=== PATIENT | male | born 1945 | race Caucasian/White ===

== ENCOUNTER → 2016-11-30 | Outpatient (CLI) | payer OTHER ==
[~2016-11-30] MED LIST: ASPEC325 PO; LISI5TAB3 PO; METO50TA16 PO
[2016-11-30 17:58] LABS: BLOOD UREA NITROGEN 17 mg/dl (7-18); BUN/CREATININE RATIO 22.3 (10-20); CALCIUM 8.9 mg/dl (8.5-10.1); CARBON DIOXIDE 30 mmol/L (21-32); CHLORIDE 102 mmol/L (98-107); CREATININE 0.78 mg/dl (0.60-1.40); GLUCOSE 82 mg/dl (70-99); POTASSIUM 3.8 mmol/L (3.5-5.1); SODIUM 140 mmol/L (136-145)
== END | disposition home or self-care (01) ==
LOC: C.LABPVFM 13:55
PROVIDERS: ATTEND Nurse Practitioner
DX: I10 Essential (primary) hypertension (principal)

== ENCOUNTER → 2017-06-08 | Outpatient (CLI) | payer OTHER ==
[2017-06-08 13:01] LABS: ESTIMATED AVERAGE GLUCOSE 120 mg/dl; HA1C FLAG Normal (Normal)
[2017-06-08 13:21] LABS: BLOOD UREA NITROGEN 16 mg/dl (7-18); BUN/CREATININE RATIO 18.9 (10-20); CALCIUM 9.2 mg/dl (8.5-10.1); CARBON DIOXIDE 32 mmol/L (21-32); CHLORIDE 104 mmol/L (98-107); CREATININE 0.85 mg/dl (0.60-1.40); GLUCOSE 113 mg/dl (70-99); POTASSIUM 4.2 mmol/L (3.5-5.1); SODIUM 140 mmol/L (136-145)
[2017-06-08 13:24] LABS: CHOLESTEROL 105 mg/dl (0-200); CHOLESTEROL/HDL RATIO 2.2; HDL CHOLESTEROL 48 mg/dl; LDL CHOLESTEROL CALCULATED 42 mg/dl; TRIGLYCERIDES 75 mg/dl (0-150); VERY LOW DENSITY LIPOPROT CALC 15 mg/dl
== END | disposition home or self-care (01) ==
LOC: C.LABPVFM 07:57
PROVIDERS: ATTEND Nurse Practitioner
DX: E78.5 Hyperlipidemia, unspecified (principal); I10 Essential (primary) hypertension; R73.01 Impaired fasting glucose

== ENCOUNTER → 2017-08-20 | Outpatient (CLI) | payer OTHER ==
[2017-08-20 13:11] LABS: BASO % 0.3 %; BASO ABS # 0.02 K/uL (0-0.2); COMPLETE YES; HEMATOCRIT 39.7 % (42-52); IG% 0.3 %; LYMPH ABS # 1.09 K/uL (1.2-3.4); MEAN CORPUSCULAR HEMOGLOBIN 34.9 pg (25-34); MEAN CORPUSCULAR HGB CONC 34.5 g/dl (32-36); MEAN PLATELET VOLUME 11.1 fL (7.4-10.4); MONO % 6.1 %; NEUT % 74.3 %; PLATELET COUNT 184 K/uL (130-400); RED BLOOD COUNT 3.93 M/uL (4.7-6.1); WHITE BLOOD COUNT 6.41 K/uL (4.8-10.8)
[2017-08-20 13:24] LABS: ALB/GLOB RATIO 1.1 (0.9-2); ALKALINE PHOSPHATASE 82 U/L (45-117); ALT/SGPT 31 U/L (12-78); AST/SGOT 13 U/L (15-37); BLOOD UREA NITROGEN 15 mg/dl (7-18); BUN/CREATININE RATIO 20.9 (10-20); CALCIUM 8.9 mg/dl (8.5-10.1); CARBON DIOXIDE 29 mmol/L (21-32); CHLORIDE 105 mmol/L (98-107); CREATININE 0.74 mg/dl (0.60-1.40); GLUCOSE 109 mg/dl (70-99); POTASSIUM 4.1 mmol/L (3.5-5.1); SODIUM 139 mmol/L (136-145)
[2017-08-20 13:34] LABS: ESTIMATED AVERAGE GLUCOSE 117 mg/dl; HA1C FLAG Normal (Normal)
[2017-08-20 13:38] LABS: LYME DISEASE AB IGG NEG (NEG); LYME DISEASE AB IGM NEG (NEG)
[2017-08-20 23:23] LABS: RAPID PLASMA REAGIN NONREACTIVE (NONREACT)
== END | disposition home or self-care (01) ==
LOC: C.LABPVFM 08:58
PROVIDERS: ATTEND Psychiatry & Neurology Neurology
DX: G20 Parkinson's disease (principal); R41.3 Other amnesia; G60.9 Hereditary and idiopathic neuropathy, unspecified

== ENCOUNTER → 2017-09-07 | Outpatient (CLI) | payer OTHER ==
[~2017-09-07] MED LIST changes: +GADAVIST IV PRN
--- NOTE | 2017-09-07 15:05 | DIAGNOSTIC IMAGING REPORT ---
ORBITS FOR MRI HISTORY: 72 years-old Male MRI SCREENING history of metal exposure. COMPARISON: None available TECHNIQUE: 3 radiographs of the orbits. FINDINGS: Ill-defined calcifications project over the mid calvarium which are nonspecific. No metallic foreign bodies. No fracture. IMPRESSION: No metallic foreign body. The above report was generated using voice recognition software. It may contain grammatical, syntax or spelling errors. Electronically signed by: Shaan Simon M.D. 09/07/2017 3:03 PM Dictated Date/Time: 09/07/2017 3:01 PM
--- NOTE | 2017-09-07 15:56 | DIAGNOSTIC IMAGING REPORT ---
Brain MRI WITH AND WITHOUT CONTRAST HISTORY: G20 Parkinson's [id number] Memory loss or impairment TECHNIQUE: Multiplanar multisequence MRI of the brain was performed both before and after the intravenous administration of contrast. COMPARISON STUDY: None. FINDINGS: There is no mass, hematoma, midline shift, or acute infarct. The paranasal sinuses are clear. The mastoid air cells are clear. The ventricles and sulci demonstrate mild age-related involutional changes. The major vascular flow voids at the skull base are well-maintained. No abnormal enhancement. IMPRESSION: Mild atrophy. No acute intracranial abnormality. Electronically signed by: Kleber Zepeda M.D. 09/07/2017 3:55 PM Dictated Date/Time: 09/07/2017 3:50 PM
== END | disposition home or self-care (01) ==
LOC: C.MRI 14:27
PROVIDERS: ATTEND Psychiatry & Neurology Neurology
DX: G20 Parkinson's disease (principal); R41.3 Other amnesia; G31.9 Degenerative disease of nervous system, unspecified

== ENCOUNTER → 2018-05-12 | Outpatient (CLI) | payer OTHER ==
[~2018-05-12] MED LIST changes: -GADAVIST IV PRN
[2018-05-12 12:39] LABS: BASO % 0.4 %; BASO ABS # 0.03 K/uL (0-0.2); EOS % 1.3 %; EOS ABS # 0.09 K/uL (0-0.5); HEMATOCRIT 41.8 % (42-52); HEMOGLOBIN 14.1 g/dL (14.0-18.0); IG# 0.02 K/uL (0.00-0.02); LYMPH % 16.7 %; LYMPH ABS # 1.12 K/uL (1.2-3.4); MEAN CELL VOLUME 99.8 fL (80-100); MEAN CORPUSCULAR HEMOGLOBIN 33.7 pg (25-34); MEAN CORPUSCULAR HGB CONC 33.7 g/dl (32-36); MEAN PLATELET VOLUME 10.8 fL (7.4-10.4); MONO % 8.1 %; MONO ABS # 0.54 K/uL (0.11-0.59); NEUT % 73.2 %; PLATELET COUNT 184 K/uL (130-400); RED CELL DISTRIBUTION WIDTH CV 12.4 % (11.5-14.5); RED CELL DISTRIBUTION WIDTH SD 45.2 fL (36.4-46.3)
[2018-05-12 12:56] LABS: BLOOD UREA NITROGEN 22 mg/dl (7-18); CALCIUM 8.7 mg/dl (8.5-10.1); CARBON DIOXIDE 30 mmol/L (21-32); CHOLESTEROL 106 mg/dl (0-200); CREATININE 0.99 mg/dl (0.60-1.40); GLUCOSE 80 mg/dl (70-99); HEMOGLOBIN A1C 5.7 % (4.5-5.6); LDL CHOLESTEROL CALCULATED 29 mg/dl; POTASSIUM 4.3 mmol/L (3.5-5.1); SODIUM 139 mmol/L (136-145)
== END | disposition home or self-care (01) ==
LOC: C.LABPVFM 11:20
PROVIDERS: ATTEND Nurse Practitioner
DX: E78.5 Hyperlipidemia, unspecified (principal); R73.01 Impaired fasting glucose; I10 Essential (primary) hypertension; R41.3 Other amnesia; G20 Parkinson's disease; H53.2 Diplopia

== ENCOUNTER → 2018-05-30 | Outpatient (CLI) | payer OTHER ==
--- NOTE | 2018-05-30 11:46 | DIAGNOSTIC IMAGING REPORT ---
L-SPINE MIN 4 VIEWS ROUTINE CLINICAL HISTORY: Low back pain COMPARISON STUDY: No previous studies for comparison. FINDINGS: There are multilevel degenerative changes. There is bridging calcification of the anterior longitudinal ligament. There are no acute fractures. There is a grade 1 spondylolisthesis of L4 on L5. There is facet joint arthropathy most pronounced the L4-5 and L5-S1 levels. IMPRESSION: 1. Multilevel degenerative change 2. No acute fractures identified Electronically signed by: Constantin Chambers M.D. 05/30/2018 11:45 AM Dictated Date/Time: 05/30/2018 11:43 AM
== END | disposition home or self-care (01) ==
LOC: C.RADPV 11:02
PROVIDERS: ATTEND Physician Assistant
DX: M54.5 Low back pain (principal)

== ENCOUNTER 2021-03-15 14:43 | Inpatient (IN) ==
[2021-03-15 15:22] LABS: iSTAT Hemoglobin 10.9 g/dl (14.0-18.0); iSTAT Ionized Calcium 1.05 mmol/l (1.12-1.32); iSTAT Potassium 5.2 mmol/L (3.3-5.0)
[2021-03-15 15:35] LABS: Basophils # (auto) 0.02 K/uL (0-0.2); Basophils % (auto) 0.3 %; Eosinophils # (auto) 0.06 K/uL (0-0.5); Hematocrit (blood only) 31.7 % (42-52); Hemoglobin 10.5 g/dL (14.0-18.0); Immature Granulocytes # (auto) 0.02 K/uL (0.00-0.02); Immature Granulocytes % (auto) 0.3 %; Lymphocytes % (auto) 13.2 %; Mean Corpuscular Hemoglobin 34.3 pg (25-34); Mean Corpuscular Hgb Conc 33.1 g/dL (32-36); Mean Corpuscular Volume 103.6 fL (80-100); Mean Platelet Volume 9.9 fL (7.4-10.4); Monocytes # (auto) 0.49 K/uL (0.11-0.59); Monocytes % (auto) 8.1 %; Neutrophils # (auto) 4.69 K/uL (1.4-6.5); Neutrophils % (auto) 77.1 %; Platelet Count 193 K/uL (130-400); RDW Coefficient of Variation 13.2 % (11.5-14.5); RDW Standard Deviation 49.7 fL (36.4-46.3); Red Blood Count 3.06 M/uL (4.7-6.1); White Blood Count 6.08 K/uL (4.8-10.8)
[2021-03-15 15:49] LABS: Appearance Urine Clear (Clear); Bilirubin Urine Negative (Negative); Blood Urine Negative (Negative); Color Urine Dark Yellow; Glucose Urine UA Negative (Negative); Ketones Urine Negative (Negative); Leukocyte Esterase Urine Negative (Negative); Nitrite Urine Negative (Negative); Protein Urine Negative (Negative); Specific Gravity Urine 1.013 (1.000-1.030); Urobilinogen Urine Negative (Negative); pH Urine 7.5 (4.5-7.5)
[2021-03-15 15:54] LABS: Alanine Aminotransferase 14 U/L (12-78); Albumin Level 2.5 gm/dl (3.4-5.0); BUN Creatinine Ratio 19.1 (10-20); Blood Urea Nitrogen 13 mg/dl (7-18); Calcium 6.4 mg/dl (8.5-10.1); Carbon Dioxide 25 mmol/L (21-32); Chloride 119 mmol/L (98-107); Creatinine Clr Calc Pharmacy 112.5 ml/min; Est GFR (African American) 108.2 ml/min; Est GFR (Non-African American) 93.3 ml/min; Glucose 81 mg/dl (70-99); Sodium 147 mmol/L (136-145)
[2021-03-15 16:04] LABS: Alkaline Phosphatase 62 U/L (45-117); Bilirubin,Total 0.4 mg/dl (0.2-1); Globulin 2.6 gm/dl (2.5-4.0); Total Protein 5.1 gm/dl (6.4-8.2); Troponin I < 0.015 ng/ml (0-0.045)
--- NOTE | 2021-03-15 16:04 | XRay Report ---
XR chest 1V portable HISTORY: weakness COMPARISON: Chest 05/15/2008. FINDINGS: No pneumothorax. No pleural effusions. Mild diffuse interstitial thickening which is likely chronic. The heart is normal in size. There is a hazy left basilar density. No evidence for pulmonar y edema. IMPRESSION: Hazy small left basilar density. This may represent a developing viral pneumonia. ACT 112: Negative or not required by law. Electronically signed by: Kleber Zepeda M.D. 03/15/2021 4:03 PM
--- NOTE | 2021-03-15 16:30 | Emergency Department Note ---
History of Present Illness General Chief complaint: Lethargic Stated complaint: hypotension Time Seen by Provider: 03/15/21 14:49 Source: patient and family History of Present Illness Provider complaint: Lightheadedness Onset (ago): week(s) Location: head Pain Consistency: + intermittent Maximum Pain Intensity: 4 Quality: + other (Dizzy and lightheaded) Exacerbated By: + other (Standing up) Associated symptoms: + weakness; no chest pain, no cough, no fever/chills, no headaches, no nausea/vomiting and no shortness of breath This is a 75-year-old male who presents with dizziness. He states he has been dizzy for a long time. He describes his dizziness as a lightheadedness. He states that it is worse when he stands up. His states that he is on a medication for his blood pressure but today his blood pressure was in the 60s systolic. His states that he took his medication for his blood pressure. His med list states that he is on Florinef for orthostatic hypotension. His blood pressure did improve spontaneously and he was given about 1/2 L of normal saline by the ambulance and is now currently normal. He has no other complaints today. His states that he has been somewhat lethargic. He denies any headache, fever, cough or cold symptoms, chest discomfort or pain, shortness of breath, abdominal pain, vomiting, diarrhea, urinary symptoms or black or bloody stools. He does state that his stools have been dark but mostly brown. He denies using any blood thinners. Home Medications Medication Instructions Recorded Confirmed Type docusate sodium 100 mg capsule 200 mg PO HS cap 03/13/19 03/15/21 History ibuprofen 200 mg-diphenhydramine 1 cap PO HS cap 06/28/19 03/15/21 History HCl 25 mg capsule famotidine 20 mg tablet 20 mg PO DAILY 06/11/20 03/15/21 History aspirin 81 mg tablet,delayed 81 mg PO DAILY tab 02/17/21 02/17/21 History release carbidopa 37.5 mg-levodopa 150 1 tab PO QID #120 tab 02/17/21 03/15/21 Rx mg-entacapone 200 mg tablet citalopram 20 mg tablet 20 mg PO DAILY #60 tab 02/17/21 03/15/21 History fludrocortisone 0.1 mg tablet 0.1 mg PO DAILY tab 02/17/21 03/15/21 History melatonin 3 mg tablet 9 mg PO Q2D tab 02/17/21 03/15/21 History memantine 10 mg tablet 10 mg PO BID tab 02/17/21 03/15/21 History dutasteride 0.5 mg PO QDL 03/15/21 03/15/21 History Allergies Allergy/AdvReac Type Severity Reaction Status Date / Time oxycodone [From OxyContin] AdvReac Unknown Verified 03/15/21 16:35 Past Med/Surg History Medical History Aphonia Auditory hallucination Central retinal vein occlusion Cervical spondylosis Common iliac aneurysm Confusion Constipation Depression with anxiety Diverticulosis of colon Double vision with both eyes open Esophageal reflux Fatigue Gastrointestinal dysmotility Hoarseness Hyperlipidemia Impaired fasting glucose Low back pain Low systolic blood pressure Need for pneumococcal vaccination Osteoarthrosis of knee Parkinsons disease Screening for AAA (abdominal aortic aneurysm) Sleep apnea Surgical History History of hernia repair History of knee replacement Family History Other Family history unremarkable Denies family history of Ovarian cancer Prostate cancer Myocardial infarction Breast cancer Colorectal cancer Social History Smoking Status: Never smoker Hx Alcohol Use: No Hx Substance Use: No marital status: Current Living Situation: Spouse current occupational status: retired Feels Safe at Home: Yes caffeine: No Dental Care, Regularly: Yes Physical Activity Frequency: 5-6 Times per Week Seatbelt Use: always Sunscreen Use: No Review of Systems See HPI for pertinent positives & negatives. and A total of 10 systems reviewed and were otherwise negative Physical Exam Vital Signs Vital Signs - 24 hr 03/15/21 14:48 03/15/21 15:37 03/15/21 15:41 Temperature 36.7 C Temperature Source Oral Pulse Rate 77 76 Pulse Rate from SpO2 Sensor 76 Pulse Rhythm Regular Pulse Strength Normal Respiratory Rate 20 22 Respiratory Effort / Characteristics Non-Labored Spontaneous Respiratory Depth Normal Respiratory Pattern Regular Blood Pressure 141/83 H 178/99 H Blood Pressure Mean 102 125 Blood Pressure Position Lying Pulse Oximetry 98 97 Oxygen Delivery Method Room Air Room Air Sepsis Recent Fever Within 48 Hours No Sepsis New/Unexplained Change in Mental Status No Sepsis Action Taken by Nursing No Action Required 03/15/21 15:43 03/15/21 16:00 03/15/21 16:30 Temperature Temperature Source Pulse Rate 80 79 Pulse Rate from SpO2 Sensor 80 80 Pulse Rhythm Pulse Strength Respiratory Rate 18 20 Respiratory Effort / Characteristics Respiratory Depth Respiratory Pattern Blood Pressure 186/105 H 186/105 H Blood Pressure Mean 132 132 Blood Pressure Position Pulse Oximetry 97 98 Oxygen Delivery Method Room Air Sepsis Recent Fever Within 48 Hours Sepsis New/Unexplained Change in Mental Status Sepsis Action Taken by Nursing 03/15/21 17:04 03/15/21 17:31 03/15/21 18:00 Temperature Temperature Source Pulse Rate 85 86 85 Pulse Rate from SpO2 Sensor 87 85 Pulse Rhythm Pulse Strength Respiratory Rate 13 18 18 Respiratory Effort / Characteristics Respiratory Depth Respiratory Pattern Blood Pressure 172/107 H 159/87 H 174/101 H Blood Pressure Mean 128 111 125 Blood Pressure Position Pulse Oximetry 90 96 98 Oxygen Delivery Method Sepsis Recent Fever Within 48 Hours Sepsis New/Unexplained Change in Mental Status Sepsis Action Taken by Nursing 03/15/21 18:30 Temperature Temperature Source Pulse Rate 84 Pulse Rate from SpO2 Sensor 84 Pulse Rhythm Pulse Strength Respiratory Rate 21 Respiratory Effort / Characteristics Respiratory Depth Respiratory Pattern Blood Pressure 168/91 H Blood Pressure Mean 116 Blood Pressure Position Pulse Oximetry 97 Oxygen Delivery Method Sepsis Recent Fever Within 48 Hours Sepsis New/Unexplained Change in Mental Status Sepsis Action Taken by Nursing Constitutional: Vital signs reviewed. Eyes: Pupils are equal round reactive to light. Conjunctiva are noninjected. ENT: Pharynx is clear without erythema or exudate. Mucous membranes are moist. Neck supple without meningeal signs. Respiratory: Clear to auscultation bilaterally. Breath sounds are equal bilaterally. Cardiovascular: Regular rate and rhythm. No rubs or gallops. GI: Soft, nondistended and nontender. Bowel sounds are present. Rectal: Guaiac negative brown stool. Musculoskeletal: No peripheral edema. No lower extremity tenderness. Integumentary: No cyanosis. or jaundice. Neurological: The patient is awake and alert. No focal deficits. Psychiatric: Normal affect. Not anxious appearing. Course Administered Medications Discontinued Medications Calcium Gluconate () 1,000 mg in 60 mls @ 240 mls/hr IV NOW STA Stop: 03/15/21 16:53 Last Admin: 03/15/21 17:39 Dose: 240 mls/hr Documented by: [id number] Piperacillin Sod/Tazobactam Sod (Zosyn) 4.5 gm in 120 mls @ 240 mls/hr IV NOW ONE Stop: 03/15/21 17:10 Last Infusion: 03/15/21 17:39 Dose: 0 mls/hr Documented by: [id number] Admin: 03/15/21 17:00 Dose: 240 mls/hr Documented by: [id number] Medical Decision Making Differential Diagnosis Orthostatic hypotension, dehydration, cardiac, UTI, pneumonia, anemia, GI bleed Medical Records Attestation: I reviewed the patient's medical records. I did perform a limited focused review of portions of the patient's old chart on the electronic medical record. The patient was seen January 20 by his primary care physician and noted to have a history of hypertension. He had been seen previously by neurology and placed on Florinef for his hypotension. Home Medications Current Medication List: was personally reviewed by me Laboratory Data Attestation: I reviewed the patient's lab results. Result diagrams: 03/15/21 15:00 03/15/21 17:03 Lab Results 03/15/21 03/15/21 03/15/21 Range/Units 15:00 15:00 15:10 WBC 6.08 (4.8-10.8) K/uL RBC 3.06 L (4.7-6.1) M/uL Hgb 10.5 L (14.0-18.0) g/dL POC Hgb 10.9 L (14.0-18.0) g/dl Hct 31.7 L (42-52) % POC Hct 32 L (42-52) % MCV 103.6 H (80-100) fL MCH 34.3 H (25-34) pg MCHC 33.1 (32-36) g/dL RDW Std Deviation 49.7 H (36.4-46.3) fL RDW Coeff of Abi 13.2 (11.5-14.5) % Plt Count 193 (130-400) K/uL MPV 9.9 (7.4-10.4) fL Immature Gran % (Auto) 0.3 % Neut % (Auto) 77.1 % Lymph % (Auto) 13.2 % [place] % (Auto) 8.1 % Eos % (Auto) 1.0 % Baso % (Auto) 0.3 % Neut # (Auto) 4.69 (1.4-6.5) K/uL Lymph # (Auto) 0.80 L (1.2-3.4) K/uL [place] # (Auto) 0.49 (0.11-0.59) K/uL Eos # (Auto) 0.06 (0-0.5) K/uL Baso # (Auto) 0.02 (0-0.2) K/uL Immature Gran # (Auto) 0.02 (0.00-0.02) K/uL POC Sodium 142 (135-144) mmol/L Sodium 147 H (136-145) mmol/L POC Potassium 5.2 H (3.3-5.0) mmol/L Potassium (3.5-5.1) mmol/L POC Chloride 104 (101-112) mmol/L Chloride 119 H (98-107) mmol/L Carbon Dioxide 25 (21-32) mmol/L POC Total CO2 27 (24-31) mmol/L Anion Gap 3.0 (3-11) POC Anion Gap 18.0 (16-25) mmol/L POC BUN 20 H (7-18) mg/dl BUN 13 (7-18) mg/dl Creatinine 0.67 (0.6-1.4) mg/dl POC Creatinine 1.0 (0.6-1.3) mg/dl Est Cr Clr Drug Dosing 112.5 ml/min Est GFR ( Amer) 108.2 ml/min Est GFR (Non-Af Amer) 93.3 ml/min BUN/Creatinine Ratio 19.1 (10-20) Glucose 81 (70-99) mg/dl POC Glucose (other) 97 (70-99) mg/dl Lactate (0.4-2.0) mmol/L Calcium 6.4 L (8.5-10.1) mg/dl POC Ioniz Calcium Brendon 1.05 L (1.12-1.32) mmol/l Magnesium (1.8-2.4) mg/dl Total Bilirubin 0.4 (0.2-1) mg/dl AST (15-37) U/L ALT 14 (12-78) U/L Alkaline Phosphatase 62 (45-117) U/L Troponin I < 0.015 (0-0.045) ng/ml Total Protein 5.1 L (6.4-8.2) gm/dl Albumin 2.5 L (3.4-5.0) gm/dl Globulin 2.6 (2.5-4.0) gm/dl Albumin/Globulin Ratio 1.0 (0.9-2) TSH 1.130 (0.300-4.500) uIu/ml Urine Color Urine Appearance (Clear) Urine pH (4.5-7.5) Ur Specific [place] (1.000-1.030) Urine Protein (Negative) Urine Glucose (UA) (Negative) Urine Ketones (Negative) Urine Blood (Negative) Urine Nitrite (Negative) Urine Bilirubin (Negative) Urine Urobilinogen (Negative) Ur Leukocyte Esterase (Negative) COVID-19 Eval Order SARS-CoV-2 (PCR) (Negative) 03/15/21 03/15/21 03/15/21 Range/Units 15:40 15:41 15:41 WBC (4.8-10.8) K/uL RBC (4.7-6.1) M/uL Hgb (14.0-18.0) g/dL POC Hgb (14.0-18.0) g/dl Hct (42-52) % POC Hct (42-52) % MCV (80-100) fL MCH (25-34) pg MCHC (32-36) g/dL RDW Std Deviation (36.4-46.3) fL RDW Coeff of Abi (11.5-14.5) % Plt Count (130-400) K/uL MPV (7.4-10.4) fL Immature Gran % (Auto) % Neut % (Auto) % Lymph % (Auto) % [place] % (Auto) % Eos % (Auto) % Baso % (Auto) % Neut # (Auto) (1.4-6.5) K/uL Lymph # (Auto) (1.2-3.4) K/uL [place] # (Auto) (0.11-0.59) K/uL Eos # (Auto) (0-0.5) K/uL Baso # (Auto) (0-0.2) K/uL Immature Gran # (Auto) (0.00-0.02) K/uL POC Sodium (135-144) mmol/L Sodium (136-145) mmol/L POC Potassium (3.3-5.0) mmol/L Potassium (3.5-5.1) mmol/L POC Chloride (101-112) mmol/L Chloride (98-107) mmol/L Carbon Dioxide (21-32) mmol/L POC Total CO2 (24-31) mmol/L Anion Gap (3-11) POC Anion Gap (16-25) mmol/L POC BUN (7-18) mg/dl BUN (7-18) mg/dl Creatinine (0.6-1.4) mg/dl POC Creatinine (0.6-1.3) mg/dl Est Cr Clr Drug Dosing ml/min Est GFR ( Amer) ml/min Est GFR (Non-Af Amer) ml/min BUN/Creatinine Ratio (10-20) Glucose (70-99) mg/dl POC Glucose (other) (70-99) mg/dl Lactate (0.4-2.0) mmol/L Calcium (8.5-10.1) mg/dl POC Ioniz Calcium Brendon (1.12-1.32) mmol/l Magnesium (1.8-2.4) mg/dl Total Bilirubin (0.2-1) mg/dl AST (15-37) U/L ALT (12-78) U/L Alkaline Phosphatase (45-117) U/L Troponin I (0-0.045) ng/ml Total Protein (6.4-8.2) gm/dl Albumin (3.4-5.0) gm/dl Globulin (2.5-4.0) gm/dl Albumin/Globulin Ratio (0.9-2) TSH (0.300-4.500) uIu/ml Urine Color Dark Yellow Urine Appearance Clear (Clear) Urine pH 7.5 (4.5-7.5) Ur Specific [place] 1.013 (1.000-1.030) Urine Protein Negative (Negative) Urine Glucose (UA) Negative (Negative) Urine Ketones Negative (Negative) Urine Blood Negative (Negative) Urine Nitrite Negative (Negative) Urine Bilirubin Negative (Negative) Urine Urobilinogen Negative (Negative) Ur Leukocyte Esterase Negative (Negative) COVID-19 Eval Order Covid19 at [facility] SARS-CoV-2 (PCR) NEGATIVE (Negative) 03/15/21 03/15/21 03/15/21 Range/Units 16:31 17:03 17:03 WBC (4.8-10.8) K/uL RBC (4.7-6.1) M/uL Hgb (14.0-18.0) g/dL POC Hgb (14.0-18.0) g/dl Hct (42-52) % POC Hct (42-52) % MCV (80-100) fL MCH (25-34) pg MCHC (32-36) g/dL RDW Std Deviation (36.4-46.3) fL RDW Coeff of Abi (11.5-14.5) % Plt Count (130-400) K/uL MPV (7.4-10.4) fL Immature Gran % (Auto) % Neut % (Auto) % Lymph % (Auto) % [place] % (Auto) % Eos % (Auto) % Baso % (Auto) % Neut # (Auto) (1.4-6.5) K/uL Lymph # (Auto) (1.2-3.4) K/uL [place] # (Auto) (0.11-0.59) K/uL Eos # (Auto) (0-0.5) K/uL Baso # (Auto) (0-0.2) K/uL Immature Gran # (Auto) (0.00-0.02) K/uL POC Sodium (135-144) mmol/L Sodium (136-145) mmol/L POC Potassium (3.3-5.0) mmol/L Potassium 4.0 4.1 (3.5-5.1) mmol/L POC Chloride (101-112) mmol/L Chloride (98-107) mmol/L Carbon Dioxide (21-32) mmol/L POC Total CO2 (24-31) mmol/L Anion Gap (3-11) POC Anion Gap (16-25) mmol/L POC BUN (7-18) mg/dl BUN (7-18) mg/dl Creatinine (0.6-1.4) mg/dl POC Creatinine (0.6-1.3) mg/dl Est Cr Clr Drug Dosing ml/min Est GFR ( Amer) ml/min Est GFR (Non-Af Amer) ml/min BUN/Creatinine Ratio (10-20) Glucose (70-99) mg/dl POC Glucose (other) (70-99) mg/dl Lactate 1.3 (0.4-2.0) mmol/L Calcium (8.5-10.1) mg/dl POC Ioniz Calcium Brendon (1.12-1.32) mmol/l Magnesium 2.3 2.5 H (1.8-2.4) mg/dl Total Bilirubin (0.2-1) mg/dl AST 10 L (15-37) U/L ALT (12-78) U/L Alkaline Phosphatase (45-117) U/L Troponin I (0-0.045) ng/ml Total Protein (6.4-8.2) gm/dl Albumin (3.4-5.0) gm/dl Globulin (2.5-4.0) gm/dl Albumin/Globulin Ratio (0.9-2) TSH (0.300-4.500) uIu/ml Urine Color Urine Appearance (Clear) Urine pH (4.5-7.5) Ur Specific [place] (1.000-1.030) Urine Protein (Negative) Urine Glucose (UA) (Negative) Urine Ketones (Negative) Urine Blood (Negative) Urine Nitrite (Negative) Urine Bilirubin (Negative) Urine Urobilinogen (Negative) Ur Leukocyte Esterase (Negative) COVID-19 Eval Order SARS-CoV-2 (PCR) (Negative) Imaging Data Radiologist's Impression: Chest X-Ray 03/15/21 15:04 XR chest 1V portable HISTORY: weakness COMPARISON: Chest 05/15/2008. FINDINGS: No pneumothorax. No pleural effusions. Mild diffuse interstitial thickening which is likely chronic. The heart is normal in size. There is a hazy left basilar density. No evidence for pulmonary edema. IMPRESSION: Hazy small left basilar density. This may represent a developing viral pneumonia. ACT 112: Negative or not required by law. Electronically signed by: Kleber Zepeda M.D. 03/15/2021 4:03 PM ECG Data Attestation: I personally reviewed and interpreted this ECG as follows: Indication: + weakness Rate (beats per minute): 77 Rhythm: + normal sinus ECG ST segments: no ST elevation ECG Findings: no Q waves and no PVCs MDM Narrative I did evaluate the patient as noted above. The patient is presenting with hypotension and lightheadedness. His states that his pressure was in the 60s systolic today which is abnormal for him. He normally has issues with hypotension and takes Florinef for this but it has never been this low. He did not pass out. He states that his only symptoms are feeling a bit lightheaded. He states this is not new for him and he often feels lightheaded. He did state that he noticed his stool was dark and so I did perform a rectal examination which was guaiac negative. There was no melena noted. Patient received about 400 cc of normal saline prior to arrival. He is hypertensive on arrival. I did place an order for continuous cardiac monitoring. The monitor showed normal sinus rhythm at a rate of 77 bpm. I did order and personally review the patient's 12-lead EKG as described above. He has no evidence of acute ischemia. I did order and personally reviewed the images of the patient's chest x-ray as described above. There appears to be a left lower lobe infiltrate. He denies having any sort of cough or shortness of breath. He did receive his 2 Covid vaccinations. I did order blood cultures. I did treat him with Zosyn IV. I d id order a urine analysis. There is no evidence of UTI. I did order and review the patient's blood work as noted in the electronic medical record. His white count is not elevated. Hemoglobin is 10.5 which is down from 13.1 in September of last year. I did do a rectal examination which showed guaiac negative brown stool. Platelet count is within normal limits. Electrolytes demonstrate a sodium of 147. Potassium is 5.2. Creatinine is 0.67. Calcium is 6.4 with an albumin of 2.5. I did treat the patient with IV calcium. Magnesium was hemolyzed and so was repeated. This was 2.3. Potassium was repeated and was 4.0. Lactate was not elevated. I did reassess the patient. He is now hyper tensive. I did discuss the test results with him and his . I did recommend hospitalization for further care and evaluation. His Covid test came back negative. I did discuss the case with the outsole caser and hospitalist service. Impression & Plan Acute hypotension, Left lower lobe pneumonia, Hypocalcemia, Anemia Discharge Plan Visit Data Chief Complaint: Lethargic Stated Complaint: hypotension ED Provider: Martin Jin Discharge Problem: Acute hypotension, Left lower lobe pneumonia, Hypocalcemia, Anemia Forms Stand Alone Forms: [facility] Prescriptions Prescriptions: No Action famotidine 20 mg tablet 20 mg PO DAILY RF: 0 [id number] [Stalevo 150] 37.5-150-200 mg tablet 1 tab PO QID Qty: 120 RF: 5 memantine 10 mg tablet 10 mg PO BID RF: 0 fludrocortisone 0.1 mg tablet 0.1 mg PO DAILY RF: 0 citalopram 20 mg tablet 20 mg PO DAILY Qty: 60 RF: 0 aspirin 81 mg tablet,delayed release (DR/EC) 81 mg PO DAILY RF: 0 melatonin 3 mg tablet 9 mg PO Q2D RF: 0 docusate sodium 100 mg capsule 200 mg PO HS RF: 0 Ibuprofen PM 200-25 mg capsule 1 cap PO HS RF: 0 dutasteride 0.5 mg capsule 0.5 mg PO QDL RF: 0 Referrals Referrals: Sue Hopkins CRNP [Primary Care Provider] - Discharge Problem: Left lower lobe pneumonia Qualifiers: Pneumonia type: due to unspecified organism Qualified Code(s): J18.9 - Pneumonia, unspecified organism Anemia Qualifiers: Anemia type: unspecified type Qualified Code(s): D64.9 - Anemia, unspecified
[2021-03-15] MEDS ORDERED: CALCIUM GLUCONATE 1,000 MG/60 ML BAG IV STA (16:39)
[2021-03-15] MEDS ORDERED: PIPERACILL/TAZOBAC CONSULT ACTIVE PRN ×2 (16:41→19:12)
[2021-03-15] MEDS ORDERED: PIPERACILLIN/TAZOBACTAM 4.5 GM/120 ML BAG IV ONE (16:41)
[2021-03-15 16:59] LABS: Magnesium 2.3 mg/dl (1.8-2.4)
[2021-03-15 17:27] LABS: Potassium 4.1 mmol/L (3.5-5.1)
[2021-03-15 17:29] LABS: Magnesium 2.5 mg/dl (1.8-2.4)
--- NOTE | 2021-03-15 17:57 | History & Physical Report ---
Date of Service March 15, 2021 Assessment & Plan (1) Left lower lobe pneumonia: 75yo C male with history of PD presenting from home with episode of hypotension, illness. Found to have possible left basilar density on CXR. Patient is afebrile, HD stable, no respiratory distress. No leukocytosis. Pulmonary exam is unremarkable. Patient does have aspiration risk and follows with Speech/Swallow - ?aspiration pneumonitis. -Admit to medical with telemetry -Aspiration precautions -Will initiate Zosyn for now -Tylenol PRN pain or fever Present on Admission?: Yes (2) Acute hypotension: Patient with episode of hypotension prior to arrival. BP of 88 initially in ER, has been hypertensive since. ?autonomic instability secondary to PD. Patient appears euvolemic, does not appear septic. He has been taking his Florinef as prescribed and has not missed any doses. -Continue Florinef -Continue to monitor BP Present on Admission?: Yes (3) Parkinsons disease: Patient with PD, has had some functional decline lately. He lives with his who is able to assist him with ADLs - however, has difficulty with lifting and assisting with ambulation. -Continue Carbidopa/Levodopa at home dosage -Continue Memantine for dementia -PT/OT evaluation - ?need for home services -Fall precautions -Aspiration precautions -Orientation/delirium prevention strategies Present on Admission?: Yes (4) Hypocalcemia: Hypocalcemic - ICal=1.05 in ER. He was administered 1gm of Calcium gluconate. states that they do not eat much dairy at home due to GI side effects. -Repeat ICal in AM Present on Admission?: Yes (5) Anemia: H/H = 10.5/31.7, decreased from prior. Patient guaic negative per ER exam. Macrocytic with OAJ=537.6 -Check B12 and Folate with AM labs -Repeat CBC in AM Present on Admission?: Yes (6) Anxiety and depression: Chronic -Continue Citalopram 20mg daily F/E/N - Heplock. Monitor Ca, electrolytes otherwise WNL, Heart healthy diet as tolerated - easy to chew with aspiration precautions. Medications in applesauce, Colace qHS Ppx - Lovenox for DVT ppx Code - Full per discussion with patient and at bedside Dispo - Admit to medical with telemetry History of Present Illness Chief Complaint: hypotension Primary Care Provider: RIAZ Mayorga Jose Manuel Jackson is a 75yo male with history of Parkinsons disease presenting from home with hypotension. Patient was in his wheelchair this afternoon around 14:00 and was unable to get up. His called a friend who sometimes assists them and he was unable to get the patient up either. His blood pressure was checked and found to be extremely low at 60. states that he was incoherent and confused for a brief time this AM. EMS was called - patient administered IVF en route. BP improved with minimal fluids - presently hypertensive. states that patient has had poor appetite and decreased oral intake as well as constipation. No additional complaints - specifically no fever, chills, sweats, nausea, vomiting, diarrhea. Patient lives with his . He uses a walker at baseline and they just obtained a wheelchair for additional ambulatory assistance. Patient requires some assistance with dressing on occasion. He follows with Speech Therapy for aspiration concerns. He takes his medications typically in applesauce and eats a soft diet. states that she typically does not like to leave him alone for more than 30 minutes. He fell 3 weeks ago. They currently have no health aides or home nursing but is interested in obtaining some in-home assistance. ER Course: Calcium gluconate, Zosyn Allergies Allergy/AdvReac Type Severity Reaction Status Date / Time oxycodone [From OxyContin] AdvReac Unknown Verified 03/15/21 16:35 Home Medications Medication Instructions Recorded Confirmed Type docusate sodium 100 mg capsule 200 mg PO HS cap 03/13/19 03/15/21 History ibuprofen 200 mg-diphenhydramine 1 cap PO HS cap 06/28/19 03/15/21 History HCl 25 mg capsule famotidine 20 mg tablet 20 mg PO DAILY 06/11/20 03/15/21 History aspirin 81 mg tablet,delayed 81 mg PO DAILY tab 02/17/21 02/17/21 History release carbidopa 37.5 mg-levodopa 150 1 tab PO QID #120 tab 02/17/21 03/15/21 Rx mg-entacapone 200 mg tablet citalopram 20 mg tablet 20 mg PO DAILY #60 tab 02/17/21 03/15/21 History fludrocortisone 0.1 mg tablet 0.1 mg PO DAILY tab 02/17/21 03/15/21 History melatonin 3 mg tablet 9 mg PO Q2D tab 02/17/21 03/15/21 History memantine 10 mg tablet 10 mg PO BID tab 02/17/21 03/15/21 History dutasteride 0.5 mg PO QDL 03/15/21 03/15/21 History Past Med/Surg History Medical History Aphonia Auditory hallucination Central retinal vein occlusion Cervical spondylosis Common iliac aneurysm Confusion Constipation Depression with anxiety Diverticulosis of colon Double vision with both eyes open Esophageal reflux Fatigue Gastrointestinal dysmotility Hoarseness Hyperlipidemia Impaired fasting glucose Low back pain Low systolic blood pressure Need for pneumococcal vaccination Osteoarthrosis of knee Parkinsons disease Screening for AAA (abdominal aortic aneurysm) Sleep apnea Surgical History History of hernia repair History of knee replacement Family History Other Family history unremarkable Denies family history of Ovarian cancer Prostate cancer Myocardial infarction Breast cancer Colorectal cancer Social History Smoking Status: Never smoker Hx Alcohol Use: No Hx Substance Use: No Preferred Language: German Communication Ability: Effective Sole Buffer Required: No Beliefs That Will Affect Care: None marital status: Current Living Situation: Spouse current occupational status: retired Other Information That Helps Us Care for You: No Feels Safe at Home: Yes Safety Concerns: Feels Safe At This Time caffeine: No Dental Care, Regularly: Yes Physical Activity Frequency: 5-6 Times per Week Seatbelt Use: always Sunscreen Use: No Assistive Devices: Cane and Walker Review of Systems Review of Systems: All systems reviewed & are unremarkable except as noted in HPI & below Physical Exam Physical Exam: General: patient resting comfortably, NAD, non-toxic in appearance, AA&O x 4, hard of hearing Skin: warm, dry, intact, no rashes or lesions HEENT: NC/AT, PERRL, EOMI, anicteric sclera, conjunctiva without injection, external ear normal to inspection and nontender, nares patent, moist mucus membranes, dentition intact, no oropharyngeal lesions, neck supple, trachea midline, no LAD, no thyromegaly, no JVD Heart: +S1/S2, regular, no m/r/g Lungs: equal air entry bilaterally, no rales/rhonchi/wheezes Abd: +BS, soft, NT/ND, no masses/organomegaly/ascites Ext: warm, 2+ pulses in UE/LE bilaterally, no clubbing/cyanosis or edema Neuro: nonfocal, patient AA&O x 4, speech intact, no facial droop, moving all extremities on command with equal strength 5/5, +resting tremor, some cogwheel rigidity noted in wrists Results & Data Results & Data ([facility]) Vital Signs (Past 12 Hours) Vital Signs Temp Pulse Resp BP Pulse Ox 03/15/21 16:30 79 20 186/105 H 98 03/15/21 16:00 80 18 186/105 H 97 03/15/21 15:37 76 22 178/99 H 97 03/15/21 14:48 36.7 C 77 20 141/83 H 98 Laboratory Results Laboratory Results WBC 6.08 K/uL (4.8-10.8) 03/15/21 15:00 RBC 3.06 M/uL (4.7-6.1) L 03/15/21 15:00 Hgb 10.5 g/dL (14.0-18.0) L 03/15/21 15:00 POC Hgb 10.9 g/dl (14.0-18.0) L 03/15/21 15:10 Hct 31.7 % (42-52) L 03/15/21 15:00 POC Hct 32 % (42-52) L 03/15/21 15:10 MCV 103.6 fL (80-100) H 03/15/21 15:00 MCH 34.3 pg (25-34) H 03/15/21 15:00 MCHC 33.1 g/dL (32-36) 03/15/21 15:00 RDW Std Deviation 49.7 fL (36.4-46.3) H 03/15/21 15:00 RDW Coeff of Abi 13.2 % (11.5-14.5) 03/15/21 15:00 Plt Count 193 K/uL (130-400) 03/15/21 15:00 MPV 9.9 fL (7.4-10.4) 03/15/21 15:00 Immature Gran % (Auto) 0.3 % 03/15/21 15:00 Neut % (Auto) 77.1 % 03/15/21 15:00 Lymph % (Auto) 13.2 % 03/15/21 15:00 [place] % (Auto) 8.1 % 03/15/21 15:00 Eos % (Auto) 1.0 % 03/15/21 15:00 Baso % (Auto) 0.3 % 03/15/21 15:00 Neut # (Auto) 4.69 K/uL (1.4-6.5) 03/15/21 15:00 Lymph # (Auto) 0.80 K/uL (1.2-3.4) L 03/15/21 15:00 [place] # (Auto) 0.49 K/uL (0.11-0.59) 03/15/21 15:00 Eos # (Auto) 0.06 K/uL (0-0.5) 03/15/21 15:00 Baso # (Auto) 0.02 K/uL (0-0.2) 03/15/21 15:00 Immature Gran # (Auto) 0.02 K/uL (0.00-0.02) 03/15/21 15:00 POC Sodium 142 mmol/L (135-144) 03/15/21 15:10 Sodium 147 mmol/L (136-145) H 03/15/21 15:00 POC Potassium 5.2 mmol/L (3.3-5.0) H 03/15/21 15:10 Potassium 4.1 mmol/L (3.5-5.1) 03/15/21 17:03 POC Chloride 104 mmol/L (101-112) 03/15/21 15:10 Chloride 119 mmol/L (98-107) H 03/15/21 15:00 Carbon Dioxide 25 mmol/L (21-32) 03/15/21 15:00 POC Total CO2 27 mmol/L (24-31) 03/15/21 15:10 Anion Gap 3.0 (3-11) 03/15/21 15:00 POC Anion Gap 18.0 mmol/L (16-25) 03/15/21 15:10 POC BUN 20 mg/dl (7-18) H 03/15/21 15:10 BUN 13 mg/dl (7-18) 03/15/21 15:00 Creatinine 0.67 mg/dl (0.6-1.4) 03/15/21 15:00 POC Creatinine 1.0 mg/dl (0.6-1.3) 03/15/21 15:10 Est Cr Clr Drug Dosing 112.5 ml/min 03/15/21 15:00 Est GFR ( Amer) 108.2 ml/min 03/15/21 15:00 Est GFR (Non-Af Amer) 93.3 ml/min 03/15/21 15:00 BUN/Creatinine Ratio 19.1 (10-20) 03/15/21 15:00 Glucose 81 mg/dl (70-99) 03/15/21 15:00 POC Glucose (other) 97 mg/dl (70-99) 03/15/21 15:10 Lactate 1.3 mmol/L (0.4-2.0) 03/15/21 17:03 Calcium 6.4 mg/dl (8.5-10.1) L 03/15/21 15:00 POC Ioniz Calcium Brendon 1.05 mmol/l (1.12-1.32) L 03/15/21 15:10 Magnesium 2.5 mg/dl (1.8-2.4) H 03/15/21 17:03 Total Bilirubin 0.4 mg/dl (0.2-1) 03/15/21 15:00 AST 10 U/L (15-37) L 03/15/21 16:31 ALT 14 U/L (12-78) 03/15/21 15:00 Alkaline Phosphatase 62 U/L (45-117) 03/15/21 15:00 Troponin I < 0.015 ng/ml (0-0.045) 03/15/21 15:00 Total Protein 5.1 gm/dl (6.4-8.2) L 03/15/21 15:00 Albumin 2.5 gm/dl (3.4-5.0) L 03/15/21 15:00 Globulin 2.6 gm/dl (2.5-4.0) 03/15/21 15:00 Albumin/Globulin Ratio 1.0 (0.9-2) 03/15/21 15:00 TSH 1.130 uIu/ml (0.300-4.500) 03/15/21 15:00 Urine Color Dark Yellow 03/15/21 15:40 Urine Appearance Clear (Clear) 03/15/21 15:40 Urine pH 7.5 (4.5-7.5) 03/15/21 15:40 Ur Specific [place] 1.013 (1.000-1.030) 03/15/21 15:40 Urine Protein Negative (Negative) 03/15/21 15:40 Urine Glucose (UA) Negative (Negative) 03/15/21 15:40 Urine Ketones Negative (Negative) 03/15/21 15:40 Urine Blood Negative (Negative) 03/15/21 15:40 Urine Nitrite Negative (Negative) 03/15/21 15:40 Urine Bilirubin Negative (Negative) 03/15/21 15:40 Urine Urobilinogen Negative (Negative) 03/15/21 15:40 Ur Leukocyte Esterase Negative (Negative) 03/15/21 15:40 COVID-19 Eval Order Covid19 at [facility] 03/15/21 15:41 SARS-CoV-2 (PCR) NEGATIVE (Negative) 03/15/21 15:41 Impressions Chest X-Ray 03/15/21 15:04 XR chest 1V portable HISTORY: weakness COMPARISON: Chest 05/15/2008. FINDINGS: No pneumothorax. No pleural effusions. Mild diffuse interstitial thickening which is likely chronic. The heart is normal in size. There is a hazy left basilar density. No evidence for pulmonary edema. IMPRESSION: Hazy small left basilar density. This may represent a developing viral pneumonia. ACT 112: Negative or not required by law. Electronically signed by: Kleber Zepeda M.D. 03/15/2021 4:03 PM ECG Additional Comments: NSR at 77, no acute ischemic changes Code Status & VTE Plan VTE Prophylaxis Plan VTE Prophylaxis will be ordered: Yes PG Care Time/CCT Total # of Minutes Spent Total Time Spent with Patient: Total time spent is greater than 50% in coordination of care (as documented) at patient's floor/unit and/or counseling patient: Coding Level of Care Code 39607 Initial Inpt Care Lvl 3 Diagnoses Left lower lobe pneumonia J18.9 Pneumonia type: due to unspecified organism Acute hypotension I95.9 Parkinsons disease G20 Hypocalcemia E83.51 Anemia D64.9 Anemia type: unspecified type Anxiety and depression F41.9; F32.9 (1) Left lower lobe pneumonia Pneumonia type: due to unspecified organism Qualified Code(s): J18.9 - Pneumonia, unspecified organism (2) Anemia Anemia type: unspecified type Qualified Code(s): D64.9 - Anemia, unspecified
[2021-03-15] MEDS ORDERED: ONDANSETRON INJ 2 MG/ML 2 ML VIAL IV PRN (19:12)
[2021-03-15] MEDS ORDERED: ACETAMINOPHEN 325 MG TAB PO PRN (19:12)
[2021-03-15] MEDS ORDERED: [UNRECOGNIZED DRUG - OTHER] PO SCH (21:00)
[2021-03-15] MEDS ORDERED: NON-FORMULARY MEDICATION (Carbidopa-Levodopa-Entacapone [Stalevo 150] 37.5-150-200 mg tabl PO SCH (21:00)
[2021-03-15] MEDS: ENOXAPARIN INJ 40 MG/0.4 ML SYR SQ SCH (21:04)
[2021-03-15] MEDS: CARBIDOPA/LEVODOPA 25/100MG TAB PO SCH (21:04)
[2021-03-15] MEDS: ENTACAPONE 200 MG TAB PO SCH (21:04)
[2021-03-15] MEDS: DOCUSATE SODIUM 100 MG CAP PO SCH (21:04)
[2021-03-15] MEDS: MEMANTINE HCL 10 MG TAB PO SCH (21:04)
[2021-03-15] MEDS: DUTASTERIDE: ORDER AWAITING ACTION SCH (23:50)
[2021-03-15] MEDS: PIPERACILLIN/TAZOBACTAM 3.375 GM in DEXTROSE 5% 100 ML IV SCH (23:50)
[2021-03-16 06:06] LABS: Basophils # (auto) 0.02 K/uL (0-0.2); Basophils % (auto) 0.2 %; Eosinophils # (auto) 0.12 K/uL (0-0.5); Eosinophils % (auto) 1.2 %; Hematocrit (blood only) 34.6 % (42-52); Hemoglobin 11.7 g/dL (14.0-18.0); Immature Granulocytes # (auto) 0.03 K/uL (0.00-0.02); Immature Granulocytes % (auto) 0.3 %; Lymphocytes # (auto) 1.05 K/uL (1.2-3.4); Lymphocytes % (auto) 10.4 %; Mean Corpuscular Hgb Conc 33.8 g/dL (32-36); Mean Corpuscular Volume 100.6 fL (80-100); Mean Platelet Volume 9.4 fL (7.4-10.4); Monocytes # (auto) 0.69 K/uL (0.11-0.59); Monocytes % (auto) 6.8 %; Neutrophils # (auto) 8.23 K/uL (1.4-6.5); Neutrophils % (auto) 81.1 %; Platelet Count 176 K/uL (130-400); RDW Standard Deviation 47.7 fL (36.4-46.3); Red Blood Count 3.44 M/uL (4.7-6.1); White Blood Count 10.14 K/uL (4.8-10.8)
[2021-03-16 06:45] LABS: Calcium 8.5 mg/dl (8.5-10.1); Creatinine Clr Calc Pharmacy 92.7 ml/min; Est GFR (African American) 106.2 ml/min; Est GFR (Non-African American) 91.7 ml/min; Potassium 3.8 mmol/L (3.5-5.1)
[2021-03-16 06:49] LABS: Folate (Folic Acid) 7.8 ng/ml (>5.38)
--- NOTE | 2021-03-16 08:36 | Electrocardiogram Report ---
Test Reason : Blood Pressure : / mmHG Vent. Rate : 077 BPM Atrial Rate : 077 BPM P-R Int : 144 ms QRS Dur : 092 ms QT Int : 418 ms P-R-T Axes : 031 -16 024 degrees QTc Int : 473 ms Poor data quality, interpretation may be adversely affected Normal sinus rhythm Normal ECG When compared with ECG of 29-NOV-2019 08:57, No significant change was found Confirmed by Armen Daily ([id number]) on 03/16/2021 8:36:35 AM Referred By: REFERRED SELF Confirmed By:Armen Daily
[2021-03-16] MEDS: PIPERACILLIN/TAZOBACTAM 3.375 GM in DEXTROSE 5% 100 ML IV SCH (08:53)
[2021-03-16] MEDS: CARBIDOPA/LEVODOPA 25/100MG TAB PO SCH ×4 (08:54→20:50)
[2021-03-16] MEDS: CITALOPRAM 20 MG TAB PO SCH (08:55)
[2021-03-16] MEDS: FLUDROCORTISONE ACETATE 0.1 MG TAB PO SCH (08:56)
[2021-03-16] MEDS: MEMANTINE HCL 10 MG TAB PO SCH ×2 (08:56→20:51)
[2021-03-16] MEDS: ENTACAPONE 200 MG TAB PO SCH ×4 (08:56→20:50)
[2021-03-16] MEDS: FAMOTIDINE 20 MG TAB PO SCH (08:56)
[2021-03-16] MEDS: DUTASTERIDE: ORDER AWAITING ACTION SCH ×3 (11:40→23:13)
[2021-03-16] MEDS: AMPICILLIN/SULBACTAM SOD 3,000 MG in 0.9 % SODIUM CHLORIDE 100 ML IV SCH ×2 (16:30→23:12)
[2021-03-16] MEDS ORDERED: MELATONIN 3 MG TAB PO ONE (19:47)
[2021-03-16] MEDS: DOCUSATE SODIUM 100 MG CAP PO SCH (20:50)
[2021-03-16] MEDS: ENOXAPARIN INJ 40 MG/0.4 ML SYR SQ SCH (20:51)
[2021-03-16] MEDS ORDERED: MELATONIN 3 MG TAB PO SCH (21:00)
--- NOTE | 2021-03-16 21:56 | Hospitalist Progress Note ---
Date of Service March 16, 2021 Assessment & Plan (1) Left lower lobe pneumonia: 75yo C male with history of PD presenting from home with episode of hypotension, illness. Found to have possible left basilar density on CXR. Patient is afebrile, HD stable, no respiratory distress. No leukocytosis. Pulmonary exam is unremarkable. Patient does have aspiration risk and follows with Speech/Swallow - ?aspiration pneumonitis. -Admit to medical with telemetry -Aspiration precautions -Will continue Zosyn -will obtain a speech eval -Tylenol PRN pain or fever (2) Acute hypotension: Patient with episode of hypotension prior to arrival. BP of 88 initially in ER, has been hypertensive since. ?autonomic instability secondary to PD. Patient appears euvolemic, does not appear septic. He has been taking his Florinef as prescribed and has not missed any doses. -Continue Florinef -Continue to monitor BP -Blood pressure is higher today. (3) Parkinsons disease: Patient with PD, has had some functional decline lately. He lives with his who is able to assist him with ADLs - however, has difficulty with lifting and assisting with ambulation. -Continue Carbidopa/Levodopa at home dosage -Continue Memantine for dementia -PT/OT evaluation - ?need for home services -Fall precautions -Aspiration precautions -Orientation/delirium prevention strategies (4) Hypocalcemia: Hypocalcemic - ICal=1.05 in ER. He was administered 1gm of Calcium gluconate. states that they do not eat much dairy at home due to GI side effects. -calcium is at goal. (5) Anemia: H/H = 10.5/31.7, decreased from prior. Patient guaic negative per ER exam. Macrocytic with KXW=999.6 -Check B12 and Folate with AM labs (6) Anxiety and depression: Chronic -Continue Citalopram 20mg daily F/E/N - Heplock. Monitor Ca, electrolytes otherwise WNL, Heart healthy diet as tolerated - easy to chew with aspiration precautions. Medications in applesauce, Colace qHS Ppx - Lovenox for DVT ppx Code - Full per discussion with patient and at bedside Dispo - Admit to medical with telemetry Admission and Anticipated Discharge Date Admission Date: March 15, 2021 Subjective Patient reports feeling better. Family is at bedside and is concerned about his elevated blood pressure. Review of Systems Review of Systems: All systems reviewed & are unremarkable except as noted in HPI & below Physical Exam Physical Exam: General: patient resting comfortably, NAD, non-toxic in appearance, AA&O x 4, hard of hearing Skin: warm, dry, intact, no rashes or lesions HEENT: NC/AT, PERRL, EOMI, anicteric sclera, conjunctiva without injection, external ear normal to inspection and nontender, nares patent, moist mucus membranes, dentition intact, no oropharyngeal lesions, neck supple, trachea midline, no LAD, no thyromegaly, no JVD Heart: +S1/S2, regular, no m/r/g Lungs: equal air entry bilaterally, no rales/rhonchi/wheezes Abd: +BS, soft, NT/ND, no masses/organomegaly/ascites Ext: warm, 2+ pulses in UE/LE bilaterally, no clubbing/cyanosis or edema Neuro: nonfocal, patient AA&O x 4, speech intact, no facial droop, moving all extremities on command with equal strength 5/5, +resting tremor, some cogwheel rigidity noted in wrists Results & Data Results & Data ([facility]) Vital Signs (Past 12 Hours) Vital Signs Temp Pulse Resp BP BP Pulse Ox 03/16/21 20:00 36.9 C 70 20 155/85 H 96 03/16/21 15:37 36.8 C 75 18 173/90 H 95 03/16/21 11:13 36.7 C 77 18 157/66 H 96 PG Care Time/CCT Total # of Minutes Spent Total Time Spent with Patient: Total time spent is greater than 50% in coordination of care (as documented) at patient's floor/unit and/or counseling patient: Coding Level of Care Code 02723 Subseq Hosp Care Lvl 3 Diagnoses Left lower lobe pneumonia J18.9 Pneumonia type: due to unspecified organism Acute hypotension I95.9 Parkinsons disease G20 Hypocalcemia E83.51 Anemia D64.9 Anemia type: unspecified type Anxiety and depression F41.9; F32.9 Time Spent (min) 35 (1) Anemia Anemia type: unspecified type Qualified Code(s): D64.9 - Anemia, unspecified (2) Left lower lobe pneumonia Pneumonia type: due to unspecified organism Qualified Code(s): J18.9 - Pneumonia, unspecified organism
[2021-03-17] MEDS: DUTASTERIDE: ORDER AWAITING ACTION SCH ×3 (00:10→15:42)
[2021-03-17] MEDS: AMPICILLIN/SULBACTAM SOD 3,000 MG in 0.9 % SODIUM CHLORIDE 100 ML IV SCH ×3 (05:46→16:58)
[2021-03-17 07:28] LABS: Basophils # (auto) 0.03 K/uL (0-0.2); Basophils % (auto) 0.5 %; Eosinophils # (auto) 0.24 K/uL (0-0.5); Eosinophils % (auto) 4.3 %; Hematocrit (blood only) 36.6 % (42-52); Hemoglobin 12.7 g/dL (14.0-18.0); Immature Granulocytes # (auto) 0.01 K/uL (0.00-0.02); Immature Granulocytes % (auto) 0.2 %; Lymphocytes # (auto) 0.84 K/uL (1.2-3.4); Lymphocytes % (auto) 15.1 %; Mean Corpuscular Hemoglobin 34.5 pg (25-34); Mean Corpuscular Hgb Conc 34.7 g/dL (32-36); Mean Corpuscular Volume 99.5 fL (80-100); Mean Platelet Volume 9.8 fL (7.4-10.4); Monocytes # (auto) 0.47 K/uL (0.11-0.59); Monocytes % (auto) 8.4 %; Neutrophils # (auto) 3.99 K/uL (1.4-6.5); Neutrophils % (auto) 71.5 %; Platelet Count 184 K/uL (130-400); RDW Coefficient of Variation 12.6 % (11.5-14.5); RDW Standard Deviation 45.9 fL (36.4-46.3); Red Blood Count 3.68 M/uL (4.7-6.1); White Blood Count 5.58 K/uL (4.8-10.8)
[2021-03-17 08:21] LABS: BUN Creatinine Ratio 17.7 (10-20); Calcium 8.6 mg/dl (8.5-10.1); Creatinine Clr Calc Pharmacy 119.9 ml/min; Est GFR (African American) 114.8 ml/min; Potassium 3.7 mmol/L (3.5-5.1)
[2021-03-17] MEDS: FLUDROCORTISONE ACETATE 0.1 MG TAB PO SCH (08:27)
[2021-03-17] MEDS: MEMANTINE HCL 10 MG TAB PO SCH (08:28)
[2021-03-17] MEDS: FAMOTIDINE 20 MG TAB PO SCH (08:28)
[2021-03-17] MEDS: CITALOPRAM 20 MG TAB PO SCH (08:28)
[2021-03-17] MEDS: ENTACAPONE 200 MG TAB PO SCH ×3 (08:29→16:48)
[2021-03-17] MEDS: CARBIDOPA/LEVODOPA 25/100MG TAB PO SCH ×3 (08:29→16:48)
--- NOTE | 2021-03-17 09:07 | XRay Report ---
XR chest 1V portable CLINICAL HISTORY: pneumonia COMPARISON STUDY: 03/15/2021 FINDINGS: The cardiac and mediastinal contours remain stable. There are persistent subtle left basila r airspace opacities, perhaps minimally improved. There are no pleural effusions. There is no failure .[ IMPRESSION: Persistent subtle left basilar airspace opacities perhaps minimally improved. ACT 112: Negative or not required by law. Electronically signed by: Constantin Chambers M.D. 03/17/2021 9:06 AM
--- NOTE | 2021-03-17 14:34 | Fluoroscopy Report ---
MODIFIED BARIUM SWALLOW CLINICAL HISTORY: assess for aspiration COMPARISON STUDY: Modified barium swallow August 23, 2019. FLUOROSCOPY TIME: 4.5 minutes. TECHNIQUE: A modified barium swallow was performed in conjunction with Speech Pathology. The patient ingested varying consistencies of barium containing material. Video fluoroscopy was performed. FINDINGS: Silent tracheal aspiration was noted with thin liquids by spoon. There was no aspiration wi th nectar thick liquids, pudding or crackers with paste. A small amount of aspiration was noted with thin liquid wash. Residuals were noted within the vallecula and piriform sinuses with multiple consis tencies. Laryngeal elevation was mildly diminished. Epiglottic inversion was mildly diminished. IMPRESSION: 1. Silent tracheal aspiration with thin liquids. No aspiration with remainder of the consistencies. 2. Residuals within the vallecula and piriform sinuses with multiple consistencies. 3. Full recommendations by speech pathology to follow. ACT 112: Negative or not required by law. Electronically signed by: Nas Gill M.D. 03/17/2021 2:33 PM
--- NOTE | 2021-03-23 23:51 | Discharge Summary ---
Date of Service March 17, 2021 Admission HPI Per Admitting Provider Jose Manuel Jackson is a 75yo male with history of Parkinsons disease presenting from home with hypotension. Patient was in his wheelchair this afternoon around 14:00 and was unable to get up. His called a friend who sometimes assists them and he was unable to get the patient up either. His blood pressure was checked and found to be extremely low at 60. states that he was incoherent and confused for a brief time this AM. EMS was called - patient administered IVF en route. BP improved with minimal fluids - presently hypertensive. states that patient has had poor appetite and decreased oral intake as well as constipation. No additional complaints - specifically no fever, chills, sweats, nausea, vomiting, diarrhea. Patient lives with his . He uses a walker at baseline and they just obtain ed a wheelchair for additional ambulatory assistance. Patient requires some assistance with dressing on occasion. He follows with Speech Therapy for aspiration concerns. He takes his medications typically in applesauce and eats a soft diet. states that she typically does not like to leave him alone for more than 30 minutes. He fell 3 weeks ago. They currently have no health aides or home nursing but is interested in obtaining some in-home assistance. ER Course: Calcium gluconate, Zosyn Principal Diagnosis left lower lobe pneumonia Discharge Exam General: patient resting comfortably, NAD, non-toxic in appearance, AA&O x 4, hard of hearing Skin: warm, dry, intact, no rashes or lesions HEENT: NC/AT, PERRL, EOMI, anicteric sclera, conjunctiva without injection, external ear normal to inspection and nontender, nares patent, moist mucus membranes, dentition intact, no oropharyngeal lesions, neck supple, trachea midline, no LAD, no thyromegaly, no JVD Heart: +S1/S2, regular, no m/r/g Lungs: equal air entry bilaterally, no rales/rhonchi/wheezes Abd: +BS, soft, NT/ND, no masses/organomegaly/ascites Ext: warm, 2+ pulses in UE/LE bilaterally, no clubbing/cyanosis or edema Neuro: nonfocal, patient AA&O x 4, speech intact, no facial droop, moving all extremities on command with equal strength 5/5, +resting tremor, some cogwheel rigidity noted in wrists Discharge Data Allergies Allergy/AdvReac Type Severity Reaction Status Date / Time oxycodone [From OxyContin] AdvReac Unknown Verified 03/19/21 10:39 Consultations 03/15/21 16:46 ED Decision to Admit Stat Ordered Studies 03/17/21 12:30 FL video swallow Routine Hospital Course (1) Left lower lobe pneumonia: 75yo C male with history of PD presenting from home with episode of hypotension, illness. Found to have possible left basilar density on CXR. Patient is afebrile, HD stable, no respiratory distress. No leukocytosis. Pulmonary exam is unremarkable. Patient does have aspiration risk and follows with Speech/Swallow - ?aspiration pneumonitis. -Admit to medical with telemetry -Aspiration precautions -treated with Zosyn: switch to augmentin at discharge - speech eval recommendations at discharge. -Tylenol PRN pain or fever (2) Acute hypotension: Patient with episode of hypotension prior to arrival. BP of 88 initially in ER, has been hypertensive since. ?autonomic instability secondary to PD. Patient appears euvolemic, does not appear septic. He has been taking his Florinef as prescribed and has not missed any doses. -Continue Florinef -Continue to monitor BP -Blood pressure is higher today: no change for now. (3) Parkinsons disease: Patient with PD, has had some functional decline lately. He lives with his who is able to assist him with ADLs - however, has difficulty with lifting and assisting with ambulation. -Continue Carbidopa/Levodopa at home dosage -Continue Memantine for dementia -PT/OT evaluation - ?need for home services -Fall precautions -Aspiration precautions -Orientation/delirium prevention strategies (4) Hypocalcemia: Hypocalcemic - ICal=1.05 in ER. He was administered 1gm of Calcium gluconate. states that they do not eat much dairy at home due to GI side effects. -calcium is at goal. (5) Anemia: H/H = 10.5/31.7, decreased from prior. Patient guaic negative per ER exam. Macrocytic with GUL=023.6 (6) Anxiety and depression: Chronic -Continue Citalopram 20mg daily F/E/N - [place]ock. Monitor Ca, electrolytes otherwise WNL, Heart healthy diet as tolerated - easy to chew with aspiration precautions. Medications in applesauce, Colace qHS Ppx - Lovenox for DVT ppx Code - Full per discussion with patient and at bedside Total Time Total Time Spent Total Time Spent (In Minutes): 32 Total Time Includes: Examination of the Patient, Discharge Planning and Medication Reconciliation Discharge Plan Discharge Items Patient Disposition: Home - Home Health Services Reason For Visit: PNEUMONIA,PARKINSONS DISEASE Discharge Diagnosis: Possible aspiration pneumonia Activity: Resume your previous activity Non-emergency contact: Primary Care Provider Call non-emergency contact if: you have any medication questions Follow-up/Referrals: Sue Hopkins CRNP [Primary Care Provider] - 03/19/21 2:00 pm Diet: Heart Healthy and Other - See Diet Comment Diet Texture: Easy to Chew Addtl Attending Provider Instructions: You were found to have low blood pressure and you had a possible pneumonia. The low blood pressure is likely a product of your Parkinson Disease as well as your medications. We could decrease your Parkinson medications but this will make you more stiffer. As mentioned earlier in your hospital stay, I will prefer to keep your BP normal or slightly elevated. Please continue on your fludrocortisone. Followup with your PCP in 1 week and your Neuro within 1 month. Speech therapy will be seeing you at home. Speech Therapy Discharge instructions: 1. EASY TO CHEW DIET. May require further modification to minced and moist. 2. No straws! 3. Avoid mixed consistencies( cold cereal in milk, soup with thin broth and meat/vegies) 4. Strict mouth care: brush all surfaces of the mouth and tongue prior to and after meals and before bed. This will help limit bacteria in saliva that may be aspirated. Pending Studies at Discharge: No Stand-Alone Forms: [facility] Cess[facility] Medications and DC Order Prescriptions: New amoxicillin-pot clavulanate [Augmentin] 875-125 mg tablet 1 tab PO BID Qty: 10 RF: 0 Continued famotidine 20 mg tablet 20 mg PO DAILY RF: 0 [id number] [Stalevo 150] 37.5-150-200 mg tablet 1 tab PO QID Qty: 120 RF: 5 memantine 10 mg tablet 10 mg PO BID RF: 0 fludrocortisone 0.1 mg tablet 0.1 mg PO DAILY RF: 0 citalopram 20 mg tablet 20 mg PO DAILY Qty: 60 RF: 0 aspirin 81 mg tablet,delayed release (DR/EC) 81 mg PO DAILY RF: 0 docusate sodium 100 mg capsule 200 mg PO HS RF: 0 dutasteride 0.5 mg capsule 0.5 mg PO QDL RF: 0 No Action melatonin 3 mg tablet 9 mg PO HS RF: 0 Discharge Orders: Discharge Order (Routine); Ordered 03/17/21 Ordered By: Sascha Diop Admission Data Admit Date/Time: 03/15/21 17:56 Attending Provider: Sascha Diop Admit Provider: Mary Jo Simeon Primary Care Provider: Sue Hopkins. Other Providers: Mary Jo Simeon ; [facility],Home Care Other Interventions: Discharge Summary Assessment (RN) Last Done: 03/17/21 17:51 Coding Level of Care Code D/C Day Management >30 mins Diagnoses Left lower lobe pneumonia J18.9 Pneumonia type: due to unspecified organism Acute hypotension I95.9 Parkinsons disease G20 Hypocalcemia E83.51 Anemia D64.9 Anemia type: unspecified type Anxiety and depression F41.9; F32.9
== END 2021-03-17 18:20 | disposition home health service (06) | DRG 179 ==
LOC: ED 14:43 → SUATTDRO 17:56 → 2N 17:56

== ENCOUNTER 2021-05-18 21:38 | Inpatient (IN) ==
[2021-05-18 23:28] LABS: Basophils # (auto) 0.02 K/uL (0-0.2); Basophils % (auto) 0.1 %; Eosinophils # (auto) 0.02 K/uL (0-0.5); Eosinophils % (auto) 0.1 %; Hemoglobin 12.4 g/dL (14.0-18.0); Immature Granulocytes # (auto) 0.03 K/uL (0.00-0.02); Immature Granulocytes % (auto) 0.2 %; Lymphocytes # (auto) 0.44 K/uL (1.2-3.4); Lymphocytes % (auto) 2.5 %; Mean Corpuscular Hemoglobin 33.9 pg (25-34); Mean Corpuscular Hgb Conc 33.5 g/dL (32-36); Mean Corpuscular Volume 101.1 fL (80-100); Mean Platelet Volume 10.7 fL (7.4-10.4); Monocytes # (auto) 0.68 K/uL (0.11-0.59); Monocytes % (auto) 3.9 %; Neutrophils # (auto) 16.43 K/uL (1.4-6.5); Neutrophils % (auto) 93.2 %; Platelet Count 168 K/uL (130-400); RDW Coefficient of Variation 12.5 % (11.5-14.5); RDW Standard Deviation 46.3 fL (36.4-46.3); Red Blood Count 3.66 M/uL (4.7-6.1); White Blood Count 17.62 K/uL (4.8-10.8)
[2021-05-18 23:36] LABS: Alanine Aminotransferase 12 U/L (12-78); Albumin Level 3.4 gm/dl (3.4-5.0); Aspartate Aminotransferase 19 U/L (15-37); BUN Creatinine Ratio 28.2 (10-20); Blood Urea Nitrogen 25 mg/dl (7-18); Calcium 8.5 mg/dl (8.5-10.1); Carbon Dioxide 29 mmol/L (21-32); Chloride 102 mmol/L (98-107); Creatinine Clr Calc Pharmacy 80.5 ml/min; Est GFR (African American) 96.3 ml/min; Est GFR (Non-African American) 83.1 ml/min; Glucose 120 mg/dl (70-99); Magnesium 2.7 mg/dl (1.8-2.4); Potassium 3.6 mmol/L (3.5-5.1); Sodium 137 mmol/L (136-145)
[2021-05-18 23:40] LABS: Albumin Globulin Ratio 1.1 (0.9-2); Alkaline Phosphatase 71 U/L (45-117); Bilirubin,Total 1.1 mg/dl (0.2-1); Globulin 3.2 gm/dl (2.5-4.0); Total Protein 6.6 gm/dl (6.4-8.2); Troponin I < 0.015 ng/ml (0-0.045)
[2021-05-18 23:43] LABS: INR 1.1 (0.9-1.1); Partial Thromboplastin Time 25.1 Seconds (21.0-31.0); Prothrombin Time 10.9 Seconds (9.0-12.0)
[2021-05-18 23:46] LABS: Color Urine Orange; Specific Gravity Urine 1.022 (1.000-1.030)
[2021-05-18 23:47] LABS: Appearance Urine Clear (Clear)
[2021-05-18 23:50] LABS: Bacteria Urine 1+ (Negative); WBC Urine >30 /hpf (0-5)
[2021-05-18] MEDS ORDERED: SODIUM CHLORIDE 0.9% 500 ML IV ONE (23:55)
[2021-05-19] MEDS ORDERED: PIPERACILLIN/TAZOBACTAM 4.5 GM/120 ML BAG IV ONE (01:29)
[2021-05-19] MEDS ORDERED: PIPERACILL/TAZOBAC CONSULT ACTIVE PRN (01:29)
--- NOTE | 2021-05-19 01:37 | Emergency Department Note ---
Impression & Plan Sepsis, Acute UTI, Acute alteration in mental status Admit to the [facility] service ED Provider Note NAME: STEVEN BAXTER AGE: 75 SEX: M ARRIVES VIA: Ambulance INFORMANT: Patient, ED PROVIDER(S): Samara Freedman DO CHIEF COMPLAINT: Altered mental status PLAN: Disposition: Admitted to the [facility] Condition: Stable MEDICAL DECISION MAKING: This is a 75-year-old male patient who presents to the emergency department complaining of altered mental status. The patient has a history of Parkinson's disease but became confused on Wednesday and had urinary frequency and urgency. His family started him on Macrobid earlier today but his weakness increased throughout the day. The family noted a low blood pressure tonight and became concerned and called EMS. Upon arrival here in the emergency department, the patient's blood pressure was stable but he was still slightly confused. Laboratory studies revealed elevated BUN, white blood cell count, and procalcitonin. Patient was started on IV normal saline solution and IV Zosyn. Because of the patient's episode of hypotension at home and the presumed urinary tract infection, I was concerned for sepsis. [facility] will [facility] for further management of sepsis. Triage Nursing notes reviewed and agree with them. Additional history obtained from his and daughter Prior medical records reviewed Vital Signs: reviewed and unremarkable Differential diagnosis: Sepsis, UTI, dehydration, pneumonia, COVID-19 ER treatment provided: IV normal saline IV Zosyn Diagnostics interpreted by me: ECG: Normal sinus rhythm at a rate of 78 with a right bundle branch block. There is no ST segment elevation or signs of ischemia. There is no ectopy. The right bundle branch block appears to be new since March of this year. Cardiac Monitoring: Normal sinus rhythm at a rate of 88 Laboratory studies: See below Imaging studies: As per my interpretation Portable chest x-ray: No acute pulmonary infiltrates or consolidation HPI: 75/M arrives for evaluation of hypotension and altered mental status. This is a 75-year-old male patient who presents to the emergency department complaining of altered mental status. The patient has a history of Parkinson's disease but became confused on Wednesday and had urinary frequency and urgency. His family started him on Macrobid earlier today but his weakness increased throughout the day. The family noted a low blood pressure tonight and became concerned and called EMS. ROS: See above HPI for pertinent positives & negatives. A total of 10 systems reviewed and were otherwise negative. PAST MEDICAL HISTORY:See Below PAST SURGICAL HISTORY:See Below FAMILY HISTORY:See Below SOCIAL HISTORY:See Below HOME MEDICATIONS:See list ALLERGIES:See list VITALS:See Below PHYSICAL EXAMINATION: HEENT: Head - normocephalic and atraumatic. Pupils are equal, round, and reactive to light. Extraocular eye muscles are intact, and sclera are anicteric. Nose - moist nasal mucosa without discharge. Mouth -dry buccal mucosa. Oropharynx is nonerythematous and there is no tonsillar exudate or edema noted. Neck: Supple; no cervical lymphadenopathy Heart: Regular rate and rhythm. There is a normal S1 and S2 with no murmurs, clicks, or gallops appreciated. Lungs: Clear to auscultation bilaterally with no wheezes, rales, or rhonchi. Abdomen: Soft, completely nontender, nondistended, with good bowel sounds. There are no palpable pulsatile masses or hepatosplenomegaly. There is no guarding, rigidity, or rebound noted. Extremities: No evidence of cyanosis, clubbing, or edema. There are easily palpable peripheral pulses. Skin: warm and dry with good turgor and no rashes. ED COURSE: Times/Reassessments: 2305: The patient was evaluated in room C5. A complete history and physical was performed. A septic protocol was performed. An order was placed for continuous cardiac monitoring. The patient was in a normal sinus rhythm at a rate of 88 A twelve-lead EKG was obtained. The patient was started on a normal saline drip. He was catheterized for urine specimen. I kept the patient's family abreast of the situation. He was started on IV Zosyn drip. Samara Freedman DO Past Med/Surg History Medical History Aphonia Auditory hallucination Central retinal vein occlusion Cervical spondylosis Common iliac aneurysm Confusion Constipation Depression with anxiety Diverticulosis of colon Double vision with both eyes open Esophageal reflux Fatigue Gastrointestinal dysmotility Hoarseness Hyperlipidemia Impaired fasting glucose Low back pain Low systolic blood pressure Need for pneumococcal vaccination Osteoarthrosis of knee Parkinsons disease Screening for AAA (abdominal aortic aneurysm) Sleep apnea Surgical History History of hernia repair History of knee replacement Family History Family history unremarkable Denies family history of Ovarian cancer Prostate cancer Myocardial infarction Breast cancer Colorectal cancer Social History Smoking Status: Never smoker Hx Alcohol Use: No Hx Substance Use: No Preferred Language: Amharic Communication Ability: Effective Strip Picker Required: No Beliefs That Will Affect Care: None marital status: Current Living Situation: Spouse current occupational status: retired Feels Safe at Home: Yes caffeine: No Dental Care, Regularly: Yes Physical Activity Frequency: 5-6 Times per Week Seatbelt Use: always Sunscreen Use: No Assistive Devices: None Allergies Allergies Allergy/AdvReac Type Severity Reaction Status Date / Time oxycodone [From OxyContin] AdvReac Unknown Unknown Verified 05/19/21 02:39 Home Meds Home Medications Medication Instructions Recorded Confirmed docusate sodium 100 mg capsule 200 mg PO HS cap 03/13/19 05/19/21 aspirin 81 mg tablet,delayed 81 mg PO DAILY tab 02/17/21 05/19/21 release dutasteride 0.5 mg capsule 0.5 mg PO QDL 03/15/21 05/19/21 melatonin 3 mg tablet 9 mg PO HS tab 03/19/21 05/19/21 phenazopyridine 95 mg tablet 95 mg PO TID PRN 05/19/21 05/19/21 Previous Rx's Medication Instructions Recorded carbidopa 37.5 mg-levodopa 150 1 tab PO QID #120 tab 02/17/21 mg-entacapone 200 mg tablet (Stalevo 150) fludrocortisone 0.1 mg tablet 0.1 mg PO BID 30 Days #60 tab 04/17/21 memantine 10 mg tablet 10 mg PO BID 30 Days #60 tab 04/17/21 citalopram 20 mg tablet 20 mg PO DAILY #30 tab 05/08/21 nitrofurantoin 100 mg PO BID #14 cap 05/16/21 monohydrate/macrocrystals 100 mg capsule (Macrobid) Results & Data (ED) Vital Signs Vital Signs - 24 hr 05/18/21 21:43 05/18/21 21:50 05/18/21 22:26 Temperature 37.1 C Temperature Source Oral Pulse Rate 81 80 Pulse Rate [Apical] 76 Pulse Rate from SpO2 Sensor Pulse Rhythm [Apical] Regular Pulse Strength [Apical] Normal Respiratory Rate 21 20 14 Respiratory Effort / Characteristics Respiratory Depth Normal Normal Blood Pressure 110/69 Blood Pressure [Left Arm] 110/69 Blood Pressure Mean 82 Blood Pressure Mean [Left Arm] 82 Pulse Oximetry 96 96 96 Oxygen Delivery Method Room Air Room Air Room Air Oxygen Flow Rate Sepsis Recent Fever Within 48 Hours No Sepsis New/Unexplained Change in Mental Status N/A Sepsis Action Taken by Nursing No Action Required 05/18/21 23:16 05/18/21 23:25 05/18/21 23:26 Temperature Temperature Source Pulse Rate 76 76 Pulse Rate [Apical] Pulse Rate from SpO2 Sensor 77 Pulse Rhythm [Apical] Pulse Strength [Apical] Respiratory Rate 19 19 19 Respiratory Effort / Characteristics Non-Labored Respiratory Depth Blood Pressure 118/69 Blood Pressure [Left Arm] Blood Pressure Mean 85 Blood Pressure Mean [Left Arm] Pulse Oximetry 97 98 97 Oxygen Delivery Method Room Air Room Air Room Air Oxygen Flow Rate Sepsis Recent Fever Within 48 Hours Sepsis New/Unexplained Change in Mental Status Sepsis Action Taken by Nursing 05/18/21 23:28 05/18/21 23:30 05/18/21 23:45 Temperature Temperature Source Pulse Rate 75 76 74 Pulse Rate [Apical] Pulse Rate from SpO2 Sensor 75 76 76 Pulse Rhythm [Apical] Pulse Strength [Apical] Respiratory Rate 20 20 21 Respiratory Effort / Characteristics Respiratory Depth Blood Pressure 114/69 117/74 127/71 Blood Pressure [Left Arm] Blood Pressure Mean 84 88 89 Blood Pressure Mean [Left Arm] Pulse Oximetry 96 97 98 Oxygen Delivery Method Room Air Room Air Room Air Oxygen Flow Rate Sepsis Recent Fever Within 48 Hours Sepsis New/Unexplained Change in Mental Status Sepsis Action Taken by Nursing 05/19/21 00:00 05/19/21 00:15 05/19/21 00:20 Temperature Temperature Source Pulse Rate 75 76 Pulse Rate [Apical] Pulse Rate from SpO2 Sensor 75 78 Pulse Rhythm [Apical] Pulse Strength [Apical] Respiratory Rate 17 21 19 Respiratory Effort / Characteristics Non-Labored Respiratory Depth Blood Pressure 113/63 114/65 Blood Pressure [Left Arm] Blood Pressure Mean 79 81 Blood Pressure Mean [Left Arm] Pulse Oximetry 96 97 97 Oxygen Delivery Method Room Air Room Air Room Air Oxygen Flow Rate Sepsis Recent Fever Within 48 Hours Sepsis New/Unexplained Change in Mental Status Sepsis Action Taken by Nursing 05/19/21 00:30 05/19/21 00:45 05/19/21 00:50 Temperature Temperature Source Pulse Rate 75 77 Pulse Rate [Apical] Pulse Rate from SpO2 Sensor 75 Pulse Rhythm [Apical] Pulse Strength [Apical] Respiratory Rate 21 20 18 Respiratory Effort / Characteristics Non-Labored Respiratory Depth Blood Pressure 119/65 132/69 Blood Pressure [Left Arm] Blood Pressure Mean 83 90 Blood Pressure Mean [Left Arm] Pulse Oximetry 97 97 97 Oxygen Delivery Method Room Air Room Air Room Air Oxygen Flow Rate Sepsis Recent Fever Within 48 Hours Sepsis New/Unexplained Change in Mental Status Sepsis Action Taken by Nursing 05/19/21 01:00 05/19/21 01:15 05/19/21 01:30 Temperature Temperature Source Pulse Rate 73 74 77 Pulse Rate [Apical] Pulse Rate from SpO2 Sensor 74 74 78 Pulse Rhythm [Apical] Pulse Strength [Apical] Respiratory Rate 19 21 19 Respiratory Effort / Characteristics Non-Labored Non-Labored Respiratory Depth Blood Pressure 121/77 129/73 131/82 Blood Pressure [Left Arm] Blood Pressure Mean 91 91 98 Blood Pressure Mean [Left Arm] Pulse Oximetry 96 96 95 Oxygen Delivery Method Room Air Room Air Room Air Oxygen Flow Rate Sepsis Recent Fever Within 48 Hours Sepsis New/Unexplained Change in Mental Status Sepsis Action Taken by Nursing 05/19/21 01:47 05/19/21 02:00 05/19/21 02:01 Temperature Temperature Source Pulse Rate 81 109 H Pulse Rate [Apical] Pulse Rate from SpO2 Sensor 80 106 H Pulse Rhythm [Apical] Pulse Strength [Apical] Respiratory Rate 25 H 18 28 H Respiratory Effort / Characteristics Non-Labored Respiratory Depth Blood Pressure 143/73 H 144/84 H Blood Pressure [Left Arm] Blood Pressure Mean 96 104 Blood Pressure Mean [Left Arm] Pulse Oximetry 97 114 H 99 Oxygen Delivery Method Room Air Room Air Room Air Oxygen Flow Rate 92 Sepsis Recent Fever Within 48 Hours Sepsis New/Unexplained Change in Mental Status Sepsis Action Taken by Nursing 05/19/21 02:15 Temperature Temperature Source Pulse Rate 113 H Pulse Rate [Apical] Pulse Rate from SpO2 Sensor 110 H Pulse Rhythm [Apical] Pulse Strength [Apical] Respiratory Rate Respiratory Effort / Characteristics Respiratory Depth Blood Pressure 163/127 H Blood Pressure [Left Arm] Blood Pressure Mean 139 Blood Pressure Mean [Left Arm] Pulse Oximetry 94 Oxygen Delivery Method Room Air Oxygen Flow Rate Sepsis Recent Fever Within 48 Hours Sepsis New/Unexplained Change in Mental Status Sepsis Action Taken by Nursing Laboratory Data Result diagrams: 05/19/21 13:06 05/19/21 13:06 Lab Results 05/18/21 05/18/21 05/18/21 Range/Units 21:50 21:50 21:50 WBC 17.62 H (4.8-10.8) K/uL RBC 3.66 L (4.7-6.1) M/uL Hgb 12.4 L (14.0-18.0) g/dL Hct 37.0 L (42-52) % MCV 101.1 H (80-100) fL MCH 33.9 (25-34) pg MCHC 33.5 (32-36) g/dL RDW Std Deviation 46.3 (36.4-46.3) fL RDW Coeff of Abi 12.5 (11.5-14.5) % Plt Count 168 (130-400) K/uL MPV 10.7 H (7.4-10.4) fL Immature Gran % (Auto) 0.2 % Neut % (Auto) 93.2 % Lymph % (Auto) 2.5 % [place] % (Auto) 3.9 % Eos % (Auto) 0.1 % Baso % (Auto) 0.1 % Neut # (Auto) 16.43 H (1.4-6.5) K/uL Lymph # (Auto) 0.44 L (1.2-3.4) K/uL [place] # (Auto) 0.68 H (0.11-0.59) K/uL Eos # (Auto) 0.02 (0-0.5) K/uL Baso # (Auto) 0.02 (0-0.2) K/uL Immature Gran # (Auto) 0.03 H (0.00-0.02) K/uL PT 10.9 (9.0-12.0) Seconds INR 1.1 (0.9-1.1) APTT 25.1 (21.0-31.0) Seconds PTT Ratio 1.0 Sodium 137 (136-145) mmol/L Potassium 3.6 (3.5-5.1) mmol/L Chloride 102 (98-107) mmol/L Carbon Dioxide 29 (21-32) mmol/L Anion Gap 7.0 (3-11) BUN 25 H (7-18) mg/dl Creatinine 0.89 (0.6-1.4) mg/dl Est Cr Clr Drug Dosing 80.5 ml/min Est GFR ( Amer) 96.3 ml/min Est GFR (Non-Af Amer) 83.1 ml/min BUN/Creatinine Ratio 28.2 H (10-20) Glucose 120 H (70-99) mg/dl Lactate (0.4-2.0) mmol/L Calcium 8.5 (8.5-10.1) mg/dl Magnesium 2.7 H (1.8-2.4) mg/dl Total Bilirubin 1.1 H (0.2-1) mg/dl AST 19 (15-37) U/L ALT 12 (12-78) U/L Alkaline Phosphatase 71 (45-117) U/L Troponin I < 0.015 (0-0.045) ng/ml Total Protein 6.6 (6.4-8.2) gm/dl Albumin 3.4 (3.4-5.0) gm/dl Globulin 3.2 (2.5-4.0) gm/dl Albumin/Globulin Ratio 1.1 (0.9-2) Procalcitonin (0-0.5) ng/ml Urine Color Urine Appearance (Clear) Urine pH (4.5-7.5) Ur Specific [place] (1.000-1.030) Urine Protein (Negative) Urine Glucose (UA) (Negative) Urine Ketones (Negative) Urine Blood (Negative) Urine Nitrite (Negative) Urine Bilirubin (Negative) Urine Urobilinogen (Negative) Ur Leukocyte Esterase (Negative) Urine RBC (0-4) /hpf Urine WBC (0-5) /hpf Ur Epithelial Cells (0-5) /lpf Urine Bacteria (Negative) COVID-19 Eval Order SARS-CoV-2 (PCR) (Negative) 05/18/21 05/18/21 05/18/21 Range/Units 21:50 23:30 23:30 WBC (4.8-10.8) K/uL RBC (4.7-6.1) M/uL Hgb (14.0-18.0) g/dL Hct (42-52) % MCV (80-100) fL MCH (25-34) pg MCHC (32-36) g/dL RDW Std Deviation (36.4-46.3) fL RDW Coeff of Abi (11.5-14.5) % Plt Count (130-400) K/uL MPV (7.4-10.4) fL Immature Gran % (Auto) % Neut % (Auto) % Lymph % (Auto) % [place] % (Auto) % Eos % (Auto) % Baso % (Auto) % Neut # (Auto) (1.4-6.5) K/uL Lymph # (Auto) (1.2-3.4) K/uL [place] # (Auto) (0.11-0.59) K/uL Eos # (Auto) (0-0.5) K/uL Baso # (Auto) (0-0.2) K/uL Immature Gran # (Auto) (0.00-0.02) K/uL PT (9.0-12.0) Seconds INR (0.9-1.1) APTT (21.0-31.0) Seconds PTT Ratio Sodium (136-145) mmol/L Potassium (3.5-5.1) mmol/L Chloride (98-107) mmol/L Carbon Dioxide (21-32) mmol/L Anion Gap (3-11) BUN (7-18) mg/dl Creatinine (0.6-1.4) mg/dl Est Cr Clr Drug Dosing ml/min Est GFR ( Amer) ml/min Est GFR (Non-Af Amer) ml/min BUN/Creatinine Ratio (10-20) Glucose (70-99) mg/dl Lactate (0.4-2.0) mmol/L Calcium (8.5-10.1) mg/dl Magnesium (1.8-2.4) mg/dl Total Bilirubin (0.2-1) mg/dl AST (15-37) U/L ALT (12-78) U/L Alkaline Phosphatase (45-117) U/L Troponin I (0-0.045) ng/ml Total Protein (6.4-8.2) gm/dl Albumin (3.4-5.0) gm/dl Globulin (2.5-4.0) gm/dl Albumin/Globulin Ratio (0.9-2) Procalcitonin (0-0.5) ng/ml Urine Color [place] Urine Appearance Clear (Clear) Urine pH (4.5-7.5) Ur Specific [place] 1.022 (1.000-1.030) Urine Protein (Negative) Urine Glucose (UA) (Negative) Urine Ketones (Negative) Urine Blood (Negative) Urine Nitrite (Negative) Urine Bilirubin (Negative) Urine Urobilinogen (Negative) Ur Leukocyte Esterase (Negative) Urine RBC 10-30 H (0-4) /hpf Urine WBC >30 H (0-5) /hpf Ur Epithelial Cells 5-10 H (0-5) /lpf Urine Bacteria 1+ H (Negative) COVID-19 Eval Order Covid19 at [facility] SARS-CoV-2 (PCR) NEGATIVE (Negative) 05/18/21 05/18/21 Range/Units 23:52 23:52 WBC (4.8-10.8) K/uL RBC (4.7-6.1) M/uL Hgb (14.0-18.0) g/dL Hct (42-52) % MCV (80-100) fL MCH (25-34) pg MCHC (32-36) g/dL RDW Std Deviation (36.4-46.3) fL RDW Coeff of Abi (11.5-14.5) % Plt Count (130-400) K/uL MPV (7.4-10.4) fL Immature Gran % (Auto) % Neut % (Auto) % Lymph % (Auto) % [place] % (Auto) % Eos % (Auto) % Baso % (Auto) % Neut # (Auto) (1.4-6.5) K/uL Lymph # (Auto) (1.2-3.4) K/uL [place] # (Auto) (0.11-0.59) K/uL Eos # (Auto) (0-0.5) K/uL Baso # (Auto) (0-0.2) K/uL Immature Gran # (Auto) (0.00-0.02) K/uL PT (9.0-12.0) Seconds INR (0.9-1.1) APTT (21.0-31.0) Seconds PTT Ratio Sodium (136-145) mmol/L Potassium (3.5-5.1) mmol/L Chloride (98-107) mmol/L Carbon Dioxide (21-32) mmol/L Anion Gap (3-11) BUN (7-18) mg/dl Creatinine (0.6-1.4) mg/dl Est Cr Clr Drug Dosing ml/min Est GFR ( Amer) ml/min Est GFR (Non-Af Amer) ml/min BUN/Creatinine Ratio (10-20) Glucose (70-99) mg/dl Lactate 1.9 (0.4-2.0) mmol/L Calcium (8.5-10.1) mg/dl Magnesium (1.8-2.4) mg/dl Total Bilirubin (0.2-1) mg/dl AST (15-37) U/L ALT (12-78) U/L Alkaline Phosphatase (45-117) U/L Troponin I (0-0.045) ng/ml Total Protein (6.4-8.2) gm/dl Albumin (3.4-5.0) gm/dl Globulin (2.5-4.0) gm/dl Albumin/Globulin Ratio (0.9-2) Procalcitonin 2.46 H (0-0.5) ng/ml Urine Color Urine Appearance (Clear) Urine pH (4.5-7.5) Ur Specific [place] (1.000-1.030) Urine Protein (Negative) Urine Glucose (UA) (Negative) Urine Ketones (Negative) Urine Blood (Negative) Urine Nitrite (Negative) Urine Bilirubin (Negative) Urine Urobilinogen (Negative) Ur Leukocyte Esterase (Negative) Urine RBC (0-4) /hpf Urine WBC (0-5) /hpf Ur Epithelial Cells (0-5) /lpf Urine Bacteria (Negative) COVID-19 Eval Order SARS-CoV-2 (PCR) (Negative) Administered Medications Carbidopa/Levodopa (Carbidopa/Levodopa 25/100mg Tab) 1.5 tab PO QID MARLYS Stop: 06/18/21 08:59 Last Admin: 05/19/21 14:10 Dose: 1.5 tab Documented by: [id number] Admin: 05/19/21 09:56 Dose: 1.5 tab Documented by: [id number] Enoxaparin Sodium (Enoxaparin Inj 30 Mg/0.3 Ml Syr) 30 mg SQ DAILY [facility] Stop: 06/18/21 05:14 Last Admin: 05/19/21 05:57 Dose: 30 mg Documented by: [id number] Entacapone (Entacapone 200 Mg Tab) 200 mg PO QID MARLYS Stop: 06/18/21 08:59 Last Admin: 05/19/21 14:11 Dose: 200 mg Documented by: [id number] Admin: 05/19/21 09:59 Dose: 200 mg Documented by: [id number] Fludrocortisone Acetate (Fludrocortisone Acetate 0.1 Mg Tab) 0.1 mg PO BID MARLYS Stop: 06/18/21 08:59 Last Admin: 05/19/21 09:58 Dose: 0.1 mg Documented by: [id number] Ceftriaxone Sodium 2,000 mg/ (Dextrose) 70 mls @ 100 mls/hr IV Q24H [facility]; Protocol Stop: 05/29/21 05:59 Last Infusion: 05/19/21 06:11 Dose: 0 mls/hr Documented by: [id number] Admin: 05/19/21 05:27 Dose: 100 mls/hr Documented by: [id number] Potassium Chloride/Dextrose/Sod Cl (D5nss + 20meq Kcl) 20 meq in 1,000 mls @ 80 mls/hr IV .[id number] [facility] Stop: 06/18/21 04:59 Last Admin: 05/19/21 05:24 Dose: 80 mls/hr Documented by: [id number] Miscellaneous (Stalevo: Order Awaiting Action) 1 ea N/A QS [facility] Stop: 06/18/21 07:59 Last Admin: 05/19/21 09:59 Dose: Not Given Documented by: [id number] Discontinued Medications Sodium Chloride (Nss) 500 mls @ 999 mls/hr IV .Q31M ONE Stop: 05/19/21 00:25 Last Infusion: 05/19/21 00:50 Dose: 0 mls/hr Documented by: [id number] Admin: 05/19/21 00:19 Dose: 999 mls/hr Documented by: [id number] Piperacillin Sod/Tazobactam Sod (Zosyn) 4.5 gm in 120 mls @ 240 mls/hr IV NOW ONE Stop: 05/19/21 01:58 Last Infusion: 05/19/21 02:24 Dose: 0 mls/hr Documented by: [id number] Admin: 05/19/21 01:54 Dose: 240 mls/hr Documented by: [id number] Acetaminophen (Ofirmev) 1,000 mg in 100 mls @ 400 mls/hr IV NOW STA Stop: 05/19/21 02:37 Last Infusion: 05/19/21 02:41 Dose: 0 mls/hr Documented by: [id number] Admin: 05/19/21 02:41 Dose: 400 mls/hr Documented by: [id number] Imaging Data Radiologist's Impression: Chest X-Ray 05/18/21 23:20 XR chest 1V portable CLINICAL HISTORY: SEPSIS COMPARISON STUDY: March 17, 2021 FINDINGS: No pneumothorax. No pleural effusion. No large infiltrates or consolidative lesions are seen. Lung volumes are decreased with crowded lung markings. Cardiomediastinal silhouette is within normal limits in size. No significant pulmonary vascular congestion.. Aorta is calcified. Osseous structures: Degenerative changes of the spine. IMPRESSION: 1. No acute pulmonary process. ACT 112: Negative or not required by law. The above report was generated using voice recognition software. It may contain grammatical, syntax or spelling errors. Electronically signed by: Aleah Pham DO 05/19/2021 9:08 AM Discharge Plan Visit Data Chief Complaint: Urinary Symptoms Stated Complaint: ILL/URINARY SYMPTOMS ED Provider: Samara Freedman Discharge Problem: Sepsis, Acute UTI, Acute alteration in mental status Patient Disposition: Admitted As Inpatient Discharge Instructions Interventions: ED Discharge Assessment Last Done: 05/19/21 04:30 Discharge Problem: Sepsis Qualifiers: Sepsis type: sepsis due to unspecified organism Sepsis acute organ dysfunction status: without acute organ dysfunction Qualified Code(s): A41.9 - Sepsis, u nspecified organism
--- NOTE | 2021-05-19 02:19 | History & Physical Report ---
Date of Service May 19, 2021 Assessment & Plan (1) Acute UTI: Plan: Acute urinary tract infection/acute alteration in mental status/confusion- Follow urine culture and sensitivity Most recent UTI on 04/01/2021 was positive for Klebsiella pansensitive. Received Zosyn 4.5 g IV x1 from the ED. Placed on ceftriaxone 1 g IV daily D5 normal saline plus KCl 20 mEq at 80 mils per hour Stop nitrofurantoin, may be the cause of some of his confusion (2) Acute alteration in mental status: Plan: Mental status change/confusion/underlying Parkinson's dementia- Likely aggravated by urinary tract infection and dehydration (3) Aphonia: Plan: Aphonia/dysphagia- secondary to Parkinson's Has been undergoing speech therapy. May need a repeat assessment this admission (4) Fatigue: Plan: Multifactorial: UTI, progressive Parkinson's, dehydration Patient will need PT/OT reassessment, and family feels that he may need to go to [facility] for rehab prior to coming home, as we discussed in the ED this evening (5) Anxiety and depression: Plan: Resume citalopram when able to swallow okay (6) Esophageal dysmotility: Plan: Secondary to Parkinson's (7) Paroxysmal atrial fibrillation: Plan: No issues this admission (8) Parkinson's disease dementia: Plan: Continue carbidopa/ levodopa Continue memantine if able to swallow (9) Confusion: Plan: See above (10) Dysphagia: Plan: See above, secondary to Parkinson's History of Present Illness Chief Complaint: The patient was brought to the emergency department for assessment of confusion, fatigue and shakes at home noted by family Primary Care Provider: RIAZ Mayorga The patient is a 75-year-old male with a past medical history including aphonia, central retinal vein occlusion, cervical spondylosis, common iliac aneurysm, GI dysmotility, anxiety depression, idiopathic polyneuropathy, Parkinson's dementia, paroxysmal atrial fibrillation, urge and stress incontinence, hyperlipidemia, auditory hallucination, unsteady gait, dysphagia, REM sleep disorder, anemia and orthostatic hypotension. The patient was noted by family to be becoming more confused, having worsening shakes than usual, fatigued, and with decreased appetite. Allergies Allergy/AdvReac Type Severity Reaction Status Date / Time oxycodone [From OxyContin] AdvReac Unknown Unknown Verified 05/19/21 02:39 Home Medications Medication Instructions Recorded Confirmed Type docusate sodium 100 mg capsule 200 mg PO HS cap 03/13/19 05/13/21 History aspirin 81 mg tablet,delayed 81 mg PO DAILY tab 02/17/21 05/13/21 History release carbidopa 37.5 mg-levodopa 150 1 tab PO QID #120 tab 02/17/21 05/13/21 Rx mg-entacapone 200 mg tablet (Stalevo 150) dutasteride 0.5 mg capsule 0.5 mg PO QDL 03/15/21 05/13/21 History melatonin 3 mg tablet 9 mg PO HS tab 03/19/21 05/13/21 History fludrocortisone 0.1 mg tablet 0.1 mg PO BID 30 Days #60 tab 04/17/21 05/13/21 Rx memantine 10 mg tablet 10 mg PO BID 30 Days #60 tab 04/17/21 05/13/21 Rx citalopram 20 mg tablet 20 mg PO DAILY #30 tab 05/08/21 05/13/21 Rx nitrofurantoin 100 mg PO BID #14 cap 05/16/21 Rx monohydrate/macrocrystals 100 mg capsule (Macrobid) phenazopyridine 95 mg tablet 95 mg PO TID PRN 05/19/21 05/19/21 History Past Med/Surg History Medical History Aphonia Auditory hallucination Central retinal vein occlusion Cervical spondylosis Common iliac aneurysm Confusion Constipation Depression with anxiety Diverticulosis of colon Double vision with both eyes open Esophageal reflux Fatigue Gastrointestinal dysmotility Hoarseness Hyperlipidemia Impaired fasting glucose Low back pain Low systolic blood pressure Need for pneumococcal vaccination Osteoarthrosis of knee Parkinsons disease Screening for AAA (abdominal aortic aneurysm) Sleep apnea Surgical History History of hernia repair History of knee replacement Family History Family history unremarkable Denies family history of Ovarian cancer Prostate cancer Myocardial infarction Breast cancer Colorectal cancer Social History Smoking Status: Never smoker Hx Alcohol Use: No Hx Substance Use: No Preferred Language: Lebanese Communication Ability: Effective Slip Bridge Operator Required: No Beliefs That Will Affect Care: None marital status: Current Living Situation: Spouse current occupational status: retired Feels Safe at Home: Yes caffeine: No Dental Care, Regularly: Yes Physical Activity Frequency: 5-6 Times per Week Seatbelt Use: always Sunscreen Use: No Assistive Devices: None Review of Systems Review of Systems: The patient denies chest pain, palpitations, shortness of breath, dyspnea on exertion, cough, lower extremity swelling, sore throat, chills, sweats, nausea, vomiting, diarrhea , constipation, abdominal pain, pelvic pain, blood in urine or stool, dysuria, urinary frequency or urgency, lightheadedness, dizziness, headache, loss of consciousness, rash, abnormal bruising or bleeding, focal weakness, numbness or tingling in arms or legs, back or neck pain, or night sweats. The review of systems is otherwise negative other than for that already noted above, and at least 10 systems have been reviewed. Physical Exam Physical Exam: The patient is awake, lethargic but able to slowly to respond, normocephalic and atraumatic, lying in bed and in no acute distress. HEENT--PERRL, EOMI, mucous membranes and oropharynx dry. Neck--supple. No JVD. No bruits. Thyroid normal, trachea midline, no adenopathy. Heart--normal S1 and S2. No murmurs, rubs or gallops. Lungs--clear bilaterally, no respiratory distress, no accessory muscle use. Abdomen--normal bowel sounds and soft. Nontender. Nondistended. Extremities--no cyanosis or clubbing. No edema. Dermatologic--normal skin turgor, normal color, no abnormal lymph nodes, no rash. Neurologic--limited exam Rheumatologic--limited exam Psychiatric--normal affect. Results & Data Results & Data ([facility]) Vital Signs (Past 12 Hours) Vital Signs Temp Pulse Pulse Resp BP BP Pulse Ox 05/19/21 01:30 77 19 131/82 95 05/19/21 01:15 74 21 129/73 96 05/19/21 01:00 73 19 121/77 96 05/19/21 00:50 18 97 05/19/21 00:45 77 20 132/69 97 05/19/21 00:30 75 21 119/65 97 05/19/21 00:20 19 97 05/19/21 00:15 76 21 114/65 97 05/19/21 00:00 75 17 113/63 96 05/18/21 23:45 74 21 127/71 98 05/18/21 23:30 76 20 117/74 97 05/18/21 23:28 75 20 114/69 96 05/18/21 23:26 76 19 97 05/18/21 23:25 19 98 05/18/21 23:16 76 19 118/69 97 05/18/21 22:26 76 14 110/69 96 05/18/21 21:50 98.8 F 80 20 96 05/18/21 21:43 81 21 110/69 96 Laboratory Results Laboratory Results WBC 17.62 K/uL (4.8-10.8) H 05/18/21 21:50 RBC 3.66 M/uL (4.7-6.1) L 05/18/21 21:50 Hgb 12.4 g/dL (14.0-18.0) L 05/18/21 21:50 Hct 37.0 % (42-52) L 05/18/21 21:50 MCV 101.1 fL (80-100) H 05/18/21 21:50 MCH 33.9 pg (25-34) 05/18/21 21:50 MCHC 33.5 g/dL (32-36) 05/18/21 21:50 RDW Std Deviation 46.3 fL (36.4-46.3) 05/18/21 21:50 RDW Coeff of Abi 12.5 % (11.5-14.5) 05/18/21 21:50 Plt Count 168 K/uL (130-400) 05/18/21 21:50 MPV 10.7 fL (7.4-10.4) H 05/18/21 21:50 Immature Gran % (Auto) 0.2 % 05/18/21 21:50 Neut % (Auto) 93.2 % 05/18/21 21:50 Lymph % (Auto) 2.5 % 05/18/21 21:50 [place] % (Auto) 3.9 % 05/18/21 21:50 Eos % (Auto) 0.1 % 05/18/21 21:50 Baso % (Auto) 0.1 % 05/18/21 21:50 Neut # (Auto) 16.43 K/uL (1.4-6.5) H 05/18/21 21:50 Lymph # (Auto) 0.44 K/uL (1.2-3.4) L 05/18/21 21:50 [place] # (Auto) 0.68 K/uL (0.11-0.59) H 05/18/21 21:50 Eos # (Auto) 0.02 K/uL (0-0.5) 05/18/21 21:50 Baso # (Auto) 0.02 K/uL (0-0.2) 05/18/21 21:50 Immature Gran # (Auto) 0.03 K/uL (0.00-0.02) H 05/18/21 21:50 PT 10.9 Seconds (9.0-12.0) 05/18/21 21:50 INR 1.1 (0.9-1.1) 05/18/21 21:50 APTT 25.1 Seconds (21.0-31.0) 05/18/21 21:50 PTT Ratio 1.0 05/18/21 21:50 Sodium 137 mmol/L (136-145) 05/18/21 21:50 Potassium 3.6 mmol/L (3.5-5.1) 05/18/21 21:50 Chloride 102 mmol/L (98-107) 05/18/21 21:50 Carbon Dioxide 29 mmol/L (21-32) 05/18/21 21:50 Anion Gap 7.0 (3-11) 05/18/21 21:50 BUN 25 mg/dl (7-18) H 05/18/21 21:50 Creatinine 0.89 mg/dl (0.6-1.4) 05/18/21 21:50 Est Cr Clr Drug Dosing 80.5 ml/min 05/18/21 21:50 Est GFR ( Amer) 96.3 ml/min 05/18/21 21:50 Est GFR (Non-Af Amer) 83.1 ml/min 05/18/21 21:50 BUN/Creatinine Ratio 28.2 (10-20) H 05/18/21 21:50 Glucose 120 mg/dl (70-99) H 05/18/21 21:50 Lactate 1.9 mmol/L (0.4-2.0) 05/18/21 23:52 Calcium 8.5 mg/dl (8.5-10.1) 05/18/21 21:50 Magnesium 2.7 mg/dl (1.8-2.4) H 05/18/21 21:50 Total Bilirubin 1.1 mg/dl (0.2-1) H 05/18/21 21:50 AST 19 U/L (15-37) 05/18/21 21:50 ALT 12 U/L (12-78) 05/18/21 21:50 Alkaline Phosphatase 71 U/L (45-117) 05/18/21 21:50 Troponin I < 0.015 ng/ml (0-0.045) 05/18/21 21:50 Total Protein 6.6 gm/dl (6.4-8.2) 05/18/21 21:50 Albumin 3.4 gm/dl (3.4-5.0) 05/18/21 21:50 Globulin 3.2 gm/dl (2.5-4.0) 05/18/21 21:50 Albumin/Globulin Ratio 1.1 (0.9-2) 05/18/21 21:50 Procalcitonin 2.46 ng/ml (0-0.5) H 05/18/21 23:52 Urine Color [place] 05/18/21 21:50 Urine Appearance Clear (Clear) 05/18/21 21:50 Urine pH (4.5-7.5) 05/18/21 21:50 Ur Specific [place] 1.022 (1.000-1.030) 05/18/21 21:50 Urine Protein (Negative) 05/18/21 21:50 Urine Glucose (UA) (Negative) 05/18/21 21:50 Urine Ketones (Negative) 05/18/21 21:50 Urine Blood (Negative) 05/18/21 21:50 Urine Nitrite (Negative) 05/18/21 21:50 Urine Bilirubin (Negative) 05/18/21 21:50 Urine Urobilinogen (Negative) 05/18/21 21:50 Ur Leukocyte Esterase (Negative) 05/18/21 21:50 Urine RBC 10-30 /hpf (0-4) H 05/18/21 21:50 Urine WBC >30 /hpf (0-5) H 05/18/21 21:50 Ur Epithelial Cells 5-10 /lpf (0-5) H 05/18/21 21:50 Urine Bacteria 1+ (Negative) H 05/18/21 21:50 COVID-19 Eval Order Covid19 at [facility] 05/18/21 23:30 SARS-CoV-2 (PCR) NEGATIVE (Negative) 05/18/21 23:30 Code Status & VTE Plan Code Status Conditional code. Patient does have a living will at home, but does not seem to recall exactly what is on. He definitely does not want mechanical ventilation. She will let us know in the a.m. whether he would want chest compressions or shocking VTE Prophylaxis Plan VTE Prophylaxis will be ordered: Yes PG Care Time/CCT Total # of Minutes Spent Total Time Spent with Patient: Total time spent is greater than 50% in coordination of care (as documented) at patient's floor/unit and/or counseling patient: Coding Level of Care Code 77773 Initial Inpt Care Lvl 3 Diagnoses Acute UTI N39.0 Acute alteration in mental status R41.82 Aphonia R49.1 Fatigue R53.83 Anxiety and depression F41.9; F32.9 Esophageal dysmotility K22.4 Paroxysmal atrial fibrillation I48.0 Parkinson's disease dementia G20; F02.80 Confusion R41.0 Dysphagia R13.10
[2021-05-19] MEDS ORDERED: ACETAMINOPHEN 1,000 MG/100 ML VIAL IV STA (02:23)
[2021-05-19] MEDS: D5NSS + 20MEQ KCL 20 MEQ/1,000 ML BAG IV SCH ×2 (05:24→17:51)
[2021-05-19] MEDS: cefTRIAXone SODIUM 2,000 MG in DEXTROSE 5% 50 ML IV SCH (05:27)
[2021-05-19] MEDS: ENOXAPARIN INJ 30 MG/0.3 ML SYR SQ SCH (05:57)
--- NOTE | 2021-05-19 09:09 | XRay Report ---
XR chest 1V portable CLINICAL HISTORY: SEPSIS COMPARISON STUDY: March 17, 2021 FINDINGS: No pneumothorax. No pleural effusion. No large infiltrates or consolidative lesions are seen. Lung volumes are decreased with crowded lung markings. Cardiomediastinal silhouette is within normal limits in size. No significant pulmonary vascular congestion.. Aorta is calcified. Osseous structures: Degenerative changes of the spine. IMPRESSION: 1. No acute pulmonary process. ACT 112: Negative or not required by law. The above report was generated using voice recognition software. It may contain grammatical, syntax o r spelling errors. Electronically signed by: Aleah Pham DO 05/19/2021 9:08 AM
[2021-05-19] MEDS: CARBIDOPA/LEVODOPA 25/100MG TAB PO SCH ×4 (09:56→20:38)
[2021-05-19] MEDS: FLUDROCORTISONE ACETATE 0.1 MG TAB PO SCH ×2 (09:58→20:38)
[2021-05-19] MEDS: ENTACAPONE 200 MG TAB PO SCH ×4 (09:59→20:38)
[2021-05-19 13:27] LABS: Basophils # (auto) 0.01 K/uL (0-0.2); Basophils % (auto) 0.1 %; Hemoglobin 12.5 g/dL (14.0-18.0); Immature Granulocytes % (auto) 0.6 %; Lymphocytes # (auto) 0.18 K/uL (1.2-3.4); Mean Corpuscular Hemoglobin 34.2 pg (25-34); Mean Corpuscular Hgb Conc 33.8 g/dL (32-36); Mean Corpuscular Volume 101.1 fL (80-100); Mean Platelet Volume 10.2 fL (7.4-10.4); Monocytes # (auto) 0.34 K/uL (0.11-0.59); Monocytes % (auto) 1.9 %; Neutrophils # (auto) 17.52 K/uL (1.4-6.5); Neutrophils % (auto) 96.4 %; Platelet Count 136 K/uL (130-400); RDW Coefficient of Variation 12.5 % (11.5-14.5); RDW Standard Deviation 46.3 fL (36.4-46.3); Red Blood Count 3.66 M/uL (4.7-6.1); White Blood Count 18.15 K/uL (4.8-10.8)
--- NOTE | 2021-05-19 13:32 | History & Physical Bridge Note ---
Date of Service May 19, 2021 History & Physical Bridge Note I have examined the patient, reviewed the History & Physical and in the interval since the performance of the History & Physical I have noted the following changes of clinical significance: Patient seen and examined. He does answer some questions mostly yes/no. When asked about if he had pain, he stated "not so much." Patient's daughter spoke to the nurse and said that this seems like his mental status baseline. No acute distress RRR, no MGR CTA B, no W CR Abdomen positive bowel sounds soft nontender nondistended Extremities no edema, 2+ dorsalis pedis pulses Skin no rashes Continue current care with IV ceftriaxone, follow cultures Discussed care with speech therapy-plan to do further assessment to see if further decline since previous video swallow 2 months ago. Continue IV fluids Restart other home p.o. meds when more consistently taking p.o. meds
[2021-05-19 13:54] LABS: BUN Creatinine Ratio 27.1 (10-20); Calcium 8.4 mg/dl (8.5-10.1); Creatinine Clr Calc Pharmacy 98.9 ml/min; Est GFR (Non-African American) 90.6 ml/min; Potassium 3.7 mmol/L (3.5-5.1)
--- NOTE | 2021-05-19 18:02 | Electrocardiogram Report ---
Test Reason : Blood Pressure : / mmHG Vent. Rate : 078 BPM Atrial Rate : 078 BPM P-R Int : 150 ms QRS Dur : 136 ms QT Int : 440 ms P-R-T Axes : 028 -24 001 degrees QTc Int : 501 ms Normal sinus rhythm Right bundle branch block Abnormal ECG When compared with ECG of 15-MAR-2021 15:27, Right bundle branch block is now Present Confirmed by Avery Boateng ([id number]) on 05/19/2021 6:01:56 PM Referred By: REFERRED SELF Confirmed By:Gautam Boateng
[2021-05-20] MEDS: D5NSS + 20MEQ KCL 20 MEQ/1,000 ML BAG IV SCH ×2 (05:21→17:51)
[2021-05-20] MEDS: cefTRIAXone SODIUM 2,000 MG in DEXTROSE 5% 50 ML IV SCH (05:21)
[2021-05-20 08:35] LABS: Basophils # (auto) 0.01 K/uL (0-0.2); Basophils % (auto) 0.1 %; Eosinophils # (auto) 0.39 K/uL (0-0.5); Eosinophils % (auto) 3.6 %; Hemoglobin 11.6 g/dL (14.0-18.0); Immature Granulocytes # (auto) 0.04 K/uL (0.00-0.02); Immature Granulocytes % (auto) 0.4 %; Lymphocytes # (auto) 0.33 K/uL (1.2-3.4); Mean Corpuscular Hgb Conc 33.1 g/dL (32-36); Mean Corpuscular Volume 102.6 fL (80-100); Mean Platelet Volume 10.6 fL (7.4-10.4); Monocytes # (auto) 0.38 K/uL (0.11-0.59); Monocytes % (auto) 3.5 %; Neutrophils # (auto) 9.82 K/uL (1.4-6.5); Neutrophils % (auto) 89.4 %; Platelet Count 125 K/uL (130-400); RDW Coefficient of Variation 12.8 % (11.5-14.5); RDW Standard Deviation 48.3 fL (36.4-46.3); Red Blood Count 3.41 M/uL (4.7-6.1); White Blood Count 10.97 K/uL (4.8-10.8)
[2021-05-20 09:02] LABS: Albumin Level 2.6 gm/dl (3.4-5.0); BUN Creatinine Ratio 29.7 (10-20); Creatinine Clr Calc Pharmacy 116.8 ml/min; Est GFR (African American) 112.4 ml/min; Potassium 3.8 mmol/L (3.5-5.1)
[2021-05-20] MEDS: CARBIDOPA/LEVODOPA 25/100MG TAB PO SCH ×4 (09:17→20:09)
[2021-05-20] MEDS: ENTACAPONE 200 MG TAB PO SCH ×4 (09:17→20:10)
[2021-05-20] MEDS: ENOXAPARIN INJ 30 MG/0.3 ML SYR SQ SCH (09:18)
[2021-05-20] MEDS: FLUDROCORTISONE ACETATE 0.1 MG TAB PO SCH ×2 (09:18→20:10)
[2021-05-20 09:22] LABS: Albumin Globulin Ratio 0.8 (0.9-2); Bilirubin,Total 0.4 mg/dl (0.2-1); Globulin 3.3 gm/dl (2.5-4.0); Total Protein 5.9 gm/dl (6.4-8.2)
[2021-05-20] MEDS ORDERED: ACETAMINOPHEN 325 MG TAB PO PRN (10:23)
[2021-05-20] MEDS: MEMANTINE HCL 10 MG TAB PO SCH ×2 (11:20→17:50)
[2021-05-20] MEDS: CITALOPRAM 20 MG TAB PO SCH (11:20)
[2021-05-20] MEDS: ASPIRIN 81 MG ECTAB PO SCH (11:20)
--- NOTE | 2021-05-20 17:29 | Hospitalist Progress Note ---
Date of Service May 20, 2021 Assessment & Plan (1) Acute UTI: Plan: Presented with metabolic encehaloptahy, fever here and abnormal UA. With sepsis, POA, fever, leukocytosis now improving Had previous UTI with Klebsiella treated with one week of Bactrim about 6-7 weeks ago Ur cx here with GNR, await ID and sensitivity -continue ceftriaxone 1 g IV daily continue D5 normal saline plus KCl 20 mEq but reduce to 50mL/hr as drinking and eating on own tylenol prn fever or pain -plan to treat with po abx x 4 weeks for acute prostatitis given recurrent infection in short span of time (2) Metabolic encephalopathy: Plan: much improved, secondary to UTI as above (3) Aphonia: Plan: Aphonia/dysphagia- secondary to Parkinson's Has been undergoing speech therapy. appreciate Speech consult here-plan for FEES (4) Anxiety and depression: Plan: Resume citalopram (5) Esophageal dysmotility: Plan: Secondary to Parkinson's (6) Paroxysmal atrial fibrillation: Plan: No issues this admission not on AC, just ASA (7) Parkinson's disease dementia: Plan: Continue carbidopa/ levodopa Continue memantine -restart today (8) Dysphagia: Plan: See above, secondary to Parkinson's (9) Orthostatic hypotension: Plan: not having this here continue fludrocortisone (10) Aspiration into airway: Plan: on video swallow in March continue Speech therapy (11) DVT prophylaxis: Plan: Lovenox SQ PT/OT recommending SNF Family wants ref to rehab may be able to discharge tomorrow if Ur cx result back Admission and Anticipated Discharge Date Admission Date: May 19, 2021 Subjective Pt alert and awake, interactive, doing 100% better today, is back to baseline as per daughters at bedside. He denies abd pain, did eat some for breakfast and lunch today. Review of Systems Review of Systems: All systems reviewed & are unremarkable except as noted in HPI & below Physical Exam Constitutional: WD/WN, vitals as above Eyes: + anicteric sclerae ENMT: external ear and nose normal, oropharynx normal Neck: trachea midline, no thyromegaly Respiratory: normal respiratory effort, lungs clear to auscultation Cardiovascular: RRR, no murmur, no edema Chest (Breasts): Chest: normal inspection of chest Gastrointestinal (Abdomen): normal bowel sounds, soft, nontender, no hepatosplenomegaly Musculoskeletal: Extremities: extremities normal to inspection; no cyanosis and no clubbing Skin: no rashes, warm and dry Neurologic: moves all extremities and awake; no focal motor deficits masked facies, slow response to questions Lymphatic: no lymphedema Results & Data Results & Data ([facility]) Vital Signs (Past 12 Hours) Vital Signs Temp Pulse Pulse Resp BP Pulse Ox 05/20/21 15:18 36.5 C 77 16 127/77 95 05/20/21 07:56 36.4 C L 74 16 140/70 97 Laboratory Results 05/20/21 05/20/21 Range/Units 07:31 07:31 WBC 10.97 H (4.8-10.8) K/uL RBC 3.41 L (4.7-6.1) M/uL Hgb 11.6 L (14.0-18.0) g/dL Hct 35.0 L (42-52) % MCV 102.6 H (80-100) fL MCH 34.0 (25-34) pg MCHC 33.1 (32-36) g/dL RDW Std Deviation 48.3 H (36.4-46.3) fL RDW Coeff of Abi 12.8 (11.5-14.5) % Plt Count 125 L (130-400) K/uL MPV 10.6 H (7.4-10.4) fL Immature Gran % (Auto) 0.4 % Neut % (Auto) 89.4 % Lymph % (Auto) 3.0 % [place] % (Auto) 3.5 % Eos % (Auto) 3.6 % Baso % (Auto) 0.1 % Neut # (Auto) 9.82 H (1.4-6.5) K/uL Lymph # (Auto) 0.33 L (1.2-3.4) K/uL [place] # (Auto) 0.38 (0.11-0.59) K/uL Eos # (Auto) 0.39 (0-0.5) K/uL Baso # (Auto) 0.01 (0-0.2) K/uL Immature Gran # (Auto) 0.04 H (0.00-0.02) K/uL Sodium 142 (136-145) mmol/L Potassium 3.8 (3.5-5.1) mmol/L Chloride 110 H (98-107) mmol/L Carbon Dioxide 28 (21-32) mmol/L Anion Gap 4.0 (3-11) BUN 18 (7-18) mg/dl Creatinine 0.61 (0.6-1.4) mg/dl Est Cr Clr Drug Dosing 116.8 ml/min Est GFR ( Amer) 112.4 ml/min Est GFR (Non-Af Amer) 97.0 ml/min BUN/Creatinine Ratio 29.7 H (10-20) Glucose 114 H (70-99) mg/dl Calcium 8.0 L (8.5-10.1) mg/dl Total Bilirubin 0.4 D (0.2-1) mg/dl AST 21 (15-37) U/L ALT 18 (12-78) U/L Alkaline Phosphatase 52 (45-117) U/L Total Protein 5.9 L (6.4-8.2) gm/dl Albumin 2.6 L (3.4-5.0) gm/dl Globulin 3.3 (2.5-4.0) gm/dl Albumin/Globulin Ratio 0.8 L (0.9-2) Urine cx with GNR PG Care Time/CCT Total # of Minutes Spent Total Time Spent with Patient: Total time spent is greater than 50% in coordination of care (as documented) at patient's floor/unit and/or counseling patient: Coding Level of Care Code 25675 Subseq Hosp Care Lvl 3 Diagnoses Acute UTI N39.0 Aphonia R49.1 Anxiety and depression F41.9; F32.9 Esophageal dysmotility K22.4 Paroxysmal atrial fibrillation I48.0 Parkinson's disease dementia G20; F02.80 Dysphagia R13.10 Metabolic encephalopathy G93.41 Orthostatic hypotension I95.1 DVT prophylaxis Z29.9 Aspiration into airway T17.908A
[2021-05-20] MEDS: DOCUSATE SODIUM 100 MG CAP PO SCH (20:09)
[2021-05-20] MEDS: MELATONIN 3 MG TAB PO SCH (20:10)
[2021-05-21] MEDS: cefTRIAXone SODIUM 2,000 MG in DEXTROSE 5% 50 ML IV SCH (05:04)
[2021-05-21 07:59] LABS: Basophils # (auto) 0.01 K/uL (0-0.2); Basophils % (auto) 0.2 %; Eosinophils # (auto) 0.85 K/uL (0-0.5); Eosinophils % (auto) 15.2 %; Hematocrit (blood only) 33.3 % (42-52); Hemoglobin 11.3 g/dL (14.0-18.0); Immature Granulocytes # (auto) 0.02 K/uL (0.00-0.02); Immature Granulocytes % (auto) 0.4 %; Lymphocytes # (auto) 0.49 K/uL (1.2-3.4); Lymphocytes % (auto) 8.8 %; Mean Corpuscular Hemoglobin 33.9 pg (25-34); Mean Corpuscular Hgb Conc 33.9 g/dL (32-36); Mean Platelet Volume 10.4 fL (7.4-10.4); Monocytes # (auto) 0.46 K/uL (0.11-0.59); Monocytes % (auto) 8.2 %; Neutrophils # (auto) 3.76 K/uL (1.4-6.5); Neutrophils % (auto) 67.2 %; Platelet Count 116 K/uL (130-400); RDW Coefficient of Variation 12.5 % (11.5-14.5); RDW Standard Deviation 45.6 fL (36.4-46.3); Red Blood Count 3.33 M/uL (4.7-6.1); White Blood Count 5.59 K/uL (4.8-10.8)
[2021-05-21 08:31] LABS: Albumin Level 2.5 gm/dl (3.4-5.0); BUN Creatinine Ratio 26.7 (10-20); Calcium 8.1 mg/dl (8.5-10.1); Creatinine Clr Calc Pharmacy 134.4 ml/min; Est GFR (African American) 119.1 ml/min; Est GFR (Non-African American) 102.8 ml/min; Potassium 3.6 mmol/L (3.5-5.1)
[2021-05-21 08:34] LABS: Albumin Globulin Ratio 0.8 (0.9-2); Bilirubin,Total 0.3 mg/dl (0.2-1); Globulin 3.3 gm/dl (2.5-4.0); Total Protein 5.8 gm/dl (6.4-8.2)
[2021-05-21] MEDS: ENTACAPONE 200 MG TAB PO SCH ×4 (08:53→21:51)
[2021-05-21] MEDS: CARBIDOPA/LEVODOPA 25/100MG TAB PO SCH ×4 (08:53→21:49)
[2021-05-21] MEDS: FLUDROCORTISONE ACETATE 0.1 MG TAB PO SCH ×2 (08:53→21:51)
[2021-05-21] MEDS: CITALOPRAM 20 MG TAB PO SCH (08:54)
[2021-05-21] MEDS: ASPIRIN 81 MG ECTAB PO SCH (08:54)
[2021-05-21] MEDS: MEMANTINE HCL 10 MG TAB PO SCH ×2 (08:54→18:09)
[2021-05-21] MEDS: ENOXAPARIN INJ 30 MG/0.3 ML SYR SQ SCH (08:54)
[2021-05-21] MEDS: D5NSS + 20MEQ KCL 20 MEQ/1,000 ML BAG IV SCH (14:12)
--- NOTE | 2021-05-21 21:28 | Hospitalist Progress Note ---
Date of Service May 21, 2021 Assessment & Plan (1) Acute UTI: Plan: Presented with metabolic encehaloptahy, fever here and abnormal UA. With sepsis, POA, fever, leukocytosis now improving Had previous UTI with Klebsiella treated with one week of Bactrim about 6-7 weeks ago Ur cx here with Klebsiella pneumonia that is intermediate sensitivity to nitrofurantoin but otherwise pansensitive -Has received 3 days of ceftriaxone 1 g IV daily-convert to Bactrim DS 1 tab p.o. twice daily x25 more days DC IV fluids tylenol prn fever or pain -plan to treat with po abx x 4 weeks for acute prostatitis given recurrent infection in short span of time (2) Metabolic encephalopathy: Plan: much improved, secondary to UTI as above (3) Aphonia: Plan: Aphonia/dysphagia- secondary to Parkinson's Has been undergoing speech therapy. appreciate Speech consult here-plan for FEES-completed, has silent aspiration that is not rosalie and this cannot be prevented. Will likely worsen as his Parkinson's progresses (4) Anxiety and depression: Plan: Continue citalopram (5) Esophageal dysmotility: Plan: Secondary to Parkinson's (6) Paroxysmal atrial fibrillation: Plan: No issues this admission not on AC, just ASA (7) Parkinson's disease dementia: Plan: Continue carbidopa/ levodopa Continue memantine (8) Dysphagia: Plan: See above, secondary to Parkinson's (9) Orthostatic hypotension: Plan: not having this here continue fludrocortisone (10) Aspiration into airway: Plan: on video swallow in March and here on FEES study by speech language pathologist- he has silent aspiration of thin liquids that cannot be prevented Continue minced and moist diet and nectar thickened liquids continue Speech therapy (11) Thrombocytopenia: Plan: Mild, platelets in the 1 teens Likely secondary to sepsis Follow CBC (12) DVT prophylaxis: Plan: Lovenox SQ PT/OT recommending SNF Family wants ref to rehab-this has been made The patient is medically stable for discharge, awaiting placement Admission and Anticipated Discharge Date Admission Date: May 19, 2021 Subjective Patient doing well this morning. He denies any pain or complaints. He is eating and drinking. He is making urine and reports he moved his bowels a little bit yesterday. Review of Systems Review of Systems: All systems reviewed & are unremarkable except as noted in HPI & below Physical Exam Constitutional: WD/WN, vitals as above Eyes: + anicteric sclerae Neck: trachea midline, no thyromegaly Respiratory: normal respiratory effort, lungs clear to auscultation Cardiovascular: RRR, no murmur, no edema Chest (Breasts): Chest: normal inspection of chest Gastrointestinal (Abdomen): normal bowel sounds, soft, nontender, no hepatosplenomegaly Musculoskeletal: Extremities: extremities normal to inspection; no cyanosis and no clubbing Skin: no rashes, warm and dry Neurologic: moves all extremities and awake; no focal motor deficits Lymphatic: no lymphedema Results & Data Results & Data ([facility]) Vital Signs (Past 12 Hours) Vital Signs Temp Pulse Pulse Resp BP Pulse Ox 05/21/21 16:00 36.8 C 71 20 157/87 H 97 05/21/21 12:58 36.4 C L 66 70 16 158/94 H Laboratory Results 05/21/21 05/21/21 Range/Units 07:42 07:42 WBC 5.59 (4.8-10.8) K/uL RBC 3.33 L (4.7-6.1) M/uL Hgb 11.3 L (14.0-18.0) g/dL Hct 33.3 L (42-52) % MCV 100.0 (80-100) fL MCH 33.9 (25-34) pg MCHC 33.9 (32-36) g/dL RDW Std Deviation 45.6 (36.4-46.3) fL RDW Coeff of Abi 12.5 (11.5-14.5) % Plt Count 116 L (130-400) K/uL MPV 10.4 (7.4-10.4) fL Immature Gran % (Auto) 0.4 % Neut % (Auto) 67.2 % Lymph % (Auto) 8.8 % [place] % (Auto) 8.2 % Eos % (Auto) 15.2 % Baso % (Auto) 0.2 % Neut # (Auto) 3.76 (1.4-6.5) K/uL Lymph # (Auto) 0.49 L (1.2-3.4) K/uL [place] # (Auto) 0.46 (0.11-0.59) K/uL Eos # (Auto) 0.85 H (0-0.5) K/uL Baso # (Auto) 0.01 (0-0.2) K/uL Immature Gran # (Auto) 0.02 (0.00-0.02) K/uL Sodium 143 (136-145) mmol/L Potassium 3.6 (3.5-5.1) mmol/L Chloride 110 H (98-107) mmol/L Carbon Dioxide 28 (21-32) mmol/L Anion Gap 5.0 (3-11) BUN 14 (7-18) mg/dl Creatinine 0.53 L (0.6-1.4) mg/dl Est Cr Clr Drug Dosing 134.4 ml/min Est GFR ( Amer) 119.1 ml/min Est GFR (Non-Af Amer) 102.8 ml/min BUN/Creatinine Ratio 26.7 H (10-20) Glucose 98 (70-99) mg/dl Calcium 8.1 L (8.5-10.1) mg/dl Total Bilirubin 0.3 (0.2-1) mg/dl AST 19 (15-37) U/L ALT 19 (12-78) U/L Alkaline Phosphatase 48 (45-117) U/L Total Protein 5.8 L (6.4-8.2) gm/dl Albumin 2.5 L (3.4-5.0) gm/dl Globulin 3.3 (2.5-4.0) gm/dl Albumin/Globulin Ratio 0.8 L (0.9-2) PG Care Time/CCT Total # of Minutes Spent Total Time Spent with Patient: Total time spent is greater than 50% in coordination of care (as documented) at patient's floor/unit and/or counseling patient: Coding Level of Care Code 30427 Subseq Hosp Care Lvl 2 Diagnoses Acute UTI N39.0 Metabolic encephalopathy G93.41 Aphonia R49.1 Anxiety and depression F41.9; F32.9 Esophageal dysmotility K22.4 Paroxysmal atrial fibrillation I48.0 Parkinson's disease dementia G20; F02.80 Dysphagia R13.10 Orthostatic hypotension I95.1 Aspiration into airway T17.908A DVT prophylaxis Z29.9 Thrombocytopenia D69.6
[2021-05-21] MEDS: DOCUSATE SODIUM 100 MG CAP PO SCH (21:50)
[2021-05-21] MEDS: MELATONIN 3 MG TAB PO SCH (21:52)
--- NOTE | 2021-05-22 08:11 | XRay Report ---
XR chest 1V portable HISTORY: possible aspiration COMPARISON: Chest 05/18/2021. FINDINGS: There are low lung volumes. No pneumothorax. No pleural effusions. Rotated study. The heart is normal in size. Questionable right upper lobe density is likely due to the overlapping scapula. T here is a hazy left basilar density which is new from the prior study. IMPRESSION: 1. Hazy left basilar density. This may represent atelectasis or pneumonia. 2. Rotated study. This may account for the questionable right upper lobe density. ACT 112: Negative or not required by law. Electronically signed by: Kleber Zepeda M.D. 05/22/2021 8:10 AM
[2021-05-22] MEDS: ENOXAPARIN INJ 30 MG/0.3 ML SYR SQ SCH (08:15)
[2021-05-22] MEDS: CARBIDOPA/LEVODOPA 25/100MG TAB PO SCH ×4 (08:16→21:29)
[2021-05-22] MEDS: FLUDROCORTISONE ACETATE 0.1 MG TAB PO SCH ×2 (08:16→21:29)
[2021-05-22] MEDS: ENTACAPONE 200 MG TAB PO SCH ×4 (08:17→21:29)
[2021-05-22] MEDS: ASPIRIN 81 MG ECTAB PO SCH (08:17)
[2021-05-22] MEDS: MEMANTINE HCL 10 MG TAB PO SCH (08:17)
[2021-05-22] MEDS: CITALOPRAM 20 MG TAB PO SCH (08:18)
[2021-05-22] MEDS ORDERED: SULFAMETHOXAZOLE/TRIMETHOPRIM DS 800/160MG TAB PO SCH (09:00)
[2021-05-22 09:13] LABS: Basophils # (auto) 0.01 K/uL (0-0.2); Basophils % (auto) 0.1 %; Eosinophils # (auto) 0.13 K/uL (0-0.5); Eosinophils % (auto) 1.2 %; Hematocrit (blood only) 34.3 % (42-52); Immature Granulocytes # (auto) 0.03 K/uL (0.00-0.02); Immature Granulocytes % (auto) 0.3 %; Lymphocytes # (auto) 0.41 K/uL (1.2-3.4); Lymphocytes % (auto) 3.9 %; Mean Corpuscular Hemoglobin 34.4 pg (25-34); Mean Corpuscular Volume 98.3 fL (80-100); Mean Platelet Volume 10.1 fL (7.4-10.4); Monocytes # (auto) 0.47 K/uL (0.11-0.59); Monocytes % (auto) 4.4 %; Neutrophils # (auto) 9.58 K/uL (1.4-6.5); Neutrophils % (auto) 90.1 %; Platelet Count 139 K/uL (130-400); RDW Coefficient of Variation 12.5 % (11.5-14.5); RDW Standard Deviation 44.5 fL (36.4-46.3); Red Blood Count 3.49 M/uL (4.7-6.1); White Blood Count 10.63 K/uL (4.8-10.8)
[2021-05-22 09:52] LABS: BUN Creatinine Ratio 27.4 (10-20); Calcium 8.2 mg/dl (8.5-10.1); Creatinine Clr Calc Pharmacy 145.3 ml/min; Est GFR (Non-African American) 106.1 ml/min; Potassium 3.2 mmol/L (3.5-5.1)
[2021-05-22] MEDS: POTASSIUM CHLORIDE / WTR 10 MEQ/100 ML PLCT IV SCH ×2 (11:43→13:21)
--- NOTE | 2021-05-22 16:38 | Hospitalist Progress Note ---
Date of Service May 22, 2021 Assessment & Plan (1) Acute UTI: Plan: Presented with metabolic encephalopathy, fever, and abnormal UA. With sepsis, POA, fever, leukocytosis now improving. Did have low grade temp this AM after aspiration event Had previous UTI with Klebsiella treated with one week of Bactrim about 6-7 weeks ago Ur cx here with Klebsiella pneumonia that is intermediate sensitivity to nitrofurantoin but otherwise pansensitive -revert back to IV ceftriaxone rather than Bactrim today given lethargy and aspiration, but eventually convert to Bactrim DS 1 tab p.o. twice daily total 4 week course tylenol prn fever or pain -plan to treat with po abx x 4 weeks for acute prostatitis given recurrent infection in short span of time (2) Metabolic encephalopathy: Plan: was significantly improved, now worse today from lack of sleep, aspiration event, low grade fever initially encephalopathy secondary to UTI as above supportive care trial of holding Namenda again as daughter reports on hospital day #3 he was the best she has seen him in years. Only difference was his Namenda and Celexa were on hold for 2 days (3) Aphonia: Plan: Aphonia/dysphagia- secondary to Parkinson's Has been undergoing speech therapy. appreciate Speech consult here-plan for FEES-completed, has silent aspiration that is not rosalie and this cannot be prevented. Will likely worsen as his Parkinson's progresses (4) Anxiety and depression: Plan: Continue citalopram (5) Esophageal dysmotility: Plan: Secondary to Parkinson's (6) Paroxysmal atrial fibrillation: Plan: No issues this admission not on AC, just ASA (7) Parkinson's disease dementia: Plan: Continue carbidopa/ levodopa trial of holding memantine to see if improves somnolence (8) Dysphagia: Plan: See above, secondary to Parkinson's (9) Orthostatic hypotension: Plan: not having this here continue fludrocortisone (10) Aspiration into airway: Plan: on video swallow in March and here on FEES study by speech language pathologist- he has silent aspiration of thin liquids that cannot be prevented Continue minced and moist diet and nectar thickened liquids continue Speech therapy aspirated night of 05/21, low grade fever, some crackles no abx needed (11) Thrombocytopenia: Plan: Mild, platelets in the 1 teens and now improved to normal Likely secondary to sepsis Follow CBC (12) DVT prophylaxis: Plan: Lovenox SQ PT/OT recommending SNF Family initially wanted rehab placement but now want to bring him home with 24/7 care. Not medically stable today due to worsening mentation again as above, hopeful for dc tomorrow if improved Admission and Anticipated Discharge Date Admission Date: May 19, 2021 Subjective Pt had an aspiration event overnight where he was found to have sputum coming out of his mouth and required suction. He had a difficult time getting his secretions cleared. POx remained normal throughout and CXR obtained showed possible developing infiltrate on right vs atelectasis. He had a low grade fever this AM but none since then. He was definitely more lethargic today and fell asleep while talking to me. He did say he felt he was tired because of not getting a lot of sleep last evening. I discussed his care with and daughter at bedside. Review of Systems Review of Systems: All systems reviewed & are unremarkable except as noted in HPI & below Physical Exam Constitutional: WD/WN, vitals as above Eyes: + anicteric sclerae ENMT: Mouth: + oral mucosal abnormality (mild erythema post OP) Neck: trachea midline, no thyromegaly Respiratory: normal respiratory effort Auscultation: + crackles (at bases); no rhonchi and no wheezes Cardiovascular: RRR, no murmur, no edema Chest (Breasts): Chest: normal inspection of chest Gastrointestinal (Abdomen): normal bowel sounds, soft, nontender, no hepatosplenomegaly Musculoskeletal: Extremities: extremities normal to inspection; no cyanosis and no clubbing Skin: no rashes, warm and dry Neurologic: moves all extremities and awake; no focal motor deficits Psychiatric: Orientation: + not alert (drowsy) Lymphatic: no lymphedema Results & Data Results & Data ([facility]) Vital Signs (Past 12 Hours) Vital Signs Temp Pulse Resp BP Pulse Ox 05/22/21 16:00 36.8 C 76 20 137/85 97 05/22/21 08:36 37.6 C H 84 20 183/92 H 96 Laboratory Results 05/22/21 05/22/21 Range/Units 08:56 08:56 WBC 10.63 (4.8-10.8) K/uL RBC 3.49 L (4.7-6.1) M/uL Hgb 12.0 L (14.0-18.0) g/dL Hct 34.3 L (42-52) % MCV 98.3 (80-100) fL MCH 34.4 H (25-34) pg MCHC 35.0 (32-36) g/dL RDW Std Deviation 44.5 (36.4-46.3) fL RDW Coeff of Abi 12.5 (11.5-14.5) % Plt Count 139 (130-400) K/uL MPV 10.1 (7.4-10.4) fL Immature Gran % (Auto) 0.3 % Neut % (Auto) 90.1 % Lymph % (Auto) 3.9 % [place] % (Auto) 4.4 % Eos % (Auto) 1.2 % Baso % (Auto) 0.1 % Neut # (Auto) 9.58 H (1.4-6.5) K/uL Lymph # (Auto) 0.41 L (1.2-3.4) K/uL [place] # (Auto) 0.47 (0.11-0.59) K/uL Eos # (Auto) 0.13 (0-0.5) K/uL Baso # (Auto) 0.01 (0-0.2) K/uL Immature Gran # (Auto) 0.03 H (0.00-0.02) K/uL Sodium 139 (136-145) mmol/L Potassium 3.2 L (3.5-5.1) mmol/L Chloride 106 (98-107) mmol/L Carbon Dioxide 28 (21-32) mmol/L Anion Gap 5.0 (3-11) BUN 13 (7-18) mg/dl Creatinine 0.49 L (0.6-1.4) mg/dl Est Cr Clr Drug Dosing 145.3 ml/min Est GFR ( Amer) 123.0 ml/min Est GFR (Non-Af Amer) 106.1 ml/min BUN/Creatinine Ratio 27.4 H (10-20) Glucose 128 H (70-99) mg/dl Calcium 8.2 L (8.5-10.1) mg/dl Diagnostic Findings Chest X-Ray 05/22/21 02:26 XR chest 1V portable HISTORY: possible aspiration COMPARISON: Chest 05/18/2021. FINDINGS: There are low lung volumes. No pneumothorax. No pleural effusions. Rotated study. The heart is normal in size. Questionable right upper lobe density is likely due to the overlapping scapula. There is a hazy left basilar density which is new from the prior study. IMPRESSION: 1. Hazy left basilar density. This may represent atelectasis or pneumonia. 2. Rotated study. This may account for the questionable right upper lobe density. ACT 112: Negative or not required by law. Electronically signed by: Kleber Zepeda M.D. 05/22/2021 8:10 AM PG Care Time/CCT Total # of Minutes Spent Total Time Spent with Patient: Total time spent is greater than 50% in coordination of care (as documented) at patient's floor/unit and/or counseling patient: Coding Level of Care Code 12423 Subseq Hosp Care Lvl 2 Diagnoses Acute UTI N39.0 Metabolic encephalopathy G93.41 Aphonia R49.1 Anxiety and depression F41.9; F32.9 Esophageal dysmotility K22.4 Paroxysmal atrial fibrillation I48.0 Parkinson's disease dementia G20; F02.80 Dysphagia R13.10 Orthostatic hypotension I95.1 Aspiration into airway T17.908A Thrombocytopenia D69.6 DVT prophylaxis Z29.9
[2021-05-22] MEDS ORDERED: cefTRIAXone SODIUM 2,000 MG in DEXTROSE 5% 50 ML IV SCH (17:00)
[2021-05-22] MEDS: DOCUSATE SODIUM 100 MG CAP PO SCH (21:28)
[2021-05-23 09:13] LABS: Basophils # (auto) 0.01 K/uL (0-0.2); Basophils % (auto) 0.1 %; Eosinophils # (auto) 0.07 K/uL (0-0.5); Eosinophils % (auto) 0.5 %; Hematocrit (blood only) 32.9 % (42-52); Hemoglobin 11.5 g/dL (14.0-18.0); Immature Granulocytes # (auto) 0.05 K/uL (0.00-0.02); Immature Granulocytes % (auto) 0.4 %; Lymphocytes # (auto) 0.61 K/uL (1.2-3.4); Lymphocytes % (auto) 4.7 %; Mean Corpuscular Volume 97.3 fL (80-100); Mean Platelet Volume 10.1 fL (7.4-10.4); Monocytes # (auto) 0.46 K/uL (0.11-0.59); Monocytes % (auto) 3.5 %; Neutrophils # (auto) 11.76 K/uL (1.4-6.5); Neutrophils % (auto) 90.8 %; Platelet Count 146 K/uL (130-400); RDW Coefficient of Variation 12.3 % (11.5-14.5); RDW Standard Deviation 43.7 fL (36.4-46.3); Red Blood Count 3.38 M/uL (4.7-6.1); White Blood Count 12.96 K/uL (4.8-10.8)
[2021-05-23] MEDS: ASPIRIN 81 MG ECTAB PO SCH (09:18)
[2021-05-23] MEDS: CITALOPRAM 20 MG TAB PO SCH (09:18)
[2021-05-23] MEDS: CARBIDOPA/LEVODOPA 25/100MG TAB PO SCH ×2 (09:18→13:21)
[2021-05-23] MEDS: FLUDROCORTISONE ACETATE 0.1 MG TAB PO SCH (09:19)
[2021-05-23] MEDS: ENOXAPARIN INJ 30 MG/0.3 ML SYR SQ SCH (09:19)
[2021-05-23] MEDS: ENTACAPONE 200 MG TAB PO SCH ×2 (09:19→13:31)
[2021-05-23 09:34] LABS: BUN Creatinine Ratio 23.4 (10-20); Calcium 8.1 mg/dl (8.5-10.1); Creatinine Clr Calc Pharmacy 154.8 ml/min; Est GFR (African American) 126.3 ml/min; Est GFR (Non-African American) 108.9 ml/min; Magnesium 1.7 mg/dl (1.8-2.4); Potassium 3.3 mmol/L (3.5-5.1)
[2021-05-23] MEDS: MAGNESIUM SULFATE / D5W 1 GM/100 ML BAG IV SCH ×2 (10:58→14:01)
[2021-05-23] MEDS: POTASSIUM CHLORIDE / WTR 10 MEQ/100 ML PLCT IV SCH ×4 (10:58→16:26)
[2021-05-23] MEDS ORDERED: AMPICILLIN/SULBACTAM SOD 3,000 MG in 0.9 % SODIUM CHLORIDE 100 ML IV SCH (11:30)
--- NOTE | 2021-05-23 15:15 | Discharge Summary ---
Date of Service May 23, 2021 Admission HPI Per Admitting Provider The patient is a 75-year-old male with a past medical history including aphonia, central retinal vein occlusion, cervical spondylosis, common iliac aneurysm, GI dysmotility, anxiety depression, idiopathic polyneuropathy, Parkinson's dementia, paroxysmal atrial fibrillation, urge and stress incontinence, hyperlipidemia, auditory hallucination, unsteady gait, dysphagia, REM sleep disorder, anemia and orthostatic hypotension. The patient was noted by family to be becoming more confused, having worsening shakes than usual, fatigued, and with decreased appetite. Principal Diagnosis Acute metabolic encephalopathy, sepsis, UTI Discharge Exam Constitutional WD/WN, vitals as above Eyes + anicteric sclerae Neck trachea midline, no thyromegaly Respiratory normal respiratory effort, lungs clear to auscultation Cardiovascular RRR, no murmur, no edema Chest (Breasts) Chest: normal inspection of chest Gastrointestinal (Abdomen) normal bowel sounds, soft, nontender, no hepatosplenomegaly Musculoskeletal Extremities: extremities normal to inspection; no cyanosis and no clubbing Skin no rashes, warm and dry Neurologic moves all extremities and awake; no focal motor deficits Psychiatric Orientation: alert, oriented to person, oriented to place and cooperative Lymphatic no lymphedema Discharge Data Allergies Allergy/AdvReac Type Severity Reaction Status Date / Time oxycodone [From OxyContin] AdvReac Unknown Unknown Verified 05/19/21 02:39 Consultations 05/19/21 01:30 ED Decision to Admit Stat Ordered Studies Chest X-Ray 05/18/21 23:20 XR chest 1V portable CLINICAL HISTORY: SEPSIS COMPARISON STUDY: March 17, 2021 FINDINGS: No pneumothorax. No pleural effusion. No large infiltrates or consolidative lesions are seen. Lung volumes are decreased with crowded lung markings. Cardiomediastinal silhouette is within normal limits in size. No significant pulmonary vascular congestion.. Aorta is calcified. Osseous structures: Degenerative changes of the spine. IMPRESSION: 1. No acute pulmonary process. ACT 112: Negative or not required by law. The above report was generated using voice recognition software. It may contain grammatical, syntax or spelling errors. Electronically signed by: Aleah Pham DO 05/19/2021 9:08 AM Chest X-Ray 05/22/21 02:26 XR chest 1V portable HISTORY: possible aspiration COMPARISON: Chest 05/18/2021. FINDINGS: There are low lung volumes. No pneumothorax. No pleural effusions. Rotated study. The heart is normal in size. Questionable right upper lobe density is likely due to the overlapping scapula. There is a hazy left basilar density which is new from the prior study. IMPRESSION: 1. Hazy left basilar density. This may represent atelectasis or pneumonia. 2. Rotated study. This may account for the questionable right upper lobe density. ACT 112: Negative or not required by law. Electronically signed by: Kleber Zepeda M.D. 05/22/2021 8:10 AM Hospital Course (1) Acute UTI: Presented with metabolic encephalopathy, fever, and abnormal UA. With sepsis, POA, fever, leukocytosis now improving. Did have low grade temp on the morning of 05/22 after aspiration event the night prior but this has since resolved Had previous UTI with Klebsiella treated with one week of Bactrim about 6-7 weeks ago Ur cx here with Klebsiella pneumonia that is intermediate sensitivity to nitrofurantoin but otherwise pansensitive -Treated with IV ceftriaxone x4 days and will convert to Bactrim DS 1 tab p.o. twice daily total 4 week course upon discharge -plan to treat with po abx x 4 weeks for acute prostatitis given recurrent infection in short span of time (2) Metabolic encephalopathy: was significantly improved, then was worse on 05/22 from lack of sleep, aspiration event, low grade fever initially encephalopathy secondary to UTI as above Now much improved on 05/23/day of discharge supportive care trial of holding Namenda again as daughter reports on hospital day #3 he was the best she has seen him in years. Only difference was his Namenda and Celexa were on hold for 2 days prior to that. (3) Aphonia: Aphonia/dysphagia- secondary to Parkinson's Has been undergoing speech therapy. appreciate Speech consult here-plan for FEES-completed, has silent aspiration that is not rosalie and this cannot be prevented. Will likely worsen as his Parkinson's progresses Continue home speech therapy (4) Anxiety and depression: Continue citalopram (5) Esophageal dysmotility: Secondary to Parkinson's (6) Paroxysmal atrial fibrillation: No issues this admission not on AC, just ASA (7) Parkinson's disease dementia: Continue carbidopa/ levodopa trial of holding memantine to see if improves somnolence Continue routine follow-up with Dr. Espinal as scheduled in August (8) Dysphagia: See above, secondary to Parkinson's (9) Orthostatic hypotension: not having this here and in fact had high blood pressures at times continue fludrocortisone (10) Aspiration into airway: on video swallow in March and here on FEES study by speech language pathologist-he has silent aspiration of thin liquids that cannot be prevented Continue minced and moist diet and nectar thickened liquids continue Speech therapy aspirated night of 05/21, low grade fever, some crackles no abx needed although did receive 1 dose of Unasyn (11) Thrombocytopenia: Mild, now resolved Likely secondary to sepsis (12) DVT prophylaxis: Lovenox SQ PT/OT recommending SNF but doing better and will go home with / care Family initially wanted rehab placement but now want to bring him home with / care. Stable for discharge home today Plan of care discussed with case management specialist, patient, his at the bedside, and his daughter on the phone Total Time Total Time Spent Total Time Spent (In Minutes): 40 minutes Discharge Plan Discharge Items Patient Disposition: Home - Home Health Services Reason For Visit: UTI, CONFUSION Discharge Diagnosis: UTI, acute metabolic encephalopathy, aspiration Activity: Resume your previous activity Non-emergency contact: Primary Care Provider Call non-emergency contact if: you have any medication questions, your symptoms worsen, you have a fever and your temperature is above 101 Follow-up/Referrals: Sue Hopkins CRNP [Primary Care Provider] - (Please follow-up within 1 to 2 weeks.) Diet: Regular Diet Texture: Easy to Chew Liquid Consistency: [place] thick Addtl Attending Provider Instructions: You were admitted with confusion and lethargy secondary to a urinary tract infection. Please finish out the course of Bactrim 1 tablet twice a day for 3- 1/2 more weeks. He also continues have issues with aspiration. Please continue good oral care and the nectar thickened liquids and easy to chew diet. Continue your follow-up with speech therapy at home. You can continue the incentive spirometry 10 times each hour while you are awake. Your Namenda (memantine) was discontinued to see if this will help improve any lethargy that you have. Continue routine follow-up with neurology. Follow-up with your primary care physician within 1 to 2 weeks after discharge. Pending Studies at Discharge: Yes Stand-Alone Forms: My [facility] Medications and DC Order Prescriptions: New sulfamethoxazole-trimethoprim [Bactrim DS] 800-160 mg tablet 1 tab PO BID Qty: 48 RF: 0 Continued fludrocortisone 0.1 mg tablet 0.1 mg PO BID 30 Days Qty: 60 RF: 5 citalopram 20 mg tablet 20 mg PO DAILY Qty: 30 RF: 5 ualqujpqs-mxyfalif-wrtvqutwum [Stalevo 150] 37.5-150-200 mg tablet 1 tab PO QID Qty: 120 RF: 5 aspirin 81 mg tablet,delayed release (DR/EC) 81 mg PO DAILY RF: 0 docusate sodium 100 mg capsule 200 mg PO HS RF: 0 dutasteride 0.5 mg capsule 0.5 mg PO QDL RF: 0 melatonin 3 mg tablet 9 mg PO HS Qty: 0 RF: 0 Discontinued memantine 10 mg tablet 10 mg PO BID 30 Days Qty: 60 RF: 5 nitrofurantoin monohyd/m-cryst [Macrobid] 100 mg capsule 100 mg PO BID Qty: 14 RF: 0 phenazopyridine [Azo] 95 mg Tablet 95 mg PO TID PRN (Reason: urinary symptoms) RF: 0 Discharge Orders: Discharge Order (Routine); Ordered 05/23/21 Ordered By: Deyanira Monet Admission Data Admit Date/Time: 05/19/21 02:19 Attending Provider: Deyanira Monet Admit Provider: Jonathan Orozco Primary Care Provider: Sue Hopkins Other Providers: Jonathan Orozco ; [facility] ; [place] Coding Level of Care Code D/C DAY MANAGEMENT >30 MINS Diagnoses Acute UTI N39.0 Metabolic encephalopathy G93.41 Aphonia R49.1 Anxiety and depression F41.9; F32.9 Esophageal dysmotility K22.4 Paroxysmal atrial fibrillation I48.0 Parkinson's disease dementia G20; F02.80 Dysphagia R13.10 Orthostatic hypotension I95.1 Aspiration into airway T17.908A Thrombocytopenia D69.6 DVT prophylaxis Z29.9
== END 2021-05-23 17:21 | disposition home health service (06) | DRG 871 ==
LOC: ED 21:38 → 3N 05-19 02:19 → SUATTDRO 05-19 02:19 → 3N 05-19 04:30
DX: D69.6 Thrombocytopenia, unspecified; R13.10 Dysphagia, unspecified; R49.1 Aphonia; F02.80 Dementia in other diseases classified elsewhere, unspecified severity, without behavioral disturbance, psychotic disturbance, mood disturbance, and anxiety; T17.808A Unspecified foreign body in other parts of respiratory tract causing other injury, initial encounter; G93.41 Metabolic encephalopathy; Z96.659 Presence of unspecified artificial knee joint; N39.0 Urinary tract infection, site not specified; Y92.009 Unspecified place in unspecified non-institutional (private) residence as the place of occurrence of the external cause; I48.0 Paroxysmal atrial fibrillation; Z88.5 Allergy status to narcotic agent; G20 Parkinson's disease; A41.59 Other Gram-negative sepsis; K22.4 Dyskinesia of esophagus; F41.8 Other specified anxiety disorders; E78.5 Hyperlipidemia, unspecified

== ENCOUNTER 2021-07-10 03:57 | Inpatient (IN) ==
[2021-07-10] MEDS ORDERED: SODIUM CHLORIDE 0.9% 1000ML 1,000 ML IV STA (04:15)
[2021-07-10] MEDS ORDERED: ACETAMINOPHEN 1,000 MG/100 ML VIAL IV STA (04:15)
[2021-07-10] MEDS ORDERED: CEFEPIME 2,000 MG/20 ML VIAL IV STA (04:15)
[2021-07-10 04:23] LABS: Hematocrit (blood only) 37.7 % (42-52); Hemoglobin 12.7 g/dL (14.0-18.0); Mean Corpuscular Hemoglobin 33.5 pg (25-34); Mean Corpuscular Hgb Conc 33.7 g/dL (32-36); Mean Corpuscular Volume 99.5 fL (80-100); Mean Platelet Volume 9.9 fL (7.4-10.4); Platelet Count 176 K/uL (130-400); RDW Coefficient of Variation 13.2 % (11.5-14.5); RDW Standard Deviation 47.9 fL (36.4-46.3); Red Blood Count 3.79 M/uL (4.7-6.1); White Blood Count 24.35 K/uL (4.8-10.8)
[2021-07-10 04:40] LABS: Alanine Aminotransferase 14 U/L (12-78); Albumin Level 3.2 gm/dl (3.4-5.0); Aspartate Aminotransferase 13 U/L (15-37); BUN Creatinine Ratio 25.5 (10-20); Blood Urea Nitrogen 22 mg/dl (7-18); Calcium 8.6 mg/dl (8.5-10.1); Carbon Dioxide 28 mmol/L (21-32); Chloride 106 mmol/L (98-107); Creatinine Clr Calc Pharmacy 83.3 ml/min; Est GFR (African American) 97.2 ml/min; Est GFR (Non-African American) 83.8 ml/min; Glucose 160 mg/dl (70-99); Potassium 3.3 mmol/L (3.5-5.1); Sodium 142 mmol/L (136-145)
[2021-07-10 04:45] LABS: Albumin Globulin Ratio 0.8 (0.9-2); Alkaline Phosphatase 82 U/L (45-117); Bilirubin,Total 0.9 mg/dl (0.2-1); Globulin 3.8 gm/dl (2.5-4.0); Troponin I < 0.015 ng/ml (0-0.045)
[2021-07-10 04:48] LABS: Basophils # (auto) 0.01 K/uL (0-0.2); Eosinophils # (auto) 0.01 K/uL (0-0.5); Immature Granulocytes # (auto) 0.07 K/uL (0.00-0.02); Immature Granulocytes % (auto) 0.3 %; Lymphocytes # (auto) 0.29 K/uL (1.2-3.4); Lymphocytes % (auto) 1.2 %; Monocytes # (auto) 0.39 K/uL (0.11-0.59); Monocytes % (auto) 1.6 %; Neutrophils # (auto) 23.58 K/uL (1.4-6.5); Neutrophils % (auto) 96.9 %; RBC Morphology Unremarkable
[2021-07-10] MEDS ORDERED: SODIUM CHLORIDE 0.9% 1000ML 500 ML IV ONE ×2 (04:58→16:06)
[2021-07-10] MEDS ORDERED: cefTRIAXone SODIUM 2,000 MG in DEXTROSE 5% 50 ML IV SCH (06:00)
[2021-07-10] MEDS ORDERED: cefTRIAXone SODIUM 2000MG/70ML D5W IV ONE (06:02)
--- NOTE | 2021-07-10 06:05 | History & Physical Report ---
Date of Service July 10, 2021 Assessment & Plan (1) Altered mental status: Plan: Jose Manuel Jackson is a 75-year-old male with past medical history significant for numerous UTIs, Parkinson's dementia, paroxysmal atrial fibrillation; who presents for altered mental status and fever overnight. Altered mental status: -Acute metabolic encephalopathy likely secondary to infection with concern for sepsis vs less likely polypharmacy contributions, or exacerbation of parkinsonian symptoms Sepsis: -Elevated WBC, febrile, elevated lactate on admission -Blood cultures and urine cultures drawn -In ED received cefepime -Repeat lactate pending -Questionably source from urinary tract infection versus prostatitis -Recent urine culture (May 2021) demonstrated Klebsiella that was pansensitive -Transitioned to ceftriaxone 2 g daily -Admit to med/telemetry Parkinson's: -Hold Parkinson's medications at this time until potential improvement in mental status given questionable contributions to polypharmacy/altered mental status Diet n.p.o. until improvement CODE STATUS: Conditional code (DNI) (2) Parkinsons disease: (3) Dysphagia: History of Present Illness Primary Care Provider: RIAZ Mayorga Jose Manuel Jackson is a 75-year-old male with past medical history significant for numerous UTIs, Parkinson's dementia, paroxysmal atrial fibrillation; who presents for altered mental status and fever overnight. Approximately 1 month ago was admitted for similar concerns and complaints with at that time urinary tract infection subsequently treated with antibiotics and discharged. Last week was seen by PCP and had perfunctory urinalysis which was negative at that point time despite that was given short course of Bactrim until urine culture resulted as negative. Last night family noticed that he was having chills and sweats and was not acting like his normal self with more increased confusion ultimately took a temperature which resulted in a fever of 101. Family brought him to the hospital for concerns of urinary tract infection given his history. Following administration of fluids as well as Tylenol and cefepime he had improvement in his mentation. Allergies Allergy/AdvReac Type Severity Reaction Status Date / Time oxycodone [From OxyContin] AdvReac Unknown Unknown Verified 06/04/21 11:08 Home Medications Medication Instructions Recorded Confirmed Type docusate sodium 100 mg capsule 200 mg PO HS cap 03/13/19 07/10/21 History aspirin 81 mg tablet,delayed 81 mg PO DAILY tab 02/17/21 07/10/21 History release dutasteride 0.5 mg capsule 0.5 mg PO QDL 03/15/21 07/10/21 History fludrocortisone 0.1 mg tablet 0.1 mg PO BID 30 Days #60 tab 04/17/21 07/10/21 Rx citalopram 20 mg tablet 20 mg PO DAILY #30 tab 05/08/21 07/10/21 Rx melatonin 3 mg tablet 9 mg PO HS #0 tab 05/23/21 07/10/21 Rx carbidopa 50 mg-levodopa 200 1 tab PO QID #120 tab 06/04/21 07/10/21 Rx mg-entacapone 200 mg tablet (Stalevo 200) famotidine 20 mg tablet 20 mg PO DAILY 07/10/21 07/10/21 History Past Med/Surg History Medical History Aphonia Aspiration into airway Auditory hallucination Central retinal vein occlusion Cervical spondylosis Common iliac aneurysm Constipation Depression with anxiety Diverticulosis of colon Double vision with both eyes open Esophageal reflux Fatigue Gastrointestinal dysmotility Hoarseness Hyperlipidemia Impaired fasting glucose Low back pain Low systolic blood pressure Need for pneumococcal vaccination Osteoarthrosis of knee Parkinsons disease Screening for AAA (abdominal aortic aneurysm) Sleep apnea Surgical History History of hernia repair History of knee replacement Family History Other Family history unremarkable Denies family history of Ovarian cancer Prostate cancer Myocardial infarction Breast cancer Colorectal cancer Social History Smoking Status: Never smoker Hx Alcohol Use: No Hx Substance Use: No Preferred Language: Pakistani Communication Ability: Effective Fund Controller Required: No Beliefs That Will Affect Care: None marital status: Current Living Situation: Spouse current occupational status: retired Feels Safe at Home: Yes caffeine: No Dental Care, Regularly: Yes Physical Activity Frequency: 5-6 Times per Week Seatbelt Use: always Sunscreen Use: No Assistive Devices: Glasses and Walker Review of Systems Review of Systems: Unobtainable due to cognitive status Physical Exam Constitutional: cooperative and + lethargic; + not well nourished and no acute distress Eyes: PERRL, conjunctivae normal, anicteric sclerae Respiratory: normal respiratory effort, lungs clear to auscultation Auscultation: no crackles, no rales, no rhonchi and no wheezes Cardiovascular: Rate/Rhythm: regular rate and regular rhythm Heart Sounds: no gallop, no murmur and no cardiac rub Vessels: normal peripheral pulses; no JVD Extremities: no edema Gastrointestinal (Abdomen): Inspection/Auscultation: normal bowel sounds; abdomen not distended Percussion/Palpation: abdomen soft; abdomen nontender and no guarding Skin: no rashes, warm and dry Neurologic: PERRL, EOMI, accommodation nl, no face palsy, no dysarthria moves all extremities; no focal motor deficits Psychiatric: Orientation: alert and oriented x 3 Results & Data Results & Data ([facility]) Vital Signs (Past 12 Hours) Vital Signs Temp Pulse Pulse Resp BP BP Pulse Ox 07/10/21 05:08 37.3 C 87 18 105/62 96 07/10/21 03:59 37.9 C H 95 H 22 140/82 94 Laboratory Results 07/10/21 07/10/21 07/10/21 Range/Units 06:20 06:02 04:10 WBC (4.8-10.8) K/uL RBC (4.7-6.1) M/uL Hgb (14.0-18.0) g/dL Hct (42-52) % MCV (80-100) fL MCH (25-34) pg MCHC (32-36) g/dL RDW Std Deviation (36.4-46.3) fL RDW Coeff of Abi (11.5-14.5) % Plt Count (130-400) K/uL MPV (7.4-10.4) fL Immature Gran % (Auto) % Neut % (Auto) % Lymph % (Auto) % [place] % (Auto) % Eos % (Auto) % Baso % (Auto) % Neut # (Auto) (1.4-6.5) K/uL Lymph # (Auto) (1.2-3.4) K/uL [place] # (Auto) (0.11-0.59) K/uL Eos # (Auto) (0-0.5) K/uL Baso # (Auto) (0-0.2) K/uL Immature Gran # (Auto) (0.00-0.02) K/uL RBC Morphology Sodium (136-145) mmol/L Potassium (3.5-5.1) mmol/L Chloride (98-107) mmol/L Carbon Dioxide (21-32) mmol/L Anion Gap (3-11) BUN (7-18) mg/dl Creatinine (0.6-1.4) mg/dl Est Cr Clr Drug Dosing ml/min Est GFR ( Amer) ml/min Est GFR (Non-Af Amer) ml/min BUN/Creatinine Ratio (10-20) Glucose (70-99) mg/dl Lactate 2.4 H* 3.6 H* (0.4-2.0) mmol/L Calcium (8.5-10.1) mg/dl Total Bilirubin (0.2-1) mg/dl AST (15-37) U/L ALT (12-78) U/L Alkaline Phosphatase (45-117) U/L Troponin I (0-0.045) ng/ml Total Protein (6.4-8.2) gm/dl Albumin (3.4-5.0) gm/dl Globulin (2.5-4.0) gm/dl Albumin/Globulin Ratio (0.9-2) Urine Color Red Urine Appearance Turbid A (Clear) Urine pH 5.5 (4.5-7.5) Ur Specific [place] 1.025 (1.000-1.030) Urine Protein 2+ H (Negative) Urine Glucose (UA) Negative (Negative) Urine Ketones 1+ H (Negative) Urine Blood 2+ H (Negative) Urine Nitrite Negative (Negative) Urine Bilirubin Negative (Negative) Urine Urobilinogen Negative (Negative) Ur Leukocyte Esterase Negative (Negative) Urine RBC >30 H (0-4) /hpf Urine WBC >30 H (0-5) /hpf Ur Epithelial Cells 0-5 (0-5) /lpf Urine Bacteria Negative (Negative) COVID-19 Eval Order SARS-CoV-2 (PCR) (Negative) 07/10/21 07/10/21 07/10/21 Range/Units 04:10 04:10 04:05 WBC 24.35 H (4.8-10.8) K/uL RBC 3.79 L (4.7-6.1) M/uL Hgb 12.7 L (14.0-18.0) g/dL Hct 37.7 L (42-52) % MCV 99.5 (80-100) fL MCH 33.5 (25-34) pg MCHC 33.7 (32-36) g/dL RDW Std Deviation 47.9 H (36.4-46.3) fL RDW Coeff of Abi 13.2 (11.5-14.5) % Plt Count 176 (130-400) K/uL MPV 9.9 (7.4-10.4) fL Immature Gran % (Auto) 0.3 % Neut % (Auto) 96.9 % Lymph % (Auto) 1.2 % [place] % (Auto) 1.6 % Eos % (Auto) 0.0 % Baso % (Auto) 0.0 % Neut # (Auto) 23.58 H (1.4-6.5) K/uL Lymph # (Auto) 0.29 L (1.2-3.4) K/uL [place] # (Auto) 0.39 (0.11-0.59) K/uL Eos # (Auto) 0.01 (0-0.5) K/uL Baso # (Auto) 0.01 (0-0.2) K/uL Immature Gran # (Auto) 0.07 H (0.00-0.02) K/uL RBC Morphology Unremarkable Sodium 142 (136-145) mmol/L Potassium 3.3 L (3.5-5.1) mmol/L Chloride 106 (98-107) mmol/L Carbon Dioxide 28 (21-32) mmol/L Anion Gap 8.0 (3-11) BUN 22 H (7-18) mg/dl Creatinine 0.87 (0.6-1.4) mg/dl Est Cr Clr Drug Dosing 83.3 ml/min Est GFR ( Amer) 97.2 ml/min Est GFR (Non-Af Amer) 83.8 ml/min BUN/Creatinine Ratio 25.5 H (10-20) Glucose 160 H (70-99) mg/dl Lactate (0.4-2.0) mmol/L Calcium 8.6 (8.5-10.1) mg/dl Total Bilirubin 0.9 (0.2-1) mg/dl AST 13 L (15-37) U/L ALT 14 (12-78) U/L Alkaline Phosphatase 82 (45-117) U/L Troponin I < 0.015 (0-0.045) ng/ml Total Protein 7.0 (6.4-8.2) gm/dl Albumin 3.2 L (3.4-5.0) gm/dl Globulin 3.8 (2.5-4.0) gm/dl Albumin/Globulin Ratio 0.8 L (0.9-2) Urine Color Urine Appearance (Clear) Urine pH (4.5-7.5) Ur Specific [place] (1.000-1.030) Urine Protein (Negative) Urine Glucose (UA) (Negative) Urine Ketones (Negative) Urine Blood (Negative) Urine Nitrite (Negative) Urine Bilirubin (Negative) Urine Urobilinogen (Negative) Ur Leukocyte Esterase (Negative) Urine RBC (0-4) /hpf Urine WBC (0-5) /hpf Ur Epithelial Cells (0-5) /lpf Urine Bacteria (Negative) COVID-19 Eval Order SARS-CoV-2 (PCR) NEGATIVE (Negative) 07/10/21 Range/Units 04:05 WBC (4.8-10.8) K/uL RBC (4.7-6.1) M/uL Hgb (14.0-18.0) g/dL Hct (42-52) % MCV (80-100) fL MCH (25-34) pg MCHC (32-36) g/dL RDW Std Deviation (36.4-46.3) fL RDW Coeff of Abi (11.5-14.5) % Plt Count (130-400) K/uL MPV (7.4-10.4) fL Immature Gran % (Auto) % Neut % (Auto) % Lymph % (Auto) % [place] % (Auto) % Eos % (Auto) % Baso % (Auto) % Neut # (Auto) (1.4-6.5) K/uL Lymph # (Auto) (1.2-3.4) K/uL [place] # (Auto) (0.11-0.59) K/uL Eos # (Auto) (0-0.5) K/uL Baso # (Auto) (0-0.2) K/uL Immature Gran # (Auto) (0.00-0.02) K/uL RBC Morphology Sodium (136-145) mmol/L Potassium (3.5-5.1) mmol/L Chloride (98-107) mmol/L Carbon Dioxide (21-32) mmol/L Anion Gap (3-11) BUN (7-18) mg/dl Creatinine (0.6-1.4) mg/dl Est Cr Clr Drug Dosing ml/min Est GFR ( Amer) ml/min Est GFR (Non-Af Amer) ml/min BUN/Creatinine Ratio (10-20) Glucose (70-99) mg/dl Lactate (0.4-2.0) mmol/L Calcium (8.5-10.1) mg/dl Total Bilirubin (0.2-1) mg/dl AST (15-37) U/L ALT (12-78) U/L Alkaline Phosphatase (45-117) U/L Troponin I (0-0.045) ng/ml Total Protein (6.4-8.2) gm/dl Albumin (3.4-5.0) gm/dl Globulin (2.5-4.0) gm/dl Albumin/Globulin Ratio (0.9-2) Urine Color Urine Appearance (Clear) Urine pH (4.5-7.5) Ur Specific [place] (1.000-1.030) Urine Protein (Negative) Urine Glucose (UA) (Negative) Urine Ketones (Negative) Urine Blood (Negative) Urine Nitrite (Negative) Urine Bilirubin (Negative) Urine Urobilinogen (Negative) Ur Leukocyte Esterase (Negative) Urine RBC (0-4) /hpf Urine WBC (0-5) /hpf Ur Epithelial Cells (0-5) /lpf Urine Bacteria (Negative) COVID-19 Eval Order Covid19 at [facility] SARS-CoV-2 (PCR) (Negative) Medications Administered Home Medication List Medication Instructions Recorded docusate sodium 100 mg capsule 200 mg PO HS cap 03/13/19 aspirin 81 mg tablet,delayed 81 mg PO DAILY tab 02/17/21 release dutasteride 0.5 mg capsule 0.5 mg PO QDL 03/15/21 fludrocortisone 0.1 mg tablet 0.1 mg PO BID 30 Days #60 tab 04/17/21 citalopram 20 mg tablet 20 mg PO DAILY #30 tab 05/08/21 melatonin 3 mg tablet 9 mg PO HS #0 tab 05/23/21 carbidopa 50 mg-levodopa 200 1 tab PO QID #120 tab 06/04/21 mg-entacapone 200 mg tablet (Stalevo 200) famotidine 20 mg tablet 20 mg PO DAILY 07/10/21 Supervising Physician Co-Signing Physician Notes Attending addendum: I have physically seen this patient, have supervised the medical residents activities, and agree with the H&P unless as otherwise noted. Assessment and Plan: Sepsis due to prostatitis/complicated UTI/acute metabolic encephalopathy causing altered mental status- Follow urine cultures and blood cultures with sensitivity Received cefepime in the ED Admit on ceftriaxone 2 g IV daily, most recent UTI on 05/31 showed pansensitive Klebsiella Admit to medical telemetry for close BP monitoring Altered mental status- combination of underlying Parkinson's and acute metabolic encephalopathy due to urinary infection Remaining orders and notations as noted Resident Activity Tracking Resident Involvement: Resident Care Provided Care Provided: Adult Hospital Medicine
--- NOTE | 2021-07-10 06:46 | Emergency Department Note ---
Impression & Plan Acute UTI, Fever, Elevated lactic acid level, Leukocytosis ED Provider Note CHIEF COMPLAINT: Altered mental status, fever, ?UTI HISTORY OF PRESENT ILLNESS: This 75-year-old male patient presents to the emergency department with complaints of decreased responsiveness, fever to 101 degrees and the likelihood of a UTI per daughter at the bedside. Patient has had UTIs in the past and has presented very similarly. Patient suffers from Parkinson's disease. Daughter states he was on Augmentin for aspiration but has since completed this prescription. He has not had any vomiting, headache, chest pain or significant shortness of breath lately. REVIEW OF SYSTEMS: A review of systems was performed with positives and pertinent negatives listed in the history of present illness. 10 systems were reviewed and are otherwise negative. ALLERGIES: Oxycodone MEDICATIONS: Aspirin, carbidopa/levodopa, citalopram, Colace, dutasteride, fludrocortisone, melatonin PMH: Parkinson's disease, aspiration, UTI, central retinal vein occlusion, common iliac aneurysm, cervical spondylosis, fatigue, GI dysmotility, impaired fasting glucose, anxiety and depression, paroxysmal atrial fibrillation, tubular adenoma of the colon, urge and stress incontinence, hyperlipidemia, auditory hallucinations, dysphagia, pneumonia, hypocalcemia, anemia SOCIAL HISTORY: , retired, never smoker PHYSICAL EXAM: Vital signs reviewed. General: Chronically ill-appearing 75-year-old male, in no significant distress. HEENT: No scleral icterus, PERRLA, neck supple. Atraumatic. Cardiovascular: Regular rate and rhythm, no extra sounds. Pulmonary: Clear to auscultation bilaterally, normal work of breathing. Abdomen: Soft, nontender, nondistended, positive bowel sounds. Musculoskeletal: Atraumatic, no peripheral edema. Neurologic: Patient awake somnolent with flat affect, minimally verbal but does respond with grimaces and simple yes no responses to questioning notable peripheral tremor of the upper extremities at rest. Skin: Warm, dry, no rash EMERGENCY DEPARTMENT COURSE: This patient was evaluated and appeared to be in no significant distress. IV access was obtained and laboratory work was drawn. Patient was placed on cardiac cath lab manager and noted to be in normal sinus rhythm at 87 bpm. There is no ectopy. EKG reveals no evidence of acute ischemic change. Patient was hydrated with normal saline solution and given IV cefepime after blood cultures were drawn. Lactic acid is noted to be elevated at 3.6. UA was obtained and is positive for infection. Covid swab was obtained and is ne gative. Chest x-ray appears to be significant for mild congestion centrally but no focal lung consolidation or evidence of failure. Patient is resting comfortably and seems to be improving. MONITORING: An order for cardiac monitoring was placed and the patient is noted to be in a normal sinus rhythm at 87 beats per minute. RADIOLOGY: Chest x-ray appears to be significant for mild congestion centrally but no focal lung consolidation or evidence of failure to my interpretation. EKG: To my interpretation reveals normal sinus rhythm at 95 bpm. There is no evidence of acute ischemic change or dysrhythmia. There is evidence of a right bundle branch block and nonspecific ST change. No change from 05/18/2021 DIAGNOSIS: Fever, leukocytosis, sepsis, UTI Disposition: Hospitalist/admission Past Med/Surg History Medical History Aphonia Aspiration into airway Auditory hallucination Central retinal vein occlusion Cervical spondylosis Common iliac aneurysm Constipation Depression with anxiety Diverticulosis of colon Double vision with both eyes open Esophageal reflux Fatigue Gastrointestinal dysmotility Hoarseness Hyperlipidemia Impaired fasting glucose Low back pain Low systolic blood pressure Need for pneumococcal vaccination Osteoarthrosis of knee Parkinsons disease Screening for AAA (abdominal aortic aneurysm) Sleep apnea Surgical History History of hernia repair History of knee replacement Family History Other Family history unremarkable Denies family history of Ovarian cancer Prostate cancer Myocardial infarction Breast cancer Colorectal cancer Social History Smoking Status: Never smoker Hx Alcohol Use: No Hx Substance Use: No Preferred Language: Grenadian Communication Ability: Effective Environmental Protection Officer Required: No Beliefs That Will Affect Care: None marital status: Current Living Situation: Spouse current occupational status: retired Feels Safe at Home: Yes caffeine: No Dental Care, Regularly: Yes Physical Activity Frequency: 5-6 Times per Week Seatbelt Use: always Sunscreen Use: No Assistive Devices: Walker Allergies Allergies Allergy/AdvReac Type Severity Reaction Status Date / Time oxycodone [From OxyContin] AdvReac Unknown Unknown Verified 06/04/21 11:08 Home Meds Home Medications Medication Instructions Recorded Confirmed docusate sodium 100 mg capsule 200 mg PO HS cap 03/13/19 07/10/21 aspirin 81 mg tablet,delayed 81 mg PO DAILY tab 02/17/21 07/10/21 release dutasteride 0.5 mg capsule 0.5 mg PO QDL 03/15/21 07/10/21 famotidine 20 mg tablet 20 mg PO DAILY 07/10/21 07/10/21 Previous Rx's Medication Instructions Recorded fludrocortisone 0.1 mg tablet 0.1 mg PO BID 30 Days #60 tab 04/17/21 citalopram 20 mg tablet 20 mg PO DAILY #30 tab 05/08/21 melatonin 3 mg tablet 9 mg PO HS #0 tab 05/23/21 carbidopa 50 mg-levodopa 200 1 tab PO QID #120 tab 06/04/21 mg-entacapone 200 mg tablet (Stalevo 200) Results & Data (ED) Vital Signs Vital Signs - 24 hr 07/10/21 03:59 07/10/21 05:08 Temperature 37.9 C H 37.3 C Temperature Source Oral Oral Pulse Rate 95 H Pulse Rate [Right Finger] 87 Respiratory Rate 22 18 Blood Pressure 140/82 Blood Pressure [Right Arm] 105/62 Blood Pressure Mean 101 Blood Pressure Mean [Right Arm] 76 Blood Pressure Position Lying Blood Pressure Position [Right Arm] Sitting Pulse Oximetry 94 96 Oxygen Delivery Method Room Air Room Air Sepsis Recent Fever Within 48 Hours Yes Sepsis New/Unexplained Change in Mental Status Yes Sepsis Action Taken by Nursing Physician Notified Home Medications Current Medication List: was personally reviewed by me Laboratory Data Attestation: I reviewed the patient's lab results. Result diagrams: 07/10/21 04:10 07/10/21 04:10 Lab Results 07/10/21 07/10/21 07/10/21 Range/Units 04:05 04:05 04:10 WBC 24.35 H (4.8-10.8) K/uL RBC 3.79 L (4.7-6.1) M/uL Hgb 12.7 L (14.0-18.0) g/dL Hct 37.7 L (42-52) % MCV 99.5 (80-100) fL MCH 33.5 (25-34) pg MCHC 33.7 (32-36) g/dL RDW Std Deviation 47.9 H (36.4-46.3) fL RDW Coeff of Abi 13.2 (11.5-14.5) % Plt Count 176 (130-400) K/uL MPV 9.9 (7.4-10.4) fL Immature Gran % (Auto) 0.3 % Neut % (Auto) 96.9 % Lymph % (Auto) 1.2 % Warren % (Auto) 1.6 % Eos % (Auto) 0.0 % Baso % (Auto) 0.0 % Neut # (Auto) 23.58 H (1.4-6.5) K/uL Lymph # (Auto) 0.29 L (1.2-3.4) K/uL Warren # (Auto) 0.39 (0.11-0.59) K/uL Eos # (Auto) 0.01 (0-0.5) K/uL Baso # (Auto) 0.01 (0-0.2) K/uL Immature Gran # (Auto) 0.07 H (0.00-0.02) K/uL RBC Morphology Unremarkable Sodium (136-145) mmol/L Potassium (3.5-5.1) mmol/L Chloride (98-107) mmol/L Carbon Dioxide (21-32) mmol/L Anion Gap (3-11) BUN (7-18) mg/dl Creatinine (0.6-1.4) mg/dl Est Cr Clr Drug Dosing ml/min Est GFR ( Amer) ml/min Est GFR (Non-Af Amer) ml/min BUN/Creatinine Ratio (10-20) Glucose (70-99) mg/dl Lactate (0.4-2.0) mmol/L Calcium (8.5-10.1) mg/dl Total Bilirubin (0.2-1) mg/dl AST (15-37) U/L ALT (12-78) U/L Alkaline Phosphatase (45-117) U/L Troponin I (0-0.045) ng/ml Total Protein (6.4-8.2) gm/dl Albumin (3.4-5.0) gm/dl Globulin (2.5-4.0) gm/dl Albumin/Globulin Ratio (0.9-2) COVID-19 Eval Order Covid19 at [facility] SARS-CoV-2 (PCR) NEGATIVE (Negative) 07/10/21 07/10/21 Range/Units 04:10 04:10 WBC (4.8-10.8) K/uL RBC (4.7-6.1) M/uL Hgb (14.0-18.0) g/dL Hct (42-52) % MCV (80-100) fL MCH (25-34) pg MCHC (32-36) g/dL RDW Std Deviation (36.4-46.3) fL RDW Coeff of Abi (11.5-14.5) % Plt Count (130-400) K/uL MPV (7.4-10.4) fL Immature Gran % (Auto) % Neut % (Auto) % Lymph % (Auto) % Warren % (Auto) % Eos % (Auto) % Baso % (Auto) % Neut # (Auto) (1.4-6.5) K/uL Lymph # (Auto) (1.2-3.4) K/uL Warren # (Auto) (0.11-0.59) K/uL Eos # (Auto) (0-0.5) K/uL Baso # (Auto) (0-0.2) K/uL Immature Gran # (Auto) (0.00-0.02) K/uL RBC Morphology Sodium 142 (136-145) mmol/L Potassium 3.3 L (3.5-5.1) mmol/L Chloride 106 (98-107) mmol/L Carbon Dioxide 28 (21-32) mmol/L Anion Gap 8.0 (3-11) BUN 22 H (7-18) mg/dl Creatinine 0.87 (0.6-1.4) mg/dl Est Cr Clr Drug Dosing 83.3 ml/min Est GFR ( Amer) 97.2 ml/min Est GFR (Non-Af Amer) 83.8 ml/min BUN/Creatinine Ratio 25.5 H (10-20) Glucose 160 H (70-99) mg/dl Lactate 3.6 H* (0.4-2.0) mmol/L Calcium 8.6 (8.5-10.1) mg/dl Total Bilirubin 0.9 (0.2-1) mg/dl AST 13 L (15-37) U/L ALT 14 (12-78) U/L Alkaline Phosphatase 82 (45-117) U/L Troponin I < 0.015 (0-0.045) ng/ml Total Protein 7.0 (6.4-8.2) gm/dl Albumin 3.2 L (3.4-5.0) gm/dl Globulin 3.8 (2.5-4.0) gm/dl Albumin/Globulin Ratio 0.8 L (0.9-2) COVID-19 Eval Order SARS-CoV-2 (PCR) (Negative) Administered Medications Discontinued Medications Ceftriaxone Sodium (Ceftriaxone Sodium 2000mg/70ml D5w) Confirm Administered Dose 2,000 mg IV .STK-MED ONE Stop: 07/10/21 06:03 Last Admin: 07/10/21 06:10 Dose: Not Given Documented by: [id number] Sodium Chloride (Nss 1000ml) 1,000 mls @ 125 mls/hr IV .Q8H STA Stop: 07/10/21 12:14 Last Admin: 07/10/21 04:27 Dose: 125 mls/hr Documented by: [id number] Acetaminophen (Ofirmev) 1,000 mg in 100 mls @ 400 mls/hr IV NOW STA Stop: 07/10/21 04:29 Last Infusion: 07/10/21 04:45 Dose: 0 mls/hr Documented by: [id number] Admin: 07/10/21 04:27 Dose: 400 mls/hr Documented by: [id number] Cefepime HCl (Maxipime) 2,000 mg in 20 mls @ 5 mls/min IV NOW STA; Protocol Stop: 07/10/21 04:18 Last Admin: 07/10/21 04:27 Dose: 5 mls/min Documented by: [id number] Sodium Chloride (Nss 1000ml) 500 mls @ 999 mls/hr IV .Q31M ONE Stop: 07/10/21 05:28 Last Infusion: 07/10/21 05:40 Dose: 0 mls/hr Documented by: [id number] Admin: 07/10/21 05:13 Dose: 999 mls/hr Documented by: [id number] Ceftriaxone Sodium 2,000 mg/ (Dextrose) 50 mls @ 100 mls/hr IV Q24H [facility]; Protocol Stop: 10/02/21 05:59 Last Infusion: 07/10/21 06:38 Dose: 0 mls/hr Documented by: [id number] Admin: 07/10/21 06:09 Dose: 100 mls/hr Documented by: [id number] Imaging Data Radiologist's Impression: Chest X-Ray 07/10/21 04:15 XR chest 1V portable CLINICAL HISTORY: Fever COMPARISON STUDY: May 22, 2021 FINDINGS: No pneumothorax. No pleural effusion. Mild interval improvement of previously seen reticular and nodular opacities in the left base and hazy opacity in the right upper lung. Previously seen opacitie s at the right lower lung is not significantly changed. There are multiple questionable nodules with lucent center which is seen in bilateral lower lungs which is unchanged since prior however was not seen during remote chest radiograph from December 26, 2007. Above-mentioned findings might represent b ronchiectasis versus other etiology. Overall lung volumes are decreased with crowded lung markings. Cardiomediastinal silhouette is within normal limits in size. No significant pulmonary vascular congestion.. Aorta is tortuous and calcified. Osseous structures: Degenerative changes of the spine. IMPRESSION: 1. Decreased lung volumes with crowded lung markings. Mild interval improvement of opacities since recent prior study as detailed above. 2. Questionable nodular densities with lucent center within bilateral lower lungs, might represent bronchiectasis versus other etiology. Further evaluation with CT of the chest on nonemergency basis might be considered for further berenice acterization. 3. The rest of findings as above. ACT 112: Negative or not required by law. The above report was generated using voice recognition software. It may contain grammatical, syntax or spelling errors. Electronically signed by: Aleah Pham DO 07/10/2021 8:49 AM Blood Pressure Blood Pressure Findings: Normal blood pressure Blood Pressure Disposition: did not require urgent referral Discharge Plan Visit Data Chief Complaint: Fever Stated Complaint: FEVER Discharge Problem: Acute UTI, Fever, Elevated lactic acid level, Leukocytosis Patient Disposition: Being Evaluated by Hospitalist Discharge Instructions Interventions: ED Discharge Assessment Last Done: 07/10/21 06:44
[2021-07-10 06:49] LABS: Appearance Urine Turbid (Clear); Bilirubin Urine Negative (Negative); Blood Urine 2+ (Negative); Color Urine Red; Glucose Urine UA Negative (Negative); Ketones Urine 1+ (Negative); Leukocyte Esterase Urine Negative (Negative); Nitrite Urine Negative (Negative); Protein Urine 2+ (Negative); Specific Gravity Urine 1.025 (1.000-1.030); Urobilinogen Urine Negative (Negative); pH Urine 5.5 (4.5-7.5)
[2021-07-10 06:52] LABS: Bacteria Urine Negative (Negative); Epithelial Cell Urine 0-5 /lpf (0-5); RBC Urine >30 /hpf (0-4); WBC Urine >30 /hpf (0-5)
[2021-07-10] MEDS ORDERED: POLYETHYLENE (MIRALAX) 17 GM PACK PO PRN (07:00)
[2021-07-10] MEDS ORDERED: ALUMINUM/MAGNESIUM SUSP 30 ML UDC PO PRN (07:00)
[2021-07-10] MEDS ORDERED: NITROGLYCERIN SL 0.4 MG/TAB TAB SL PRN (07:00)
[2021-07-10] MEDS ORDERED: ACETAMINOPHEN 325 MG TAB PO PRN (07:00)
[2021-07-10] MEDS ORDERED: MoRPHine SULFATE 2 MG/ML CARP IV PRN (07:00)
[2021-07-10] MEDS ORDERED: ONDANSETRON INJ 2 MG/ML 2 ML VIAL IV PRN (07:00)
[2021-07-10] MEDS ORDERED: MAGNESIUM HYDROXIDE SUSP 30 ML UDC PO PRN (07:00)
[2021-07-10] MEDS: FLUDROCORTISONE ACETATE 0.1 MG TAB PO SCH ×2 (08:41→21:52)
[2021-07-10] MEDS: ASPIRIN 81 MG ECTAB PO SCH (08:41)
--- NOTE | 2021-07-10 08:50 | XRay Report ---
XR chest 1V portable CLINICAL HISTORY: Fever COMPARISON STUDY: May 22, 2021 FINDINGS: No pneumothorax. No pleural effusion. Mild interval improvement of previously seen reticular and nodular opacities in the left base and haz y opacity in the right upper lung. Previously seen opacities at the right lower lung is not significa ntly changed. There are multiple questionable nodules with lucent center which is seen in bilateral l ower lungs which is unchanged since prior however was not seen during remote chest radiograph from [facility] 2007. Above-mentioned findings might represent bronchiectasis versus other etiology. Overall lung volumes are decreased with crowded lung markings. Cardiomediastinal silhouette is within normal limits in size. No significant pulmonary vascular congestion.. Aorta is tortuous and calcified. Osseous structures: Degenerative changes of the spine. IMPRESSION: 1. Decreased lung volumes with crowded lung markings. Mild interval improvement of opacities since r ecent prior study as detailed above. 2. Questionable nodular densities with lucent center within bilateral lower lungs, might represent b ronchiectasis versus other etiology. Further evaluation with CT of the chest on nonemergency basis mi ght be considered for further characterization. 3. The rest of findings as above. ACT 112: Negative or not required by law. The above report was generated using voice recognition software. It may contain grammatical, syntax o r spelling errors. Electronically signed by: Aleah Pham DO 07/10/2021 8:49 AM
[2021-07-10] MEDS: AMPICILLIN/SULBACTAM SOD 3,000 MG in 0.9 % SODIUM CHLORIDE 100 ML IV SCH ×2 (11:32→18:15)
--- NOTE | 2021-07-10 13:37 | CT Scan Report ---
CT chest diagnostic wo con INDICATION: MN ^sepsis. TECHNIQUE: Multidetector row helical CT of the chest was performed. Coronal and sagittal reformations were obtained. Automated dose lowering techniques and/or adjustment according to patient size were u tilized for this exam. Comparison: Comparison is made to CT chest 12/26/2019 FINDINGS: Exam is limited by patient motion. Lungs and pleura: Atelectasis versus scarring is seen in the dependent portions of the lungs. Scatter ed calcified granulomata are noted. Heart and pericardium: Cardiomegaly is seen with biatrial enlargement. Vessels: Severe atherosclerotic changes in the aorta and coronary arteries. Mediastinum and kenny: Subcentimeter lymph nodes are seen. Chest wall and lower neck: Unremarkable. Abdomen: Unremarkable. Bones: Degenerative changes in the thoracic spine. IMPRESSION: 1. Atelectasis in the bilateral lower lobes without other acute abnormality. 2. Cardiomegaly with severe atherosclerotic changes. ACT 112: Negative or not required by law. Electronically signed by: Eliseo Bennett M.D. 07/10/2021 1:36 PM
--- NOTE | 2021-07-10 16:06 | Hospitalist Progress Note ---
Date of Service July 10, 2021 Assessment & Plan (1) Sepsis: Plan: Jose Manuel Jackson is a 75-year-old male with past medical history significant for numerous UTIs, Parkinson's dementia, paroxysmal atrial fibrillation; who presents for altered mental status and fever overnight. Sepsis Leukocytosis to 24.35 on admit, febrile, elevated lactate on admission Blood cultures and urine cultures pending Ct-C: Atelectasis in the bilateral lower lobes without other acute abnormality. Cardiomegaly with severe atherosclerotic changes. - CXR: Decreased lung volumes with crowded lung markings. Mild interval improvement of opacities since recent prior study as detailed above. Questionable nodular densities with lucent center within bilateral lower lungs, might represent bronchiectasis versus other etiology. Further evaluation with CT of the chest on nonemergency basis might be considered for further characterization. Lactate downtrending, 2.2 UA 2+ blood, no bacteria. UC straight cath pending. History of Klebsiella UTI with similar presentation in 05/18/2021 Per daughter patient has a history of aspiration events. Convert Rocephin to Unasyn for empiric coverage of aspiration pneumonia Continue home fludrocortisone 0.1 twice daily NSS bolus as needed, NSS 125 cc/h return lactate (2) Altered mental status: Plan: Altered mental status: -Acute metabolic encephalopathy likely secondary to infection with concern for sepsis vs less likely polypharmacy contributions, or exacerbation of parkinsonian symptoms Unclear etiology at this time (3) Parkinsons disease: Plan: Parkinson's: -Hold Parkinson's Sinemet at this time until potential improvement in mental status given questionable contributions to polypharmacy/altered mental status Citalopram 20 mg held on admission, if no improvement within 24-48 hours continue restarting to prevent SSRI withdrawal Continue fludrocortisone (4) Dysphagia: Plan: Chronic, patient reports history of aspiration events See speech therapist at home who cleared him last week N.p.o. pending mental status improvement, consider speech eval if not doing well at bedside swallow once more awake Plan: Diet n.p.o. until improvement CODE STATUS: Conditional code (DNI) Admission and Anticipated Discharge Date Admission Date: July 10, 2021 Subjective Bridge note/progress note Patient seen at bedside with daughter. Mental status limited by dementia, patient's daughter reports this is chronic but acutely worsened. At baseline patient follows commands, and engage with physical therapy at home and can ride an exercise bike. Acutely worsened Review of Systems Review of Systems: Unavailable due to cognitive status Physical Exam Physical Exam: General: Appears fatigued, chronically ill, no acute distress. Cooperative, follows some one-step commands. HEENT: Atraumatic, normocephalic. Dukas membranes dry. Pulm: Moderate to poor air movement. CTAB A&P. -wheezes, -rales, -rhonchi. Symmetrical chest rise. No increase work of breathing. No respiratory distress. Cardiac: RRR, -mrg. Radial pulses intact and symmetrical. Abdominal: Nontender, nondistended, soft. BS present. Extremities: Warm, dry. Results & Data Results & Data ([facility]) Vital Signs (Past 12 Hours) Vital Signs Temp Pulse Pulse Resp BP BP Pulse Ox 07/10/21 13:36 78 16 144/75 H 93 07/10/21 10:31 82 20 130/67 95 07/10/21 09:16 85 20 95 07/10/21 07:45 84 20 116/72 95 07/10/21 06:30 84 18 112/68 95 07/10/21 05:08 37.3 C 87 18 105/62 96 07/10/21 03:59 37.9 C H 95 H 22 140/82 94 PG Care Time/CCT Total # of Minutes Spent Total Time Spent with Patient: Total time spent is greater than 50% in coordination of care (as documented) at patient's floor/unit and/or counseling patient: Coding Level of Care Code None Diagnoses Altered mental status R41.82 Parkinsons disease G20 Dysphagia R13.10 Sepsis A41.9
[2021-07-10] MEDS: MELATONIN 3 MG TAB PO SCH (21:51)
[2021-07-10] MEDS: LACTATED RINGER'S 1,000 ML IV SCH (21:51)
--- NOTE | 2021-07-10 22:07 | Billing Data ---
Date of Service July 10, 2021 Coding Level of Care Code 03210 Initial Inpt Care Lvl 3
[2021-07-11] MEDS: AMPICILLIN/SULBACTAM SOD 3,000 MG in 0.9 % SODIUM CHLORIDE 100 ML IV SCH ×5 (00:02→23:47)
[2021-07-11] MEDS ORDERED: cefTRIAXone SODIUM 2,000 MG in DEXTROSE 5% 50 ML IV SCH (06:00)
--- NOTE | 2021-07-11 06:10 | Electrocardiogram Report ---
Test Reason : Blood Pressure : / mmHG Vent. Rate : 095 BPM Atrial Rate : 095 BPM P-R Int : 160 ms QRS Dur : 134 ms QT Int : 406 ms P-R-T Axes : 053 -25 011 degrees QTc Int : 510 ms Poor data quality, interpretation may be adversely affected Normal sinus rhythm Right bundle branch block Abnormal ECG When compared with ECG of 18-MAY-2021 21:57, No significant change was found Confirmed by Jairo Bowers ([id number]) on 07/11/2021 6:10:04 AM Referred By: REFERRED SELF Confirmed By:Jairo Bowers
[2021-07-11] MEDS: FLUDROCORTISONE ACETATE 0.1 MG TAB PO SCH ×2 (08:20→20:18)
[2021-07-11] MEDS: ASPIRIN 81 MG ECTAB PO SCH (08:20)
[2021-07-11] MEDS: LACTATED RINGER'S 1,000 ML IV SCH ×3 (08:21→18:08)
[2021-07-11 08:39] LABS: Basophils # (auto) 0.02 K/uL (0-0.2); Basophils % (auto) 0.2 %; Eosinophils # (auto) 0.48 K/uL (0-0.5); Hematocrit (blood only) 33.2 % (42-52); Hemoglobin 11.3 g/dL (14.0-18.0); Immature Granulocytes # (auto) 0.02 K/uL (0.00-0.02); Immature Granulocytes % (auto) 0.2 %; Lymphocytes # (auto) 0.36 K/uL (1.2-3.4); Lymphocytes % (auto) 3.7 %; Mean Corpuscular Hemoglobin 33.7 pg (25-34); Mean Corpuscular Volume 99.1 fL (80-100); Mean Platelet Volume 10.5 fL (7.4-10.4); Monocytes % (auto) 4.1 %; Neutrophils # (auto) 8.41 K/uL (1.4-6.5); Neutrophils % (auto) 86.8 %; Platelet Count 134 K/uL (130-400); RDW Coefficient of Variation 13.7 % (11.5-14.5); RDW Standard Deviation 49.1 fL (36.4-46.3); Red Blood Count 3.35 M/uL (4.7-6.1); White Blood Count 9.69 K/uL (4.8-10.8)
[2021-07-11 09:08] LABS: BUN Creatinine Ratio 28.4 (10-20); Calcium 8.3 mg/dl (8.5-10.1); Creatinine Clr Calc Pharmacy 120.4 ml/min; Est GFR (African American) 114.8 ml/min; Magnesium 2.3 mg/dl (1.8-2.4)
[2021-07-11 09:09] LABS: Phosphorus 2.4 mg/dl (2.5-4.9)
[2021-07-11 09:20] LABS: Lyme Ab IgG w/WB Rflx Negative (Negative); Lyme Ab IgM w/WB Rflx Negative (Negative)
[2021-07-11] MEDS: DUTASTERIDE PO SCH ×2 (11:55→18:54)
[2021-07-11] MEDS: POT PHOSPHATE MONOBASIC W/ SOD TAB PO SCH ×2 (13:33→16:06)
[2021-07-11] MEDS: POTASSIUM CHLORIDE CRTAB 20 MEQ TABCR PO SCH ×2 (13:33→20:18)
--- NOTE | 2021-07-11 16:28 | Hospitalist Progress Note ---
Date of Service July 11, 2021 Assessment & Plan (1) Sepsis: Plan: Jose Manuel Jackson is a 75-year-old male with past medical history significant for numerous UTIs, Parkinson's dementia, paroxysmal atrial fibrillation; who presents for altered mental status and fever overnight. Sepsis - Improved, unclear source Leukocytosis to 24.35 on admit, febrile, elevated lactate on admission Blood cultures and urine cultures pending Ct-C: Atelectasis in the bilateral lower lobes without other acute abnormality. Cardiomegaly with severe atherosclerotic changes. - CT-H pending - CXR: Decreased lung volumes with crowded lung markings. Mild interval improvement of opacities since recent prior study as detailed above. Questionable nodular densities with lucent center within bilateral lower lungs, might represent bronchiectasis versus other etiology. Further evaluation with CT of the chest on nonemergency basis might be considered for further characterization. Lactate downtrending, 2.2 UA 2+ blood, no bacteria. UC straight cath pending. History of Klebsiella UTI with similar presentation in 05/18/2021 Per daughter patient has a history of aspiration events. Convert Rocephin to Unasyn for empiric coverage of aspiration pneumonia Continue home fludrocortisone 0.1 twice daily NSS bolus as needed, NSS 125 cc/h Leukocytosis normalized 07/11 Lactate normalized 07/10 Random cortisol does not suggest adrenal insufficiency Lyme panel negative (2) Altered mental status: Plan: Altered mental status: -Acute metabolic encephalopathy likely secondary to infection with concern for sepsis vs less likely polypharmacy contributions, or exacerbation of parkinsonian symptoms Leukocytosis normalized, no clear source of infection - CT-H pending (3) Parkinsons disease: Plan: Parkinson's: -Hold Parkinson's Sinemet at this time until potential improvement in mental status given questionable contributions to polypharmacy/altered mental status Citalopram 20 mg held on admission. Resumed at half dose with intent to taper to prevent SSRI withdrawal Continue fludrocortisone (4) Dysphagia: Plan: Chronic, patient reports history of aspiration events Seen by speech therapist at home who cleared him last week Patient tolerating minced/moist well without bedside signs of aspiration Plan: Soft bite-size diet CODE STATUS: Conditional code (DNI) PT/OT pending Admission and Anticipated Discharge Date Admission Date: July 10, 2021 Subjective Patient is seen at bedside this morning. He has somewhat increased speech latency, but arouses easily and answers questions appropriately. Denies pain, reports he feels "okay ". Denies fever, chills, sweats, stomach pain, nausea, vomiting, diarrhea, pain with urination. Reports he still feels weaker and more fatigued than normal, but would like to get out of bed and "doing stuff again " Review of Systems Review of Systems: 10 point review systems negative except as noted in HPI Physical Exam Physical Exam: General: Appears fatigued, chronically ill but nontoxic, no acute distress. Cooperative, one-step commands and two-step commands. HEENT: Atraumatic, normocephalic. Mucous membranes tacky, visual acuity intact hearing intact Pulm: Moderatemovement. CTAB A&P. -wheezes, -rales, -rhonchi. Symmetrical chest rise. No increase work of breathing. No respiratory distress. Cardiac: RRR, -mrg. Radial pulses intact and symmetrical. Abdominal: Nontender, nondistended, soft. BS present. Extremities: Warm, dry. Results & Data Results & Data ([facility]) Vital Signs (Past 12 Hours) Vital Signs Temp Pulse Pulse Resp BP Pulse Ox 07/11/21 15:31 36.5 C 62 16 165/85 H 97 07/11/21 11:14 37.0 C 58 L 18 157/80 H 97 07/11/21 08:07 55 L 07/11/21 06:46 36.8 C 54 L 18 156/78 H 93 PG Care Time/CCT Total # of Minutes Spent Total Time Spent with Patient: Total time spent is greater than 50% in coordination of care (as documented) at patient's floor/unit and/or counseling patient: Coding Level of Care Code 28883 Subseq Hosp Care Lvl 2 Diagnoses Sepsis A41.9 Altered mental status R41.82 Parkinsons disease G20 Dysphagia R13.10
--- NOTE | 2021-07-11 18:34 | CT Scan Report ---
CT head/brain wo con CLINICAL HISTORY: 75 years-old Male with AMS. Acutely altered mental status TECHNIQUE: Multiple axial CT images of the head were obtained without contrast. A dose lowering tech nique was utilized adhering to the principles of ALARA. CT DOSE: 709.48 mGy.cm COMPARISON: Head CT 11/29/2019. FINDINGS: No acute intracranial hemorrhage, midline shift, intracranial mass, hydrocephalus, territorial ischem ia or abnormal extra-axial collection. Age-related involutional changes. White matter hypodensities s uggestive of chronic microvascular ischemic disease. The calvarium is intact. The paranasal sinuses, mastoid air cells, and middle ear cavities are clear . IMPRESSION: No acute intracranial abnormality. ACT 112: Negative or not required by law. The above report was generated using voice recognition software. It may contain grammatical, syntax o r spelling errors. Electronically signed by: Amrik Simon M.D. 07/11/2021 6:33 PM
[2021-07-11] MEDS: MELATONIN 3 MG TAB PO SCH (20:19)
[2021-07-12] MEDS ORDERED: Nursing to Pharmacy Communication SCH (04:00)
[2021-07-12] MEDS ORDERED: METOPROLOL TARTRATE 1 MG/ML VIAL IV STA ×2 (05:03→05:34)
[2021-07-12] MEDS ORDERED: LACTATED RINGER'S 500 ML IV ONE (05:03)
--- NOTE | 2021-07-12 05:04 | Communication Note ---
Date of Service: July 12, 2021 Notified around 04:50AM in regards to patient flipping into atrial fibrillation/flutter in the 120-140's. Patient asymptomatic. EKG ordered. Patient evaluated at bedside who noted that he felt well and did not feel as though his heart was beating erratically. He notes history of atrial fibrillation, but that it has been "at least a year" since he last had symptoms. 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
[2021-07-12] MEDS ORDERED: METOPROLOL TARTRATE 1 MG/ML VIAL IV ONE (05:07)
[2021-07-12] MEDS: LACTATED RINGER'S 1,000 ML IV SCH ×2 (05:45→11:28)
[2021-07-12] MEDS: AMPICILLIN/SULBACTAM SOD 3,000 MG in 0.9 % SODIUM CHLORIDE 100 ML IV SCH ×4 (05:50→23:23)
[2021-07-12] MEDS ORDERED: POTASSIUM CHLORIDE / WTR 10 MEQ/100 ML PLCT IV ONE (06:00)
[2021-07-12] MEDS ORDERED: dilTIAZem HCl 5 MG/ML 5 ML VIAL IV STA (06:08)
[2021-07-12] MEDS ORDERED: dilTIAZem HCl 5 MG/ML 5 ML VIAL IV ONE (06:15)
[2021-07-12 06:38] LABS: Basophils # (auto) 0.01 K/uL (0-0.2); Basophils % (auto) 0.1 %; Eosinophils # (auto) 0.43 K/uL (0-0.5); Eosinophils % (auto) 5.9 %; Hematocrit (blood only) 32.5 % (42-52); Immature Granulocytes # (auto) 0.02 K/uL (0.00-0.02); Immature Granulocytes % (auto) 0.3 %; Lymphocytes # (auto) 0.57 K/uL (1.2-3.4); Lymphocytes % (auto) 7.8 %; Mean Corpuscular Hgb Conc 33.8 g/dL (32-36); Mean Corpuscular Volume 97.6 fL (80-100); Mean Platelet Volume 10.1 fL (7.4-10.4); Monocytes % (auto) 6.8 %; Neutrophils # (auto) 5.79 K/uL (1.4-6.5); Neutrophils % (auto) 79.1 %; Platelet Count 134 K/uL (130-400); RDW Coefficient of Variation 13.2 % (11.5-14.5); Red Blood Count 3.33 M/uL (4.7-6.1); White Blood Count 7.32 K/uL (4.8-10.8)
[2021-07-12 07:16] LABS: Calcium 7.7 mg/dl (8.5-10.1); Creatinine Clr Calc Pharmacy 141.9 ml/min; Est GFR (African American) 124.1 ml/min; Potassium 2.8 mmol/L (3.5-5.1)
--- NOTE | 2021-07-12 08:26 | Hospitalist Progress Note ---
Date of Service July 12, 2021 Assessment & Plan (1) Sepsis: Plan: Jose Manuel Jackson is a 75-year-old male with past medical history significant for numerous UTIs, Parkinson's dementia, paroxysmal atrial fibrillation; who presents for altered mental status and fever overnight. Sepsis - Improved, unclear source Leukocytosis to 24.35 on admit, febrile, elevated lactate on admission Blood cultures and urine cultures pending Ct-C: Atelectasis in the bilateral lower lobes without other acute abnormality. Cardiomegaly with severe atherosclerotic changes. - CT-H: No acute findings - CXR: Decreased lung volumes with crowded lung markings. Mild interval improvement of opacities since recent prior study as detailed above. Questionable nodular densities with [facility] within bilateral lower lungs, might represent bronchiectasis versus other etiology. Further evaluation with CT of the chest on nonemergency basis might be considered for further characterization. Lactate downtrending, 2.2 UA 2+ blood, no bacteria. UC straight cath pending. History of Klebsiella UTI with similar presentation in 05/18/2021 Per daughter patient has a history of aspiration events. Convert Rocephin to Unasyn for empiric coverage of aspiration pneumonia Continue home fludrocortisone 0.1 twice daily NSS bolus as needed, NSS 125 cc/h Leukocytosis normalized 07/11 Lactate normalized 07/10 Random cortisol does not suggest adrenal insufficiency Lyme panel negative (2) Altered mental status: Plan: Altered mental status: Improved -Acute metabolic encephalopathy likely secondary to infection with concern for sepsis vs less likely polypharmacy contributions, or exacerbation of parkinsonian symptoms Leukocytosis normalized, no clear source of infection - CT-H with no acute findings as above (3) Parkinsons disease: Plan: Parkinson's: -Hold Parkinson's Sinemet at this time until potential improvement in mental status given questionable contributions to polypharmacy/altered mental status Citalopram 20 mg held on admission. Resumed at half dose with intent to taper to prevent SSRI withdrawal. 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 Discussed risk benefits at bedside with patient, and with patient's . Would prefer to follow-up with [facility] cardiology and defer initiation at this time understanding that A. fib raises risk of stroke although day-to-day risk is relatively low, [id number] at least 2 due to age. Patient's will also discuss with the family member who is an ER physician, and may call if they change their mind. -improved with lopressor 2.5mg IV + 5mg IV + cardizem 22mgIV Metoprolol 12.5 mg p.o. twice daily - BP stable - KCl repleted Plan: Soft bite-size diet CODE STATUS: Conditional code (DNI) PT/OT pending Admission and Anticipated Discharge Date Admission Date: July 10, 2021 Subjective Seen at bedside this morning. Reports he feels well, is not aware that his heart rate was fast last night. Denies palpitations, chest pain, lightheadedness, dizziness. Reports he would like to get back to his prior walking regimen, otherwise no questions or concerns. No fever/chills. Review of Systems Review of Systems: 10 point review systems negative except as noted in HPI Physical Exam Physical Exam: General: Alert to name and place. Nontoxic, no acute distress. Cooperative, one-step commands and two-step commands. HEENT: Atraumatic, normocephalic. Mucous membranes tacky, visual acuity intact hearing intact Pulm: Moderate air movement. CTAB A&P. -wheezes, -rales, -rhonchi. Symmetrical chest rise. No increase work of breathing. No respiratory distress. Cardiac: RRR, -mrg. Radial pulses intact and symmetrical. Abdominal: Nontender, nondistended, soft. BS present. Extremities: Warm, dry. Resting tremor present in right and left hands that quiet with extension. Sensation intact in hands and feet. Results & Data Results & Data ([facility]) Vital Signs (Past 12 Hours) Vital Signs Temp Pulse Pulse Resp BP BP Pulse Ox 07/12/21 08:01 37.1 C 61 18 128/71 95 07/12/21 07:31 113 H 07/12/21 06:18 124 H 118/83 07/12/21 05:42 125 H 07/12/21 05:10 126 H 146/89 H 07/12/21 04:55 37.2 C 129 H 16 146/89 H 94 07/12/21 03:00 37.1 C 66 16 166/85 H 96 07/12/21 00:45 68 07/11/21 23:00 36.9 C 66 14 180/88 H 95 PG Care Time/CCT Total # of Minutes Spent Total Time Spent with Patient: Total time spent is greater than 50% in coordination of care (as documented) at patient's floor/unit and/or counseling patient: Coding Level of Care Code 65556 Subseq Hosp Care Lvl 3 Diagnoses Sepsis A41.9 Altered mental status R41.82 Parkinsons disease G20 Dysphagia R13.10 Atrial fibrillation and flutter I48.91; I48.92
[2021-07-12] MEDS: ASPIRIN 81 MG ECTAB PO SCH (09:22)
[2021-07-12] MEDS: FLUDROCORTISONE ACETATE 0.1 MG TAB PO SCH ×2 (09:22→20:29)
[2021-07-12] MEDS: POTASSIUM CHLORIDE CRTAB 20 MEQ TABCR PO SCH ×3 (09:23→20:28)
[2021-07-12] MEDS: CITALOPRAM 20 MG TAB PO SCH (09:24)
[2021-07-12] MEDS ORDERED: SODIUM CHLORIDE 0.9% 1000ML 250 ML IV ONE (10:18)
[2021-07-12] MEDS: METOPROLOL TARTRATE 25 MG TAB PO SCH ×3 (10:53→20:28)
[2021-07-12] MEDS: DUTASTERIDE PO SCH (10:56)
[2021-07-12] MEDS: POTASSIUM CHLORIDE / WTR 10 MEQ/100 ML PLCT IV SCH ×4 (11:29→15:26)
[2021-07-12] MEDS ORDERED: MAGNESIUM HYDROXIDE SUSP 30 ML UDC PO PRN (11:41)
[2021-07-12] MEDS: MELATONIN 3 MG TAB PO SCH (20:30)
[2021-07-13] MEDS: LACTATED RINGER'S 1,000 ML IV SCH (01:00)
[2021-07-13] MEDS: AMPICILLIN/SULBACTAM SOD 3,000 MG in 0.9 % SODIUM CHLORIDE 100 ML IV SCH ×3 (04:56→15:21)
[2021-07-13] MEDS: FLUDROCORTISONE ACETATE 0.1 MG TAB PO SCH ×2 (08:28→20:25)
[2021-07-13] MEDS: ASPIRIN 81 MG ECTAB PO SCH (08:28)
[2021-07-13] MEDS: CITALOPRAM 20 MG TAB PO SCH (08:29)
[2021-07-13] MEDS: POTASSIUM CHLORIDE CRTAB 20 MEQ TABCR PO SCH ×3 (08:30→20:24)
[2021-07-13 09:10] LABS: Basophils # (auto) 0.01 K/uL (0-0.2); Basophils % (auto) 0.2 %; Eosinophils # (auto) 0.25 K/uL (0-0.5); Eosinophils % (auto) 4.4 %; Hematocrit (blood only) 32.7 % (42-52); Hemoglobin 11.2 g/dL (14.0-18.0); Immature Granulocytes # (auto) 0.02 K/uL (0.00-0.02); Immature Granulocytes % (auto) 0.4 %; Lymphocytes # (auto) 0.51 K/uL (1.2-3.4); Lymphocytes % (auto) 9.1 %; Mean Corpuscular Hemoglobin 33.4 pg (25-34); Mean Corpuscular Hgb Conc 34.3 g/dL (32-36); Mean Corpuscular Volume 97.6 fL (80-100); Mean Platelet Volume 10.6 fL (7.4-10.4); Monocytes # (auto) 0.36 K/uL (0.11-0.59); Monocytes % (auto) 6.4 %; Neutrophils # (auto) 4.48 K/uL (1.4-6.5); Neutrophils % (auto) 79.5 %; Platelet Count 167 K/uL (130-400); RDW Coefficient of Variation 13.3 % (11.5-14.5); RDW Standard Deviation 47.6 fL (36.4-46.3); Red Blood Count 3.35 M/uL (4.7-6.1); White Blood Count 5.63 K/uL (4.8-10.8)
[2021-07-13 10:00] LABS: Calcium 8.3 mg/dl (8.5-10.1); Creatinine Clr Calc Pharmacy 134.7 ml/min; Est GFR (Non-African American) 104.4 ml/min; Potassium 3.3 mmol/L (3.5-5.1)
--- NOTE | 2021-07-13 10:29 | Hospitalist Progress Note ---
Date of Service July 13, 2021 Assessment & Plan (1) Sepsis: Plan: Jose Manuel Jackson is a 75-year-old male with past medical history significant for numerous UTIs, Parkinson's dementia, paroxysmal atrial fibrillation; who presents for altered mental status and fever overnight. Sepsis - Improved, unclear source Leukocytosis to 24.35 on admit, febrile, elevated lactate on admission Blood cultures and urine cultures pending Ct-C: Atelectasis in the bilateral lower lobes without other acute abnormality. Cardiomegaly with severe atherosclerotic changes. - CT-H: No acute findings - CXR: Decreased lung volumes with crowded lung markings. Mild interval improvement of opacities since recent prior study as detailed above. Questionable nodular densities with [facility] within bilateral lower lungs, might represent bronchiectasis versus other etiology. Further evaluation with CT of the chest on nonemergency basis might be considered for further characterization. Lactate downtrended UA 2+ blood, no bacteria. UC straight cath pending. History of Klebsiella UTI with similar presentation in 05/18/2021 Per daughter patient has a history of aspiration events. Convert Rocephin to Unasyn for empiric coverage of aspiration pneumonia. 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 Discussed risk benefits at bedside with patient, and with patient's . Would prefer to follow-up with [facility] cardiology and defer initiation at this time understanding that A. fib raises risk of stroke although day-to-day risk is relatively low, [id number] 2 (borderline A1C of 5.7%). Also discussed with patient's other family members 1 of which was in ER physician expressed understanding of plan. Agreed with digoxin if rapid rate returns and preferring to follow-up with outpatient for anticoagulation. -Responded overnight 07/12 to lopressor 2.5mg IV + 5mg IV + cardizem 22mgIV Clinically with orthostasis, did not tolerate oral low-dose beta-gissel during mission. Hx of orthostasis, defer additional CCB/BB. Currently in normal sinus rhythm at time of assessment -If rate control required for recurrent rapid A. fib/flutter, recommend dig load - BP stable -Goal potassium 4, magnesium 2 (3) Altered mental status: Plan: Altered mental status: Improved -Acute metabolic encephalopathy likely secondary to infection with concern for sepsis vs less likely polypharmacy contributions, or exacerbation of parkinsonian symptoms Leukocytosis normalized, no clear source of infection - CT-H with no acute findings as above (4) Parkinsons disease: Plan: Parkinson's: -Hold Parkinson's Sinemet at this time until potential improvement in mental status given questionable contributions to polypharmacy/altered mental status Citalopram 20 mg held on admission. Resumed at half dose with intent to taper to prevent SSRI withdrawal. Continue fludrocortisone (5) Dysphagia: Plan: Chronic, patient reports history of aspiration events Seen by speech therapist at home who cleared him last week Patient tolerating minced/moist well without bedside signs of aspiration Plan: Soft bite-size diet CODE STATUS: Conditional code (DNI) PT/OT recommend acute rehab, dispo pending Admission and Anticipated Discharge Date Admission Date: July 10, 2021 Subjective Seen at bedside this morning. Feels well, but overall weak. Denies headache, pain, focal weakness, shortness of breath, difficulty breathing. Working with PT this morning, discussed with nursing, recommend acute rehab. Discussed anticoagulation with pt and family by phone. Family with strong concerns over risk/benefits of anticoagulation and had revisited afib risk with [facility] as outpt, had deferred due to high risk of falls and persistent orthostasis. For anticoagulation for now, but will continue to revisit and would like outpt cardiology consult. Discussed pt remains in afib, if needing rate control will proceed with Dig. No additional questions or concerns at time of visit. Review of Systems Review of Systems: 10 point review of systems negative except as noted in HPI Physical Exam Physical Exam: General: Alert to name and place. Nontoxic, no acute distress. Sitting up in chair following working with PT/OT. Cooperative, answers questiosn appropriately, follows one-step commands and two-step commands. HEENT: Atraumatic, normocephalic. Mucous membranes tacky, visual acuity intact hearing intact Pulm: Moderate air movement. CTAB A&P. -wheezes, -rales, -rhonchi. Symmetrical chest rise. No increase work of breathing. No respiratory distress. Cardiac: RRR, -mrg. Radial pulses intact and symmetrical. Abdominal: Nontender, nondistended, soft. BS present. Extremities: Warm, dry. Resting tremor present in right and left hands that quiet with extension. Sensation intact in hands and feet. Results & Data Results & Data ([facility]) Vital Signs (Past 12 Hours) Vital Signs Temp Pulse Pulse Resp BP BP Pulse Ox 07/13/21 08:36 36.7 C 61 20 196/109 H 185/102 H 97 07/13/21 07:25 56 L 07/13/21 03:00 35.6 C L 54 L 14 147/89 H 96 07/13/21 00:43 56 L 07/12/21 23:46 36.4 C L 59 L 14 150/83 H 94 PG Care Time/CCT Total # of Minutes Spent Total Time Spent with Patient: Total time spent is greater than 50% in coord ination of care (as documented) at patient's floor/unit and/or counseling patient: Coding Level of Care Code 49584 Subseq Hosp Care Lvl 3 Diagnoses Sepsis A41.9 Altered mental status R41.82 Parkinsons disease G20 Dysphagia R13.10 Atrial fibrillation and flutter I48.91; I48.92
[2021-07-13] MEDS: POTASSIUM CHLORIDE / WTR 10 MEQ/100 ML PLCT IV SCH ×6 (11:19→22:18)
[2021-07-13] MEDS: DUTASTERIDE PO SCH (12:26)
[2021-07-13 18:19] LABS: BUN Creatinine Ratio 14.8 (10-20); Calcium 8.3 mg/dl (8.5-10.1); Creatinine Clr Calc Pharmacy 122.7 ml/min; Est GFR (African American) 116.4 ml/min; Est GFR (Non-African American) 100.5 ml/min; Potassium 3.4 mmol/L (3.5-5.1)
--- NOTE | 2021-07-13 19:32 | Electrocardiogram Report ---
Test Reason : Blood Pressure : / mmHG Vent. Rate : 139 BPM Atrial Rate : 061 BPM P-R Int : 000 ms QRS Dur : 088 ms QT Int : 272 ms P-R-T Axes : 000 -15 219 degrees QTc Int : 413 ms Atrial fibrillation with rapid ventricular response with premature ventricular or aberrantly conducte d complexes Posterior ischemia Abnormal ECG When compared with ECG of 10-JUL-2021 04:02, Atrial fibrillation has replaced Sinus rhythm HR has increased Confirmed by Tom Martinez ([id number]) on 07/13/2021 7:31:42 PM Referred By: REFERRED SELF Confirmed By:Tom Martinez
[2021-07-13] MEDS: MELATONIN 3 MG TAB PO SCH (20:25)
[2021-07-13] MEDS ORDERED: METOPROLOL TARTRATE 25 MG TAB PO SCH (21:00)
[2021-07-14] MEDS: AMPICILLIN/SULBACTAM SOD 3,000 MG in 0.9 % SODIUM CHLORIDE 100 ML IV SCH ×3 (00:31→11:25)
[2021-07-14 07:16] LABS: Basophils # (auto) 0.02 K/uL (0-0.2); Basophils % (auto) 0.4 %; Eosinophils # (auto) 0.37 K/uL (0-0.5); Eosinophils % (auto) 6.8 %; Hemoglobin 11.4 g/dL (14.0-18.0); Immature Granulocytes # (auto) 0.03 K/uL (0.00-0.02); Immature Granulocytes % (auto) 0.6 %; Lymphocytes % (auto) 14.7 %; Mean Corpuscular Hemoglobin 33.5 pg (25-34); Mean Corpuscular Hgb Conc 34.5 g/dL (32-36); Mean Corpuscular Volume 97.1 fL (80-100); Mean Platelet Volume 9.9 fL (7.4-10.4); Monocytes % (auto) 9.2 %; Neutrophils # (auto) 3.73 K/uL (1.4-6.5); Neutrophils % (auto) 68.3 %; Platelet Count 169 K/uL (130-400); White Blood Count 5.45 K/uL (4.8-10.8)
[2021-07-14 07:47] LABS: BUN Creatinine Ratio 12.1 (10-20); Calcium 8.6 mg/dl (8.5-10.1); Creatinine Clr Calc Pharmacy 153.1 ml/min; Est GFR (African American) 127.4 ml/min; Est GFR (Non-African American) 109.9 ml/min; Potassium 3.6 mmol/L (3.5-5.1)
[2021-07-14] MEDS: ASPIRIN 81 MG ECTAB PO SCH (07:52)
[2021-07-14] MEDS: FLUDROCORTISONE ACETATE 0.1 MG TAB PO SCH ×2 (07:53→21:51)
[2021-07-14] MEDS: CITALOPRAM 20 MG TAB PO SCH (07:55)
[2021-07-14] MEDS: POTASSIUM CHLORIDE CRTAB 20 MEQ TABCR PO SCH ×2 (07:56→12:02)
[2021-07-14] MEDS ORDERED: hydrALAZINE 10 MG TAB PO ONE (09:09)
[2021-07-14] MEDS: DUTASTERIDE PO SCH (12:02)
--- NOTE | 2021-07-14 15:11 | Hospitalist Progress Note ---
Date of Service July 14, 2021 Assessment & Plan (1) Sepsis: Plan: Jose Manuel Jackson is a 75-year-old male with past medical history significant for numerous UTIs, Parkinson's dementia, paroxysmal atrial fibrillation; who presents for altered mental status and fever overnight. Sepsis - Improved, unclear source Leukocytosis to 24.35 on admit, febrile, elevated lactate on admission Blood cultures and urine cultures pending Ct-C: Atelectasis in the bilateral lower lobes without other acute abnormality. Cardiomegaly with severe atherosclerotic changes. - CT-H: No acute findings - CXR: Decreased lung volumes with crowded lung markings. Mild interval improvement of opacities since recent prior study as detailed above. Questionable nodular densities with [facility] within bilateral lower lungs, might represent bronchiectasis versus other etiology. Further evaluation with CT of the chest on nonemergency basis might be considered for further characterization. Lactate downtrended UA 2+ blood, no bacteria. UC straight cath pending. History of Klebsiella UTI with similar presentation in 05/18/2021 Per daughter patient has a history of aspiration events. Converted Rocephin to Unasyn for empiric coverage of aspiration pneumonia. d/c 07/14 (5x days tx complete) Continue home fludrocortisone 0.1 twice daily. 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 Discussed risk benefits at bedside with patient, and with patient's . Would prefer to follow-up with [facility] cardiology and defer initiation at this time understanding that A. fib raises risk of stroke although day-to-day risk is relatively low, [id number] 2 (borderline A1C of 5.7%). Also discussed with patient's other family members 1 of which was in ER physician expressed understanding of plan. Agreed with digoxin if rapid rate returns and preferring to follow-up with outpatient for anticoagulation. -Responded overnight 07/12 to lopressor 2.5mg IV + 5mg IV + cardizem 22mgIV Clinically with orthostasis, did not tolerate oral low-dose beta-gissel during mission. Hx of orthostasis, defer additional CCB/BB. Currently in normal sinus rhythm at time of assessment -If rate control required for recurrent rapid A. fib/flutter, recommend dig load - BP stable -Goal potassium 4, magnesium 2 (3) Altered mental status: Plan: Altered mental status: Improved -Acute metabolic encephalopathy likely secondary to infection with concern for sepsis vs less likely polypharmacy contributions, or exacerbation of parkinsonian symptoms Leukocytosis normalized, no clear source of infection - CT-H with no acute findings as above (4) Parkinsons disease: Plan: Parkinson's: -Hold Parkinson's Sinemet at this time until potential improvement in mental status given questionable contributions to polypharmacy/altered mental status Citalopram 20 mg held on admission. Resumed at half dose with intent to taper to prevent SSRI withdrawal. Continue fludrocortisone (5) Dysphagia: Plan: Chronic, patient reports history of aspiration events Seen by speech therapist at home who cleared him last week Patient tolerating minced/moist well without bedside signs of aspiration Plan: Soft bite-size diet CODE STATUS: Conditional code (DNI) PT/OT recommend acute rehab, dispo pending Admission and Anticipated Discharge Date Admission Date: July 10, 2021 Subjective Seen at the bedside this morning. He is sitting up in chair, feels weak but well. No shortness of breath, difficulty breathing. No fever/chills/sweats. No chest pain. Resting tremor continues in his hands, at baseline. No questions or concerns. Reviewed plan with case management, pending dispo, aware that physical therapy recommended rehab. Review of Systems Review of Systems: 10 point review of systems negative except as noted in HPI Physical Exam Physical Exam: General: Alert to name and place. Nontoxic, no acute distress. . Cooperative, answers questions appropriately, follows one-step commands and two-step commands. HEENT: Atraumatic, normocephalic. Mucous membranes tacky, visual acuity intact hearing intact Pulm: Moderate air movement. CTAB A&P. -wheezes, -rales, -rhonchi. Symmetrical chest rise. No increase work of breathing. No respiratory distress. Cardiac: RRR, -mrg. Radial pulses intact and symmetrical. Abdominal: Nontender, nondistended, soft. BS present. Extremities: Warm, dry. Resting tremor present in right and left hands that quiet with extension. Sensation intact in hands and feet. Results & Data Results & Data ([facility]) Vital Signs (Past 12 Hours) Vital Signs Temp Pulse Pulse Resp BP BP Pulse Ox 07/14/21 12:21 36.8 C 69 16 161/81 H 97 07/14/21 08:01 36.4 C L 70 16 186/96 H 97 07/14/21 07:24 53 L 07/14/21 03:15 36.6 C 68 16 181/90 H 96 PG Care Time/CCT Total # of Minutes Spent Total Time Spent with Patient: Total time spent is greater than 50% in coordination of care (as documented) at patient's floor/unit and/or counseling patient: Coding Level of Care Code 34705 Subseq Hosp Care Lvl 2 Diagnoses Sepsis A41.9 Atrial fibrillation and flutter I48.91; I48.92 Altered mental status R41.82 Parkinsons disease G20 Dysphagia R13.10
[2021-07-14] MEDS: MELATONIN 3 MG TAB PO SCH (22:04)
[2021-07-14] MEDS: POTASSIUM CHLORIDE PWD 20 MEQ PACK PO SCH (23:14)
[2021-07-15 08:12] LABS: Basophils # (auto) 0.01 K/uL (0-0.2); Basophils % (auto) 0.1 %; Eosinophils % (auto) 2.3 %; Hematocrit (blood only) 33.3 % (42-52); Hemoglobin 11.8 g/dL (14.0-18.0); Immature Granulocytes # (auto) 0.05 K/uL (0.00-0.02); Immature Granulocytes % (auto) 0.6 %; Lymphocytes # (auto) 0.81 K/uL (1.2-3.4); Lymphocytes % (auto) 9.1 %; Mean Corpuscular Hemoglobin 33.7 pg (25-34); Mean Corpuscular Hgb Conc 35.4 g/dL (32-36); Mean Corpuscular Volume 95.1 fL (80-100); Mean Platelet Volume 9.6 fL (7.4-10.4); Monocytes # (auto) 0.54 K/uL (0.11-0.59); Monocytes % (auto) 6.1 %; Neutrophils # (auto) 7.25 K/uL (1.4-6.5); Neutrophils % (auto) 81.8 %; Platelet Count 189 K/uL (130-400); RDW Coefficient of Variation 12.9 % (11.5-14.5); RDW Standard Deviation 44.5 fL (36.4-46.3); White Blood Count 8.86 K/uL (4.8-10.8)
[2021-07-15 08:39] LABS: BUN Creatinine Ratio 12.8 (10-20); Calcium 8.3 mg/dl (8.5-10.1); Creatinine Clr Calc Pharmacy 132.6 ml/min; Est GFR (African American) 120.1 ml/min; Est GFR (Non-African American) 103.6 ml/min; Potassium 3.4 mmol/L (3.5-5.1)
[2021-07-15] MEDS: POTASSIUM CHLORIDE PWD 20 MEQ PACK PO SCH ×3 (08:47→21:59)
[2021-07-15] MEDS: ASPIRIN 81 MG ECTAB PO SCH (08:47)
[2021-07-15] MEDS: FLUDROCORTISONE ACETATE 0.1 MG TAB PO SCH ×2 (08:48→21:58)
[2021-07-15] MEDS: CITALOPRAM 20 MG TAB PO SCH (08:48)
[2021-07-15] MEDS ORDERED: INFLUENZA VACCINE HIGH DOSE PF 65+ 0.7 ML SYR IM ONE (09:45)
[2021-07-15] MEDS: DUTASTERIDE PO SCH (12:23)
--- NOTE | 2021-07-15 14:24 | Hospitalist Progress Note ---
Date of Service July 15, 2021 Assessment & Plan (1) Sepsis: Plan: Jose Manuel Jackson is a 75-year-old male with past medical history significant for numerous UTIs, Parkinson's dementia, paroxysmal atrial fibrillation; who presents for altered mental status and fever overnight. Sepsis - Improved, unclear source Leukocytosis to 24.35 on admit, febrile, elevated lactate on admission Blood cultures and urine cultures pending Ct-C: Atelectasis in the bilateral lower lobes without other acute abnormality. Cardiomegaly with severe atherosclerotic changes. - CT-H: No acute findings - CXR: Decreased lung volumes with crowded lung markings. Mild interval improvement of opacities since recent prior study as detailed above. Questionable nodular densities with [facility] within bilateral lower lungs, might represent bronchiectasis versus other etiology. Further evaluation with CT of the chest on nonemergency basis might be considered for further characterization. Lactate downtrended UA 2+ blood, no bacteria. UC straight cath pending. History of Klebsiella UTI with similar presentation in 05/18/2021 Per daughter patient has a history of aspiration events. Converted Rocephin to Unasyn for empiric coverage of aspiration pneumonia. d/c 07/14 (5x days tx complete) Continue home fludrocortisone 0.1 twice daily. Patient slightly hypertensive past few days, review of history is often slightly high during admission but then goes low at home Leukocytosis normalized 07/11 Lactate normalized 07/10 Random cortisol does not suggest adrenal insufficiency Lyme panel negative - Still resolved. 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 Discussed risk benefits at bedside with patient, and with patient's . Would prefer to follow-up with [facility] cardiology and defer initiation at this time understanding that A. fib raises risk of stroke although day-to-day risk is relatively low, [id number] 2 (borderline A1C of 5.7%). Also discussed with patient's other family members 1 of which was in ER physician expressed understanding of plan. Agreed with digoxin if rapid rate returns and preferring to follow-up with outpatient for anticoagulation. -Responded overnight 07/12 to lopressor 2.5mg IV + 5mg IV + cardizem 22mgIV Clinically with orthostasis, did not tolerate oral low-dose beta-gissel during admission. Hx of orthostasis, defer additional CCB/BB. Currently in normal sinus rhythm at time of assessment -If rate control required for recurrent rapid A. fib/flutter, recommend dig load - BP stable -Goal potassium 4, magnesium 2. (3) Altered mental status: Plan: Altered mental status: Improved -Acute metabolic encephalopathy likely secondary to infection with concern for sepsis vs less likely polypharmacy contributions, or exacerbation of parkinsonian symptoms Leukocytosis normalized, no clear source of infection - CT-H with no acute findings as above -> Today, he is alert and pleasant. Knows name. Denies any focal symptoms. Does not know the place or date. Cannot give any insight into medical issues. Not sure what baseline is for him. Call to corroborate baseline, but had to leave a HIPAA-compliant message as no answer. (4) Parkinsons disease: Plan: Parkinson's: - Continue Sinemet Citalopram 20 mg held on admission. Resumed at half dose with intent to taper to prevent SSRI withdrawal. Continue fludrocortisone (5) Dysphagia: Plan: Chronic, patient reports history of aspiration events Seen by speech therapist at home who cleared him last week Patient tolerating minced/moist well without bedside signs of aspiration Plan: Soft bite-size diet CODE STATUS: Conditional code (DNI) PT/OT recommend acute rehab, dispo pending Admission and Anticipated Discharge Date Admission Date: July 10, 2021 Subjective No complaints today. Knows self, but unsure of date or place. Does not have insight into his medical issues. Reports no fevers/chills, chest pain, shortness of breath, abdominal pain, nausea, or vomiting. Physical Exam Constitutional: WD/WN, vitals as above Eyes: EOM intact bilaterally; no conjunctival abnormality ENMT: external ear and nose normal, oropharynx normal Neck: trachea midline, no thyromegaly normal visual inspection Respiratory: normal respiratory effort, lungs clear to auscultation no respiratory distress Cardiovascular: RRR, no murmur, no edema Gastrointestinal (Abdomen): Inspection/Auscultation: abdomen normal to inspection; abdomen not distended Musculoskeletal: no cyanosis or clubbing, extremities motor strength 5/5 Skin: no rashes, warm and dry Neurologic: moves all extremities and awake Psychiatric: Orientation: alert, oriented to person and cooperative; + not oriented to place and + not oriented to time Results & Data Results & Data ([facility]) Vital Signs (Past 12 Hours) Vital Signs Temp Pulse Pulse Resp BP BP Pulse Ox 07/15/21 11:13 36.5 C 75 18 143/87 H 96 07/15/21 07:31 36.8 C 76 18 165/84 H 90 07/15/21 07:22 73 07/15/21 05:22 68 07/15/21 03:30 37.0 C 88 20 157/93 H 94 PG Care Time/CCT Total # of Minutes Spent Total Time Spent with Patient: Total time spent is greater than 50% in coordination of care (as documented) at patient's floor/unit and/or counseling patient: Coding Level of Care Code 75303 Subseq Hosp Care Lvl 2 Diagnoses Sepsis A41.9 Atrial fibrillation and flutter I48.91; I48.92 Altered mental status R41.82 Parkinsons disease G20 Dysphagia R13.10
[2021-07-15] MEDS: CARBIDOPA/LEVODOPA 25/100MG TAB PO SCH ×2 (16:34→21:58)
[2021-07-15] MEDS: ENTACAPONE 200 MG TAB PO SCH ×2 (16:34→21:58)
[2021-07-15] MEDS: MELATONIN 3 MG TAB PO SCH (21:58)
[2021-07-16] MEDS: POTASSIUM CHLORIDE / WTR 10 MEQ/100 ML PLCT IV SCH ×4 (04:44→10:14)
[2021-07-16 07:52] LABS: Hematocrit (blood only) 34.1 % (42-52); Hemoglobin 11.9 g/dL (14.0-18.0); Mean Corpuscular Hemoglobin 33.1 pg (25-34); Mean Corpuscular Hgb Conc 34.9 g/dL (32-36); Mean Platelet Volume 9.6 fL (7.4-10.4); Platelet Count 220 K/uL (130-400); RDW Coefficient of Variation 12.9 % (11.5-14.5); RDW Standard Deviation 44.7 fL (36.4-46.3); Red Blood Count 3.59 M/uL (4.7-6.1); White Blood Count 6.57 K/uL (4.8-10.8)
[2021-07-16] MEDS: CITALOPRAM 20 MG TAB PO SCH (08:05)
[2021-07-16] MEDS: ENTACAPONE 200 MG TAB PO SCH (08:06)
[2021-07-16] MEDS: FLUDROCORTISONE ACETATE 0.1 MG TAB PO SCH (08:06)
[2021-07-16] MEDS: CARBIDOPA/LEVODOPA 25/100MG TAB PO SCH (08:07)
[2021-07-16] MEDS: ASPIRIN 81 MG ECTAB PO SCH (08:07)
[2021-07-16] MEDS: POTASSIUM CHLORIDE PWD 20 MEQ PACK PO SCH (08:08)
[2021-07-16 08:20] LABS: BUN Creatinine Ratio 17.9 (10-20); Calcium 8.6 mg/dl (8.5-10.1); Creatinine Clr Calc Pharmacy 146.5 ml/min; Est GFR (African American) 125.1 ml/min; Magnesium 2.3 mg/dl (1.8-2.4); Potassium 3.2 mmol/L (3.5-5.1)
[2021-07-16] MEDS ORDERED: POTASSIUM CHLORIDE CRTAB 20 MEQ TABCR PO STA (08:32)
--- NOTE | 2021-07-16 14:26 | Discharge Summary ---
Date of Service July 16, 2021 Admission HPI Per Admitting Provider Jose Manuel Jackson is a 75-year-old male with past medical history significant for numerous UTIs, Parkinson's dementia, paroxysmal atrial fibrillation; who presents for altered mental status and fever overnight. Approximately 1 month ago was admitted for similar concerns and complaints with at that time urinary tract infection subsequently treated with antibiotics and discharged. Last week was seen by PCP and had perfunctory urinalysis which was negative at that point time despite that was given short course of Bactrim until urine culture resulted as negative. Last night family noticed that he was having chills and sweats and was not acting like his normal self with more increased confusion ultimately took a temperature which resulted in a fever of 101. Family brought him to the hospital for concerns of urinary tract infection given his history. Following administration of fluids as well as Tylenol and cefepime he had improvement in his mentation. Allergies Principal Diagnosis 1. Sepsis syndrome of unknown origin (leukocytosis and tachycardia)presumed aspiration pneumonitis 2. Hypokalemiareplaced and improving 3. Lactic acidemiaresolved Discharge Exam Constitutional: WD/WN, vitals as above Eyes: EOM intact bilaterally; no conjunctival abnormality ENMT: external ear and nose normal, oropharynx normal Neck: trachea midline, no thyromegaly normal visual inspection Respiratory: normal respiratory effort, lungs clear to auscultation no respiratory distress Cardiovascular: RRR, no murmur, no edema Gastrointestinal (Abdomen): Inspection/Auscultation: abdomen normal to inspection; abdomen not distended Musculoskeletal: no cyanosis or clubbing, extremities motor strength 5/5 Skin: no rashes, warm and dry Neurologic: moves all extremities and awake Psychiatric: Orientation: alert, oriented to person and cooperative; + not oriented to place and + not oriented to time Discharge Data Allergies Allergy/AdvReac Type Severity Reaction Status Date / Time oxycodone [From OxyContin] AdvReac Unknown Unknown Verified 06/04/21 11:08 Consultations 07/10/21 07:51 ED Decision to Admit Stat Ordered Studies 07/10/21 10:27 CT chest diagnostic wo con Routine IMPRESSION: 1. Atelectasis in the bilateral lower lobes without other acute abnormality. 2. Cardiomegaly with severe atherosclerotic changes. 07/11/21 16:47 CT head/brain wo con Routine IMPRESSION: No acute intracranial abnormality. Hospital Course (1) Sepsis: Jose Manuel Jackson is a 75-year-old male with past medical history significant for numerous UTIs, Parkinson's dementia, paroxysmal atrial fibrillation; who presents for altered mental status and fever overnight. Presented to the ED with sepsis syndrome (including leukocytosis, fever and tachycardia, and lactic acidosis) - Improved, unclear source. Suspect aspiration pneumonitis Leukocytosis to 24.35 on admit, febrile, elevated lactate on admission Blood cultures and urine cultures show no growth Ct-C: Atelectasis in the bilateral lower lobes without other acute abnormality. Cardiomegaly with severe atherosclerotic changes. - CT-H: No acute findings - CXR: Decreased lung volumes with crowded lung markings. Mild interval improvement of opacities since recent prior study as detailed above. Questionable nodular densities with [facility] within bilateral lower lungs, might represent bronchiectasis versus other etiology. Further evaluation with CT of the chest on nonemergency basis might be considered for further characterization. Lactate normalized Per daughter patient has a history of aspiration events. Empiric converted Rocephin to Unasyn for empiric coverage of aspiration pneumonia. d/c 07/14 (5x days tx complete) Continued home fludrocortisone 0.1 twice daily. Patient slightly hypertensive past few days, review of history is often slightly high during admission but then goes low at home Leukocytosis normalized 07/11 Lactate normalized 07/10 Random cortisol does not suggest adrenal insufficiency Lyme panel negative -Exact etiology unclear but per history, appears consistent with aspiration pneumonitis. Just seen by speech therapy last week and cleared. Should be following moist/minced meats with aspiration precautions -Does have some mild deconditioning. To go to [facility] today for rehab -Slightly confused (seen by myself for the first time today) but spoke to who reports this is normal for him. Does get confused in a hospital setting. 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 Discussed risk benefits at bedside with patient, and with patient's . Would prefer to follow-up with [facility] cardiology and defer initiation at this time understanding that A. fib raises risk of stroke although day-to-day risk is relatively low, [id number] 2 (borderline A1C of 5.7%). Also discussed with patient's other family members 1 of which was in ER physician expressed understanding of plan. Agreed with digoxin if rapid rate returns and preferring to follow-up with outpatient for anticoagulation. -Responded overnight 07/12 to lopressor 2.5mg IV + 5mg IV + cardizem IV Clinically with orthostasis, did not tolerate oral low-dose beta-gissel during admission. Hx of orthostasis, defer additional CCB/BB. Currently in normal sinus rhythm at time of assessment - (3) Altered mental status: Altered mental status: Improved -Acute metabolic encephalopathy likely secondary to infection with concern for sepsis vs less likely polypharmacy contributions, or exacerbation of parkinsonian symptoms Leukocytosis normalized, no clear source of infection - CT-H with no acute findings as above -> Today, he is alert and pleasant. Knows name. Denies any focal symptoms. Does not know the place or date. Cannot give any insight into medical issues. Not sure what baseline is for him. Call to corroborate --reports this is baseline and he often gets more confused when in a hospital setting (4) Parkinsons disease: Parkinson's: - Continue Sinemet Citalopram 20 mg Continue fludrocortisone (5) Dysphagia: Chronic, patient reports history of aspiration events Seen by speech therapist at home who cleared him 1 week MANAGER OF OPERATIONS Patient tolerating minced/moist well without bedside signs of aspiration -Lengthy discussion with patient and his regarding the importance of adhering to dietary recommendations and aspiration precautions. This also includes remaining upright for at least 1 hour after meals, alternating solids with liquids, avoiding a straw if frequent cueing Soft bite-size diet CODE STATUS: Conditional code (DNI) [facility]charge [facility] today for continued inpatient rehabilitation Total Time Total Time Spent Total Time Spent (In Minutes): 45 minutes including calling the , coordination of care, discussion with attending physician, and preparation of paperwork. Discharge Plan Discharge Items Patient Disposition: Transfer Inpatient Rehab Fac Reason For Visit: ALTERED MENTAL STATUS Discharge Diagnosis: 1. Debility-- Needs continued aggressive PT/OT 2. ?Aspiration Pneumonitis- recommend ST 3. Sepsis Syndrome (of unknown origin)- resolved. Activity: As commented below Activity Comment: consult PT/OT/ST Non-emergency contact: Primary Care Provider Call non-emergency contact if: you have any medication questions Follow-up/Referrals: Sue Hopkins CRNP [Primary Care Provider] - Diet: Other - See Diet Comment Diet Comment: moist meats/easy to chew, small bites Addtl Attending Provider Instructions: - Patient was hospitalized with Sepsis Syndrome of Unknown origin. ? viral syndrome vs aspiration pneumonitis (as patient with h/o aspiration) - Completed full course of antibiotic therapy - Sepsis Syndrome resolved - Continue Aspiration Precautions (Head of Bed Elevated at all times, no straws, alternate solids with liquids, easy to chew foods and moist meats) - Follow up with House Physician within 24-48 hours - Potassium Supplementation started. Recommend FU labs in 1 week-- at discretion of House Physician Pending Studies at Discharge: No Stand-Alone Forms: My [facility] [email or web address] Skilled Items Patient informed of condition?: No DNR: No Discharge Level of Care: Acute rehab Communicable Disease: No Discharge Prognosis: Stable Lines: None Urinary Catheter: No Medications and DC Order Prescriptions: New potassium chloride 20 mEq Packet 20 meq PO DAILY Qty: 30 RF: 0 Continued fludrocortisone 0.1 mg tablet 0.1 mg PO BID 30 Days Qty: 60 RF: 5 citalopram 20 mg tablet 20 mg PO DAILY Qty: 30 RF: 5 uecyurpuc-yoewfyoy-mdkilxxerd [Stalevo 200] 50-200-200 mg tablet 1 tab PO QID Qty: 120 RF: 3 aspirin 81 mg tablet,delayed release (DR/EC) 81 mg PO DAILY RF: 0 docusate sodium 100 mg capsule 200 mg PO HS RF: 0 melatonin 3 mg tablet 9 mg PO HS Qty: 0 RF: 0 famotidine 20 mg Tablet 20 mg PO DAILY RF: 0 dutasteride 0.5 mg capsule 0.5 mg PO QDL RF: 0 Discharge Orders: Discharge Order (Routine); Ordered 07/16/21 Ordered By: Codie Brown Admission Data Admit Date/Time: 07/10/21 05:58 Attending Provider: Myles Khan Admit Provider: Son Tapia Primary Care Provider: Sue Hopkins Other Providers: [facility] ; [place] ; Myles Khan Other Interventions: Discharge Summary Assessment (RN) Last Done: 07/16/21 09:22 Supervising Physician Co-Signing Physician Notes Attending Attestation & Discharge Note: Pt seen/examined, chart reviewed, care plan d/w KASSIE Brown. I agree w/ the argueta components of her documentation. 75yo male with advanced PD and PD-dementia who presented with sepsis. Presumed source was pulmonary (suspected aspiration pneumonia). Treated with course of IV antibiotics with resolution of fever and resolution of SIRS. Course complicated by brief episode of paroxysmal a.fib/flutter that spontaneously converted back to NSR. See discussion above re: anticoagulation. Also with mild metabolic encephalopathy 2nd to infection, just being in the hospital etc. Discharge exam: gen - NAD, tremors noted, masked facies mouth - MMM neck - no JVD heart - RRR, s1 s2 lungs - CTA b/l abd - soft NT ND BS+ ext - no edema neuro - tremors, rigidity of limbs, masked facies Transferring to [facility] for acute rehab at time of hospital d/c. Zhao Elmore MD Coding Level of Care Code Established Pt D/C DAY MANAGEMENT >30 MINS Patient Type Established Diagnoses Sepsis A41.9 Atrial fibrillation and flutter I48.91; I48.92 Altered mental status R41.82 Parkinsons disease G20 Dysphagia R13.10 Time Spent (min) 45
--- NOTE | 2021-07-24 15:55 | Coding Query ---
CODING QUERY To promote full compliance with coding requirements relating to patient care, provider participation is requested in all cases of unarmed security officer uncertainty. Please assist us with the question(s) below: Coding Question(s): You're help is needed and very appreciated to determine coding of Sepsis, or Sepsis Syndrome due to both being documented on Discharge Summary. Sepsis Syndrome does not code to Sepsis. The Discharge Summary documents, "Sepsis syndrome of unknown origin (leukocytosis and tachycardia)presumed aspiration pneumonitis" and the Supervising Physician documentation is , "75yo male with advanced PD and PD-dementia who presented with sepsis. Presumed source was pulmonary (suspected aspiration pneumonia).". Please clarify below, in your clinical opinion. ( x ) Sepsis - presumed source was pulmonary (suspected aspiration pneumonia) ( ) Sepsis syndrome of unknown origin (leukocytosis and tachycardia)presumed aspiration pneumonitis - NO Sepsis ( ) Other: Please Specify Physician's Response(s): Thank you Concetta Iglesias Principal Diagnosis: "that condition established after study, to be chiefly responsible for occasioning the admission of the patient to the hospital for care." Co-Existing Principal Diagnosis: "when two or more diagnoses equally meet the criteria for principal diagnosis as determined by the circumstances of admission, diagnostic work up, and/or therapy provided, and the Alphabetic Index, Tabular List, or another coding guideline does not provide sequencing direction, any one of the diagnoses may be sequenced first." "When the physician has documented what appears to be a current diagnosis in the body of the record, but has not included the diagnosis in the final diagnostic statement, the physician should be asked whether the diagnosis should be added." (Source Coding Clinic 2 QTR90. p3-4) ELIDA
== END 2021-07-16 11:11 | DRG 871 ==
LOC: ED 03:57 → EDINP 05:58 → SUATTDRO 05:58 → 2W 19:38
DX: I48.92 Unspecified atrial flutter; I48.0 Paroxysmal atrial fibrillation; Z87.01 Personal history of pneumonia (recurrent); F41.8 Other specified anxiety disorders; E87.6 Hypokalemia; R53.81 Other malaise; J18.9 Pneumonia, unspecified organism; Z79.82 Long term (current) use of aspirin; E87.2 Acidosis; A41.89 Other specified sepsis; K59.00 Constipation, unspecified; Z88.6 Allergy status to analgesic agent; Z79.899 Other long term (current) drug therapy; Z87.440 Personal history of urinary (tract) infections; J69.0 Pneumonitis due to inhalation of food and vomit; G93.41 Metabolic encephalopathy; K21.9 Gastro-esophageal reflux disease without esophagitis; G31.83 Neurocognitive disorder with Lewy bodies; D72.829 Elevated white blood cell count, unspecified; F02.80 Dementia in other diseases classified elsewhere, unspecified severity, without behavioral disturbance, psychotic disturbance, mood disturbance, and anxiety; R13.10 Dysphagia, unspecified

== ENCOUNTER 2021-08-08 09:14 | Inpatient (IN) ==
--- NOTE | 2021-08-08 09:32 | Emergency Department Note ---
History of Present Illness General Chief complaint: Illness Stated complaint: DECLINE IN MENTAL STATUS Time Seen by Provider: 08/08/21 09:16 Source: EMS Mode of arrival: EMS Limitations: altered mental status History of Present Illness Provider complaint: Altered mental status This is a 75-year male presents emerge department via EMS after family called with concern for increased confusion and altered mentation. Patient with similar episode several weeks ago which resulted in hospitalization for sepsis. 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 On my exam patient denies pain, is able to state his name, but cannot provide any additional information. Cannot answer any additional questions. Per EMS they began noticing a decline in the patient last night around bedtime. EMS states family is coming and is able to provide additional history. Patient's initial systolic blood pressure for EMS was 104, he was given a 500 mL bolus by them in route and on arrival here systolic was 120. Patient was initially tachypneic, however no tachycardia, and was afebrile despite feeling warm to the touch. Pt seen during a time of high acuity and national emergency pandemic while wearing PPE. Home Medications Medication Instructions Recorded Confirmed Type docusate sodium 100 mg capsule 200 mg PO DAILY cap 03/13/19 08/08/21 History aspirin 81 mg tablet,delayed 81 mg PO DAILY tab 02/17/21 08/08/21 History release fludrocortisone 0.1 mg tablet 0.1 mg PO BID 30 Days #60 tab 04/17/21 08/08/21 Rx carbidopa 50 mg-levodopa 200 1 tab PO QID #120 tab 06/04/21 08/08/21 Rx mg-entacapone 200 mg tablet (Stalevo 200) famotidine 20 mg tablet 20 mg PO QAM 07/10/21 08/08/21 History potassium chloride 20 mEq oral 20 meq PO DAILY #30 ea 07/16/21 08/08/21 Rx packet dutasteride 0.5 mg capsule 0.5 mg PO QDL #30 cap 07/29/21 08/08/21 Rx citalopram 10 mg tablet (Celexa) 10 mg PO DAILY 08/05/21 08/08/21 History melatonin 10 mg tablet 10 mg PO HS PRN 08/08/21 08/08/21 History polyethylene glycol 3350 17 gram 17 g PO DAILY PRN 08/08/21 08/08/21 History oral powder packet (Miralax) Allergies Allergy/AdvReac Type Severity Reaction Status Date / Time oxycodone [From OxyContin] AdvReac Unknown Unknown Verified 08/08/21 11:33 Past Med/Surg History Medical History Aphonia Aspiration into airway Auditory hallucination Central retinal vein occlusion Cervical spondylosis Common iliac aneurysm Constipation Depression with anxiety Diverticulosis of colon Double vision with both eyes open Esophageal reflux Fatigue Gastrointestinal dysmotility Hoarseness Hyperlipidemia Impaired fasting glucose Low back pain Low systolic blood pressure Need for pneumococcal vaccination Osteoarthrosis of knee Parkinsons disease Screening for AAA (abdominal aortic aneurysm) Sleep apnea Surgical History History of hernia repair History of knee replacement Family History Other Family history unremarkable Denies family history of Ovarian cancer Prostate cancer Myocardial infarction Breast cancer Colorectal cancer Social History Smoking Status: Former smoker Hx Alcohol Use: No Hx Substance Use: No Preferred Language: Libyan Communication Ability: Impaired Gm Mobile Required: No Beliefs That Will Affect Care: None marital status: Current Living Situation: Spouse current occupational status: retired Feels Safe at Home: No Is there a partner from a previous relationship who is making you feel unsafe now?: No caffeine: No Dental Care, Regularly: Yes Physical Activity Frequency: 5-6 Times per Week Seatbelt Use: always Sunscreen Use: No Assistive Devices: Walker Review of Systems A total of 10 systems reviewed and were otherwise negative All systems reviewed & are unremarkable except as noted in HPI & below Physical Exam Vital Signs Vital Signs - 24 hr 08/08/21 09:33 08/08/21 09:40 08/08/21 09:44 Temperature 36.9 C Temperature Source Oral Pulse Rate 81 79 88 Pulse Rate [Apical] Pulse Rate from SpO2 Sensor 81 79 Pulse Rhythm [Apical] Pulse Strength [Apical] Respiratory Rate 22 18 20 Respiratory Effort / Characteristics Respiratory Depth Blood Pressure 120/65 Blood Pressure [Right Arm] Blood Pressure Mean 83 Blood Pressure Mean [Right Arm] Blood Pressure Position [Right Arm] Pulse Oximetry 95 96 95 Oxygen Delivery Method Room Air Sepsis Recent Fever Within 48 Hours No Sepsis New/Unexplained Change in Mental Status No Sepsis Action Taken by Nursing No Action Required 08/08/21 09:50 08/08/21 10:00 08/08/21 10:10 Temperature Temperature Source Pulse Rate 82 79 80 Pulse Rate [Apical] Pulse Rate from SpO2 Sensor 82 79 80 Pulse Rhythm [Apical] Pulse Strength [Apical] Respiratory Rate 20 17 18 Respiratory Effort / Characteristics Respiratory Depth Blood Pressure Blood Pressure [Right Arm] Blood Pressure Mean Blood Pressure Mean [Right Arm] Blood Pressure Position [Right Arm] Pulse Oximetry 98 97 96 Oxygen Delivery Method Sepsis Recent Fever Within 48 Hours Sepsis New/Unexplained Change in Mental Status Sepsis Action Taken by Nursing 08/08/21 10:20 08/08/21 10:30 08/08/21 10:40 Temperature Temperature Source Pulse Rate 75 72 73 Pulse Rate [Apical] Pulse Rate from SpO2 Sensor 75 72 73 Pulse Rhythm [Apical] Pulse Strength [Apical] Respiratory Rate 16 15 19 Respiratory Effort / Characteristics Respiratory Depth Blood Pressure 114/57 L Blood Pressure [Right Arm] Blood Pressure Mean 76 Blood Pressure Mean [Right Arm] Blood Pressure Position [Right Arm] Pulse Oximetry 97 99 97 Oxygen Delivery Method Sepsis Recent Fever Within 48 Hours Sepsis New/Unexplained Change in Mental Status Sepsis Action Taken by Nursing 08/08/21 10:51 08/08/21 11:01 08/08/21 13:00 Temperature Temperature Source Pulse Rate 73 Pulse Rate [Apical] 73 75 Pulse Rate from SpO2 Sensor 73 Pulse Rhythm [Apical] Regular Pulse Strength [Apical] Normal Respiratory Rate 18 16 16 Respiratory Effort / Characteristics Non-Labored Spontaneous Non-Labored Spontaneous Respiratory Depth Normal Normal Blood Pressure Blood Pressure [Right Arm] 124/66 141/76 H Blood Pressure Mean Blood Pressure Mean [Right Arm] 85 97 Blood Pressure Position [Right Arm] Semi-fowlers Semi-fowlers Pulse Oximetry 96 97 99 Oxygen Delivery Method Room Air Sepsis Recent Fever Within 48 Hours Sepsis New/Unexplained Change in Mental Status Sepsis Action Taken by Nursing GENERAL: Somnolent, unwell appearing, well nourished, no distress, non-toxic EYE EXAM: normal conjunctiva, PERRL and EOM's grossly intact OROPHARYNX: no exudate, no erythema, lips, buccal mucosa, and tongue normal and mucous membranes are dry NECK: supple, no nuchal rigidity, no adenopathy, non-tender LUNGS: Clear to auscultation. Normal chest wall mechanics, no w/r/r HEART: no murmurs, S1 normal and S2 normal ABDOMEN: abdomen soft, non-tender, normo-active bowel sounds, no masses, no rebound or guarding. BACK: Back is symmetrical on inspection and there is no deformity, no midline tenderness, no CVA tenderness. SKIN: no rashes and no bruising UPPER EXTREMITIES: upper extremities are grossly normal. FROM, nml pulses b/l. LOWER EXTREMITIES: Trace b/l pitting edema. FROM, nml pulses b/l. NEURO EXAM: cranial nerves II-XII grossly intact, somnolent, cannot follow commands or perform any additional neuro testing Course Course 1115: Updated at bedside on results. She states this is similar to recent presentations. She is frustrated as she states this is his fourth visit recently to the emergency room. She states several have required admission for infection including sepsis. She states he has had both urinary tract infections as well as aspiration pneumonia. She states he seemed in his usual state of health yesterday until the evening where he seemed weaker and slightly more confused. She states he did feel warm at home although when they checked he did not have a fever. 1202: Discussed with Dr. Avalos, [facility] service. UA still pending. Nursing staff asked to obtain straight cath for specimen. Administered Medications Carbidopa/Levodopa (Carbidopa/Levodopa 25/100mg Tab) 2 tab PO TIDM MARLYS Stop: 09/07/21 17: Last Admin: 08/08/21 18:03 Dose: 2 tab Documented by: [id number] Carbidopa/Levodopa (Carbidopa/Levodopa 25/100mg Tab) 2 tab PO HS MARLYS Stop: 09/07/21 20:59 Last Admin: 08/08/21 20:28 Dose: 2 tab Documented by: [id number] Enoxaparin Sodium (Enoxaparin Inj 40 Mg/0.4 Ml Syr) 40 mg SQ HS MARLYS Stop: 09/07/21 20:59 Last Admin: 08/08/21 20:29 Dose: 40 mg Documented by: [id number] Entacapone (Entacapone 200 Mg Tab) 200 mg PO TIDM MARLYS Stop: 09/07/21 17:29 Last Admin: 08/08/21 18:03 Dose: 200 mg Documented by: [id number] Entacapone (Entacapone 200 Mg Tab) 200 mg PO HS MARLYS Stop: 09/07/21 20:59 Last Admin: 08/08/21 21:36 Dose: 200 mg Documented by: [id number] Fludrocortisone Acetate (Fludrocortisone Acetate 0.1 Mg Tab) 0.1 mg PO BID MARLYS Stop: 09/07/21 20:59 Last Admin: 08/08/21 20:29 Dose: 0.1 mg Documented by: [id number] Cefepime HCl 2,000 mg/ Syringe 20 mls @ 5 mls/min IV Q12H MARLYS; Protocol Stop: 08/10/21 21:59 Last Admin: 08/08/21 20:29 Dose: 5 mls/min Documented by: [id number] Metronidazole (Flagyl) 500 mg in 100 mls @ 100 mls/hr IV Q8H MARLYS Stop: 08/10/21 17:59 Last Infusion: 08/09/21 03:52 Dose: 0 mls/hr Documented by: [id number] Admin: 08/09/21 02:46 Dose: 100 mls/hr Documented by: [id number] Infusion: 08/08/21 19:35 Dose: 0 mls/hr Documented by: [id number] Admin: 08/08/21 18:03 Dose: 100 mls/hr Documented by: [id number] Potassium Chloride/Sodium Chloride (Normal Saline W/20 Meq Kcl) 20 meq in 1,000 mls @ 100 mls/hr IV .Q10H MARLYS Stop: 09/07/21 17:59 Last Admin: 08/09/21 04:08 Dose: 100 mls/hr Documented by: [id number] Infusion: 08/09/21 04:02 Dose: 100 mls/hr Documented by: [id number] Admin: 08/08/21 18:02 Dose: 100 mls/hr Documented by: [id number] Vancomycin HCl 1,250 mg/ (Sodium Chloride) 275 mls @ 200 mls/hr IV Q12H MARLYS Stop: 08/10/21 17:59 Last Infusion: 08/09/21 08:25 Dose: 0 mls/hr Documented by: [id number] Admin: 08/09/21 06:12 Dose: 200 mls/hr Documented by: [id number] Infusion: 08/08/21 19:35 Dose: 0 mls/hr Documented by: [id number] Admin: 08/08/21 18:02 Dose: 200 mls/hr Documented by: [id number] Miscellaneous (Dutasteride: Order Awaiting Action) 1 ea N/A QS [facility] Stop: 09/08/21 00:00 Last Admin: 08/08/21 23:15 Dose: Not Given Documented by: [id number] Discontinued Medications Lactated Ringer's (Lr) 1,000 mls @ 500 mls/hr IV .Q2H MARLYS Stop: 09/07/21 09:29 Last Admin: 08/08/21 17:13 Dose: Not Given Documented by: [id number] Admin: 08/08/21 17:02 Dose: Not Given Documented by: [id number] Infusion: 08/08/21 16:27 Dose: 0 mls/hr Documented by: [id number] Admin: 08/08/21 13:39 Dose: 500 mls/hr Documented by: [id number] Infusion: 08/08/21 12:11 Dose: 0 mls/hr Documented by: [id number] Admin: 08/08/21 09:54 Dose: 500 mls/hr Documented by: [id number] Vancomycin HCl 1,500 mg/ (Sodium Chloride) 530 mls @ 200 mls/hr IV NOW ONE Stop: 08/08/21 12:44 Last Infusion: 08/08/21 13:50 Dose: 0 mls/hr Documented by: [id number] Admin: 08/08/21 10:36 Dose: 200 mls/hr Documented by: [id number] Cosigned by: [id number] Cefepime HCl (Maxipime) 2,000 mg in 20 mls @ 5 mls/min IV NOW STA; Protocol Stop: 08/08/21 10:09 Last Admin: 08/08/21 10:36 Dose: 5 mls/min Documented by: [id number] Cosigned by: [id number] Potassium Chloride (K Pal / Wtr) 10 meq in 100 mls @ 100 mls/hr IV Q1H STA Stop: 08/08/21 14:27 Last Infusion: 08/08/21 15:32 Dose: 0 mls/hr Documented by: [id number] Admin: 08/08/21 13:39 Dose: 100 mls/hr Documented by: [id number] Lactated Ringer's (Lr) 500 mls @ 999 mls/hr IV .Q31M ONE Stop: 08/08/21 13:59 Last Admin: 08/08/21 17:02 Dose: Not Given Documented by: [id number] Critical Care Time Critical Care Time: Yes Total Critical Care Time: 35 Critical care of 35 min performed to assess and manage high likelihood of life- threatening sepsis, involving labs and imaging performed with assessment to evaluate sepsis diagnosis with frequent reassessment. This time includes bedside time, treatment discussions with patient/family/consultants, documentation time and excludes procedure time. Medical Decision Making Differential Diagnosis Differential diagnoses includes but is not limited to toxic, metabolic, infectious, traumatic, cardiac, neurologic, hematologic, psychiatric and inflammatory etiologies. Medical Records Attestation: I reviewed the patient's medical records. Home Medications Current Medication List: was personally reviewed by me Laboratory Data Attestation: I reviewed the patient's lab results. Result diagrams: 08/09/21 05:57 08/09/21 05:57 Lab Results 08/08/21 08/08/21 08/08/21 Range/Units 09:35 09:35 09:35 WBC 23.17 H (4.8-10.8) K/uL RBC 3.56 L (4.7-6.1) M/uL Hgb 11.8 L (14.0-18.0) g/dL Hct 35.4 L (42-52) % MCV 99.4 (80-100) fL MCH 33.1 (25-34) pg MCHC 33.3 (32-36) g/dL RDW Std Deviation 49.7 H (36.4-46.3) fL RDW Coeff of Abi 13.6 (11.5-14.5) % Plt Count 162 (130-400) K/uL MPV 10.2 (7.4-10.4) fL Immature Gran % (Auto) 0.4 % Neut % (Auto) 96.0 % Lymph % (Auto) 1.4 % Howell % (Auto) 2.2 % Eos % (Auto) 0.0 % Baso % (Auto) 0.0 % Neut # (Auto) 22.23 H (1.4-6.5) K/uL Lymph # (Auto) 0.33 L (1.2-3.4) K/uL Howell # (Auto) 0.51 (0.11-0.59) K/uL Eos # (Auto) 0.00 (0-0.5) K/uL Baso # (Auto) 0.01 (0-0.2) K/uL Immature Gran # (Auto) 0.09 H (0.00-0.02) K/uL Sodium 142 (136-145) mmol/L Potassium 3.1 L (3.5-5.1) mmol/L Chloride 109 H (98-107) mmol/L Carbon Dioxide 27 (21-32) mmol/L Anion Gap 6.0 (3-11) BUN 19 H (7-18) mg/dl Creatinine 0.67 (0.6-1.4) mg/dl Est Cr Clr Drug Dosing Not Reportable Est GFR ( Amer) 108.2 ml/min Est GFR (Non-Af Amer) 93.3 ml/min BUN/Creatinine Ratio 28.4 H (10-20) Glucose 136 H (70-99) mg/dl Lactate 2.3 H* (0.4-2.0) mmol/L Calcium 8.3 L (8.5-10.1) mg/dl Magnesium 2.2 (1.8-2.4) mg/dl Total Bilirubin 0.7 (0.2-1) mg/dl AST 11 L (15-37) U/L ALT 6 L (12-78) U/L Alkaline Phosphatase 60 (45-117) U/L Troponin I < 0.015 (0-0.045) ng/ml Total Protein 6.2 L (6.4-8.2) gm/dl Albumin 2.7 L (3.4-5.0) gm/dl Globulin 3.5 (2.5-4.0) gm/dl Albumin/Globulin Ratio 0.8 L (0.9-2) Procalcitonin (0-0.5) ng/ml Urine Color Urine Appearance (Clear) Urine pH (4.5-7.5) Ur Specific [place] (1.000-1.030) Urine Protein (Negative) Urine Glucose (UA) (Negative) Urine Ketones (Negative) Urine Blood (Negative) Urine Nitrite (Negative) Urine Bilirubin (Negative) Urine Urobilinogen (Negative) Ur Leukocyte Esterase (Negative) Urine WBC (Auto) (0-5) /hpf Urine RBC (Auto) (0-4) /hpf U Hyaline Cast (Auto) (0-5) /lpf U Epithel Cells (Auto) (0-5) /lpf Urine Bacteria (Auto) (Negative) Lyme Disease IgG Ab (Negative) Lyme Disease IgM Ab (Negative) COVID-19 Eval Order SARS-CoV-2 (PCR) (Negative) 08/08/21 08/08/21 08/08/21 Range/Units 09:35 09:35 12:15 WBC (4.8-10.8) K/uL RBC (4.7-6.1) M/uL Hgb (14.0-18.0) g/dL Hct (42-52) % MCV (80-100) fL MCH (25-34) pg MCHC (32-36) g/dL RDW Std Deviation (36.4-46.3) fL RDW Coeff of Abi (11.5-14.5) % Plt Count (130-400) K/uL MPV (7.4-10.4) fL Immature Gran % (Auto) % Neut % (Auto) % Lymph % (Auto) % Howell % (Auto) % Eos % (Auto) % Baso % (Auto) % Neut # (Auto) (1.4-6.5) K/uL Lymph # (Auto) (1.2-3.4) K/uL Howell # (Auto) (0.11-0.59) K/uL Eos # (Auto) (0-0.5) K/uL Baso # (Auto) (0-0.2) K/uL Immature Gran # (Auto) (0.00-0.02) K/uL Sodium (136-145) mmol/L Potassium (3.5-5.1) mmol/L Chloride (98-107) mmol/L Carbon Dioxide (21-32) mmol/L Anion Gap (3-11) BUN (7-18) mg/dl Creatinine (0.6-1.4) mg/dl Est Cr Clr Drug Dosing Est GFR ( Amer) ml/min Est GFR (Non-Af Amer) ml/min BUN/Creatinine Ratio (10-20) Glucose (70-99) mg/dl Lactate (0.4-2.0) mmol/L Calcium (8.5-10.1) mg/dl Magnesium (1.8-2.4) mg/dl Total Bilirubin (0.2-1) mg/dl AST (15-37) U/L ALT (12-78) U/L Alkaline Phosphatase (45-117) U/L Troponin I (0-0.045) ng/ml Total Protein (6.4-8.2) gm/dl Albumin (3.4-5.0) gm/dl Globulin (2.5-4.0) gm/dl Albumin/Globulin Ratio (0.9-2) Procalcitonin 0.92 H (0-0.5) ng/ml Urine Color Dark Yellow Urine Appearance Clear (Clear) Urine pH 5.0 (4.5-7.5) Ur Specific [place] 1.029 (1.000-1.030) Urine Protein Trace H (Negative) Urine Glucose (UA) Negative (Negative) Urine Ketones Trace H (Negative) Urine Blood Negative (Negative) Urine Nitrite Negative (Negative) Urine Bilirubin Negative (Negative) Urine Urobilinogen Negative (Negative) Ur Leukocyte Esterase Negative (Negative) Urine WBC (Auto) 1-5 (0-5) /hpf Urine RBC (Auto) 0-4 (0-4) /hpf U Hyaline Cast (Auto) 1-5 (0-5) /lpf U Epithel Cells (Auto) 10-20 H (0-5) /lpf Urine Bacteria (Auto) Negative (Negative) Lyme Disease IgG Ab Negative (Negative) Lyme Disease IgM Ab Negative (Negative) COVID-19 Eval Order SARS-CoV-2 (PCR) (Negative) 08/08/21 08/08/21 08/08/21 Range/Units 12:22 12:22 12:53 WBC (4.8-10.8) K/uL RBC (4.7-6.1) M/uL Hgb (14.0-18.0) g/dL Hct (42-52) % MCV (80-100) fL MCH (25-34) pg MCHC (32-36) g/dL RDW Std Deviation (36.4-46.3) fL RDW Coeff of Abi (11.5-14.5) % Plt Count (130-400) K/uL MPV (7.4-10.4) fL Immature Gran % (Auto) % Neut % (Auto) % Lymph % (Auto) % Howell % (Auto) % Eos % (Auto) % Baso % (Auto) % Neut # (Auto) (1.4-6.5) K/uL Lymph # (Auto) (1.2-3.4) K/uL [place]ell # (Auto) (0.11-0.59) K/uL Eos # (Auto) (0-0.5) K/uL Baso # (Auto) (0-0.2) K/uL Immature Gran # (Auto) (0.00-0.02) K/uL Sodium (136-145) mmol/L Potassium (3.5-5.1) mmol/L Chloride (98-107) mmol/L Carbon Dioxide (21-32) mmol/L Anion Gap (3-11) BUN (7-18) mg/dl Creatinine (0.6-1.4) mg/dl Est Cr Clr Drug Dosing Est GFR ( Amer) ml/min Est GFR (Non-Af Amer) ml/min BUN/Creatinine Ratio (10-20) Glucose (70-99) mg/dl Lactate 2.2 H* (0.4-2.0) mmol/L Calcium (8.5-10.1) mg/dl Magnesium (1.8-2.4) mg/dl Total Bilirubin (0.2-1) mg/dl AST (15-37) U/L ALT (12-78) U/L Alkaline Phosphatase (45-117) U/L Troponin I (0-0.045) ng/ml Total Protein (6.4-8.2) gm/dl Albumin (3.4-5.0) gm/dl Globulin (2.5-4.0) gm/dl Albumin/Globulin Ratio (0.9-2) Procalcitonin (0-0.5) ng/ml Urine Color Urine Appearance (Clear) Urine pH (4.5-7.5) Ur Specific [place] (1.000-1.030) Urine Protein (Negative) Urine Glucose (UA) (Negative) Urine Ketones (Negative) Urine Blood (Negative) Urine Nitrite (Negative) Urine Bilirubin (Negative) Urine Urobilinogen (Negative) Ur Leukocyte Esterase (Negative) Urine WBC (Auto) (0-5) /hpf Urine RBC (Auto) (0-4) /hpf U Hyaline Cast (Auto) (0-5) /lpf U Epithel Cells (Auto) (0-5) /lpf Urine Bacteria (Auto) (Negative) Lyme Disease IgG Ab (Negative) Lyme Disease IgM Ab (Negative) COVID-19 Eval Order Covid19 at [facility] SARS-CoV-2 (PCR) NEGATIVE (Negative) Imaging Data Radiologist's Impression: XR chest 1V portable HISTORY: SEPSIS COMPARISON: Chest CT 07/10/2021. FINDINGS: No pneumothorax. No pleural effusions. There are low lung volumes. The heart is normal in size. No evidence for pulmonary edema. There is a mildly tortuous thoracic aorta, unchanged. There is mild chronic interstitial thickening which is also unchanged. Small linear density at the left lung base favor subsegmental atelectasis are scarring. Otherwise, no focal lung consolidations to suggest pneumonia. No evidence for pulmonary edema. IMPRESSION: No acute process. ACT 112: Negative or not required by law. Electronically signed by: Kleber Zepeda M.D. 08/08/2021 10:53 AM ECG Data Attestation: I personally reviewed and interpreted this ECG as follows: Indication: + altered mental status and + weakness Rate (beats per minute): 82 Rhythm: + normal sinus ECG Intervals/blocks: + Right Bundle branch block and + Prolonged QT ECG [place]: + Normal ECG ST segments: + Nonspecific ST abnormalities MDM Narrative This is an ill-appearing elderly male with a history of dementia and significant Parkinson's disease who presents due to altered mental status. Patient with a history of recent similar presentations and ultimately found to have urinary tract infections and with one visit aspiration pneumonia. EMS initiated IVF although patient never hypotensive as they were suspicious for evolving sepsis. On arrival here vital signs were stable, no fever, tachycardia, or tachypnea noted. Patient remained hemodynamically stable while in the emergency room he was cautiously given IV fluids as given his advanced age and frail condition these were not bolused in rapid succession. Patient did receive a total of 30 mL/KG. Broad-spectrum antibiotics were started. Labs revealed significant leukocytosis, elevated lactic acid and elevated procalcitonin. Chest x-ray without obvious etiology, patient's other labs reassuring, no recent GI symptoms per the and no complaints of abdominal pain during my exam. UA eventually obtained following my discussion with the hospitalist for additional inpatient treatment and was negative also. I updated the hospitalist and they will add additional imaging to rule out other potential causes. Significant time at the bedside discussing with the patient's condition, continued decline, and CODE STATUS. No ectopy or dysrhythmia noted on telemetry. An order was placed for continuous cardiac monitoring. The monitor shows a rate of _76__ with _normal sinus_ rhythm. Impression & Plan AMS (altered mental status), Sepsis, Generalized weakness Discharge Plan Visit Data Chief Complaint: Illness Stated Complaint: DECLINE IN MENTAL STATUS ED Provider: Lori Alegre Discharge Problem: AMS (altered mental status), Sepsis, Generalized weakness Patient Disposition: Admitted As Inpatient Discharge Instructions Interventions: ED Discharge Assessment Last Done: 08/08/21 15:27 Discharge Problem: AMS (altered mental status) Qualifiers: Altered mental status type: unspecified Qualified Code(s): R41.82 - Altered mental status, unspecified Sepsis Qualifiers: Sepsis type: sepsis due to unspecified organism Sepsis acute organ dysfunction status: with acute organ dysfunction Severe sepsis acute organ dysfunction type: encephalopathy Severe sepsis shock status: without septic shock Qualified Code(s): A41.9 - Sepsis, unspecified organism
[2021-08-08] MEDS: LACTATED RINGER'S 1,000 ML IV SCH ×4 (09:54→17:13)
[2021-08-08 09:58] LABS: Hematocrit (blood only) 35.4 % (42-52); Hemoglobin 11.8 g/dL (14.0-18.0); Mean Corpuscular Hemoglobin 33.1 pg (25-34); Mean Corpuscular Hgb Conc 33.3 g/dL (32-36); Mean Corpuscular Volume 99.4 fL (80-100); Mean Platelet Volume 10.2 fL (7.4-10.4); Platelet Count 162 K/uL (130-400); RDW Coefficient of Variation 13.6 % (11.5-14.5); RDW Standard Deviation 49.7 fL (36.4-46.3); Red Blood Count 3.56 M/uL (4.7-6.1); White Blood Count 23.17 K/uL (4.8-10.8)
[2021-08-08] MEDS ORDERED: CEFEPIME 2,000 MG/20 ML VIAL IV STA (10:06)
[2021-08-08] MEDS ORDERED: VANCOMYCIN CONSULT ACTIVE PRN (10:06)
[2021-08-08] MEDS ORDERED: VANCOMYCIN HCL 1,500 MG in SODIUM CHLORIDE 0.9% 500 ML IV ONE (10:06)
[2021-08-08 10:15] LABS: Alanine Aminotransferase 6 U/L (12-78); Albumin Level 2.7 gm/dl (3.4-5.0); Aspartate Aminotransferase 11 U/L (15-37); BUN Creatinine Ratio 28.4 (10-20); Blood Urea Nitrogen 19 mg/dl (7-18); Calcium 8.3 mg/dl (8.5-10.1); Carbon Dioxide 27 mmol/L (21-32); Chloride 109 mmol/L (98-107); Est GFR (African American) 108.2 ml/min; Est GFR (Non-African American) 93.3 ml/min; Glucose 136 mg/dl (70-99); Magnesium 2.2 mg/dl (1.8-2.4); Potassium 3.1 mmol/L (3.5-5.1); Sodium 142 mmol/L (136-145)
[2021-08-08 10:20] LABS: Albumin Globulin Ratio 0.8 (0.9-2); Alkaline Phosphatase 60 U/L (45-117); Bilirubin,Total 0.7 mg/dl (0.2-1); Globulin 3.5 gm/dl (2.5-4.0); Total Protein 6.2 gm/dl (6.4-8.2); Troponin I < 0.015 ng/ml (0-0.045)
[2021-08-08 10:27] LABS: Basophils # (auto) 0.01 K/uL (0-0.2); Immature Granulocytes # (auto) 0.09 K/uL (0.00-0.02); Immature Granulocytes % (auto) 0.4 %; Lymphocytes # (auto) 0.33 K/uL (1.2-3.4); Lymphocytes % (auto) 1.4 %; Monocytes # (auto) 0.51 K/uL (0.11-0.59); Monocytes % (auto) 2.2 %; Neutrophils # (auto) 22.23 K/uL (1.4-6.5)
--- NOTE | 2021-08-08 10:54 | XRay Report ---
XR chest 1V portable HISTORY: SEPSIS COMPARISON: Chest CT 07/10/2021. FINDINGS: No pneumothorax. No pleural effusions. There are low lung volumes. The heart is normal in s ize. No evidence for pulmonary edema. There is a mildly tortuous thoracic aorta, unchanged. There is mild chronic interstitial thickening which is also unchanged. Small linear density at the left lung b ase favor subsegmental atelectasis are scarring. Otherwise, no focal lung consolidations to suggest p neumonia. No evidence for pulmonary edema. IMPRESSION: No acute process. ACT 112: Negative or not required by law. Electronically signed by: Kleber Zepeda M.D. 08/08/2021 10:53 AM
--- NOTE | 2021-08-08 12:01 | History & Physical Report ---
Date of Service August 08, 2021 Assessment & Plan (1) Sepsis: Plan: Jose Manuel is a 75-year-old male with a past medical history of recurrent UTI, Parkinson's dementia, paroxysmal A. fib with recent admission for hypokalemia and sepsis, suspected aspiration pneumonitis from who presents to the emergency department via EMS after family called with concern for increased confusion and altered mentation similar to his prior sepsis episode. On evaluation by emergency provider patient is oriented to name, and denies pain but was not able to provide other meaningful history. Per EMS report had been declining since the night prior. Extensive goals of care discussion regarding his baseline chronic decline and acute on chronic declines due to recent infections. His would like to look into palliative care and potentially hospice services at home, and feel that his repeated hospitalizations and placement in rehab have not been beneficial to his quality of life, and he is more comfortable and seems to do better at home. Discussed risk/benefits of CPR and conditional CODE STATUS at bedside with patient and his . Discussed patient's goals of care, reports that while he would like full measures in regards to antibiotics, fluids and treatment of acute issues would like to avoid being dependent on ventilator/machines or having a severely compromised quality of life. Discussed that CPR and chest compressions, especially in absence of intubation after, would be traumatic to the body and if successful would compromise, at least temporarily, his quality of life in order to extend the duration of it. His recognizes that the trauma from the CPR process would not be consistent with Ahmet's goals of care even if successful, and while they would like to continue to pursue antibiotic and other treatment would like to move from plus CPR/no intubation conditional code to DNR/DNI in the event of cardiac arrest at this time. Living will addended at bedside with patient and his . Sepsis (hypotension, elevated lactate, elevated white blood cell count), unclear source WBC 23.17 Hemoglobin stable at 11.8 Hypokalemic to 3.1 Lactate elevated at 2.3. Repeat following volume resuscitation pending. Creatinine at baseline less than 1 Troponin negative Procalcitonin elevated at 0.92 Chest x-ray with no acute process, no focal lung consolidations UA does not appear infected CTchest pending given history of potential aspiration, CXR as above. CTab given sepsis and limited history due to patient cognitive status Blood cultures pending Normal SPO2 on room air Received 500 cc bolus by EMS, hypotension to systolic 104 resolved to 120s/60s in ER Empiric cefepime/Vanco in ER, +1L bolus LR Covid pending EKG: Normal sinus rhythm, 82, no territorial ST wave changes or T wave inversions. (2) Hypokalemia: Plan: Hypokalemia Magnesium normal Potassium 3.1 on admit Potassium chloride rider x2 Potassium chloride 20 M EQ p.o. 3 times daily, x2 days EKG as above Daily BMP (3) Paroxysmal atrial fibrillation: Plan: Atrial fibrillation/flutter Stable In sinus rhythm as noted above on admission Discussing with [facility] [place] [facility] outpatient cardiology on whether or not to pursue anticoagulation, have deferred this previously due to fall risk and bleeding concern No acute change in management at this time. (4) Parkinsons disease: Plan: Parkinsonian dementia Seen by neurology 08/05/2021. Noted advanced Parkinson's disease with progressive dementia, recommended continuing aspiration precautions, continuing Celexa for anxiety, continuing home health therapy and speech therapy. Could consider Neupro (Rotigotine) as outpatient. Medication adjustment not recommended at time of neuro assessment. Recommended continue Stalevo 200 mg 4 times daily, memantine 10 mg twice daily, melatonin 9 mg nightly, Celexa 10 mg daily, dutasteride for urination, aspirin daily, and fludrocortisone 0.1 mg twice daily Continue entacapone 200 mg p.o. with each dose of levodopa/carbidopa MRI 2017: Age-related atrophy and small vessel disease. Neuropsych testing 12/2018: Dementia, comorbid Alzheimer's features with parkinsonian dementia (5) Dysphagia: Plan: - Speech eval pending - CT as above - ?aspiration (6) Depression with anxiety: Plan: - Continue meds as above (7) Aspiration into airway: Plan: - see above, suspected Plan: DVT prophylaxis: Lovenox Diet: Regular, minced and moist, swallow eval CODE STATUS: DNR/DNI, see H&P for goals of care discussion Dispo: Medical telemetry History of Present Illness Chief Complaint: Weakness,? Fever Primary Care Provider: Emilie Alamo MD Jose Manuel is a 75-year-old male with a past medical history of recurrent UTI, Parkinson's dementia, paroxysmal A. fib with recent admission for hypokalemia and sepsis, suspected aspiration pneumonitis from who presents to the emergency department via EMS after family called with concern for increased confusion and altered mentation similar to his prior sepsis episode. On evaluation by emergency provider patient is oriented to name, and denies pain but was not able to provide other meaningful history. Per EMS report had been declining since the night prior. history limited by severe dementia. History taken at bedside with the dale lin . Was doign well a akhil with [facility] and speech. Not engaging much with P/OT at home due to difficulty with strength but overall OK 'fine '. Wednesday night his tremors worsened significantly when going to bad. Last night reported he felt very cold but felt warm/feverish. This morning felt warm but temp was 97.5*. [place] sweaty overnight. Urine seems much darker. No cough. Saliva issues from prior visit seem to have resolvedl. Speech therapy at home was going welly and corona Card from [facility]. Has ad some occasional coughing after taking a drink. Extensive goals of care discussion regarding his baseline chronic decline and acute on chronic declines due to recent infections. His would like to look into palliative care and potentially hospice services at home, and feel that his repeated hospitalizations and placement in rehab have not been beneficial to his quality of life, and he is more comfortable and seems to do better at home. Discussed risk/benefits of CPR and conditional CODE STATUS at bedside with patient and his . Discussed patient's goals of care, reports that while he would like full measures in regards to antibiotics, fluids and treatment of acute issues would like to avoid being dependent on ventilator/machines or having a severely compromised quality of life. Discussed that CPR and chest compressions, especially in absence of intubation after, would be traumatic to the body and if successful would compromise, at least temporarily, his quality of life in order to extend the duration of it. His recognizes that the trauma from the CPR process would not be consistent with Ahmet's goals of care even if successful, and while they would like to continue to pursue antibiotic and other treatment would like to move from plus CPR/no intubation conditional code to DNR/DNI in the event of cardiac arrest at this time. Living will addended at bedside with patient and his . Medical History: Reviewed Medications: Reviewed Surgical History: Reviewed Allergies: Reviewed Social History: reviewed, no tobacco/etoh Code Status: DNR/DNI, see above Allergies Allergy/AdvReac Type Severity Reaction Status Date / Time oxycodone [From OxyContin] AdvReac Unknown Unknown Verified 08/08/21 11:33 Home Medications Medication Instructions Recorded Confirmed Type docusate sodium 100 mg capsule 200 mg PO DAILY cap 03/13/19 08/08/21 History aspirin 81 mg tablet,delayed 81 mg PO DAILY tab 02/17/21 08/08/21 History release fludrocortisone 0.1 mg tablet 0.1 mg PO BID 30 Days #60 tab 04/17/21 08/08/21 Rx carbidopa 50 mg-levodopa 200 1 tab PO QID #120 tab 06/04/21 08/08/21 Rx mg-entacapone 200 mg tablet (Stalevo 200) famotidine 20 mg tablet 20 mg PO QAM 07/10/21 08/08/21 History potassium chloride 20 mEq oral 20 meq PO DAILY #30 ea 07/16/21 08/08/21 Rx packet dutasteride 0.5 mg capsule 0.5 mg PO QDL #30 cap 07/29/21 08/08/21 Rx citalopram 10 mg tablet (Celexa) 10 mg PO DAILY 08/05/21 08/08/21 History entacapone 200 mg tablet 200 mg PO UD 08/08/21 08/08/21 History melatonin 10 mg tablet 10 mg PO HS PRN 08/08/21 08/08/21 History polyethylene glycol 3350 17 gram 17 g PO DAILY PRN 08/08/21 08/08/21 History oral powder packet (Miralax) Past Med/Surg History Medical History Aphonia Aspiration into airway Auditory hallucination Central retinal vein occlusion Cervical spondylosis Common iliac aneurysm Constipation Depression with anxiety Diverticulosis of colon Double vision with both eyes open Esophageal reflux Fatigue Gastrointestinal dysmotility Hoarseness Hyperlipidemia Impaired fasting glucose Low back pain Low systolic blood pressure Need for pneumococcal vaccination Osteoarthrosis of knee Parkinsons disease Screening for AAA (abdominal aortic aneurysm) Sleep apnea Surgical History History of hernia repair History of knee replacement Family History Other Family history unremarkable Denies family history of Ovarian cancer Prostate cancer Myocardial infarction Breast cancer Colorectal cancer Social History Smoking Status: Unknown if ever smoked Hx Alcohol Use: No Hx Substance Use: No Preferred Language: Guinean Communication Ability: Impaired Ip Paralegal Required: No Beliefs That Will Affect Care: None marital status: Current Living Situation: Spouse current occupational status: retired Feels Safe at Home: Yes caffeine: No Dental Care, Regularly: Yes Physical Activity Frequency: 5-6 Times per Week Seatbelt Use: always Sunscreen Use: No Assistive Devices: Walker Review of Systems Review of Systems: Unobtainable due to cognitive status Limited by cognitive status, patient denies any pain/symptoms at bedside Physical Exam Physical Exam: General: Oriented to name only. Cooperative, feels fatigued. Follows one-step commands only. Arouses easily, appears frail. HEENT: Atraumatic, normocephalic. Pupils equal and reactive to light. Visual acuity and hearing grossly intact. Tongue protrudes midline. No facial asymmetry. Pulm: Diminished, no overt wheezes rales or rhonchi. Symmetrical chest rise. No increase work of breathing. No respiratory distress. Cardiac: RRR, -mrg. Radial pulses intact and symmetrical. Abdominal: Nontender, nondistended, soft. BS present. Extremities: Strength testing limited by attention. Welding Machine Setter strength 4 -/5 bilaterally, ankle dorsiflexion/plantar flexion 4 -/5 bilaterally. Sensation to soft touch intact in hands and feet bilaterally. PT and radial pulses intact bilaterally. Results & Data Results & Data ([facility]) Vital Signs (Past 12 Hours) Vital Signs Temp Pulse Pulse Resp BP BP Pulse Ox 08/08/21 11:01 73 16 124/66 97 08/08/21 10:51 73 18 96 08/08/21 10:40 73 19 114/57 L 97 08/08/21 10:30 72 15 99 08/08/21 10:20 75 16 97 08/08/21 10:10 80 18 96 08/08/21 10:00 79 17 97 08/08/21 09:50 82 20 98 08/08/21 09:44 36.9 C 88 20 120/65 95 08/08/21 09:40 79 18 96 08/08/21 09:33 81 22 95 PG Care Time/CCT Total # of Minutes Spent Total Time Spent with Patient: Total time spent is greater than 50% in coordination of care (as documented) at patient's floor/unit and/or counseling patient: Coding Level of Care Code 59717 Initial Inpt Care Lvl 3 Diagnoses Sepsis A41.9 Paroxysmal atrial fibrillation I48.0 Parkinsons disease G20 Dysphagia R13.10 Depression with anxiety F41.8 Aspiration into airway T17.908A Hypokalemia E87.6
[2021-08-08 12:41] LABS: Appearance Urine Clear (Clear); Bacteria Urine Automated Negative (Negative); Bilirubin Urine Negative (Negative); Blood Urine Negative (Negative); Color Urine Dark Yellow; Glucose Urine UA Negative (Negative); Ketones Urine Trace (Negative); Leukocyte Esterase Urine Negative (Negative); Nitrite Urine Negative (Negative); Protein Urine Trace (Negative); RBC Urine Automated 0-4 /hpf (0-4); Specific Gravity Urine 1.029 (1.000-1.030); Urobilinogen Urine Negative (Negative)
[2021-08-08] MEDS ORDERED: POTASSIUM CHLORIDE / WTR 10 MEQ/100 ML PLCT IV STA (13:28)
[2021-08-08] MEDS ORDERED: LACTATED RINGER'S 500 ML IV ONE (13:29)
--- NOTE | 2021-08-08 15:53 | CT Scan Report ---
CT SCAN OF THE ABDOMEN AND PELVIS WITHOUT IV CONTRAST CLINICAL HISTORY: Sepsis. COMPARISON STUDY: Abdominal radiograph dated 09/25/2011. TECHNIQUE: CT scan of the abdomen and pelvis is performed from the lung bases to the proximal femora. Images are reviewed in the axial, sagittal, and coronal planes. IV contrast was not administered for this examination. Note that the examination is suboptimal without oral and IV contrast. A dose lower ing technique was utilized adhering to the principles of ALARA. The examination is significantly degr aded by motion artifact. CT DOSE: 1082.73 mGycm FINDINGS: Lung bases: The heart is normal in size and without pericardial effusion. The coronary arteries are d ensely calcified. There are trace pleural effusions with dependent atelectasis. No airspace consolida tion is seen typical for pneumonia. There are scattered calcified granulomas. Liver: The unenhanced liver is normal in size, contour, and attenuation. There is no intrahepatic paxton iary ductal dilatation. Gallbladder: Unremarkable. Spleen: Normal in size and attenuation. Pancreas: The unenhanced pancreas is moderately atrophic and grossly unremarkable. Adrenal glands: Unremarkable. Kidneys: The unenhanced kidneys history cortical atrophy and are without hydronephrosis. There are no renal calculi identified. There is no evidence of contour deforming renal mass lesion. Abdominal vasculature: There is advanced atherosclerotic calcification and mild ectasia of the abdomi nal aorta. Bowel: There is moderate colonic fecal retention. No bowel obstruction is seen. The appendix is well -visualized and normal. Peritoneum: There is no intraperitoneal free air or abdominal ascites. Lymphadenopathy: None. Pelvic viscera: The prostate gland is diminutive and heterogeneous. The bladder wall appears thickene d and trabeculated indicating chronic outlet obstruction. There is a fat-containing left inguinal her deanna. Skeletal structures: The skeletal structures are osteopenic. There is moderate lumbosacral spondylosi s. No lytic or blastic lesions are seen. IMPRESSION: 1. Suboptimal examination without oral and IV contrast. There is also significant motion artifact. 2. No acute infectious or inflammatory findings are seen in the abdomen or pelvis. 3. Trace pleural effusions. 4. Moderate constipation. 5. Additional findings as above. ACT 112: Negative or not required by law. Electronically signed by: Jerry De Leon M.D. 08/08/2021 3:52 PM
[2021-08-08 16:13] LABS: Lyme Ab IgG w/WB Rflx Negative (Negative); Lyme Ab IgM w/WB Rflx Negative (Negative)
--- NOTE | 2021-08-08 16:16 | CT Scan Report ---
CT chest diagnostic wo con CLINICAL HISTORY: sepsis unclear origin TECHNIQUE: Multidetector row helical CT of the chest was performed. Coronal and sagittal reformations were obtained. Automated dose lowering techniques and/or adjustment according to patient size were u tilized for this exam. Comparison: Comparison is made to CT chest 07/10/2021 FINDINGS: Exam is limited due to patient motion. Lungs and pleura: Bilateral small pleural effusions are seen with underlying atelectasis. No definite evidence of consolidation. Scattered calcified granulomata are seen. Heart and pericardium: Heart size is normal. No pericardial effusion. Vessels: Moderate atherosclerotic changes in the aorta and coronary arteries. Mediastinum and kenny: Prominent nodes are seen in the mediastinum measuring up to 10 mm in diameter. Chest wall and lower neck: Unremarkable. Abdomen: Unremarkable. Bones: Degenerative changes in the thoracic spine. IMPRESSION: Small bilateral pleural effusions with associated atelectasis. No definite evidence of pneumonia. ACT 112: Negative or not required by law. Electronically signed by: Eliseo Bennett M.D. 08/08/2021 4:15 PM
[2021-08-08] MEDS ORDERED: MELATONIN 3 MG TAB PO PRN (16:25)
[2021-08-08] MEDS ORDERED: ACETAMINOPHEN 325 MG TAB PO PRN (16:25)
[2021-08-08] MEDS ORDERED: ENTACAPONE 200 MG PO SCH (16:25)
[2021-08-08] MEDS ORDERED: POLYETHYLENE (MIRALAX) 17 GM PACK PO PRN (16:25)
[2021-08-08] MEDS ORDERED: bisacodyL 5 MG TABEC PO PRN (16:39)
[2021-08-08] MEDS ORDERED: MAGNESIUM HYDROXIDE SUSP 30 ML UDC PO PRN (16:39)
[2021-08-08] MEDS ORDERED: CARBIDOPA LEVODOPA ENTACAPONE PO SCH (17:00)
[2021-08-08] MEDS: NSS + 20MEQ KCL 20 MEQ/1,000 ML BAG IV SCH (18:02)
[2021-08-08] MEDS: VANCOMYCIN HCL 1,250 MG in SODIUM CHLORIDE 0.9% 250 ML IV SCH (18:02)
[2021-08-08] MEDS: metroNIDAZOLE 500 MG/100 ML BAG IV SCH (18:03)
[2021-08-08] MEDS: CARBIDOPA/LEVODOPA 25/100MG TAB PO SCH ×2 (18:03→20:28)
[2021-08-08] MEDS: ENTACAPONE 200 MG TAB PO SCH ×2 (18:03→21:36)
--- NOTE | 2021-08-08 18:17 | Electrocardiogram Report ---
Test Reason : Blood Pressure : / mmHG Vent. Rate : 082 BPM Atrial Rate : 082 BPM P-R Int : 148 ms QRS Dur : 140 ms QT Int : 444 ms P-R-T Axes : 030 -09 006 degrees QTc Int : 518 ms Normal sinus rhythm Right bundle branch block Abnormal ECG When compared with ECG of 12-JUL-2021 04:58, Sinus rhythm has replaced Atrial fibrillation Vent. rate has decreased BY 57 BPM Right bundle branch block is now Present Confirmed by Avery Boateng ([id number]) on 08/08/2021 6:16:54 PM Referred By: REFERRED SELF Confirmed By:Gautam Boateng
--- NOTE | 2021-08-08 19:15 | Pharmacy Report ---
Pharmacy Abx Dose Short Note - Date of Service August 08, 2021 - Assessment & Plan Assessment 75 year old M receiving IV Vancomycin, cefepime (not a consult), and metronidazole (not a consult) for treatment of empiric sepsis (unclear source); he was recently admitted 07/10-07/16 for sepsis secondary to possible aspiration pneumonitis Day # 1 of antimicrobial therapy. * Renal function appears to be at baseline. sCr = 0.67 mg/dL with estimated CrCl >100 mL/min. Estimated pharmacokinetic parameters: * Ke ~0.087/hr, T1/2 ~8 hrs * He received Vancomycin 1500mg (~17mg/kg) IV x 1 as a loading dose in the ED. This is lower than usual 20-25mg/kg LD recommended, therefore will start maintenance regimen earlier Plan Vancomycin * Start Vancomycin 1250mg (~14.3 mg/kg) IV q12 as maintenance regimen * According to [facility], this regimen will result in a therapeutic AUC 400-600 with estimated trough 18.2 mg/dL and 14% risk of toxicity * Goal trough level for sepsis : 15 to 20 mcg/mL * No trough ordered at this time due to empiric indication; will order to assess Vancomycin if continued >48 hours Pharmacy will continue to follow and will adjust dose/frequency as necessary. Thank you.
[2021-08-08] MEDS: CEFEPIME 2,000 MG in SYRINGE 0 ML IV SCH (20:29)
[2021-08-08] MEDS: FLUDROCORTISONE ACETATE 0.1 MG TAB PO SCH (20:29)
[2021-08-08] MEDS: ENOXAPARIN INJ 40 MG/0.4 ML SYR SQ SCH (20:29)
[2021-08-08] MEDS: DUTASTERIDE: ORDER AWAITING ACTION SCH (23:15)
[2021-08-09] MEDS: metroNIDAZOLE 500 MG/100 ML BAG IV SCH ×3 (02:46→17:05)
[2021-08-09] MEDS: NSS + 20MEQ KCL 20 MEQ/1,000 ML BAG IV SCH ×3 (04:08→23:31)
[2021-08-09] MEDS: VANCOMYCIN HCL 1,250 MG in SODIUM CHLORIDE 0.9% 250 ML IV SCH ×2 (06:12→18:08)
[2021-08-09 06:14] LABS: Basophils # (auto) 0.01 K/uL (0-0.2); Basophils % (auto) 0.1 %; Eosinophils # (auto) 0.01 K/uL (0-0.5); Eosinophils % (auto) 0.1 %; Hematocrit (blood only) 30.4 % (42-52); Hemoglobin 10.3 g/dL (14.0-18.0); Immature Granulocytes # (auto) 0.06 K/uL (0.00-0.02); Immature Granulocytes % (auto) 0.4 %; Lymphocytes # (auto) 0.43 K/uL (1.2-3.4); Lymphocytes % (auto) 2.6 %; Mean Corpuscular Hemoglobin 33.9 pg (25-34); Mean Corpuscular Hgb Conc 33.9 g/dL (32-36); Monocytes # (auto) 0.35 K/uL (0.11-0.59); Monocytes % (auto) 2.1 %; Neutrophils # (auto) 15.46 K/uL (1.4-6.5); Neutrophils % (auto) 94.7 %; Platelet Count 122 K/uL (130-400); RDW Standard Deviation 51.3 fL (36.4-46.3); Red Blood Count 3.04 M/uL (4.7-6.1); White Blood Count 16.32 K/uL (4.8-10.8)
[2021-08-09 06:46] LABS: BUN Creatinine Ratio 37.3 (10-20); Calcium 8.1 mg/dl (8.5-10.1); Creatinine Clr Calc Pharmacy 129.6 ml/min; Est GFR (African American) 119.1 ml/min; Est GFR (Non-African American) 102.8 ml/min; Potassium 3.2 mmol/L (3.5-5.1)
[2021-08-09] MEDS: DUTASTERIDE: ORDER AWAITING ACTION SCH ×3 (09:20→23:31)
[2021-08-09] MEDS: ENTACAPONE 200 MG TAB PO SCH ×4 (09:21→21:21)
[2021-08-09] MEDS: CARBIDOPA/LEVODOPA 25/100MG TAB PO SCH ×4 (09:21→21:20)
[2021-08-09] MEDS: DOCUSATE SODIUM 100 MG CAP PO SCH (09:22)
[2021-08-09] MEDS: ASPIRIN 81 MG ECTAB PO SCH (09:22)
[2021-08-09] MEDS: FAMOTIDINE 20 MG TAB PO SCH (09:22)
[2021-08-09] MEDS: POTASSIUM CHLORIDE PWD 20 MEQ PACK PO SCH (09:22)
[2021-08-09] MEDS: CITALOPRAM 20 MG TAB PO SCH (09:22)
[2021-08-09] MEDS: FLUDROCORTISONE ACETATE 0.1 MG TAB PO SCH ×2 (09:22→21:18)
[2021-08-09] MEDS: CEFEPIME 2,000 MG in SYRINGE 0 ML IV SCH ×2 (09:30→21:25)
--- NOTE | 2021-08-09 12:17 | Hospitalist Progress Note ---
Date of Service August 09, 2021 Assessment & Plan (1) Sepsis: Plan: Jose Manuel is a 75-year-old male with a past medical history of recurrent UTI, Parkinson's dementia, paroxysmal A. fib with recent admission for hypokalemia and sepsis, suspected aspiration pneumonitis from who presents to the emergency department via EMS after family called with concern for increased confusion and altered mentation similar to his prior sepsis episode. On evaluation by emergency provider patient is oriented to name, and denies pain but was not able to provide other meaningful history. Per EMS report had been declining since the night prior. Sepsis (hypotension, elevated lactate, elevated white blood cell count), unclear source UA appears clean, no growth on urine culture blood cultures show no growth most likely source would seem to be aspiration event given his history WBC down to 16k from 23k, no fever, no dyspnea continue Cefepime, Flagyl and Vanco today, taper tomorrow (2) Hypokalemia: Plan: Hypokalemia Magnesium normal K up to 3.3 after supplementation repeat tomorrow (3) Paroxysmal atrial fibrillation: Plan: Atrial fibrillation/flutter Stable In sinus rhythm as noted above on admission [place] [facility] [place] on whether or not to pursue anticoagulation, have deferred this previously due to fall risk and bleeding concern No acute change in management at this time. (4) Parkinsons disease: Plan: Parkinsonian dementia Seen by neurology 08/05/2021. Noted advanced Parkinson's disease with progressive dementia, recommended continuing aspiration precautions, continuing Celexa for anxiety, continuing home health therapy and speech therapy. Could consider Neupro (Rotigotine) as outpatient. Medication adjustment not recommended at time of neuro assessment. Recommended continue Stalevo 200 mg 4 times daily, memantine 10 mg twice daily, melatonin 9 mg nightly, Celexa 10 mg daily, dutasteride for urination, aspirin daily, and fludrocortisone 0.1 mg twice daily Continue entacapone 200 mg p.o. with each dose of levodopa/carbidopa MRI 2017: Age-related atrophy and small vessel disease. Neuropsych testing 12/2018: Dementia, comorbid Alzheimer's features with parkinsonian dementia consult palliative care tomorrow (5) Dysphagia: Plan: - can refer to prior speech notes, no need for repeat evaluation at this time speech recommends minced/moist and nectar thick liquids (6) Depression with anxiety: Plan: - Continue meds as above (7) Aspiration into airway: Plan: - see above, suspected (8) Goals of care, counseling/discussion: Plan: Dr. Avalos on admission: Extensive goals of care discussion regarding his baseline chronic decline and acute on chronic declines due to recent infections. His would like to look into palliative care and potentially hospice services at home, and feel that his repeated hospitalizations and placement in rehab have not been beneficial to his quality of life, and he is more comfortable and seems to do better at home. Discussed risk/benefits of CPR and conditional CODE STATUS at bedside with patient and his . Discussed patient's goals of care, reports that while he would like full measures in regards to antibiotics, fluids and treatment of acute issues would like to avoid being dependent on ventilator/machines or having a severely compromised quality of life. Discussed that CPR and chest compressions, especially in absence of intubation after, would be traumatic to the body and if successful would compromise, at least temporarily, his quality of life in order to extend the duration of it. His recognizes that the trauma from the CPR process would not be consistent with Ahmet's goals of care even if successful, and while they would like to continue to pursue antibiotic and other treatment would like to move from plus CPR/no intubation conditional code to DNR/DNI in the event of cardiac arrest at this time. Living will addended at bedside with patient and his . consult palliative care to see on Wednesday, he is stable today Plan: DVT prophylaxis: Lovenox Diet: Regular, minced and moist, swallow eval CODE STATUS: DNR/DNI, see H&P for goals of care discussion Dispo: Medical telemetry Admission and Anticipated Discharge Date Admission Date: August 08, 2021 Subjective patient stable, requiring one to one eating okay, very slowly, has a history of aspiration WBC down to 16k from 23k, no growth on urine or blood culture MRSA swab negative, plan to stop Vanco tomorrow breathing comfortably on room air he cannot give me any history, very limited in his ROS responses Review of Systems Review of Systems: Unobtainable due to cognitive status Physical Exam Physical Exam: General: well developed, thin, frail elderly male, appears comfortable and calm Neck: supple, trachea midline, normal thyroid Lungs: decreased sounds in bases, normal respiratory effort, no accessory muscle use, no distress Heart: regular S1 and S2, no murmur, peripheral pulses normal, capillary refill normal, no edema Abdomen: soft, NT, ND, + BS, no hepatomegaly, normal to percussion Extremities: normal in appearance, no cyanosis, no petechiae, strength is diminished bilaterally Neuro: awake, cooperative, moves all extremities, no focal motor deficits, CN II-XII intact, + tremor Skin: warm, dry, no rash, normal turgor Psych: Awake, oriented to person, cooperative Results & Data Results & Data ([facility]) Vital Signs (Past 12 Hours) Vital Signs Temp Pulse Pulse Resp BP Pulse Ox 08/09/21 11:04 36.7 C 65 18 134/76 96 08/09/21 08:39 36.8 C 69 16 139/76 94 08/09/21 07:23 73 08/09/21 02:35 37 C 82 22 131/74 94 Laboratory Results Laboratory Results - last 24 hr 08/08/21 08/08/21 08/08/21 09:35 12:15 12:22 WBC RBC Hgb Hct MCV MCH MCHC RDW Std Deviation RDW Coeff of Abi Plt Count MPV Immature Gran % (Auto) Neut % (Auto) Lymph % (Auto) [place] % (Auto) Eos % (Auto) Baso % (Auto) Neut # (Auto) Lymph # (Auto) [place] # (Auto) Eos # (Auto) Baso # (Auto) Immature Gran # (Auto) Sodium Potassium Chloride Carbon Dioxide Anion Gap BUN Creatinine Est Cr Clr Drug Dosing Est GFR ( Amer) Est GFR (Non-Af Amer) BUN/Creatinine Ratio Glucose Lactate Calcium Urine Color Dark Yellow Urine Appearance Clear Urine pH 5.0 Ur Specific [place] 1.029 Urine Protein Trace H Urine Glucose (UA) Negative Urine Ketones Trace H Urine Blood Negative Urine Nitrite Negative Urine Bilirubin Negative Urine Urobilinogen Negative Ur Leukocyte Esterase Negative Urine WBC (Auto) 1-5 Urine RBC (Auto) 0-4 U Hyaline Cast (Auto) 1-5 U Epithel Cells (Auto) 10-20 H Urine Bacteria (Auto) Negative Nasal Screen MRSA (PCR) Lyme Disease IgG Ab Negative Lyme Disease IgM Ab Negative COVID-19 Eval Order Covid19 at [facility] SARS-CoV-2 (PCR) 08/08/21 08/08/21 08/08/21 12:22 12:53 18:23 WBC RBC Hgb Hct MCV MCH MCHC RDW Std Deviation RDW Coeff of Abi Plt Count MPV Immature Gran % (Auto) Neut % (Auto) Lymph % (Auto) [place] % (Auto) Eos % (Auto) Baso % (Auto) Neut # (Auto) Lymph # (Auto) [place] # (Auto) Eos # (Auto) Baso # (Auto) Immature Gran # (Auto) Sodium Potassium Chloride Carbon Dioxide Anion Gap BUN Creatinine Est Cr Clr Drug Dosing Est GFR ( Amer) Est GFR (Non-Af Amer) BUN/Creatinine Ratio Glucose Lactate 2.2 H* Calcium Urine Color Urine Appearance Urine pH Ur Specific [place] Urine Protein Urine Glucose (UA) Urine Ketones Urine Blood Urine Nitrite Urine Bilirubin Urine Urobilinogen Ur Leukocyte Esterase Urine WBC (Auto) Urine RBC (Auto) U Hyaline Cast (Auto) U Epithel Cells (Auto) Urine Bacteria (Auto) Nasal Screen MRSA (PCR) Negative Lyme Disease IgG Ab Lyme Disease IgM Ab COVID-19 Eval Order SARS-CoV-2 (PCR) NEGATIVE 08/09/21 08/09/21 05:57 05:57 WBC 16.32 H RBC 3.04 L Hgb 10.3 L Hct 30.4 L MCV 100.0 MCH 33.9 MCHC 33.9 RDW Std Deviation 51.3 H RDW Coeff of Abi 14.0 Plt Count 122 L MPV 10.0 Immature Gran % (Auto) 0.4 Neut % (Auto) 94.7 Lymph % (Auto) 2.6 [place] % (Auto) 2.1 Eos % (Auto) 0.1 Baso % (Auto) 0.1 Neut # (Auto) 15.46 H Lymph # (Auto) 0.43 L [place] # (Auto) 0.35 Eos # (Auto) 0.01 Baso # (Auto) 0.01 Immature Gran # (Auto) 0.06 H Sodium 144 Potassium 3.2 L Chloride 113 H Carbon Dioxide 27 Anion Gap 4.0 BUN 20 H Creatinine 0.53 L Est Cr Clr Drug Dosing 129.6 Est GFR ( Amer) 119.1 Est GFR (Non-Af Amer) 102.8 BUN/Creatinine Ratio 37.3 H Glucose 118 H Lactate Calcium 8.1 L Urine Color Urine Appearance Urine pH Ur Specific [place] Urine Protein Urine Glucose (UA) Urine Ketones Urine Blood Urine Nitrite Urine Bilirubin Urine Urobilinogen Ur Leukocyte Esterase Urine WBC (Auto) Urine RBC (Auto) U Hyaline Cast (Auto) U Epithel Cells (Auto) Urine Bacteria (Auto) Nasal Screen MRSA (PCR) Lyme Disease IgG Ab Lyme Disease IgM Ab COVID-19 Eval Order SARS-CoV-2 (PCR) Medications Administered Current Inpatient Medications Acetaminophen (Acetaminophen 325 Mg Tab) 650 mg PO Q4H PRN PRN Reason: Pain or Fever Stop: 09/07/21 16:24 Aspirin (Aspirin 81 Mg Ectab) 81 mg PO DAILY [facility]LYS Stop: 09/08/21 08:59 Last Admin: 08/09/21 09:22 Dose: 81 mg Documented by: Bisacodyl (Bisacodyl 5 Mg Tabec) 5 mg PO HS PRN PRN Reason: Constipation Stop: 09/07/21 16:38 Carbidopa/Levodopa (Carbidopa/Levodopa 25/100mg Tab) 2 tab PO TIDM MARLYS Stop: 09/07/21 17:29 Last Admin: 08/09/21 09:21 Dose: 2 tab Documented by: Carbidopa/Levodopa (Carbidopa/Levodopa 25/100mg Tab) 2 tab PO HS MARLYS Stop: 09/07/21 20:59 Last Admin: 08/08/21 20:28 Dose: 2 tab Documented by: Citalopram Hydrobromide (Citalopram 20 Mg Tab) 10 mg PO DAILY MAR[facility]YS Stop: 09/08/21 08:59 Last Admin: 08/09/21 09:22 Dose: 10 mg Documented by: Docusate Sodium (Docusate Sodium 100 Mg Cap) 200 mg PO DAILY MARLYS Stop: 09/08/21 08:59 Last Admin: 08/09/21 09:22 Dose: 200 mg Documented by: Enoxaparin Sodium (Enoxaparin Inj 40 Mg/0.4 Ml Syr) 40 mg SQ HS MARLYS Stop: 09/07/21 20:59 Last Admin: 08/08/21 20:29 Dose: 40 mg Documented by: Entacapone (Entacapone 200 Mg Tab) 200 mg PO TIDM [facility]YS Stop: 09/07/21 17:29 Last Admin: 08/09/21 09:21 Dose: 200 mg Documented by: Entacapone (Entacapone 200 Mg Tab) 200 mg PO HS MARLYS Stop: 09/07/21 20:59 Last Admin: 08/08/21 21:36 Dose: 200 mg Documented by: Famotidine (Famotidine 20 Mg Tab) 20 mg PO QAM [facility]YS Stop: 09/08/21 08:59 Last Admin: 08/09/21 09:22 Dose: 20 mg Documented by: Fludrocortisone Acetate (Fludrocortisone Acetate 0.1 Mg Tab) 0.1 mg PO BID [facility] Stop: 09/07/21 20:59 Last Admin: 08/09/21 09:22 Dose: 0.1 mg Documented by: Cefepime HCl 2,000 mg/ Syringe 20 mls @ 5 mls/min IV Q12H [facility]; Protocol Stop: 08/10/21 21:59 Last Admin: 08/09/21 09:30 Dose: 5 mls/min Documented by: Metronidazole (Flagyl) 500 mg in 100 mls @ 100 mls/hr IV Q8H [facility] Stop: 08/10/21 17:59 Last Infusion: 08/09/21 11:08 Dose: Infused Documented by: Potassium Chloride/Sodium Chloride (Normal Saline W/20 Meq Kcl) 20 meq in 1,000 mls @ 100 mls/hr IV .Q10H [facility] Stop: 09/07/21 17:59 Last Admin: 08/09/21 04:08 Dose: 100 mls/hr Documented by: Vancomycin HCl 1,250 mg/ (Sodium Chloride) 275 mls @ 200 mls/hr IV Q12H [facility] Stop: 08/10/21 17:59 Last Infusion: 08/09/21 08:25 Dose: Infused Documented by: Magnesium Hydroxide (Magnesium Hydroxide Susp 30 Ml Udc) 30 ml PO Q6H PRN PRN Reason: Constipation Stop: 09/07/21 16:38 Melatonin (Melatonin 3 Mg Tab) 9 mg PO HS PRN PRN Reason: Sleep Stop: 09/07/21 16:24 Miscellaneous (Dutasteride: Order Awaiting Action) 1 ea N/A QS [facility] Stop: 09/08/21 00:00 Last Admin: 08/09/21 09:20 Dose: Not Given Documented by: Miscellaneous Information (Vancomycin Consult Active) 1 ea N/A UD PRN PRN Reason: Consult Stop: 09/07/21 10:05 Polyethylene Glycol (Polyethylene (Miralax) 17 Gm Pack) 17 gm PO DAILY PRN PRN Reason: Constipation Stop: 09/07/21 16:24 Potassium Chloride (Potassium Chloride Pwd 20 Meq Pack) 20 meq PO DAILY [facility] Stop: 09/08/21 08:59 Last Admin: 08/09/21 09:22 Dose: 20 meq Documented by: PG Care Time/CCT Total # of Minutes Spent Total Time Spent with Patient: Total time spent is greater than 50% in coordination of care (as documented) at patient's floor/unit and/or counseling patient: Coding Level of Care Code 05015 Subseq Hosp Care Lvl 3 Diagnoses Sepsis A41.9 Hypokalemia E87.6 Paroxysmal atrial fibrillation I48.0 Parkinsons disease G20 Dysphagia R13.10 Depression with anxiety F41.8 Aspiration into airway T17.908A Goals of care, counseling/discussion Z71.89
[2021-08-09] MEDS: ENOXAPARIN INJ 40 MG/0.4 ML SYR SQ SCH (21:19)
[2021-08-10] MEDS: metroNIDAZOLE 500 MG/100 ML BAG IV SCH ×2 (02:27→11:16)
[2021-08-10] MEDS ORDERED: VANCOMYCIN TROUGH ONE (05:30)
[2021-08-10 07:54] LABS: Basophils # (auto) 0.01 K/uL (0-0.2); Basophils % (auto) 0.2 %; Eosinophils % (auto) 9.4 %; Hematocrit (blood only) 31.9 % (42-52); Hemoglobin 10.6 g/dL (14.0-18.0); Immature Granulocytes # (auto) 0.02 K/uL (0.00-0.02); Immature Granulocytes % (auto) 0.3 %; Lymphocytes # (auto) 0.62 K/uL (1.2-3.4); Lymphocytes % (auto) 9.7 %; Mean Corpuscular Hemoglobin 33.4 pg (25-34); Mean Corpuscular Hgb Conc 33.2 g/dL (32-36); Mean Corpuscular Volume 100.6 fL (80-100); Mean Platelet Volume 10.9 fL (7.4-10.4); Monocytes # (auto) 0.41 K/uL (0.11-0.59); Monocytes % (auto) 6.4 %; Neutrophils # (auto) 4.73 K/uL (1.4-6.5); Platelet Count 127 K/uL (130-400); RDW Coefficient of Variation 13.7 % (11.5-14.5); RDW Standard Deviation 50.8 fL (36.4-46.3); Red Blood Count 3.17 M/uL (4.7-6.1); White Blood Count 6.39 K/uL (4.8-10.8)
[2021-08-10 08:02] LABS: BUN Creatinine Ratio 37.2 (10-20); Calcium 7.8 mg/dl (8.5-10.1); Creatinine Clr Calc Pharmacy 157.5 ml/min; Est GFR (African American) 128.6 ml/min; Est GFR (Non-African American) 110.9 ml/min; Potassium 3.5 mmol/L (3.5-5.1)
[2021-08-10] MEDS: VANCOMYCIN HCL 1,250 MG in SODIUM CHLORIDE 0.9% 250 ML IV SCH (08:19)
[2021-08-10] MEDS: ENTACAPONE 200 MG TAB PO SCH ×4 (08:20→20:28)
[2021-08-10] MEDS: POTASSIUM CHLORIDE PWD 20 MEQ PACK PO SCH (08:20)
[2021-08-10] MEDS: CARBIDOPA/LEVODOPA 25/100MG TAB PO SCH ×4 (08:20→20:29)
[2021-08-10] MEDS: CITALOPRAM 20 MG TAB PO SCH (08:20)
[2021-08-10] MEDS: ASPIRIN 81 MG ECTAB PO SCH (08:20)
[2021-08-10] MEDS: FLUDROCORTISONE ACETATE 0.1 MG TAB PO SCH ×2 (08:21→20:29)
[2021-08-10] MEDS: DUTASTERIDE: ORDER AWAITING ACTION SCH ×3 (08:21→21:33)
[2021-08-10] MEDS: FAMOTIDINE 20 MG TAB PO SCH (08:21)
[2021-08-10] MEDS: CEFEPIME 2,000 MG in SYRINGE 0 ML IV SCH ×2 (11:16→21:28)
[2021-08-10] MEDS: DOCUSATE SODIUM 100 MG CAP PO SCH (11:16)
[2021-08-10] MEDS: NSS + 20MEQ KCL 20 MEQ/1,000 ML BAG IV SCH (12:27)
--- NOTE | 2021-08-10 14:32 | Hospitalist Progress Note ---
Date of Service August 10, 2021 Assessment & Plan (1) Sepsis: Plan: Jose Manuel is a 75-year-old male with a past medical history of recurrent UTI, Parkinson's dementia, paroxysmal A. fib with recent admission for hypokalemia and sepsis, suspected aspiration pneumonitis from who presents to the emergency department via EMS after family called with concern for increased confusion and altered mentation similar to his prior sepsis episode. On evaluation by emergency provider patient is oriented to name, and denies pain but was not able to provide other meaningful history. Per EMS report had been declining since the night prior. Sepsis (hypotension, elevated lactate, elevated white blood cell count), unclear source UA appears clean, no growth on urine culture blood cultures show no growth most likely source would seem to be aspiration event given his history but no clear pneumonia on CT chest could have just been some aspiration pneumonitis WBC down to 6k from 23k on admission, no fever, no dyspnea continue Cefepime, Flagyl and Vanco can be stopped, MRSA swab negative continue antibiotics for time being (2) Hypokalemia: Plan: Hypokalemia Magnesium normal K up to 3.5 after supplementation repeat tomorrow continue fluids with 20 mEq of K until this bag is finished (3) Paroxysmal atrial fibrillation: Plan: Atrial fibrillation/flutter Stable In sinus rhythm as noted above on admission Discussing with [facility] [place] on whether or not to pursue anticoagulation, have deferred this previously due to fall risk and bleeding concern No acute change in management at this time. (4) Parkinsons disease: Plan: Parkinsonian dementia Seen by neurology 08/05/2021. Noted advanced Parkinson's disease with progressive dementia, recommended continuing aspiration precautions, continuing Celexa for anxiety, continuing home health therapy and speech therapy. Could consider Neupro (Rotigotine) as outpatient. Medication adjustment not recommended at time of neuro assessment. Recommended continue Stalevo 200 mg 4 times daily, memantine 10 mg twice daily, melatonin 9 mg nightly, Celexa 10 mg daily, dutasteride for urination, aspirin daily, and fludrocortisone 0.1 mg twice daily Continue entacapone 200 mg p.o. with each dose of levodopa/carbidopa MRI 2017: Age-related atrophy and small vessel disease. Neuropsych testing 12/2018: Dementia, comorbid Alzheimer's features with parkinsonian dementia consult palliative care tomorrow (5) Dysphagia: Plan: - can refer to prior speech notes, no need for repeat evaluation at this time speech recommends minced/moist and nectar thick liquids (6) Depression with anxiety: Plan: - Continue meds as above (7) Aspiration into airway: Plan: - see above, suspected (8) Goals of care, counseling/discussion: Plan: Dr. Avalos on admission: Extensive goals of care discussion regarding his baseline chronic decline and acute on chronic declines due to recent infections. His would like to look into palliative care and potentially hospice services at home, and feel that his repeated hospitalizations and placement in rehab have not been beneficial to his quality of life, and he is more comfortable and seems to do better at home. Discussed risk/benefits of CPR and conditional CODE STATUS at bedside with patient and his . Discussed patient's goals of care, reports that while he would like full measures in regards to antibiotics, fluids and treatment of acute issues would like to avoid being dependent on ventilator/machines or having a severely compromised quality of life. Discussed that CPR and chest compressions, especially in absence of intubation after, would be traumatic to the body and if successful would compromise, at least temporarily, his quality of life in order to extend the duration of it. His recognizes that the trauma from the CPR process would not be consistent with Ahmet's goals of care even if successful, and while they would like to continue to pursue antibiotic and other treatment would like to move from plus CPR/no intubation conditional code to DNR/DNI in the event of cardiac arrest at this time. Living will addended at bedside with patient and his . consult palliative care to see on Wednesday, he is stable today Plan: DVT prophylaxis: Lovenox Diet: Regular, minced and moist, swallow eval CODE STATUS: DNR/DNI, see H&P for goals of care discussion Dispo: Medical telemetry Admission and Anticipated Discharge Date Admission Date: August 08, 2021 Subjective patient is stable today, breathing well on room air no fever, WBC down to 6k, Cr is 0.44 and K is 3.5, will stop fluids after this bag cut down to just Cefepime urine and blood cultures still show no growth updated his son at the bedside, in agreement about palliative consult tomorrow tried to call his , no answer on both numbers, will try again Review of Systems Review of Systems: Unobtainable due to cognitive status Physical Exam Physical Exam: General: well developed, thin, frail elderly male, appears comfortable and calm Neck: supple, trachea midline, normal thyroid Lungs: decreased sounds in bases, normal respiratory effort, no accessory muscle use, no distress Heart: regular S1 and S2, no murmur, peripheral pulses normal, capillary refill normal, no edema Abdomen: soft, NT, ND, + BS, no hepatomegaly, normal to percussion Extremities: normal in appearance, no cyanosis, no petechiae, strength is diminished bilaterally Neuro: awake, cooperative, moves all extremities, no focal motor deficits, CN II-XII intact, + tremor Skin: warm, dry, no rash, normal turgor Psych: Awake, oriented to person, cooperative Results & Data Results & Data ([facility]) Vital Signs (Past 12 Hours) Vital Signs Temp Pulse Pulse Resp BP Pulse Ox 08/10/21 11:08 36.7 C 69 18 160/85 H 96 08/10/21 07:20 36.6 C 69 18 177/91 H 96 08/10/21 07:00 60 08/10/21 03:53 36.8 C 76 20 168/92 H 96 Laboratory Results Laboratory Results - last 24 hr 08/10/21 08/10/21 08/10/21 05:28 05:29 05:29 WBC 6.39 RBC 3.17 L Hgb 10.6 L Hct 31.9 L MCV 100.6 H MCH 33.4 MCHC 33.2 RDW Std Deviation 50.8 H RDW Coeff of Abi 13.7 Plt Count 127 L MPV 10.9 H Immature Gran % (Auto) 0.3 Neut % (Auto) 74.0 Lymph % (Auto) 9.7 [place] % (Auto) 6.4 Eos % (Auto) 9.4 Baso % (Auto) 0.2 Neut # (Auto) 4.73 Lymph # (Auto) 0.62 L [place] # (Auto) 0.41 Eos # (Auto) 0.60 H Baso # (Auto) 0.01 Immature Gran # (Auto) 0.02 Sodium 143 Potassium 3.5 Chloride 112 H Carbon Dioxide 26 Anion Gap 5.0 BUN 17 Creatinine 0.44 L Est Cr Clr Drug Dosing 157.5 Est GFR ( Amer) 128.6 Est GFR (Non-Af Amer) 110.9 BUN/Creatinine Ratio 37.2 H Glucose 94 Calcium 7.8 L Vancomycin Trough 12.3 Medications Administered Current Inpatient Medications Acetaminophen (Acetaminophen 325 Mg Tab) 650 mg PO Q4H PRN PRN Reason: Pain or Fever Stop: 09/07/21 16:24 Aspirin (Aspirin 81 Mg Ectab) 81 mg PO DAILY [facility]LYS Stop: 09/08/21 08:59 Last Admin: 08/10/21 08:20 Dose: 81 mg Documented by: Bisacodyl (Bisacodyl 5 Mg Tabec) 5 mg PO HS PRN PRN Reason: Constipation Stop: 09/07/21 16:38 Carbidopa/Levodopa (Carbidopa/Levodopa 25/100mg Tab) 2 tab PO TIDM [facility] Stop: 09/07/21 17:29 Last Admin: 08/10/21 12:47 Dose: 2 tab Documented by: Carbidopa/Levodopa (Carbidopa/Levodopa 25/100mg Tab) 2 tab PO HS [facility]YS Stop: 09/07/21 20:59 Last Admin: 08/09/21 21:20 Dose: 2 tab Documented by: Citalopram Hydrobromide (Citalopram 20 Mg Tab) 10 mg PO DAILY [facility]YS Stop: 09/08/21 08:59 Last Admin: 08/10/21 08:20 Dose: 10 mg Documented by: Docusate Sodium (Docusate Sodium 100 Mg Cap) 200 mg PO DAILY [facility]YS Stop: 09/08/21 08:59 Last Admin: 08/10/21 11:16 Dose: 200 mg Documented by: Enoxaparin Sodium (Enoxaparin Inj 40 Mg/0.4 Ml Syr) 40 mg SQ HS [facility] Stop: 09/07/21 20:59 Last Admin: 08/09/21 21:19 Dose: 40 mg Documented by: Entacapone (Entacapone 200 Mg Tab) 200 mg PO TIDM [facility] Stop: 09/07/21 17:29 Last Admin: 08/10/21 12:47 Dose: 200 mg Documented by: Entacapone (Entacapone 200 Mg Tab) 200 mg PO HS [facility] Stop: 09/07/21 20:59 Last Admin: 08/09/21 21:21 Dose: 200 mg Documented by: Famotidine (Famotidine 20 Mg Tab) 20 mg PO QAM [facility] Stop: 09/08/21 08:59 Last Admin: 08/10/21 08:21 Dose: 20 mg Documented by: Fludrocortisone Acetate (Fludrocortisone Acetate 0.1 Mg Tab) 0.1 mg PO BID [facility] Stop: 09/07/21 20:59 Last Admin: 08/10/21 08:21 Dose: 0.1 mg Documented by: Cefepime HCl 2,000 mg/ Syringe 20 mls @ 5 mls/min IV Q12H [facility]; Protocol Stop: 08/15/21 21:59 Last Admin: 08/10/21 11:16 Dose: 5 mls/min Documented by: Potassium Chloride/Sodium Chloride (Normal Saline W/20 Meq Kcl) 20 meq in 1,000 mls @ 100 mls/hr IV .Q10H [facility] Stop: 09/07/21 17:59 Last Admin: 08/10/21 12:27 Dose: 100 mls/hr Documented by: Magnesium Hydroxide (Magnesium Hydroxide Susp 30 Ml Udc) 30 ml PO Q6H PRN PRN Reason: Constipation Stop: 09/07/21 16:38 Last Admin: 08/09/21 17:04 Dose: 30 ml Documented by: Melatonin (Melatonin 3 Mg Tab) 9 mg PO HS PRN PRN Reason: Sleep Stop: 09/07/21 16:24 Miscellaneous (Dutasteride: Order Awaiting Action) 1 ea N/A QS [facility] Stop: 09/08/21 00:00 Last Admin: 08/10/21 08:21 Dose: Not Given Documented by: Polyethylene Glycol (Polyethylene (Miralax) 17 Gm Pack) 17 gm PO DAILY PRN PRN Reason: Constipation Stop: 09/07/21 16:24 Potassium Chloride (Potassium Chloride Pwd 20 Meq Pack) 20 meq PO DAILY [facility] Stop: 09/08/21 08:59 Last Admin: 08/10/21 08:20 Dose: 20 meq Documented by: PG Care Time/CCT Total # of Minutes Spent Total Time Spent with Patient: Total time spent is greater than 50% in coordination of care (as documented) at patient's floor/unit and/or counseling patient: Coding Level of Care Code 44098 Subseq Hosp Care Lvl 2 Diagnoses Sepsis A41.9 Hypokalemia E87.6 Paroxysmal atrial fibrillation I48.0 Parkinsons disease G20 Dysphagia R13.10 Depression with anxiety F41.8 Aspiration into airway T17.908A Goals of care, counseling/discussion Z71.89
[2021-08-10] MEDS: ENOXAPARIN INJ 40 MG/0.4 ML SYR SQ SCH (20:30)
[2021-08-11] MEDS: FLUDROCORTISONE ACETATE 0.1 MG TAB PO SCH ×2 (07:52→20:09)
[2021-08-11] MEDS: CARBIDOPA/LEVODOPA 25/100MG TAB PO SCH ×4 (07:52→20:11)
[2021-08-11] MEDS: ENTACAPONE 200 MG TAB PO SCH ×4 (07:52→20:10)
[2021-08-11] MEDS: POTASSIUM CHLORIDE PWD 20 MEQ PACK PO SCH (07:53)
[2021-08-11] MEDS: DUTASTERIDE: ORDER AWAITING ACTION SCH ×3 (07:53→22:13)
[2021-08-11] MEDS: FAMOTIDINE 20 MG TAB PO SCH (07:53)
[2021-08-11] MEDS: CITALOPRAM 20 MG TAB PO SCH (07:53)
[2021-08-11] MEDS: ASPIRIN 81 MG ECTAB PO SCH (07:53)
[2021-08-11 08:25] LABS: Basophils # (auto) 0.01 K/uL (0-0.2); Basophils % (auto) 0.2 %; Eosinophils # (auto) 0.26 K/uL (0-0.5); Eosinophils % (auto) 4.8 %; Hematocrit (blood only) 33.2 % (42-52); Hemoglobin 11.5 g/dL (14.0-18.0); Immature Granulocytes # (auto) 0.02 K/uL (0.00-0.02); Immature Granulocytes % (auto) 0.4 %; Lymphocytes # (auto) 0.46 K/uL (1.2-3.4); Lymphocytes % (auto) 8.5 %; Mean Corpuscular Hemoglobin 33.4 pg (25-34); Mean Corpuscular Hgb Conc 34.6 g/dL (32-36); Mean Corpuscular Volume 96.5 fL (80-100); Monocytes # (auto) 0.37 K/uL (0.11-0.59); Monocytes % (auto) 6.8 %; Neutrophils # (auto) 4.31 K/uL (1.4-6.5); Neutrophils % (auto) 79.3 %; Platelet Count 156 K/uL (130-400); RDW Coefficient of Variation 13.1 % (11.5-14.5); RDW Standard Deviation 45.9 fL (36.4-46.3); Red Blood Count 3.44 M/uL (4.7-6.1); White Blood Count 5.43 K/uL (4.8-10.8)
[2021-08-11 09:19] LABS: BUN Creatinine Ratio 17.4 (10-20); Calcium 8.4 mg/dl (8.5-10.1); Creatinine Clr Calc Pharmacy 158.8 ml/min; Est GFR (African American) 129.8 ml/min; Potassium 2.9 mmol/L (3.5-5.1)
[2021-08-11] MEDS: DOCUSATE SODIUM 100 MG CAP PO SCH (10:15)
[2021-08-11] MEDS ORDERED: SUCRALFATE 1 GM/10 ML UDC PO ONE (10:25)
[2021-08-11] MEDS: POTASSIUM CHLORIDE / WTR 10 MEQ/100 ML PLCT IV SCH ×4 (11:21→14:11)
[2021-08-11] MEDS: CEFEPIME 2,000 MG in SYRINGE 0 ML IV SCH ×2 (11:21→21:08)
[2021-08-11] MEDS ORDERED: SUCRALFATE 1 GM/10 ML UDC PO SCH (13:00)
--- NOTE | 2021-08-11 20:01 | Palliative Care Consultation ---
Date of Consultation August 11, 2021 Assessment & Plan (1) Palliative care encounter: I met with Mrs. Jackson and her daughter at bedside. They are interested in looking at options for additional support at home. We reviewed role of palliative care and differences between home care and hospice care. We talked about the hospice benefit and support available. Unfortunately, neither provide 24/7 support which they are looking for. They do have resources to hire additional caregivers. Family was concerned about whether he was appropriate for hospice. We discussed six month surprise question and reviewed that with frequent hospitalizations, he has had progressive functional decline. We discussed shift of focus to comfort rather than disease management with hospice and family is unsure if they are comfortable with that at this point in time. They will consider this further. Discussed with Dr. Diop. History of Present Illness Reason for Consultation: goals of care Requesting Physician: Dr. Harris Attending Physician: Sascha Diop History of Present Illness 75 yo gentleman with advanced Parkinsons disease and atrial fibrillation. He has had multiple recent hospitalizations recently and was admitted most recently with UTI, sepsis and aspiration pneumonitis. He has had home care with physical therapy after his last admission and his notes that he has had difficulty participating in therapy and limited improvement. He is confused today, more so that his usual baseline per his family. He does respond to questions, but has difficulty with recall and confusion. His cares for him at home with the help of her daughter who comes from [place] to help her. She is interested in options for additional support and we have been consulted to assist with goals of care. Allergies Allergy/AdvReac Type Severity Reaction Status Date / Time oxycodone [From OxyContin] AdvReac Unknown Unknown Verified 08/08/21 11:33 Home Medications Medication Instructions Recorded Confirmed Type docusate sodium 100 mg capsule 200 mg PO DAILY cap 03/13/19 08/08/21 History aspirin 81 mg tablet,delayed 81 mg PO DAILY tab 02/17/21 08/08/21 History release fludrocortisone 0.1 mg tablet 0.1 mg PO BID 30 Days #60 tab 04/17/21 08/08/21 Rx carbidopa 50 mg-levodopa 200 1 tab PO QID #120 tab 06/04/21 08/08/21 Rx mg-entacapone 200 mg tablet (Stalevo 200) famotidine 20 mg tablet 20 mg PO QAM 07/10/21 08/08/21 History potassium chloride 20 mEq oral 20 meq PO DAILY #30 ea 07/16/21 08/08/21 Rx packet dutasteride 0.5 mg capsule 0.5 mg PO QDL #30 cap 07/29/21 08/08/21 Rx citalopram 10 mg tablet (Celexa) 10 mg PO DAILY 08/05/21 08/08/21 History melatonin 10 mg tablet 10 mg PO HS PRN 08/08/21 08/08/21 History polyethylene glycol 3350 17 gram 17 g PO DAILY PRN 08/08/21 08/08/21 History oral powder packet (Miralax) Patient History Medical History Aphonia Aspiration into airway Auditory hallucination Central retinal vein occlusion Cervical spondylosis Common iliac aneurysm Constipation Depression with anxiety Diverticulosis of colon Double vision with both eyes open Esophageal reflux Fatigue Gastrointestinal dysmotility Hoarseness Hyperlipidemia Impaired fasting glucose Low back pain Low systolic blood pressure Need for pneumococcal vaccination Osteoarthrosis of knee Parkinsons disease Screening for AAA (abdominal aortic aneurysm) Sleep apnea Surgical History History of hernia repair History of knee replacement Family History Other Family history unremarkable Denies family history of Ovarian cancer Prostate cancer Myocardial infarction Breast cancer Colorectal cancer Social History Smoking Status: Former smoker Hx Alcohol Use: No Hx Substance Use: No Preferred Language: Cook Islander Communication Ability: 1:1 Ui Software Engineer Required: No Beliefs That Will Affect Care: None marital status: Current Living Situation: Spouse current occupational status: retired Feels Safe at Home: Yes caffeine: No Dental Care, Regularly: Yes Physical Activity Frequency: 5-6 Times per Week Seatbelt Use: always Sunscreen Use: No Assistive Devices: Cane, Walker and Wheelchair Review of Systems Review of Systems: [place] Symptom Assessment Scale Pain 0/3 Dyspnea 0/3 Anxiety 0/3 Palliative Performance Score 40% Physical Exam Constitutional: no acute distress Respiratory: normal respiratory effort; no labored breathing Cardiovascular: Rate/Rhythm: regular rate and regular rhythm Musculoskeletal: rigidity Neurologic: Speech / Cognition: + abnormal cognition Psychiatric: Affect: + flat affect Results & Data ([facility]) Vital Signs (Past 12 Hours) Vital Signs Temp Pulse Pulse Resp BP BP Pulse Ox 08/11/21 19:36 98.6 F 69 20 167/91 H 96 08/11/21 16:00 97.3 F L 63 20 160/86 H 96 08/11/21 14:30 76 08/11/21 13:42 130 H 08/11/21 11:00 97.9 F 65 20 170/89 H 97 08/11/21 08:09 97.9 F 57 L 18 149/74 H 95 PG Care Time/CCT Total # of Minutes Spent Total Time Spent: 70 Total Time Spent with Patient: Total time spent is greater than 50% in coordination of care (as documented) at patient's floor/unit and/or counseling patient:goals of care, hospice, prognosis, family education and support Coding Level of Care Code 38095 Initial Inpt Care Lvl 3 Diagnoses Palliative care encounter Z51.5
[2021-08-11] MEDS: ENOXAPARIN INJ 40 MG/0.4 ML SYR SQ SCH (20:09)
--- NOTE | 2021-08-11 21:24 | Hospitalist Progress Note ---
Date of Service August 11, 2021 Assessment & Plan (1) Sepsis: Plan: Jose Manuel is a 75-year-old male with a past medical history of recurrent UTI, Parkinson's dementia, paroxysmal A. fib with recent admission for hypokalemia and sepsis, suspected aspiration pneumonitis from who presents to the emergency department via EMS after family called with concern for increased confusion and altered mentation similar to his prior sepsis episode. On evaluation by emergency provider patient is oriented to name, and denies pain but was not able to provide other meaningful history. Per EMS report had been declining since the night prior. Sepsis (hypotension, elevated lactate, elevated white blood cell count), unclear source UA appears clean, no growth on urine culture blood cultures show no growth most likely source would seem to be aspiration event given his history but no clear pneumonia on CT chest could have just been some aspiration pneumonitis WBC down to 6k from 23k on admission, no fever, no dyspnea continue Cefepime, Flagyl and Vanco can be stopped, MRSA swab negative continue antibiotics for time being will place heart as patient is having a grade 1 decubitus ulcer (2) Hypokalemia: Plan: Hypokalemia Magnesium normal K up to 3.5 after supplementation repeat tomorrow (3) Paroxysmal atrial fibrillation: Plan: Atrial fibrillation/flutter Stable In sinus rhythm as noted above on admission Discussing with [facility] [place] on whether or not to pursue anticoagulation, have deferred this previously due to fall risk and bleeding concern No acute change in management at this time. (4) Parkinsons disease: Plan: Parkinsonian dementia Seen by neurology 08/05/2021. Noted advanced Parkinson's disease with progressive dementia, recommended continuing aspiration precautions, continuing Celexa for anxiety, continuing home health therapy and speech therapy. Could consider Neupro (Rotigotine) as outpatient. Medication adjustment not recommended at time of neuro assessment. Recommended continue Stalevo 200 mg 4 times daily, memantine 10 mg twice daily, melatonin 9 mg nightly, Celexa 10 mg daily, dutasteride for urination, aspirin daily, and fludrocortisone 0.1 mg twice daily Continue entacapone 200 mg p.o. with each dose of levodopa/carbidopa MRI 2017: Age-related atrophy and small vessel disease. Neuropsych testing 12/2018: Dementia, comorbid Alzheimer's features with parkinsonian dementia consult palliative care tomorrow (5) Dysphagia: Plan: - can refer to prior speech notes, no need for repeat evaluation at this time speech recommends minced/moist and nectar thick liquids (6) Depression with anxiety: Plan: - Continue meds as above (7) Aspiration into airway: Plan: - see above, suspected (8) Goals of care, counseling/discussion: Plan: Dr. Avalos on admission: Extensive goals of care discussion regarding his baseline chronic decline and acute on chronic declines due to recent infections. His would like to look into palliative care and potentially hospice services at home, and feel that his repeated hospitalizations and placement in rehab have not been beneficial to his quality of life, and he is more comfortable and seems to do better at home. Discussed risk/benefits of CPR and conditional CODE STATUS at bedside with patient and his . Discussed patient's goals of care, reports that while he would like full measures in regards to antibiotics, fluids and treatment of acute issues would like to avoid being dependent on ventilator/machines or having a severely compromised quality of life. Discussed that CPR and chest compressions, especially in absence of intubation after, would be traumatic to the body and if successful would compromise, at least temporarily, his quality of life in order to extend the duration of it. His recognizes that the trauma from the CPR process would not be consistent with Ahmet's goals of care even if successful, and while they would like to continue to pursue antibiotic and other treatment would like to move from plus CPR/no intubation conditional code to DNR/DNI in the event of cardiac arrest at this time. Living will addended at bedside with patient and his . consult palliative care to see on Wednesday, he is stable today Plan: DVT prophylaxis: Lovenox Diet: Regular, minced and moist, swallow eval CODE STATUS: DNR/DNI, see H&P for goals of care discussion Dispo: Medical telemetry Admission and Anticipated Discharge Date Admission Date: August 08, 2021 Subjective 75 yo m has no new complaints. Review of Systems Review of Systems: All systems reviewed & are unremarkable except as noted in HPI & below Physical Exam Physical Exam: Constitutional:L well developed, + cachectic and + fr ail appearing; + n ot well nourished and no acute distr ess ENMT: external ear and n ose normal, oropha rynx normal Neck: trachea midline, n o thyromegaly Respiratory: normal respiratory effort, lungs shivam ar to auscultation no labored breat barbara, does not use accessory muscles , no cough, not ta chypneic, no audib le wheezes and no stridor Auscultat ion: + diminished lung sounds (throu ghout); no crackle s and no wheezes Cardiovascular:L Rate/Rhythm: regul ar rate and regula r rhythm Vessels: no JVD Extremiti es: + edema (+1 ed aniya bilateral lowe r extremity, impro sameer since admissio n) Gastrointestinal ( Abdomen): normal bowel sound s, soft, nontender , no hepatosplenom egaly Neurologic: moves all extremit ies and awake; not confused Psychiatric: A+Ox3, euthymic af fect Results & Data Results & Data ([facility]) Vital Signs (Past 12 Hours) Vital Signs Temp Pulse Pulse Resp BP BP Pulse Ox 08/11/21 19:36 37.0 C 69 20 167/91 H 96 08/11/21 16:00 36.3 C L 63 20 160/86 H 96 08/11/21 14:30 76 08/11/21 13:42 130 H 08/11/21 11:00 36.6 C 65 20 170/89 H 97 PG Care Time/CCT Total # of Minutes Spent Total Time Spent with Patient: Total time spent is greater than 50% in coordination of care (as documented) at patient's floor/unit and/or counseling patient: Coding Level of Care Code 71476 Subseq Hosp Care Lvl 2 Diagnoses Sepsis A41.9 Hypokalemia E87.6 Paroxysmal atrial fibrillation I48.0 Parkinsons disease G20 Dysphagia R13.10 Depression with anxiety F41.8 Aspiration into airway T17.908A Goals of care, counseling/discussion Z71.89
[2021-08-12 06:53] LABS: Hematocrit (blood only) 32.3 % (42-52); Hemoglobin 11.3 g/dL (14.0-18.0); Mean Corpuscular Hemoglobin 33.1 pg (25-34); Mean Corpuscular Volume 94.7 fL (80-100); Mean Platelet Volume 10.1 fL (7.4-10.4); Platelet Count 176 K/uL (130-400); RDW Coefficient of Variation 13.1 % (11.5-14.5); RDW Standard Deviation 45.4 fL (36.4-46.3); Red Blood Count 3.41 M/uL (4.7-6.1); White Blood Count 6.79 K/uL (4.8-10.8)
[2021-08-12 08:08] LABS: BUN Creatinine Ratio 17.6 (10-20); Calcium 8.9 mg/dl (8.5-10.1); Creatinine Clr Calc Pharmacy 133.7 ml/min; Est GFR (African American) 125.1 ml/min; Potassium 2.9 mmol/L (3.5-5.1)
[2021-08-12] MEDS: FAMOTIDINE 20 MG TAB PO SCH (09:40)
[2021-08-12] MEDS: CEFEPIME 2,000 MG in SYRINGE 0 ML IV SCH ×2 (09:40→21:35)
[2021-08-12] MEDS: FLUDROCORTISONE ACETATE 0.1 MG TAB PO SCH ×2 (09:40→21:34)
[2021-08-12] MEDS: CITALOPRAM 20 MG TAB PO SCH (09:40)
[2021-08-12] MEDS: ASPIRIN 81 MG ECTAB PO SCH (09:40)
[2021-08-12] MEDS: CARBIDOPA/LEVODOPA 25/100MG TAB PO SCH ×4 (09:40→21:34)
[2021-08-12] MEDS: ENTACAPONE 200 MG TAB PO SCH ×4 (09:40→21:34)
[2021-08-12] MEDS: DUTASTERIDE: ORDER AWAITING ACTION SCH ×3 (11:57→22:03)
[2021-08-12] MEDS: DOCUSATE SODIUM 100 MG CAP PO SCH (11:57)
[2021-08-12] MEDS: POTASSIUM CHLORIDE / WTR 10 MEQ/100 ML PLCT IV SCH ×4 (13:43→17:14)
[2021-08-12] MEDS: POTASSIUM CHLORIDE PWD 20 MEQ PACK PO SCH (13:44)
[2021-08-12] MEDS: ENOXAPARIN INJ 40 MG/0.4 ML SYR SQ SCH (21:34)
[2021-08-12] MEDS: POTASSIUM CHLORIDE CRTAB 20 MEQ TABCR PO SCH (21:34)
--- NOTE | 2021-08-12 22:33 | Hospitalist Progress Note ---
Date of Service August 12, 2021 Assessment & Plan (1) Sepsis: Plan: Jose Manuel is a 75-year-old male with a past medical history of recurrent UTI, Parkinson's dementia, paroxysmal A. fib with recent admission for hypokalemia and sepsis, suspected aspiration pneumonitis from who presents to the emergency department via EMS after family called with concern for increased confusion and altered mentation similar to his prior sepsis episode. On evaluation by emergency provider patient is oriented to name, and denies pain but was not able to provide other meaningful history. Per EMS report had been declining since the night prior. Sepsis (hypotension, elevated lactate, elevated white blood cell count), unclear source UA appears clean, no growth on urine culture blood cultures show no growth most likely source would seem to be aspiration event given his history but no clear pneumonia on CT chest could have just been some aspiration pneumonitis WBC down to 6k from 23k on admission, no fever, no dyspnea continue Cefepime, Flagyl and Vanco can be stopped, MRSA swab negative continue antibiotics for time being will place heart as patient is having a grade 1 decubitus ulcer Family is interested in hospice. will need case management to discuss optios with patient. (2) Hypokalemia: Plan: Hypokalemia Magnesium normal K up to 3.5 after supplementation repeat tomorrow (3) Paroxysmal atrial fibrillation: Plan: Atrial fibrillation/flutter Stable In sinus rhythm as noted above on admission [place] [facility] on whether or not to pursue anticoagulation, have deferred this previously due to fall risk and bleeding concern No acute change in management at this time. (4) Parkinsons disease: Plan: Parkinsonian dementia Seen by neurology 08/05/2021. Noted advanced Parkinson's disease with progressive dementia, recommended continuing aspiration precautions, continuing Celexa for anxiety, continuing home health therapy and speech therapy. Could consider Neupro (Rotigotine) as outpatient. Medication adjustment not recommended at time of neuro assessment. Recommended continue Stalevo 200 mg 4 times daily, memantine 10 mg twice daily, melatonin 9 mg nightly, Celexa 10 mg daily, dutasteride for urination, aspirin daily, and fludrocortisone 0.1 mg twice daily Continue entacapone 200 mg p.o. with each dose of levodopa/carbidopa MRI 2017: Age-related atrophy and small vessel disease. Neuropsych testing 12/2018: Dementia, comorbid Alzheimer's features with parkinsonian dementia consulted palliative care (5) Dysphagia: Plan: - can refer to prior speech notes, no need for repeat evaluation at this time speech recommends minced/moist and nectar thick liquids (6) Depression with anxiety: Plan: - Continue meds as above (7) Aspiration into airway: Plan: - see above, suspected (8) Goals of care, counseling/discussion: Plan: Dr. Avalos on admission: Extensive goals of care discussion regarding his base line chronic decline and acute on chronic declines due to recent infections. His would like to look into palliative care and potentially hospice services at home, and feel that his repeated hospitalizations and placement in rehab have not been beneficial to his quality of life, and he is more comfortable and seems to do better at home. Discussed risk/benefits of CPR and conditional CODE STATUS at bedside with patient and his . Discussed patient's goals of care, reports that while he would like full measures in regards to antibiotics, fluids and treatment of acute issues would like to avoid being dependent on ventilator/machines or having a severely compromised quality of life. Discussed that CPR and chest compressions, especially in absence of intubation after, would be traumatic to the body and if successful would compromise, at least temporarily, his quality of life in order to extend the duration of it. His recognizes that the trauma from the CPR process would not be consistent with Ahmet's goals of care even if successful, and while they would like to continue to pursue antibiotic and other treatment would like to move from plus CPR/no intubation conditional code to DNR/DNI in the event of cardiac arrest at this time. Living will addended at bedside with patient and his . Plan: DVT prophylaxis: Lovenox Diet: Regular, minced and moist, swallow eval CODE STATUS: DNR/DNI, see H&P for goals of care discussion Dispo: Medical telemetry Admission and Anticipated Discharge Date Admission Date: August 08, 2021 Subjective Patient has no new complaints. updated Review of Systems Review of Systems: All systems reviewed & are unremarkable except as noted in HPI & below Physical Exam Physical Exam: General: well developed, thin, frail elderly male, appears comfortable and calm Neck: supple, trachea midline, normal thyroid Lungs: decreased sounds in bases, normal respiratory effort, no accessory muscle use, no distress Heart: regular S1 and S2, no murmur, peripheral pulses normal, capillary refill normal, no edema Abdomen: soft, NT, ND, + BS, no hepatomegaly, normal to percussion Extremities: normal in appearance, no cyanosis, no petechiae, strength is diminished bilaterally Neuro: awake, cooperative, moves all extremities, no focal motor deficits, CN II-XII intact, + tremor Skin: warm, dry, no rash, normal turgor Psych: Awake, oriented to person, cooperative Results & Data Results & Data ([facility]) Vital Signs (Past 12 Hours) Vital Signs Temp Pulse Pulse Resp BP BP Pulse Ox 08/12/21 19:00 36.7 C 82 20 146/81 H 96 08/12/21 15:00 70 08/12/21 14:48 36.6 C 69 20 150/84 H 98 PG Care Time/CCT Total # of Minutes Spent Total Time Spent with Patient: Total time spent is greater than 50% in coordination of care (as documented) at patient's floor/unit and/or counseling patient: Coding Level of Care Code 05941 Subseq Hosp Care Lvl 2 Diagnoses Sepsis A41.9 Hypokalemia E87.6 Paroxysmal atrial fibrillation I48.0 Parkinsons disease G20 Dysphagia R13.10 Depression with anxiety F41.8 Aspiration into airway T17.908A Goals of care, counseling/discussion Z71.89 Time Spent (min) 25
[2021-08-13] MEDS: POTASSIUM CHLORIDE PWD 20 MEQ PACK PO SCH (08:46)
[2021-08-13] MEDS: FLUDROCORTISONE ACETATE 0.1 MG TAB PO SCH ×2 (08:46→20:29)
[2021-08-13] MEDS: ENTACAPONE 200 MG TAB PO SCH ×4 (08:46→20:29)
[2021-08-13] MEDS: ASPIRIN 81 MG ECTAB PO SCH (08:47)
[2021-08-13] MEDS: FAMOTIDINE 20 MG TAB PO SCH (08:47)
[2021-08-13] MEDS: CITALOPRAM 20 MG TAB PO SCH (08:47)
[2021-08-13] MEDS: CARBIDOPA/LEVODOPA 25/100MG TAB PO SCH ×4 (08:48→20:28)
[2021-08-13] MEDS: DOCUSATE SODIUM 100 MG CAP PO SCH (08:50)
[2021-08-13] MEDS: DUTASTERIDE: ORDER AWAITING ACTION SCH ×3 (09:48→23:13)
[2021-08-13] MEDS: POTASSIUM CHLORIDE CRTAB 20 MEQ TABCR PO SCH ×2 (10:16→20:31)
[2021-08-13] MEDS: CEFEPIME 2,000 MG in SYRINGE 0 ML IV SCH ×2 (11:25→22:26)
[2021-08-13] MEDS: ENOXAPARIN INJ 40 MG/0.4 ML SYR SQ SCH (20:30)
--- NOTE | 2021-08-13 21:49 | Hospitalist Progress Note ---
Date of Service August 13, 2021 Assessment & Plan (1) Sepsis: Plan: Jose Manuel is a 75-year-old male with a past medical history of recurrent UTI, Parkinson's dementia, paroxysmal A. fib with recent admission for hypokalemia and sepsis, suspected aspiration pneumonitis from who presents to the emergency department via EMS after family called with concern for increased confusion and altered mentation similar to his prior sepsis episode. On evaluation by emergency provider patient is oriented to name, and denies pain but was not able to provide other meaningful history. Per EMS report had been declining since the night prior. Sepsis (hypotension, elevated lactate, elevated white blood cell count), unclear source UA appears clean, no growth on urine culture blood cultures show no growth most likely source would seem to be aspiration event given his history but no clear pneumonia on CT chest could have just been some aspiration pneumonitis WBC down to 6k from 23k on admission, no fever, no dyspnea continue Cefepime, Flagyl and Vanco can be stopped, MRSA swab negative continue antibiotics for time being will place heart as patient is having a grade 1 decubitus ulcer Family is interested in hospice. 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 (2) Hypokalemia: Plan: Hypokalemia Magnesium normal K was replnished. will repeat in am (3) Paroxysmal atrial fibrillation: Plan: Atrial fibrillation/flutter Stable In sinus rhythm as noted above on admission [place] [facility] [place] on whether or not to pursue anticoagulation, have deferred this previously due to fall risk and bleeding concern No acute change in management at this time. (4) Parkinsons disease: Plan: Parkinsonian dementia Seen by neurology 08/05/2021. Noted advanced Parkinson's disease with progressive dementia, recommended continuing aspiration precautions, continuing Celexa for anxiety, continuing home health therapy and speech therapy. Could consider Neupro (Rotigotine) as outpatient. Medication adjustment not recommended at time of neuro assessment. Recommended continue Stalevo 200 mg 4 times daily, memantine 10 mg twice daily, melatonin 9 mg nightly, Celexa 10 mg daily, dutasteride for urination, aspirin daily, and fludrocortisone 0.1 mg twice daily Continue entacapone 200 mg p.o. with each dose of levodopa/carbidopa MRI 2017: Age-related atrophy and small vessel disease. Neuropsych testing 12/2018: Dementia, comorbid Alzheimer's features with parkinsonian dementia consulted palliative care (5) Dysphagia: Plan: - can refer to prior speech notes, no need for repeat evaluation at this time speech recommends minced/moist and nectar thick liquids (6) Depression with anxiety: Plan: - Continue meds as above (7) Aspiration into airway: Plan: - see above, suspected (8) Goals of care, counseling/discussion: Plan: Dr. Avalos on admission: Extensive goals of care discussion regarding his baseline chronic decline and acute on chronic declines due to recent infections. His would like to look into palliative care and potentially hospice services at home, and feel that his repeated hospitalizations and placement in rehab have not been beneficial to his quality of life, and he is more comfortable and seems to do better at home. Discussed risk/benefits of CPR and conditional CODE STATUS at bedside with patient and his . Discussed patient's goals of care, reports that while he would like full measures in regards to antibiotics, fluids and treatment of acute issues would like to avoid being dependent on ventilator/machines or having a severely compromised quality of life. Discussed that CPR and chest compressions, especially in absence of intubation after, would be traumatic to the body and if successful would compromise, at least temporarily, his quality of life in order to extend the duration of it. His recognizes that the trauma from the CPR process would not be consistent with Ahmet's goals of care even if successful, and while they would like to continue to pursue antibiotic and other treatment would like to move from plus CPR/no intubation conditional code to DNR/DNI in the event of cardiac arrest at this time. Living will addended at bedside with patient and his . Plan: DVT prophylaxis: Lovenox Diet: Regular, minced and moist, swallow eval CODE STATUS: DNR/DNI, see H&P for goals of care discussion Dispo: Medical telemetry Admission and Anticipated Discharge Date Admission Date: August 08, 2021 Subjective Patient has no new complaints. Review of Systems Review of Systems: All systems reviewed & are unremarkable except as noted in HPI & below Physical Exam Physical Exam: General: well developed, thin, frail elderly male, appears comfortable and calm Neck: supple, trachea midline, normal thyroid Lungs: decreased sounds in bases, normal respiratory effort, no accessory muscle use, no distress Heart: regular S1 and S2, no murmur, peripheral pulses normal, capillary refill normal, no edema Abdomen: soft, NT, ND, + BS, no hepatomegaly, normal to percussion Extremities: normal in appearance, no cyanosis, no petechiae, strength is diminished bilaterally Neuro: awake, cooperative, moves all extremities, no focal motor deficits, CN II-XII intact, + tremor Skin: warm, dry, no rash, normal turgor Psych: Awake, oriented to person, cooperative Results & Data Results & Data ([facility]) Vital Signs (Past 12 Hours) Vital Signs Temp Pulse Pulse Pulse Resp BP BP 08/13/21 19:34 36.7 C 70 18 132/78 08/13/21 15:41 36.7 C 83 78 18 141/85 H 08/13/21 12:09 36.4 C L 74 20 171/81 H 172/93 H Pulse Ox 08/13/21 19:34 96 08/13/21 15:41 97 08/13/21 12:09 98 PG Care Time/CCT Total # of Minutes Spent Total Time Spent with Patient: Total time spent is greater than 50% in coordination of care (as documented) at patient's floor/unit and/or counseling patient: Coding Level of Care Code 09490 Subseq Hosp Care Lvl 2 Diagnoses Sepsis A41.9 Hypokalemia E87.6 Paroxysmal atrial fibrillation I48.0 Parkinsons disease G20 Dysphagia R13.10 Depression with anxiety F41.8 Aspiration into airway T17.908A Goals of care, counseling/discussion Z71.89
[2021-08-14] MEDS: DUTASTERIDE: ORDER AWAITING ACTION SCH (07:32)
[2021-08-14 08:02] LABS: Hematocrit (blood only) 35.2 % (42-52); Hemoglobin 11.7 g/dL (14.0-18.0); Mean Corpuscular Hemoglobin 32.9 pg (25-34); Mean Corpuscular Hgb Conc 33.2 g/dL (32-36); Mean Corpuscular Volume 98.9 fL (80-100); Platelet Count 213 K/uL (130-400); RDW Coefficient of Variation 13.4 % (11.5-14.5); RDW Standard Deviation 47.8 fL (36.4-46.3); Red Blood Count 3.56 M/uL (4.7-6.1); White Blood Count 6.06 K/uL (4.8-10.8)
[2021-08-14] MEDS: CARBIDOPA/LEVODOPA 25/100MG TAB PO SCH ×2 (09:06→12:09)
[2021-08-14] MEDS: ENTACAPONE 200 MG TAB PO SCH ×2 (09:07→12:09)
[2021-08-14] MEDS: POTASSIUM CHLORIDE PWD 20 MEQ PACK PO SCH (09:07)
[2021-08-14] MEDS: FAMOTIDINE 20 MG TAB PO SCH (09:08)
[2021-08-14] MEDS: FLUDROCORTISONE ACETATE 0.1 MG TAB PO SCH (09:08)
[2021-08-14] MEDS: CITALOPRAM 20 MG TAB PO SCH (09:08)
[2021-08-14] MEDS: ASPIRIN 81 MG ECTAB PO SCH (09:08)
[2021-08-14 09:09] LABS: BUN Creatinine Ratio 24.8 (10-20); Calcium 8.6 mg/dl (8.5-10.1); Creatinine Clr Calc Pharmacy 130.9 ml/min; Est GFR (African American) 124.1 ml/min; Potassium 3.2 mmol/L (3.5-5.1)
[2021-08-14] MEDS: CEFEPIME 2,000 MG in SYRINGE 0 ML IV SCH (09:09)
[2021-08-14] MEDS: DOCUSATE SODIUM 100 MG CAP PO SCH (09:14)
[2021-08-14] MEDS ORDERED: POTASSIUM CHLORIDE CRTAB 20 MEQ TABCR PO STA (10:27)
--- NOTE | 2021-08-16 09:24 | Discharge Summary ---
Date of Service August 14, 2021 Admission HPI Per Admitting Provider Jose Manuel is a 75-year-old male with a past medical history of recurrent UTI, Parkinson's dementia, paroxysmal A. fib with recent admission for hypokalemia and sepsis, suspected aspiration pneumonitis from who presents to the emergency department via EMS after family called with concern for increased confusion and altered mentation similar to his prior sepsis episode. On evaluation by emergency provider patient is oriented to name, and denies pain but was not able to provide other meaningful history. Per EMS report had been declining since the night prior. history limited by severe dementia. History taken at bedside with the dale lin . Was doign well a akhil with [facility]. Not engaging much with P/OT at home due to difficulty with strength but overall OK 'fine '. Wednesday night his tremors worsened significantly when going to bad. Last night reported he felt very cold but felt warm/feverish. This morning felt warm but temp was 97.5*. [place] sweaty overnight. Urine seems much darker. No cough. Saliva issues from prior visit seem to have resolvedl. Speech therapy at home was going welly and [facility] from [facility]. Has ad some occasional coughing after taking a drink. Extensive goals of care discussion regarding his baseline chronic decline and acute on chronic declines due to recent infections. His would like to look into palliative care and potentially hospice services at home, and feel that his repeated hospitalizations and placement in rehab have not been beneficial to his quality of life, and he is more comfortable and seems to do better at home. Discussed risk/benefits of CPR and conditional CODE STATUS at bedside with patient and his . Discussed patient's goals of care, reports that while he would like full measures in regards to antibiotics, fluids and treatment of acute issues would like to avoid being dependent on ventilator/machines or having a severely compromised quality of life. Discussed that CPR and chest compressions, especially in absence of intubation after, would be traumatic to the body and if successful would compromise, at least temporarily, his quality of life in order to extend the duration of it. His recognizes that the trauma from the CPR process would not be consistent with Ahmet's goals of care even if successful, and while they would like to continue to pursue antibiotic and other treatment would like to move from plus CPR/no intubation conditional code to DNR/DNI in the event of cardiac arrest at this time. Living will addended at bedside with patient and his . Medical History: Reviewed Medications: Reviewed Surgical History: Reviewed Allergies: Reviewed Social History: reviewed, no tobacco/etoh Code Status: DNR/DNI, see above Principal Diagnosis sepsis Discharge Exam General: well developed, thin, frail elderly male, appears comfortable and calm Neck: supple, trachea midline, normal thyroid Lungs: decreased sounds in bases, normal respiratory effort, no accessory muscle use, no distress Heart: regular S1 and S2, no murmur, peripheral pulses normal, capillary refill normal, no edema Abdomen: soft, NT, ND, + BS, no hepatomegaly, normal to percussion Extremities: normal in appearance, no cyanosis, no petechiae, strength is diminished bilaterally Neuro: awake, cooperative, moves all extremities, no focal motor deficits, CN II-XII intact, + tremor Skin: warm, dry, no rash, normal turgor Psych: Awake, oriented to person, cooperative Discharge Data Allergies Allergy/AdvReac Type Severity Reaction Status Date / Time oxycodone [From OxyContin] AdvReac Unknown Unknown Verified 08/08/21 11:33 Consultations 08/08/21 12:14 ED Decision to Admit Stat 08/08/21 16:25 Consult Palliative Care Routine Ordered Studies 08/08/21 13:28 CT abd pelvis wo con Urgent CT chest diagnostic wo con Urgent Hospital Course (1) Sepsis: Jose Manuel is a 75-year-old male with a past medical history of recurrent UTI, Parkinson's dementia, paroxysmal A. fib with recent admission for hypokalemia and sepsis, suspected aspiration pneumonitis from who presents to the emergency department via EMS after family called with concern for increased confusion and altered mentation similar to his prior sepsis episode. On evaluation by emergency provider patient is oriented to name, and denies pain but was not able to provide other meaningful history. Per EMS report had been declining since the night prior. Sepsis (hypotension, elevated lactate, elevated white blood cell count), unclear source UA appears clean, no growth on urine culture blood cultures show no growth most likely source would seem to be aspiration event given his history but no clear pneumonia on CT chest could have just been some aspiration pneumonitis WBC down to 6k from 23k on admission, no fever, no dyspnea continue Cefepime, Flagyl and Vanco can be stopped, MRSA swab negative continue antibiotics for time being will place heart as patient is having a grade 1 decubitus ulcer Family is interested in hospice. claims manager is working on this. (2) Hypokalemia: Hypokalemia Magnesium normal K was replnished. (3) Paroxysmal atrial fibrillation: Atrial fibrillation/flutter Stable In sinus rhythm as noted above on admission Discussing with [facility] outpatient cardiology on whether or not to pursue anticoagulation, have deferred this previously due to fall risk and bleeding concern No acute change in management at this time. (4) Parkinsons disease: Parkinsonian dementia Seen by neurology 08/05/2021. Noted advanced Parkinson's disease with progressive dementia, recommended continuing aspiration precautions, continuing Celexa for anxiety, continuing home health therapy and speech therapy. Could consider Neupro (Rotigotine) as outpatient. Medication adjustment not recommended at time of neuro assessment. Recommended continue Stalevo 200 mg 4 times daily, memantine 10 mg twice daily, melatonin 9 mg nightly, Celexa 10 mg daily, dutasteride for urination, aspirin daily, and fludrocortisone 0.1 mg twice daily Continue entacapone 200 mg p.o. with each dose of levodopa/carbidopa MRI 2017: Age-related atrophy and small vessel disease. Neuropsych testing 12/2018: Dementia, comorbid Alzheimer's features with parkinsonian dementia consulted palliative care (5) Dysphagia: - can refer to prior speech notes, no need for repeat evaluation at this time speech recommends minced/moist and nectar thick liquids (6) Depression with anxiety: - Continue meds as above (7) Aspiration into airway: - see above, suspected (8) Goals of care, counseling/discussion: Total Time Total Time Spent Total Time Spent (In Minutes): 32 Discharge Plan Discharge Items Patient Disposition: Hospice - Home Reason For Visit: SEPSIS Discharge Diagnosis: sepsis Activity: Resume your previous activity Non-emergency contact: Primary Care Provider Call non-emergency contact if: you have any medication questions Follow-up/Referrals: Emilie Alamo MD [Primary Care Provider] - 08/21/21 11:30 am Diet: Regular Addtl Attending Provider Instructions: Going home on hospice. You were treated for sepsis with IV antibiotics and completed your course. Pending Studies at Discharge: No Stand-Alone Forms: [facility] Medications and DC Order Prescriptions: Continued fludrocortisone 0.1 mg tablet 0.1 mg PO BID 30 Days Qty: 60 RF: 5 dutasteride 0.5 mg capsule 0.5 mg PO QDL Qty: 30 RF: 11 [id number]-[id number] [Stalevo 200] 50-200-200 mg tablet 1 tab PO QID Qty: 120 RF: 3 aspirin 81 mg tablet,delayed release (DR/EC) 81 mg PO DAILY RF: 0 docusate sodium 100 mg capsule 200 mg PO DAILY RF: 0 citalopram [Celexa] 10 mg tablet 10 mg PO DAILY RF: 0 famotidine 20 mg Tablet 20 mg PO QAM RF: 0 potassium chloride 20 mEq Packet 20 meq PO DAILY Qty: 30 RF: 0 polyethylene glycol 3350 [Miralax] 17 gram Powder In Packet 17 g PO DAILY PRN (Reason: Constipation) RF: 0 melatonin 10 mg Tablet 10 mg PO HS PRN (Reason: Sleep) RF: 0 Discharge Orders: Discharge Order (Routine); Ordered 08/14/21 Ordered By: Sascha Diop Admission Data Admit Date/Time: 08/08/21 13:25 Attending Provider: Sascha Diop Admit Provider: Miguel Avalos Primary Care Provider: Emilie Alamo Other Providers: Miguel Avalos ; Lori Marlow ; [facility] Other Interventions: Discharge Summary Assessment (RN) Last Done: 08/14/21 12:51 Coding Level of Care Code D/C DAY MANAGEMENT >30 MINS Diagnoses Sepsis A41.9 Hypokalemia E87.6 Paroxysmal atrial fibrillation I48.0 Parkinsons disease G20 Dysphagia R13.10 Depression with anxiety F41.8 Aspiration into airway T17.908A Goals of care, counseling/discussion Z71.89
== END 2021-08-14 13:19 | disposition hospice, home (50) | DRG 871 ==
LOC: ED 09:14 → 2N 13:25 → SUATTDRO 13:25 → 2N 15:27

== ENCOUNTER 2021-09-26 15:44 | Inpatient (IN) ==
--- NOTE | 2021-09-26 16:36 | Emergency Department Note ---
Impression & Plan Fall, Parkinson's disease dementia, Closed fracture of right hip ED Provider Note Provider: Wiliam Blandon MD DATE OF SERVICE: 09/26/2021 CHIEF COMPLAINT: Fall, hip pain HISTORY OF PRESENT ILLNESS: Patient is a 76-year-old gentleman history of advanced Parkinson's disease and dementia, paroxysmal atrial fibrillation, and recent admission for sepsis presenting here with today from home after a fall yesterday. Patient has been on hospice at home. Evidently got up without his walker and fell yesterday in the kitchen. Did strike the right side of his head and land on the ground. and caregiver and cardiovascular physician assistant were able to get him back to bed please note able to walk since. Has now been complaining of pain in the right hip region. Had an outpatient x-ray concerning for right hip fracture. Brought here for further care. Patient did receive some morphine this afternoon from hospice nursing staff which has helped with the pain according to the . Patient himself denies other pain but is quite fatigued. states he has been little bit lethargic today after the morphine. No vomiting reported otherwise. REVIEW OF SYSTEMS: A total of 10 review of systems was obtained and negative except as stated above in the HPI. PAST MEDICAL HISTORY: As noted above MEDICATIONS: Reviewed home medication list SOCIAL HISTORY: Lives at home with on hospice PHYSICAL EXAM: GENERAL: Resting arousable to verbal stimuli in no acute distress on stretcher fatigued in appearance Head: normocephalic and atraumatic EYES: No injection, discharge or icterus. PERRL NECK: Trachea midline. Supple. ENT: Mucous membranes pink and moist. LUNGS: Airway patent. No retractions. Breath sounds clear HEART: Regular rate and rhythm. No chest wall tenderness ABDOMEN: Soft and non-tender, without guarding or rebound. SKIN: Acyanotic, quite warm, dry, without rashes EXTREMITIES: Without swelling, tenderness or deformity with a shortened and rotated externally right hip with pain in this area but no overlying contusion or laceration. NEUROLOGICAL: No focal deficits moving extremities to command except for the right lower extremity secondary to pain in the hip. No facial droop. CONTINUOUS CARDIAC MONITORING: was ordered and showed a heart rate of 60s-80s bpm in normal sinus rhythm Patient's laboratory studies and imaging reviewed. Differential includes Fracture, dislocation, contusion, intra-abdominal, pneumothorax, intrathoracic, intracranial, neurologic, compartment syndrome, rhabdomyolysis, as well as other pathologies. IMPRESSION/MEDICAL DECISION MAKING: Discussed with patient and primarily patient's is at bedside as the patient is quite fatigued at this time options. X-ray questions fracture and CT confirmed hip fracture. Some surrounding hematoma is not unexpected. Discussed the care and comfort repair surgically would be indicated and she is in agreement. Basic labs are completed. No severe CBC or BMP abnormality. Doubt sepsis at this time. Given the fall and strike to the head CT was completed to exclude intracranial injury. Patient appears comfortable at this time and somewhat somnolent likely related the morphine he received earlier. Patient no longer on anticoagulants. [facility] They were alerted to the patient's injury and need for repair. Hospitalist team alerted the patient's need for medical admission for surgical repair of the hip. DIAGNOSIS: Fall, right hip fracture DISPOSITION: Hospitalist will evaluate Past Med/Surg History Medical History Aphonia Aspiration into airway Auditory hallucination Central retinal vein occlusion Cervical spondylosis Common iliac aneurysm Constipation Depression with anxiety Diverticulosis of colon Double vision with both eyes open Esophageal reflux Fatigue Gastrointestinal dysmotility Hoarseness Hyperlipidemia Impaired fasting glucose Low back pain Low systolic blood pressure Need for pneumococcal vaccination Osteoarthrosis of knee Parkinsons disease Screening for AAA (abdominal aortic aneurysm) Sleep apnea Surgical History History of hernia repair History of knee replacement Family History Other Family history unremarkable Denies family history of Ovarian cancer Prostate cancer Myocardial infarction Breast cancer Colorectal cancer Social History Smoking Status: Former smoker Tobacco Type: Cigarettes Hx Alcohol Use: No Hx Substance Use: No Preferred Language: Georgian Communication Ability: 1:1 Bed Worker Required: No Beliefs That Will Affect Care: None marital status: Current Living Situation: Spouse current occupational status: retired Feels Safe at Home: Yes caffeine: No Dental Care, Regularly: Yes Physical Activity Frequency: 5-6 Times per Week Seatbelt Use: always Sunscreen Use: No Assistive Devices: Cane, Walker and Wheelchair Allergies Allergies Allergy/AdvReac Type Severity Reaction Status Date / Time oxycodone [From OxyContin] AdvReac Unknown Unknown Verified 09/26/21 18:35 Home Meds Home Medications Medication Instructions Recorded Confirmed docusate sodium 100 mg capsule 200 mg PO DAILY cap 03/13/19 09/26/21 aspirin 81 mg tablet,delayed 81 mg PO DAILY tab 02/17/21 09/26/21 release famotidine 20 mg tablet 20 mg PO QAM 07/10/21 09/26/21 citalopram 10 mg tablet (Celexa) 10 mg PO DAILY 08/05/21 09/26/21 melatonin 10 mg tablet 10 mg PO HS PRN 08/08/21 09/26/21 polyethylene glycol 3350 17 gram 17 g PO DAILY PRN 08/08/21 09/26/21 oral powder packet (Miralax) hyoscyamine sulfate 0.125 mg tablet 0.125 mg PO .COMPLEX PRN 09/22/21 09/26/21 lorazepam 1 mg tablet 0.5 mg PO .COMPLEX PRN tab 09/22/21 09/26/21 scopolamine base 1 mg over 3 days 1 patch TRANSDERMAL .COMPLEX PRN 09/22/21 09/26/21 transdermal patch Previous Rx's Medication Instructions Recorded fludrocortisone 0.1 mg tablet 0.1 mg PO BID 30 Days #60 tab 04/17/21 carbidopa 50 mg-levodopa 200 1 tab PO QID #120 tab 06/04/21 mg-entacapone 200 mg tablet (Stalevo 200) potassium chloride 20 mEq oral 20 meq PO DAILY #30 ea 07/16/21 packet dutasteride 0.5 mg capsule 0.5 mg PO QDL #30 cap 07/29/21 Results & Data (ED) Vital Signs Vital Signs - 24 hr 09/26/21 15:56 09/26/21 18:38 Temperature 37.1 C Temperature Source Oral Pulse Rate 78 Respiratory Rate 18 16 Respiratory Effort / Characteristics Non-Labored Blood Pressure 119/68 Blood Pressure [Right Arm] 151/85 H Blood Pressure Mean 85 Blood Pressure Mean [Right Arm] 107 Pulse Oximetry 92 93 Oxygen Delivery Method Room Air Sepsis Recent Fever Within 48 Hours No Sepsis New/Unexplained Change in Mental Status No Sepsis Action Taken by Nursing No Action Required Laboratory Data Result diagrams: 09/26/21 16:59 09/26/21 16:59 Lab Results 09/26/21 09/26/21 Range/Units 16:59 16:59 WBC 6.72 (4.8-10.8) K/uL RBC 3.69 L (4.7-6.1) M/uL Hgb 12.0 L (14.0-18.0) g/dL Hct 36.0 L (42-52) % MCV 97.6 (80-100) fL MCH 32.5 (25-34) pg MCHC 33.3 (32-36) g/dL RDW Std Deviation 47.7 H (36.4-46.3) fL RDW Coeff of Abi 13.4 (11.5-14.5) % Plt Count 146 (130-400) K/uL MPV 10.1 (7.4-10.4) fL Immature Gran % (Auto) 0.4 % Neut % (Auto) 75.2 % Lymph % (Auto) 12.1 % [place] % (Auto) 7.7 % Eos % (Auto) 4.2 % Baso % (Auto) 0.4 % Neut # (Auto) 5.05 (1.4-6.5) K/uL Lymph # (Auto) 0.81 L (1.2-3.4) K/uL [place] # (Auto) 0.52 (0.11-0.59) K/uL Eos # (Auto) 0.28 (0-0.5) K/uL Baso # (Auto) 0.03 (0-0.2) K/uL Immature Gran # (Auto) 0.03 H (0.00-0.02) K/uL Sodium 139 (136-145) mmol/L Potassium 3.2 L (3.5-5.1) mmol/L Chloride 105 (98-107) mmol/L Carbon Dioxide 31 (21-32) mmol/L Anion Gap 3.0 (3-11) BUN 12 (7-18) mg/dl Creatinine 0.51 L (0.6-1.4) mg/dl Est Cr Clr Drug Dosing Not Reportable Est GFR ( Amer) 120.2 ml/min Est GFR (Non-Af Amer) 103.7 ml/min BUN/Creatinine Ratio 23.5 H (10-20) Glucose 97 (70-99) mg/dl Calcium 8.5 (8.5-10.1) mg/dl Imaging Data Radiologist's Impression: Chest X-Ray 09/26/21 16:08 SINGLE VIEW CHEST CLINICAL HISTORY: Fall. FINDINGS: An AP, portable, semierect chest radiograph is compared to chest x-ray and chest CT dated 08/08/2021. The examination is degraded by portable technique and patient rotation. The heart is enlarged noting atherosclerotic calcification of the thoracic aorta. The pulmonary vasculature is noncongested. Chronic interstitial thickening is similar to previous. There is bibasilar atelectasis. A large calcified granuloma seen at the right lung base. The lungs and pleural spaces are otherwise clear. No pneumothorax is seen. The bony thorax is grossly intact. IMPRESSION: Cardiomegaly with no acute cardiopulmonary abnormality. ACT 112: Negative or not required by law. Electronically signed by: Jerry De Leon M.D. 09/26/2021 4:[address] 09/26/21 16:08 CT head/brain wo con CLINICAL HISTORY: 76 years-old Male with fall. Acute head trauma status post fall TECHNIQUE: Multiple axial CT images of the head were obtained without contrast. A dose lowering technique was utilized adhering to the principles of ALARA. CT DOSE: 906.34 mGycm COMPARISON: Head CT 07/11/2021 FINDINGS: No acute intracranial hemorrhage, midline shift, intracranial mass, hydrocephalus, territorial ischemia or abnormal extra-axial collection. Age- related involutional changes. Mild white matter hypodensities suggestive of c hronic microvascular ischemic disease. Cerebral vascular calcifications. The calvarium is intact. Prior bilateral lens repair. The paranasal sinuses, mastoid air cells, and middle ear cavities are clear. IMPRESSION: No acute intracranial abnormality or calvarial fracture. ACT 112: Negative or not required by law. The above report was generated using voice recognition software. It may contain grammatical, syntax or spelling errors. Electronically signed by: Amrik Simon M.D. 09/26/2021 5:15 PM Hip/Pelvis X-Ray 09/26/21 16:08 SINGLE VIEW PELVIS; 2 VIEWS RIGHT HIP CLINICAL HISTORY: Right hip injury. FINDINGS: An AP view of the pelvis with AP and crosstable lateral views of the right hip are correlated with pelvic CT dated 08/08/2021. The examination is significantly degraded by suboptimal positioning and rotation of the right hip. The skeletal structures are osteopenic. No fracture is clearly identified involving the hips or bony pelvis. Mild arthritic change and joint space na rrowing is seen in the hips. Mild degenerative change is noted in the sacroiliac joints. Lumbosacral spondylosis is partially imaged. Large enthesophytes arise from the anterior superior iliac spines and the greater trochanters of the proximal femora. There is atherosclerotic calcification of the femoral arteries. The overlying soft tissues are normal as imaged. IMPRESSION: 1. The examination is significantly degraded by rotation of the right hip. 2. No fracture is clearly identified. If there strong clinical concern for fracture a CT should be obtained. Electronically signed by: Jerry De Leon M.D. 09/26/2021 4:[address] 09/26/21 17:09 CT pelvis wo con, CT hip RT wo con HISTORY: 76 years-old Male fall acute pelvic and right-sided hip pain status post fall COMPARISON: Pelvis and hip radiographs of same day, CT abdomen and pelvis 2020 TECHNIQUE: Multiple axial CT images of the pelvis and right hip were obtained without the use of IV contrast. A dose lowering technique was used consistent with the principals of ALARA. FINDINGS: PELVIS: Moderate degeneration with partial bony fusion of the SI joints. Intervertebral disc space narrowing with spondylitic spurring and facet arthrosis of the imaged lower lumbar spine. Findings no acute sacral insufficiency fracture. Acute fracture of the proximal right femur as below. There is no acute pelvic ring fracture. Atherosclerosis of the aorta and iliac arteries. Moderate fecal retention with trace perirectal stranding. Normal appendix. Urinary bladder wall thickening with trabeculation numerous diverticula compatible with chronic bladder outlet obstruction. The prostate is upper limits of normal in size. Asymmetric enlargement and heterogeneity of the right adductor musculature. Small right hip joint effusion/hemarthrosis. RIGHT HIP: There is an acute mildly comminuted and slightly impacted fracture of the right femoral neck involving the subcapital and transcervical distributions. Fracture fragments are displaced anteriorly a few millimeters. No dislocation. IMPRESSION: 1. Acute mildly impacted and slightly comminuted fracture of the right proximal femur involving the subcapital and transcervical distributions without significant displacement. 2. Enlargement and heterogeneity of the right abductor musculature is suggestive of acute intramuscular hematoma. 3. Small right hip joint effusion/hemarthrosis. ACT 112: Negative or not required by law. The above report was generated using voice recognition software. It may contain grammatical, syntax or spelling errors. Electronically signed by: Amrik Simon M.D. 09/26/2021 5:[address] 09/26/21 17:09 CT pelvis wo con, CT hip RT wo con HISTORY: 76 years-old Male fall acute pelvic and right-sided hip pain status post fall COMPARISON: Pelvis and hip radiographs of same day, CT abdomen and pelvis 08/08/2021 TECHNIQUE: Multiple axial CT images of the pelvis and right hip were obtained without the use of IV contrast. A dose lowering technique was used consistent with the principals of ALARA. FINDINGS: PELVIS: Moderate degeneration with partial bony fusion of the SI joints. Intervertebral disc space narrowing with spondylitic spurring and facet arthrosis of the imaged lower lumbar spine. Findings no acute sacral insufficiency fracture. Acute fracture of the proximal right femur as below. There is no acute pelvic ring fracture. Atherosclerosis of the aorta and iliac arteries. Moderate fecal retention with trace perirectal stranding. Normal appendix. Urinary bladder wall thickening with trabeculation numerous diverticula compatible with chronic bladder outlet obstruction. The prostate is upper limits of normal in size. Asymmetric enlargement and heterogeneity of the right adductor musculature. Small right hip joint effusion/hemarthrosis. RIGHT HIP: There is an acute mildly comminuted and slightly impacted fracture of the right femoral neck involving the subcapital and transcervical distributions. Fracture fragments are displaced anteriorly a few millimeters. No dislocation. IMPRESSION: 1. Acute mildly impacted and slightly comminuted fracture of the right proximal femur involving the subcapital and transcervical distributions without significant displacement. 2. Enlargement and heterogeneity of the right abductor musculature is suggestive of acute intramuscular hematoma. 3. Small right hip joint effusion/hemarthrosis. ACT 112: Negative or not required by law. The above report was generated using voice recognition software. It may contain grammatical, syntax or spelling errors. Electronically signed by: Amrik Simon M.D. 09/26/2021 5:36 PM Discharge Plan Visit Data Chief Complaint: Fall Stated Complaint: Fall, Hip Injury ED Provider: Wiliam Blandon Discharge Problem: Fall, Parkinson's disease dementia, Closed fracture of right hip Patient Disposition: Being Evaluated by Hospitalist Forms Stand Alone Forms: My [facility] Prescriptions Prescriptions: No Action fludrocortisone 0.1 mg tablet 0.1 mg PO BID 30 Days Qty: 60 RF: 5 dutasteride 0.5 mg capsule 0.5 mg PO QDL Qty: 30 RF: 11 [id number] [Stalevo 200] 50-200-200 mg tablet 1 tab PO QID Qty: 120 RF: 3 hyoscyamine sulfate 0.125 mg tablet 0.125 mg PO .COMPLEX PRN (Reason: Secretions) RF: 0 scopolamine base 1 mg over 3 days patch 3 day 1 patch transdermal .COMPLEX PRN (Reason: Secretions) RF: 0 lorazepam 1 mg tablet 0.5 mg PO .COMPLEX PRN (Reason: Anxiety) RF: 0 aspirin 81 mg tablet,delayed release (DR/EC) 81 mg PO DAILY RF: 0 docusate sodium 100 mg capsule 200 mg PO DAILY RF: 0 citalopram [Celexa] 10 mg tablet 10 mg PO DAILY RF: 0 famotidine 20 mg Tablet 20 mg PO QAM RF: 0 potassium chloride 20 mEq Packet 20 meq PO DAILY Qty: 30 RF: 0 polyethylene glycol 3350 [Miralax] 17 gram Powder In Packet 17 g PO DAILY PRN (Reason: Constipation) RF: 0 melatonin 10 mg Tablet 10 mg PO HS PRN (Reason: Sleep) RF: 0 Referrals Referrals: Emilie Alamo MD [Primary Care Provider] -
--- NOTE | 2021-09-26 16:41 | XRay Report ---
SINGLE VIEW CHEST CLINICAL HISTORY: Fall. FINDINGS: An AP, portable, semierect chest radiograph is compared to chest x-ray and chest CT dated . The examination is degraded by portable technique and patient rotation. The heart is enla rged noting atherosclerotic calcification of the thoracic aorta. The pulmonary vasculature is noncong ested. Chronic interstitial thickening is similar to previous. There is bibasilar atelectasis. A larg e calcified granuloma seen at the right lung base. The lungs and pleural spaces are otherwise clear. No pneumothorax is seen. The bony thorax is grossly intact. IMPRESSION: Cardiomegaly with no acute cardiopulmonary abnormality. ACT 112: Negative or not required by law. Electronically signed by: Jerry De Leon M.D. 09/26/2021 4:40 PM
--- NOTE | 2021-09-26 16:45 | XRay Report ---
SINGLE VIEW PELVIS; 2 VIEWS RIGHT HIP CLINICAL HISTORY: Right hip injury. FINDINGS: An AP view of the pelvis with AP and crosstable lateral views of the right hip are correlat ed with pelvic CT dated 08/08/2021. The examination is significantly degraded by suboptimal positioni ng and rotation of the right hip. The skeletal structures are osteopenic. No fracture is clearly iden tified involving the hips or bony pelvis. Mild arthritic change and joint space narrowing is seen in the hips. Mild degenerative change is noted in the sacroiliac joints. Lumbosacral spondylosis is part ially imaged. Large enthesophytes arise from the anterior superior iliac spines and the greater troch anters of the proximal femora. There is atherosclerotic calcification of the femoral arteries. The ov erlying soft tissues are normal as imaged. IMPRESSION: 1. The examination is significantly degraded by rotation of the right hip. 2. No fracture is clearly identified. If there strong clinical concern for fracture a CT should be ob tained. Electronically signed by: Jerry De Leon M.D. 09/26/2021 4:44 PM
[2021-09-26 17:10] LABS: Basophils # (auto) 0.03 K/uL (0-0.2); Basophils % (auto) 0.4 %; Eosinophils # (auto) 0.28 K/uL (0-0.5); Eosinophils % (auto) 4.2 %; Immature Granulocytes # (auto) 0.03 K/uL (0.00-0.02); Immature Granulocytes % (auto) 0.4 %; Lymphocytes # (auto) 0.81 K/uL (1.2-3.4); Lymphocytes % (auto) 12.1 %; Mean Corpuscular Hemoglobin 32.5 pg (25-34); Mean Corpuscular Hgb Conc 33.3 g/dL (32-36); Mean Corpuscular Volume 97.6 fL (80-100); Mean Platelet Volume 10.1 fL (7.4-10.4); Monocytes # (auto) 0.52 K/uL (0.11-0.59); Monocytes % (auto) 7.7 %; Neutrophils # (auto) 5.05 K/uL (1.4-6.5); Neutrophils % (auto) 75.2 %; Platelet Count 146 K/uL (130-400); RDW Coefficient of Variation 13.4 % (11.5-14.5); RDW Standard Deviation 47.7 fL (36.4-46.3); Red Blood Count 3.69 M/uL (4.7-6.1); White Blood Count 6.72 K/uL (4.8-10.8)
--- NOTE | 2021-09-26 17:17 | CT Scan Report ---
CT head/brain wo con CLINICAL HISTORY: 76 years-old Male with fall. Acute head trauma status post fall TECHNIQUE: Multiple axial CT images of the head were obtained without contrast. A dose lowering tech nique was utilized adhering to the principles of ALARA. CT DOSE: 906.34 mGycm COMPARISON: Head CT 07/11/2021 FINDINGS: No acute intracranial hemorrhage, midline shift, intracranial mass, hydrocephalus, territorial ischem ia or abnormal extra-axial collection. Age-related involutional changes. Mild white matter hypodensit ies suggestive of chronic microvascular ischemic disease. Cerebral vascular calcifications. The calvarium is intact. Prior bilateral lens repair. The paranasal sinuses, mastoid air cells, and m iddle ear cavities are clear. IMPRESSION: No acute intracranial abnormality or calvarial fracture. ACT 112: Negative or not required by law. The above report was generated using voice recognition software. It may contain grammatical, syntax o r spelling errors. Electronically signed by: Amrik Simon M.D. 09/26/2021 5:15 PM
[2021-09-26 17:30] LABS: BUN Creatinine Ratio 23.5 (10-20); Blood Urea Nitrogen 12 mg/dl (7-18); Calcium 8.5 mg/dl (8.5-10.1); Carbon Dioxide 31 mmol/L (21-32); Chloride 105 mmol/L (98-107); Est GFR (African American) 120.2 ml/min; Est GFR (Non-African American) 103.7 ml/min; Glucose 97 mg/dl (70-99); Potassium 3.2 mmol/L (3.5-5.1); Sodium 139 mmol/L (136-145)
--- NOTE | 2021-09-26 17:37 | CT Scan Report ---
CT pelvis wo con, CT hip RT wo con HISTORY: 76 years-old Male fall acute pelvic and right-sided hip pain status post fall COMPARISON: Pelvis and hip radiographs of same day, CT abdomen and pelvis 08/08/2021 TECHNIQUE: Multiple axial CT images of the pelvis and right hip were obtained without the use of IV c ontrast. A dose lowering technique was used consistent with the principals of ALARA. FINDINGS: PELVIS: Moderate degeneration with partial bony fusion of the SI joints. Intervertebral disc space narrowing with spondylitic spurring and facet arthrosis of the imaged lower lumbar spine. Findings no acute sacral insufficiency fracture. Acute fracture of the proximal right femur as below. There is no acute pelvic ring fracture. Atherosclerosis of the aorta and iliac arteries. Moderate fe aline retention with trace perirectal stranding. Normal appendix. Urinary bladder wall thickening with trabeculation numerous diverticula compatible with chronic bladder outlet obstruction. The prostate i s upper limits of normal in size. Asymmetric enlargement and heterogeneity of the right adductor musc ulature. Small right hip joint effusion/hemarthrosis. RIGHT HIP: There is an acute mildly comminuted and slightly impacted fracture of the right femoral neck involvi ng the subcapital and transcervical distributions. Fracture fragments are displaced anteriorly a few millimeters. No dislocation. IMPRESSION: 1. Acute mildly impacted and slightly comminuted fracture of the right proximal femur involving the s ubcapital and transcervical distributions without significant displacement. 2. Enlargement and heterogeneity of the right abductor musculature is suggestive of acute intramuscul ar hematoma. 3. Small right hip joint effusion/hemarthrosis. ACT 112: Negative or not required by law. The above report was generated using voice recognition software. It may contain grammatical, syntax o r spelling errors. Electronically signed by: Amrik Simon M.D. 09/26/2021 5:36 PM
[2021-09-26] MEDS ORDERED: POTASSIUM CHLORIDE CRTAB 20 MEQ TABCR PO STA (18:10)
--- NOTE | 2021-09-26 18:12 | History & Physical Report ---
Date of Service September 26, 2021 Assessment & Plan (1) Closed right hip fracture: Plan: Right hip fracture status post mechanical fall -Admit to medical/surgical floor -Consult orthopedic surgery-plan for surgical repair tomorrow -Check preop ECG but he is stable at this point. He is not showing any signs of chest pain or ischemia, and should proceed with surgery. Heart murmur consistent with MR and no signs of CHF on exam -N.p.o. after midnight -Geriatric hip order set employed -Pain control with IV morphine and Tylenol as needed -SCDs for DVT prophylaxis -Bowel regimen -Place Caceres catheter (2) Hypokalemia: Plan: Potassium low at 3.2 Replace with 40 mEq IV potassium chloride as he is refusing to take p.o. at this time Follow BMP in the morning (3) Parkinson's disease dementia: Plan: Severe, is on home hospice Supportive care (4) Paroxysmal atrial fibrillation: Plan: Not on anticoagulation due to fall risk In regular rhythm on exam Check ECG (5) Aphonia: Plan: secondary to PD, with dysphagia Aspiration precautions -needs minced and moist or pureed diet and nectar thick liquids (6) Parkinsons disease: Plan: Continue Stalevo or formulary equivalent takes levbid prn excessive secretions (7) Anxiety and depression: Plan: Continue Celexa (8) Orthostatic hypotension: Plan: Continue fludrocortisone No acute issues (9) Esophageal dysmotility: Plan: Continue Pepcid, aspiration precautions Plan: DVT proph-SCDs Dispo-admit to med/surg unit. requests he get back home [facility] when medically stable, with home hospice. She definitely does not want him to go to rehab after his surgery DNR/DNI History of Present Illness Chief Complaint: Fall, right hip pain Primary Care Provider: Emilie Alamo MD This patient is a 76-year-old male with history of Parkinson's disease with dementia, paroxysmal atrial fibrillation, recurrent UTI, recurrent aspiration and dysphagia anxiety/depression, idiopathic polyneuropathy, Orthostatic hypotension, who is currently on hospice at home and presents with right hip pain after a fall that occurred yesterday. He got up without his walker and fell yesterday in the kitchen and did strike the right side of his head after he landed on the ground. His and caregiver were able to get him back to the bed but he has not been able to walk since then. He was complaining of pain in the right hip and in the ER was found to have a right hip fracture. He did receive morphine at home through his home hospice nurse and this did help with the pain but he has been a little bit more lethargic after the morphine. On my assessment, the patient is staring and only occasionally answers a question after a 30 second pause. He denies pain. His reports that he typically gets confused like this when he is in the hospital. In the ER, the ER physician discussed the possibility of surgery for improving discomfort and the patient's was agreeable to this. His care was also discussed with Dr. Antony of orthopedic surgery service. He will be admitted for right hip fracture with goal of surgical repair for comfort. Patient's states that her goal is to get him back home with hospice as soon as possible-hopefully the day after surgery. She is not interested in any rehab after surgery. Allergies Allergy/AdvReac Type Severity Reaction Status Date / Time oxycodone [From OxyContin] AdvReac Unknown Unknown Verified 09/26/21 18:35 Home Medications Medication Instructions Recorded Confirmed Type docusate sodium 100 mg capsule 200 mg PO DAILY cap 03/13/19 09/26/21 History aspirin 81 mg tablet,delayed 81 mg PO DAILY tab 02/17/21 09/26/21 History release fludrocortisone 0.1 mg tablet 0.1 mg PO BID 30 Days #60 tab 04/17/21 09/26/21 Rx carbidopa 50 mg-levodopa 200 1 tab PO QID #120 tab 06/04/21 09/26/21 Rx mg-entacapone 200 mg tablet (Stalevo 200) famotidine 20 mg tablet 20 mg PO QAM 07/10/21 09/26/21 History potassium chloride 20 mEq oral 20 meq PO DAILY #30 ea 07/16/21 09/26/21 Rx packet dutasteride 0.5 mg capsule 0.5 mg PO QDL #30 cap 07/29/21 09/26/21 Rx citalopram 10 mg tablet (Celexa) 10 mg PO DAILY 08/05/21 09/26/21 History melatonin 10 mg tablet 10 mg PO HS PRN 08/08/21 09/26/21 History polyethylene glycol 3350 17 gram 17 g PO DAILY PRN 08/08/21 09/26/21 History oral powder packet (Miralax) hyoscyamine sulfate 0.125 mg tablet 0.125 mg PO .COMPLEX PRN 09/22/21 09/26/21 History lorazepam 1 mg tablet 0.5 mg PO .COMPLEX PRN tab 09/22/21 09/26/21 History scopolamine base 1 mg over 3 days 1 patch TRANSDERMAL .COMPLEX PRN 09/22/21 09/26/21 History transdermal patch Past Med/Surg History Medical History Aphonia Aspiration into airway Auditory hallucination Central retinal vein occlusion Cervical spondylosis Common iliac aneurysm Constipation Depression with anxiety Diverticulosis of colon Double vision with both eyes open Esophageal reflux Fatigue Gastrointestinal dysmotility Hoarseness Hyperlipidemia Impaired fasting glucose Low back pain Low systolic blood pressure Need for pneumococcal vaccination Osteoarthrosis of knee Parkinsons disease Screening for AAA (abdominal aortic aneurysm) Sleep apnea Surgical History History of hernia repair History of knee replacement Family History Other Family history unremarkable Denies family history of Ovarian cancer Prostate cancer Myocardial infarction Breast cancer Colorectal cancer Social History Smoking Status: Former smoker Tobacco Type: Cigarettes Hx Alcohol Use: No Hx Substance Use: No Preferred Language: Guinean Communication Ability: 1:1 Senior Enterprise Architect Required: No Beliefs That Will Affect Care: None marital status: Current Living Situation: Spouse current occupational status: retired Feels Safe at Home: Yes caffeine: No Dental Care, Regularly: Yes Physical Activity Frequency: 5-6 Times per Week Seatbelt Use: always Sunscreen Use: No Assistive Devices: Cane, Walker and Wheelchair Review of Systems Review of Systems: Unobtainable due to cognitive status Physical Exam Constitutional: WD/WN, vitals as above Eyes: PERRL, conjunctivae normal, anicteric sclerae ENMT: external ear and nose normal, oropharynx normal Neck: trachea midline, no thyromegaly Respiratory: normal respiratory effort, lungs clear to auscultation Cardiovascular: Rate/Rhythm: regular rate and regular rhythm Heart Sounds: + murmur (2/6 JIM LLSB) Extremities: no edema Chest (Breasts): Chest: normal inspection of chest Gastrointestinal (Abdomen): normal bowel sounds, soft, nontender, no hepatosplenomegaly Musculoskeletal: Extremities: + extremities abnormal to inspection (RLE shortened and externally rotated, distal pulses intact), no cyanosis and no clubbing Skin: no rashes, warm and dry Neurologic: awake (But staring, minimally conversive) and + confused Masked facies Significant rigidity throughout extremities No resting tremor noted Psychiatric: Orientation: alert Lymphatic: no lymphedema Results & Data Results & Data ([facility]) Vital Signs (Past 12 Hours) Vital Signs Temp Pulse Resp BP Pulse Ox 09/26/21 15:56 37.1 C 78 18 119/68 92 Laboratory Results 09/26/21 09/26/21 Range/Units 16:59 16:59 WBC 6.72 (4.8-10.8) K/uL RBC 3.69 L (4.7-6.1) M/uL Hgb 12.0 L (14.0-18.0) g/dL Hct 36.0 L (42-52) % MCV 97.6 (80-100) fL MCH 32.5 (25-34) pg MCHC 33.3 (32-36) g/dL RDW Std Deviation 47.7 H (36.4-46.3) fL RDW Coeff of Abi 13.4 (11.5-14.5) % Plt Count 146 (130-400) K/uL MPV 10.1 (7.4-10.4) fL Immature Gran % (Auto) 0.4 % Neut % (Auto) 75.2 % Lymph % (Auto) 12.1 % Lyon % (Auto) 7.7 % Eos % (Auto) 4.2 % Baso % (Auto) 0.4 % Neut # (Auto) 5.05 (1.4-6.5) K/uL Lymph # (Auto) 0.81 L (1.2-3.4) K/uL Lyon # (Auto) 0.52 (0.11-0.59) K/uL Eos # (Auto) 0.28 (0-0.5) K/uL Baso # (Auto) 0.03 (0-0.2) K/uL Immature Gran # (Auto) 0.03 H (0.00-0.02) K/uL Sodium 139 (136-145) mmol/L Potassium 3.2 L (3.5-5.1) mmol/L Chloride 105 (98-107) mmol/L Carbon Dioxide 31 (21-32) mmol/L Anion Gap 3.0 (3-11) BUN 12 (7-18) mg/dl Creatinine 0.51 L (0.6-1.4) mg/dl Est Cr Clr Drug Dosing Not Reportable Est GFR ( Amer) 120.2 ml/min Est GFR (Non-Af Amer) 103.7 ml/min BUN/Creatinine Ratio 23.5 H (10-20) Glucose 97 (70-99) mg/dl Calcium 8.5 (8.5-10.1) mg/dl Diagnostic Findings Chest X-Ray 09/26/21 16:08 SINGLE VIEW CHEST CLINICAL HISTORY: Fall. FINDINGS: An AP, portable, semierect chest radiograph is compared to chest x-ray and chest CT dated 08/08/2021. The examination is degraded by portable technique and patient rotation. The heart is enlarged noting atherosclerotic calcification of the thoracic aorta. The pulmonary vasculature is noncongested. Chronic interstitial thickening is similar to previous. There is bibasilar atelectasis. A large calcified granuloma seen at the right lung base. The lungs and pleural spaces are otherwise clear. No pneumothorax is seen. The bony thorax is grossly intact. IMPRESSION: Cardiomegaly with no acute cardiopulmonary abnormality. ACT 112: Negative or not required by law. Electronically signed by: Jerry De Leon M.D. 09/26/2021 4:[address] 09/26/21 16:08 CT head/brain wo con CLINICAL HISTORY: 76 years-old Male with fall. Acute head trauma status post fall TECHNIQUE: Multiple axial CT images of the head were obtained without contrast. A dose lowering technique was utilized adhering to the principles of ALARA. CT DOSE: 906.34 mGycm COMPARISON: Head CT 07/11/2021 FINDINGS: No acute intracranial hemorrhage, midline shift, intracranial mass, hydrocephalus, territorial ischemia or abnormal extra-axial collection. Age- related involutional changes. Mild white matter hypodensities suggestive of chronic microvascular ischemic disease. Cerebral vascular calcifications. The calvarium is intact. Prior bilateral lens repair. The paranasal sinuses, mastoid air cells, and middle ear cavities are clear. IMPRESSION: No acute intracranial abnormality or calvarial fracture. ACT 112: Negative or not required by law. The above report was generated using voice recognition software. It may contain grammatical, syntax or spelling errors. Electronically signed by: Amrik Simon M.D. 09/26/2021 5:15 PM Hip/Pelvis X-Ray 09/26/21 16:08 SINGLE VIEW PELVIS; 2 VIEWS RIGHT HIP CLINICAL HISTORY: Right hip injury. FINDINGS: An AP view of the pelvis with AP and crosstable lateral views of the right hip are correlated with pelvic CT dated 08/08/2021. The examination is significantly degraded by suboptimal positioning and rotation of the right hip. The skeletal structures are osteopenic. No fracture is clearly identified involving the hips or bony pelvis. Mild arthritic change and joint space narrowing is seen in the hips. Mild degenerative change is noted in the sacroiliac joints. Lumbosacral spondylosis is partially imaged. Large enthesophytes arise from the anterior superior iliac spines and the greater trochanters of the proximal femora. There is atherosclerotic calcification of the femoral arteries. The overlying soft tissues are normal as imaged. IMPRESSION: 1. The examination is significantly degraded by rotation of the right hip. 2. No fracture is clearly identified. If there strong clinical concern for fracture a CT should be obtained. Electronically signed by: Jerry De Leon M.D. 09/26/2021 4:[address] 09/26/21 17:09 CT pelvis wo con, CT hip RT wo con HISTORY: 76 years-old Male fall acute pelvic and right-sided hip pain status post fall COMPARISON: Pelvis and hip radiographs of same day, CT abdomen and pelvis 08/08/2021 TECHNIQUE: Multiple axial CT images of the pelvis and right hip were obtained without the use of IV contrast. A dose lowering technique was used consistent with the principals of ALARA. FINDINGS: PELVIS: Moderate degeneration with partial bony fusion of the SI joints. Intervertebral disc space narrowing with spondylitic spurring and facet arthrosis of the imaged lower lumbar spine. Findings no acute sacral insufficiency fracture. Acute fracture of the proximal right femur as below. There is no acute pelvic ring fracture. Atherosclerosis of the aorta and iliac arteries. Moderate fecal retention with trace perirectal stranding. Normal appendix. Urinary bladder wall thickening with trabeculation numerous diverticula compatible with chronic bladder outlet obstruction. The prostate is upper limits of normal in size. Asymmetric enlargement and heterogeneity of the right adductor musculature. Small right hip joint effusion/hemarthrosis. RIGHT HIP: There is an acute mildly comminuted and slightly impacted fracture of the right femoral neck involving the subcapital and transcervical distributions. Fracture fragments are displaced anteriorly a few millimeters. No dislocation. IMPRESSION: 1. Acute mildly impacted and slightly comminuted fracture of the right proximal femur involving the subcapital and transcervical distributions without sig nificant displacement. 2. Enlargement and heterogeneity of the right abductor musculature is suggestive of acute intramuscular hematoma. 3. Small right hip joint effusion/hemarthrosis. ACT 112: Negative or not required by law. The above report was generated using voice recognition software. It may contain grammatical, syntax or spelling errors. Electronically signed by: Amrik Simon M.D. 09/26/2021 5:[address] 09/26/21 17:09 CT pelvis wo con, CT hip RT wo con HISTORY: 76 years-old Male fall acute pelvic and right-sided hip pain status p ost fall COMPARISON: Pelvis and hip radiographs of same day, CT abdomen and pelvis 08/08/2021 TECHNIQUE: Multiple axial CT images of the pelvis and right hip were obtained without the use of IV contrast. A dose lowering technique was used consistent with the principals of ALARA. FINDINGS: PELVIS: Moderate degeneration with partial bony fusion of the SI joints. Intervertebral disc space narrowing with spondylitic spurring and facet arthrosis of the imaged lower lumbar spine. Findings no acute sacral insufficiency fracture. Acute fracture of the proximal right femur as below. There is no acute pelvic ring fracture. Atherosclerosis of the aorta and iliac arteries. Moderate fecal retention with trace perirectal stranding. Normal appendix. Urinary bladder wall thickening with trabeculation numerous diverticula compatible with chronic bladder outlet obstruction. The prostate is upper limits of normal in size. Asymmetric enlargement and heterogeneity of the right adductor musculature. Small right hip joint effusion/hemarthrosis. RIGHT HIP: There is an acute mildly comminuted and slightly impacted fracture of the right femoral neck involving the subcapital and transcervical distributions. Fracture fragments are displaced anteriorly a few millimeters. No dislocation. IMPRESSION: 1. Acute mildly impacted and slightly comminuted fracture of the right proximal femur involving the subcapital and transcervical distributions without significant displacement. 2. Enlargement and heterogeneity of the right abductor musculature is suggestive of acute intramuscular hematoma. 3. Small right hip joint effusion/hemarthrosis. ACT 112: Negative or not required by law. The above report was generated using voice recognition software. It may contain grammatical, syntax or spelling errors. Electronically signed by: Amrik Simon M.D. 09/26/2021 5:36 PM Code Status & VTE Plan Code Status DNR/DNI VTE Prophylaxis Plan VTE Prophylaxis will be ordered: Yes PG Care Time/CCT Total # of Minutes Spent Total Time Spent with Patient: Total time spent is greater than 50% in coordination of care (as documented) at patient's floor/unit and/or counseling patient: Coding Level of Care Code 79929 Initial Inpt Care Lvl 3 Diagnoses Hypokalemia E87.6 Aphonia R49.1 Anxiety and depression F41.9; F32.9 Parkinson's disease dementia G20; F02.80 Paroxysmal atrial fibrillation I48.0 Parkinsons disease G20 Orthostatic hypotension I95.1 Closed right hip fracture S72.001A Esophageal dysmotility K22.4
[2021-09-26] MEDS ORDERED: SCOPOLAMINE 1 MG TDSY TD PRN (18:35)
[2021-09-26] MEDS ORDERED: POLYETHYLENE (MIRALAX) 17 GM PACK PO PRN (18:40)
[2021-09-26] MEDS ORDERED: MoRPHine SULFATE 2 MG/ML CARP IV PRN (18:42)
[2021-09-26] MEDS ORDERED: ONDANSETRON INJ 2 MG/ML 2 ML VIAL IV PRN (18:42)
[2021-09-26] MEDS ORDERED: MAGNESIUM HYDROXIDE SUSP 30 ML UDC PO PRN (18:42)
[2021-09-26] MEDS ORDERED: NALOXONE HCL 0.4 MG/1 ML VIAL/CARP IV PRN (18:42)
[2021-09-26] MEDS ORDERED: bisacodyL 10 MG SUPP PR PRN (18:42)
[2021-09-26] MEDS ORDERED: POTASSIUM CHLORIDE 20 MEQ/15 ML UDC ONE (20:00)
[2021-09-26] MEDS ORDERED: POTASSIUM CHLORIDE / WTR 10 MEQ/100 ML PLCT IV STA (20:19)
[2021-09-26] MEDS: LACTATED RINGER'S 1,000 ML IV SCH (21:21)
[2021-09-26] MEDS ORDERED: MELATONIN 3 MG TAB PO PRN (21:28)
[2021-09-26] MEDS ORDERED: LORazepam 0.5 MG TAB PO PRN (21:29)
[2021-09-26] MEDS: FLUDROCORTISONE ACETATE 0.1 MG TAB PO SCH (22:42)
[2021-09-26] MEDS: DOCUSATE SODIUM/SENNA 50/8.6MG TAB PO SCH (22:42)
[2021-09-26] MEDS ORDERED: HYOSCYAMINE SULFATE 0.125 MG TAB PO PRN (23:17)
[2021-09-26] MEDS ORDERED: POTASSIUM CHLORIDE 20 MEQ/15 ML UDC PO STA (23:17)
[2021-09-27 05:44] LABS: Basophils # (auto) 0.03 K/uL (0-0.2); Basophils % (auto) 0.3 %; Eosinophils # (auto) 0.25 K/uL (0-0.5); Eosinophils % (auto) 2.7 %; Hematocrit (blood only) 36.4 % (42-52); Hemoglobin 12.1 g/dL (14.0-18.0); Immature Granulocytes # (auto) 0.03 K/uL (0.00-0.02); Immature Granulocytes % (auto) 0.3 %; Lymphocytes # (auto) 0.63 K/uL (1.2-3.4); Lymphocytes % (auto) 6.8 %; Mean Corpuscular Hemoglobin 33.1 pg (25-34); Mean Corpuscular Hgb Conc 33.2 g/dL (32-36); Mean Corpuscular Volume 99.5 fL (80-100); Mean Platelet Volume 10.3 fL (7.4-10.4); Monocytes # (auto) 0.46 K/uL (0.11-0.59); Monocytes % (auto) 4.9 %; Neutrophils # (auto) 7.92 K/uL (1.4-6.5); Platelet Count 142 K/uL (130-400); RDW Coefficient of Variation 13.4 % (11.5-14.5); RDW Standard Deviation 48.6 fL (36.4-46.3); Red Blood Count 3.66 M/uL (4.7-6.1); White Blood Count 9.32 K/uL (4.8-10.8)
[2021-09-27] MEDS ORDERED: ceFAZolin 2000MG 2,000 MG/15 ML SYR IV SCH (06:00)
[2021-09-27] MEDS ORDERED: TRANEXAMIC ACID / 0.7% NACL 1,000 MG/100 ML BAG IV SCH ×2 (06:00→06:30)
[2021-09-27 06:19] LABS: BUN Creatinine Ratio 23.5 (10-20); Calcium 8.7 mg/dl (8.5-10.1); Creatinine Clr Calc Pharmacy 110.5 ml/min; Est GFR (African American) 115.6 ml/min; Est GFR (Non-African American) 99.8 ml/min; Potassium 3.8 mmol/L (3.5-5.1)
--- NOTE | 2021-09-27 07:24 | Anesthesiology Consultation ---
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 Surgery Operation Date: 09/27/21 10:00 Proposed Procedures p ORIF Hip Cannulated Screw - Mina Cherry DO Height/Weight Height: 5 ft 9 in Weight: 77.1 kg Allergies Allergy/AdvReac Type Severity Reaction Status Date / Time oxycodone [From OxyContin] AdvReac Unknown Unknown Verified 09/26/21 18:35 Medications Home Medications Medication Instructions Recorded Confirmed Last Taken docusate sodium 100 mg capsule 200 mg PO DAILY cap 03/13/19 09/26/21 09/26/21 aspirin 81 mg tablet,delayed 81 mg PO DAILY tab 02/17/21 09/26/21 09/26/21 release fludrocortisone 0.1 mg tablet 0.1 mg PO BID 30 Days #60 tab 04/17/21 09/26/21 09/26/21 carbidopa 50 mg-levodopa 200 1 tab PO QID #120 tab 06/04/21 09/26/21 09/26/21 mg-entacapone 200 mg tablet (Stalevo 200) famotidine 20 mg tablet 20 mg PO QAM 07/10/21 09/26/21 09/26/21 potassium chloride 20 mEq oral 20 meq PO DAILY #30 ea 07/16/21 09/26/21 09/26/21 packet dutasteride 0.5 mg capsule 0.5 mg PO QDL #30 cap 07/29/21 09/26/21 09/26/21 citalopram 10 mg tablet (Celexa) 10 mg PO DAILY 08/05/21 09/26/21 09/26/21 melatonin 10 mg tablet 10 mg PO HS PRN 08/08/21 09/26/21 Unknown polyethylene glycol 3350 17 gram 17 g PO DAILY PRN 08/08/21 09/26/21 Unknown oral powder packet (Miralax) hyoscyamine sulfate 0.125 mg tablet 0.125 mg PO .COMPLEX PRN 09/22/21 09/26/21 Unknown lorazepam 1 mg tablet 0.5 mg PO .COMPLEX PRN tab 09/22/21 09/26/21 Unknown scopolamine base 1 mg over 3 days 1 patch TRANSDERMAL .COMPLEX PRN 09/22/21 09/26/21 Unknown transdermal patch Active Medications Generic Name Dose Route Start Last Admin Trade Name Patria PRN Reason Stop Dose Admin Fludrocortisone Acetate 0.1 mg 09/26/21 21:00 09/26/21 22:42 Fludrocortisone Acetate 0.1 Mg Tab PO 10/26/21 20:59 Not Given BID MARLYS Lactated Ringer's 1,000 mls @ 75 mls/hr 09/26/21 21:00 09/26/21 21:21 Lr IV 10/26/21 20:59 75 mls/hr .[id number] MARLYS Administration Miscellaneous 1 ea 09/27/21 00:00 09/26/21 23:59 Stalevo~Order Awaiting Action N/A 10/27/21 00:00 Not Given QS MARLYS Senna/Docusate Sodium 2 tab 09/26/21 21:00 09/26/21 22:42 Docusate Sodium/Senna 50/8.6mg Tab PO 10/26/21 20:59 Not Given HS MARLYS Past Medical History Medical History Aphonia Aspiration into airway Auditory hallucination Central retinal vein occlusion Cervical spondylosis Common iliac aneurysm Constipation Depression with anxiety Diverticulosis of colon Double vision with both eyes open Esophageal reflux Fatigue Gastrointestinal dysmotility Hoarseness Hyperlipidemia Impaired fasting glucose Low back pain Low systolic blood pressure Need for pneumococcal vaccination Osteoarthrosis of knee Parkinsons disease Screening for AAA (abdominal aortic aneurysm) Sleep apnea Past Family History Family History Other Family history unremarkable Denies family history of Ovarian cancer Prostate cancer Myocardial infarction Breast cancer Colorectal cancer Past Surgical History Surgical History History of hernia repair History of knee replacement Social History Smoking Status: Former smoker tobacco type: cigarettes Hx Alcohol Use: No Hx Substance Use: No Physical Exam Vital Signs Last Vital Signs Temp 98.4 F 09/27/21 00:08 Pulse 88 09/27/21 00:08 Resp 16 09/27/21 00:08 BP 134/80 09/27/21 00:08 Pulse Ox 97 09/27/21 00:08 Testing Laboratory Results 09/27/21 05:22 09/27/21 05:22 Blood Type O Positive 09/26/21 19:00 Antibody Screen NEGATIVE 09/26/21 19:00 Electrocardiogram Date: 09/26/21 Normal sinus rhythm, rate 83 bpm Incomplete right bundle branch block Borderline ECG When compared with ECG of 08-AUG-2021 09:26, Incomplete right bundle branch block has replaced Right bundle branch block QT has shortened Chest X-Ray Date: 09/26/21 IMPRESSION: Cardiomegaly with no acute cardiopulmonary abnormality.
--- NOTE | 2021-09-27 08:15 | Hospitalist Progress Note ---
Date of Service September 27, 2021 Assessment & Plan (1) Closed right hip fracture: Plan: 76 year old male with past medical history Parkinson's disease with dementia, paroxysmal atrial fibrillation not on anticoagulation due to fall risk, recurrent UTI, recurrent aspiration and dysphagia, anxiety/depression, orthostatic hypotension, admitted for closed right hip fracture. Closed right hip fracture: -New fracture 2/2 trauma 2 days ago with decreased ability to ambulate due to pain. -CT hip/pelvis w/ evidence right proximal femur fracture. -Orthopedics consulted, evaluated and scheduled for surgical management today. -Plan to start ASA post op for DVT prophylaxis -Patient on home hospice, per , return to hospice post surgery instead of rehab. -PT/OT consult in place. -Hgb 12.1 pre-op, AM CBC ordered. Fever -Post surgery, max temperature of 38.7, came down to 36.9 with IV Tylenol. -Also had fever at the time of admission. -Check urine and blood culture -CXR on admission negative for acute changes Paroxysmal atrial fibrillation: -EKG 09/26 with normal sinus rhythm, -No anticoagulation at this time due to fall risk. Hypokalemia: -Potassium 3.2 in ED. Repeat this morning 3.8. -AM BMP. Parkinson's disease with dementia: -Continue Stalevo when patient able to tolerate PO intake. -Supportive care, home hospice upon discharge. History of orthostatic hypotension: -Continue fludrocortisone when able to tolerate PO. Aphonia with dysphagia: -2/2 Parkinson's. -Aspiration precautions. -Diet: Minced and Moist and nectar thick liquids. Anxiety and depression: -Continue Celexa when able to tolerate PO. Dispo: Med/surg Code Status: DNR/DNI DVT Prophylaxis: SCD, ASA 81mg (2) Paroxysmal atrial fibrillation: (3) Parkinson's disease dementia: (4) Aphonia: (5) Hypokalemia: (6) Anxiety and depression: Admission and Anticipated Discharge Date Admission Date: September 26, 2021 Supervising Physician Co-Signing Physician Notes Resident Physician Supervision Note: I independently interviewed and examined the patient and verified the argueta history and physical, reviewed labs and image studies and agree with resident Dr. Slater findings and care plan. Subjective Patient seen at the bedside this morning. Patient sleeping when I went in to talk to him. Saw patient post operatively along with his . Patient was asleep at this time as well. said she was a little concerned with his sleepiness but understood it may be from not sleeping much yesterday. Physical Exam Respiratory: normal respiratory effort, lungs clear to auscultation Cardiovascular: RRR, no murmur, no edema Pulses 2+ bilaterally upper and lower extremities, regular rhythm. Gastrointestinal (Abdomen): normal bowel sounds, soft, nontender, no hepatosplenomegaly Musculoskeletal: Patient mild retraction of right leg when right hip palpated. Distal extremities without swelling, pulses 2+ bilaterally. Results & Data Results & Data ([facility]) Vital Signs (Past 12 Hours) Vital Signs Temp Pulse Resp BP Pulse Ox 09/27/21 00:08 36.9 C 88 16 134/80 97 09/26/21 23:00 81 18 137/83 92 09/26/21 21:07 82 18 141/86 H 95 Resident Activity Tracking Resident Involvement: Resident Care Provided Care Provided: Adult [facility] Medicine
[2021-09-27] MEDS ORDERED: ASPIRIN 81 MG ECTAB PO SCH (09:00)
[2021-09-27] MEDS ORDERED: DEXAMETHASONE SOD INJ 4 MG/ML VIAL ONE (09:16)
[2021-09-27] MEDS ORDERED: MIDAZOLAM HCL 1 MG/ML 2ML VIAL ONE (09:16)
[2021-09-27] MEDS ORDERED: fentaNYL citrate 100 MCG/2 ML VIAL ONE (09:16)
[2021-09-27] MEDS ORDERED: ONDANSETRON INJ 2 MG/ML 2 ML VIAL ONE (09:16)
[2021-09-27] MEDS ORDERED: PROPOFOL IV EMULSION 10 MG/ML 20 ML VIAL IV ONE (09:16)
[2021-09-27] MEDS ORDERED: LIDOCAINE 2% 2 ML VIAL/AMP(20MG/ML) INFIL ONE (09:16)
[2021-09-27] MEDS: FAMOTIDINE 20 MG TAB PO SCH (09:50)
[2021-09-27] MEDS: CITALOPRAM 20 MG TAB PO SCH (09:50)
[2021-09-27] MEDS: FLUDROCORTISONE ACETATE 0.1 MG TAB PO SCH ×2 (09:50→20:06)
[2021-09-27] MEDS: DOCUSATE SODIUM 100 MG CAP PO SCH (09:50)
[2021-09-27] MEDS: ASPIRIN 81 MG ECTAB PO SCH (09:50)
[2021-09-27] MEDS: POTASSIUM CHLORIDE PWD 20 MEQ PACK PO SCH (09:50)
[2021-09-27] MEDS ORDERED: ONDANSETRON INJ 2 MG/ML 2 ML VIAL IV PRN (10:07)
[2021-09-27] MEDS ORDERED: ATROPINE SULFATE 0.1 MG/ML 10ML SYR IV PRN (10:07)
[2021-09-27] MEDS ORDERED: ePHEDrine sulfate 50 MG/ML AMP IV PRN (10:07)
[2021-09-27] MEDS ORDERED: fentaNYL citrate 100 MCG/2 ML VIAL IV PRN (10:07)
--- NOTE | 2021-09-27 10:22 | History & Physical Bridge Note ---
Date of Service September 27, 2021 History & Physical Bridge Note I have examined the patient, reviewed the History & Physical and in the interval since the performance of the History & Physical I have noted the following changes of clinical significance: Will require open reduction internal fixation right hip today.
--- NOTE | 2021-09-27 10:32 | History & Physical Report ---
Date of Service September 27, 2021 Assessment & Plan (1) Subcapital fracture of right femur: Plan: Plan for a right hip fixation of subcapital femur fx with three cannulated screws today. All potential risks, benefits, complications, alternatives, and rehab have been discussed with the patient's POA and they wish to proceed. Will plan to restart ASA post op for DVT prophylaxis. Thank you for the consultation. We will follow with the patient post operatively. Admission and Anticipated Discharge Date Admission Date: September 26, 2021 History of Present Illness Chief Complaint: right hip pain/ambulatory dysfunction Primary Care Provider: Emilie Alamo MD This is a patient who sustained a fall 2 days ago while at home. His and caregiver were able to get him up after the fall but was unable to ambulate. Yesterday, he was brought to the ER and noted to have a right hip fracture. We were consulted for surgical fixation of the fracture. Allergies Allergy/AdvReac Type Severity Reaction Status Date / Time oxycodone [From OxyContin] AdvReac Unknown Unknown Verified 09/26/21 18:35 Home Medications Medication Instructions Recorded Confirmed Type docusate sodium 100 mg capsule 200 mg PO DAILY cap 03/13/19 09/26/21 History aspirin 81 mg tablet,delayed 81 mg PO DAILY tab 02/17/21 09/26/21 History release fludrocortisone 0.1 mg tablet 0.1 mg PO BID 30 Days #60 tab 04/17/21 09/26/21 Rx carbidopa 50 mg-levodopa 200 1 tab PO QID #120 tab 06/04/21 09/26/21 Rx mg-entacapone 200 mg tablet (Stalevo 200) famotidine 20 mg tablet 20 mg PO QAM 07/10/21 09/26/21 History potassium chloride 20 mEq oral 20 meq PO DAILY #30 ea 07/16/21 09/26/21 Rx packet dutasteride 0.5 mg capsule 0.5 mg PO QDL #30 cap 07/29/21 09/26/21 Rx citalopram 10 mg tablet (Celexa) 10 mg PO DAILY 08/05/21 09/26/21 History melatonin 10 mg tablet 10 mg PO HS PRN 08/08/21 09/26/21 History polyethylene glycol 3350 17 gram 17 g PO DAILY PRN 08/08/21 09/26/21 History oral powder packet (Miralax) hyoscyamine sulfate 0.125 mg tablet 0.125 mg PO .COMPLEX PRN 09/22/21 09/26/21 History lorazepam 1 mg tablet 0.5 mg PO .COMPLEX PRN tab 09/22/21 09/26/21 History scopolamine base 1 mg over 3 days 1 patch TRANSDERMAL .COMPLEX PRN 09/22/21 09/26/21 History transdermal patch Past Med/Surg History Medical History Aphonia Aspiration into airway Auditory hallucination Central retinal vein occlusion Cervical spondylosis Common iliac aneurysm Constipation Depression with anxiety Diverticulosis of colon Double vision with both eyes open Esophageal reflux Fatigue Gastrointestinal dysmotility Hoarseness Hyperlipidemia Impaired fasting glucose Low back pain Low systolic blood pressure Need for pneumococcal vaccination Osteoarthrosis of knee Parkinsons disease Screening for AAA (abdominal aortic aneurysm) Sleep apnea Surgical History History of hernia repair History of knee replacement Family History Other Family history unremarkable Denies family history of Ovarian cancer Prostate cancer Myocardial infarction Breast cancer Colorectal cancer Social History Smoking Status: Former smoker Tobacco Type: Cigarettes Hx Alcohol Use: No Hx Substance Use: No Preferred Language: Malagasy Communication Ability: Impaired Pc Analyst Required: No Beliefs That Will Affect Care: None marital status: Current Living Situation: Spouse current occupational status: retired Feels Safe at Home: Yes caffeine: No Dental Care, Regularly: Yes Physical Activity Frequency: 5-6 Times per Week Seatbelt Use: always Sunscreen Use: No Assistive Devices: Walker Physical Exam Constitutional: average body habitus; no acute distress ENMT: external ear and nose normal, oropharynx normal Neck: trachea midline Musculoskeletal: Hip: + joint line tenderness (right hip) and + log roll test positive (right hip); no skin erythema and no ecchymosis Skin: no rashes, warm and dry Neurologic: normal touch/pain/proprioception Results & Data ([facility]) Vital Signs (Past 12 Hours) Vital Signs Temp Pulse Resp BP Pulse Ox 09/27/21 00:08 36.9 C 88 16 134/80 97 09/26/21 23:00 81 18 137/83 92 Diagnostic Findings Right hip: impacted subcapital femur fx. Code Status & VTE Plan VTE Prophylaxis Plan VTE Prophylaxis will be ordered: Yes
[2021-09-27] MEDS ORDERED: SOD PHOSPHATE/SOD BIPHOSPHATE ENEMA 132 ML BTL PR PRN (10:40)
--- NOTE | 2021-09-27 11:48 | Fluoroscopy Report ---
INTRAOPERATIVE RADIOGRAPHS CLINICAL HISTORY: Open reduction and internal fixation of the right proximal femur. Fluoroscopy time: 88 seconds. FINDINGS: 2 spot fluoroscopic views of the right hip are correlated with radiographs dated 09/26/2021 . 3 intertrochanteric cortical lag screws transfix a subcapital fracture of the right proximal femur. Near-anatomic alignment is maintained. IMPRESSION: Intraoperative images from open reduction and internal fixation of the right proximal fem ur. Electronically signed by: Jerry De Leon M.D. 09/27/2021 11:46 AM
--- NOTE | 2021-09-27 12:00 | Post Operative Brief Note ---
Immediate Post Op Note v1 Date of Surgery September 27, 2021 Pre & Post Diagnosis Operation Date: 09/27/21 10:00 Pre-Op Diagnosis: Right minimally displaced impacted femoral neck fracture Post-Op Diagnosis: Right minimally displaced impacted femoral neck fracture I identified the patient and participated in the time-out.: Yes Procedure Operation Date: 09/27/21 10:00 Actual Procedures p Open reduction internal fixation right femoral neck fracture with cannulated Screws X3 (Right) - Mina Cherry DO Surgeon Mina Cherry DO Monomer Purification Operator Terrence Arechiga PA-C Estimated Blood Loss 2 Findings Consistent with Post-Op Diagnosis Anesthesia Type Spinal MAC Complications none Disposition Accompanied Patient To Recovery: Yes
--- NOTE | 2021-09-27 12:06 | Anesthesiology Progress Note ---
Date of Service September 27, 2021 Anesthesia Post Procedure Vital Signs Vital Signs: Temp Pulse Pulse Resp BP BP Pulse Ox 09/27/21 12:00 100 H 20 147/80 H 98 09/27/21 11:50 98 H 18 131/93 95 09/27/21 11:41 100.4 F H 98 H 12 105/65 98 09/27/21 00:08 98.4 F 88 16 134/80 97 09/26/21 23:00 81 18 137/83 92 09/26/21 21:07 82 18 141/86 H 95 09/26/21 20:00 80 18 136/87 95 09/26/21 19:15 80 18 152/102 H 94 09/26/21 18:38 16 151/85 H 93 09/26/21 15:56 98.8 F 78 18 119/68 92 Transfer of Care Handoff Completed per policy Notes Mental Status: alert / awake / arousable and participated in evaluation Patient Amnestic to Procedure: Yes Nausea / Vomiting: adequately controlled Pain: adequately controlled Airway Patency, RR, SpO2: stable & adequate BP & HR: stable & adequate Hydration State: stable & adequate Neuraxial Anesthesia: was administered and sensory block is resolving Anesthetic Complications: no major complications apparent and Pt Satisfied with anesthetic care
--- NOTE | 2021-09-27 12:38 | XRay Report ---
RIGHT HIP 2 VIEWS CLINICAL HISTORY: Postoperative examination. FINDINGS: AP and crosstable lateral portable views of the right hip are compared to x-rays and CT albaro ed 09/26/2021. The skeletal structures are osteopenic. 3 intertrochanteric cortical lag screws transf ix a subcapital fracture of the right proximal femur. Near-anatomic alignment is maintained. The orth opedic hardware appears intact. The visualized right hemipelvis appears intact. Mild/moderate degener ative joint narrowing is seen in the right hip. Soft tissue swelling, subcutaneous gas, and skin clip s are expected postoperative findings. There is atherosclerotic calcification of the right femoral ar elfego. IMPRESSION: Expected postoperative findings status post open reduction and internal fixation of the r ight proximal femur as above. Electronically signed by: Jerry De Leon M.D. 09/27/2021 12:37 PM
[2021-09-27] MEDS: LACTATED RINGER'S 1,000 ML IV SCH ×2 (13:20→20:05)
[2021-09-27] MEDS: FINASTERIDE 5 MG TAB PO SCH (13:52)
--- NOTE | 2021-09-27 14:58 | Operative Report (OR) ---
DATE OF PROCEDURE: 09/27/2021. PREOPERATIVE DIAGNOSIS: Right hip, minimally displaced impacted femoral neck fracture. POSTOPERATIVE DIAGNOSIS: Right hip, minimally displaced impacted femoral neck fracture. PROCEDURE: Right hip open reduction and internal fixation, minimally displaced impacted femoral neck fracture with cannulated screws x3. SURGEON: Mina Cherry DO. WIRE DRAWER: Terrence Arechiga PA-C who was present for patient positioning, sterile prep and drape, management of retractors and instruments. He was present through the critical portions of the case including wound closure, application of sterile dressing and transport of the patient to recovery. ANESTHESIA: Spinal MAC. SPECIMENS: None. DRAINS: None. COMPLICATIONS: None. BLOOD LOSS: 2 mL PERTINENT HISTORY: This is a 76-year-old gentleman who sustained a mechanical fall on his right hip. He had pain and difficulty with ambulation. He is demented and has typical ambulation with a walker. He was admitted to the hospitalist service through the Emergency Department, stabilized for surgery and then schedule for surgery as indicated. All potential risks, benefits, complications, alternatives, rehab potential for incomplete relief symptoms, need for further surgery, DVT, PE, , persistent pain, swelling, scarring, weakness, neurovascular injury, wound complications, hardware failure, nonunion, malunion and bone fracture were discussed with the patient and the patient's family. Consent was obtained from the patient's , Didi, who is his power of contract attorney and the patient was then scheduled for surgery as indicated. SCREW SIZES: Two 95 mm screws and a single 100 mm screw. DETAILS OF PROCEDURE: The patient underwent spinal anesthetic in the preop holding area and was taken to the operative suite and placed supine on the operating room fracture table. After identification of the proper operative site the patient was sedated. The right lower extremity was then placed in the operative leg de la cruz with gentle traction. The left lower extremity was placed in a well-leg de la cruz with hip flexion and gentle external rotation with padding to protect the soft tissues. The right hip was then sterilely prepped and draped in usual fashion. After surgical timeout was performed, the right proximal femur was then identified using image intensification. A 10 blade scalpel was used to make an incision slightly distal to the greater trochanter. Using image intensification, a guidepin was placed in the inferior central aspect of the femoral neck and head 5 mm from the subchondral bone. Using this as a reference, 2 more threaded guide pins were placed superiorly to the inferior guidepin. 1 pin was placed anterior and the other pin was placed posterior relative to the inferior threaded guidepin using AP and lateral image intensification to confirm placement of the pins within 5 mm of subchondral bone. Next screw lengths were measured and the lateral cortex was then partially drilled and countersunk with a hand countersink. 3 cannulated screws were placed under live image intensification to stabilize and compress the fracture under fluoroscopic control. The guide pins were removed. Final radiographs were obtained in AP and lateral projections noting stable near-anatomic fixation and stabilization with 3 cannulated screws. The skin incision was then copiously irrigated with sterile saline until clear. The iliotibial band was then closed with a #1 Vicryl. The dermis was closed using buried interrupted 2-0 Vicryl. Skin was closed using skin vita. A sterile compressive dressing was applied. The patient was awakened, transferred to a hospital bed and taken to recovery in stable condition. I attest to the content of the Intraoperative Record and any orders documented therein. Any exceptions are noted below. Job ID: [id number] [facility]
[2021-09-27] MEDS: ACETAMINOPHEN 1,000 MG/100 ML VIAL IV PRN (15:10)
[2021-09-27] MEDS ORDERED: KETOROLAC TROMETHAMINE 15 MG/ML VIAL IM PRN (18:28)
[2021-09-27] MEDS: KETOROLAC TROMETHAMINE 15 MG/ML VIAL IV PRN (20:01)
[2021-09-27] MEDS: DOCUSATE SODIUM/SENNA 50/8.6MG TAB PO SCH (20:07)
[2021-09-27 21:05] LABS: Appearance Urine Clear (Clear); Bacteria Urine Automated Negative (Negative); Blood Urine 1+ (Negative); Color Urine Orange; Epithelial Cell Urine Auto 20-30 /lpf (0-5); Glucose Urine UA Negative (Negative); Ketones Urine Trace (Negative); Leukocyte Esterase Urine Trace (Negative); Nitrite Urine Positive (Negative); Protein Urine Trace (Negative); Specific Gravity Urine 1.039 (1.000-1.030); Urobilinogen Urine Negative (Negative)
[2021-09-27 21:06] LABS: Bilirubin Urine 1+ (Negative)
--- NOTE | 2021-09-27 22:47 | Electrocardiogram Report ---
Test Reason : Blood Pressure : / mmHG Vent. Rate : 083 BPM Atrial Rate : 083 BPM P-R Int : 146 ms QRS Dur : 116 ms QT Int : 392 ms P-R-T Axes : 080 -23 013 degrees QTc Int : 460 ms Poor data quality, interpretation may be adversely affected Normal sinus rhythm Incomplete right bundle branch block Borderline ECG When compared with ECG of 08-AUG-2021 09:26, Incomplete right bundle branch block has replaced Right bundle branch block QT has shortened Confirmed by Jairo Bowers ([id number]) on 09/27/2021 10:46:41 PM Referred By: REFERRED SELF Confirmed By:Jairo Bowers
[2021-09-28 06:23] LABS: Basophils # (auto) 0.01 K/uL (0-0.2); Basophils % (auto) 0.1 %; Eosinophils # (auto) 0.04 K/uL (0-0.5); Eosinophils % (auto) 0.3 %; Hematocrit (blood only) 31.6 % (42-52); Hemoglobin 10.5 g/dL (14.0-18.0); Immature Granulocytes # (auto) 0.01 K/uL (0.00-0.02); Immature Granulocytes % (auto) 0.1 %; Lymphocytes # (auto) 0.41 K/uL (1.2-3.4); Lymphocytes % (auto) 3.1 %; Mean Corpuscular Hemoglobin 32.9 pg (25-34); Mean Corpuscular Hgb Conc 33.2 g/dL (32-36); Mean Corpuscular Volume 99.1 fL (80-100); Mean Platelet Volume 10.4 fL (7.4-10.4); Monocytes # (auto) 0.49 K/uL (0.11-0.59); Monocytes % (auto) 3.7 %; Neutrophils # (auto) 12.34 K/uL (1.4-6.5); Neutrophils % (auto) 92.7 %; Platelet Count 127 K/uL (130-400); RDW Coefficient of Variation 13.4 % (11.5-14.5); Red Blood Count 3.19 M/uL (4.7-6.1)
[2021-09-28] MEDS: KETOROLAC TROMETHAMINE 15 MG/ML VIAL IV PRN ×2 (06:45→17:56)
[2021-09-28 06:46] LABS: RBC Morphology Unremarkable
[2021-09-28] MEDS: LACTATED RINGER'S 1,000 ML IV SCH (06:48)
[2021-09-28 06:50] LABS: BUN Creatinine Ratio 28.2 (10-20); Calcium 8.3 mg/dl (8.5-10.1); Creatinine Clr Calc Pharmacy 103.1 ml/min; Est GFR (African American) 112.4 ml/min; Potassium 3.4 mmol/L (3.5-5.1)
[2021-09-28] MEDS: FLUDROCORTISONE ACETATE 0.1 MG TAB PO SCH ×2 (07:46→22:49)
[2021-09-28] MEDS: ASPIRIN 81 MG ECTAB PO SCH (07:46)
[2021-09-28] MEDS: DOCUSATE SODIUM 100 MG CAP PO SCH (07:46)
[2021-09-28] MEDS: POTASSIUM CHLORIDE PWD 20 MEQ PACK PO SCH (07:46)
[2021-09-28] MEDS: FAMOTIDINE 20 MG TAB PO SCH (07:46)
[2021-09-28] MEDS: CITALOPRAM 20 MG TAB PO SCH (07:46)
--- NOTE | 2021-09-28 08:19 | Hospitalist Progress Note ---
Date of Service September 28, 2021 Assessment & Plan (1) Closed right hip fracture: Plan: 76 year old male with past medical history Parkinson's disease with dementia, paroxysmal atrial fibrillation not on anticoagulation due to fall risk, recurrent UTI, recurrent aspiration and dysphagia, anxiety/depression, orthostatic hypotension, admitted for closed right hip fracture. Closed right hip fracture: -New fracture 2/2 trauma 2 days ago with decreased ability to ambulate due to pain. -CT hip/pelvis w/ evidence right proximal femur fracture. -Orthopedics consulted, s/p R hip open reduction and internal fixation. -On ASA 81mg for DVT prophylaxis. -Patient on home hospice, per , return to hospice post surgery instead of rehab. -PT/OT consult in place. -Hgb 12.1 pre-op, 10.5 09/28. Fever: -Post surgery, max temperature of 38.7, came down to 36.9 with IV Tylenol. -Also had fever at the time of admission. -UA with trace LE, +Nitrites, no bacteria. Check urine and blood culture. -Given 500mL bolus and 1g Rocephin for possible UTI. -CXR on admission negative for acute changes Paroxysmal atrial fibrillation: -EKG 09/26 with normal sinus rhythm, -On ASA 81mg but no other anticoagulation due to fall risk. Hypokalemia: -Potassium 3.2 in ED. Repeat this morning 3.4. -AM BMP. Parkinson's disease with dementia: -Continue Stalevo. -Supportive care, home hospice upon discharge. History of orthostatic hypotension: -Continue fludrocortisone. Aphonia with dysphagia: -2/2 Parkinson's. -Aspiration precautions. -Diet: Minced and Moist and nectar thick liquids. Anxiety and depression: -Continue Celexa. Dispo: Med/surg Code Status: DNR/DNI DVT Prophylaxis: SCD, ASA 81mg (2) Paroxysmal atrial fibrillation: (3) Parkinson's disease dementia: (4) Aphonia: (5) Hypokalemia: (6) Anxiety and depression: Admission and Anticipated Discharge Date Admission Date: September 26, 2021 Supervising Physician Co-Signing Physician Notes Resident Physician Supervision Note: I independently interviewed and examined the patient and verified the argueta history and physical, reviewed labs and image studies and agree with resident Dr. Slater findings and care plan. Subjective Patient seen at the bedside this morning. Patient said he was doing fine this morning without complaints of pain. no chest pain, shortness of breath. had fever post op Physical Exam Constitutional: WD/WN, vitals as above Respiratory: normal respiratory effort, lungs clear to auscultation Cardiovascular: RRR, no murmur, no edema Gastrointestinal (Abdomen): normal bowel sounds, soft, nontender, no hepatosplenomegaly Skin: Dressing over surgical site without discoloration or leakage. Surrounding area without erythema. Results & Data Results & Data ([facility]) Vital Signs (Past 12 Hours) Vital Signs Temp Pulse Resp BP Pulse Ox 09/28/21 07:43 36.4 C L 82 16 120/68 93 09/28/21 03:57 96 09/28/21 03:56 97 09/28/21 03:53 37.3 C 86 20 133/73 96 09/27/21 22:38 36.9 C 75 20 117/71 98 Resident Activity Tracking Resident Involvement: Resident Care Provided Care Provided: Adult Hospital Medicine
--- NOTE | 2021-09-28 09:31 | Orthopedic Progress Note ---
Date of Service September 28, 2021 Assessment & Plan (1) Subcapital fracture of right femur: Plan: POD #1 s/p Right hip open reduction and internal fixation, minimally displaced impacted femoral neck fracture with cannulated screws x3 Toe-touch weightbearing right lower extremity. PT/OT. DVT prophylaxisTED stockings and aspirin. Pain controlIV morphine as needed, oral Tylenol. Discharge planningwill probably require a nursing facility versus a rehab facility because of the toe-touch weightbearing status. Admission and Anticipated Discharge Date Admission Date: September 26, 2021 Subjective Patient does not voice any pain in the right hip this morning. No other history given. Patient was sitting up in bed, comfortable. He was eating breakfast. Physical Exam Constitutional: average body habitus; no acute distress ENMT: external ear and nose normal, oropharynx normal Neck: trachea midline Musculoskeletal: Hip: + surgical incision (Right lateral hip: Dressing C/D/I. Right thigh soft.); no skin erythema and no ecchymosis Skin: no rashes, warm and dry Neurologic: normal touch/pain/proprioception Results & Data ([facility]) Vital Signs (Past 12 Hours) Vital Signs Temp Pulse Resp BP Pulse Ox 09/28/21 07:43 36.4 C L 82 16 120/68 93 09/28/21 03:57 96 09/28/21 03:56 97 09/28/21 03:53 37.3 C 86 20 133/73 96 09/27/21 22:38 36.9 C 75 20 117/71 98 Laboratory Results Laboratory Tests 09/28/21 09/28/21 05:58 05:58 WBC 13.30 H Hgb 10.5 L Hct 31.6 L Sodium 139 Potassium 3.4 L Chloride 104 Carbon Dioxide 30 BUN 17 Creatinine 0.60
[2021-09-28 09:34] LABS: Albumin Level 2.5 gm/dl (3.4-5.0); Bilirubin Direct 0.4 mg/dl (0-0.2); Bilirubin,Total 1.2 mg/dl (0.2-1)
[2021-09-28] MEDS: ACETAMINOPHEN 1,000 MG/100 ML VIAL IV PRN (12:01)
[2021-09-28] MEDS: FINASTERIDE 5 MG TAB PO SCH (12:02)
[2021-09-28] MEDS ORDERED: SODIUM CHLORIDE 0.9% 500 ML IV SCH (12:45)
[2021-09-28] MEDS: cefTRIAXone SODIUM 1,000 MG in DEXTROSE 5% 50 ML IV SCH (14:14)
[2021-09-28] MEDS: DOCUSATE SODIUM/SENNA 50/8.6MG TAB PO SCH (22:49)
[2021-09-28] MEDS: CARBIDOPA/LEVODOPA 25/100MG TAB PO SCH (22:50)
--- NOTE | 2021-09-29 07:53 | Orthopedic Progress Note ---
Date of Service September 29, 2021 Assessment & Plan (1) Subcapital fracture of right femur: Plan: POD #2 s/p Right hip open reduction and internal fixation, minimally displaced impacted femoral neck fracture with cannulated screws x3 Toe-touch weightbearing right lower extremity. PT/OT. DVT prophylaxisTED stockings and aspirin. Pain controlIV morphine as needed, oral Tylenol. Discharge planningwill probably require a nursing facility versus a rehab facility because of the toe-touch weightbearing status. Admission and Anticipated Discharge Date Admission Date: September 26, 2021 Subjective Patient seen at the bedside this morning. Patient was lying comfortably in bed. Patient had been asleep and had difficulty verbalizing any concerns or answering questions. Physical Exam Constitutional: average body habitus; no acute distress ENMT: external ear and nose normal, oropharynx normal Neck: trachea midline Musculoskeletal: Hip: + surgical incision (Right lateral hip: Dressing C/D/I. Right thigh soft.); no skin erythema and no ecchymosis Skin: no rashes, warm and dry Neurologic: normal touch/pain/proprioception Results & Data ([facility]) Vital Signs (Past 12 Hours) Vital Signs Temp Pulse Resp BP Pulse Ox 09/29/21 07:36 36.6 C 89 16 154/77 H 96 09/28/21 22:06 36.6 C 95 H 16 153/79 H 98
[2021-09-29] MEDS: CARBIDOPA/LEVODOPA 25/100MG TAB PO SCH ×4 (08:15→20:26)
[2021-09-29] MEDS: FLUDROCORTISONE ACETATE 0.1 MG TAB PO SCH ×2 (08:15→20:29)
[2021-09-29] MEDS: DOCUSATE SODIUM 100 MG CAP PO SCH (08:15)
[2021-09-29] MEDS: POTASSIUM CHLORIDE PWD 20 MEQ PACK PO SCH (08:17)
[2021-09-29] MEDS: FAMOTIDINE 20 MG TAB PO SCH (08:17)
[2021-09-29] MEDS: CITALOPRAM 20 MG TAB PO SCH (08:17)
[2021-09-29] MEDS: ASPIRIN 81 MG ECTAB PO SCH (08:17)
[2021-09-29 08:18] LABS: Basophils # (auto) 0.01 K/uL (0-0.2); Basophils % (auto) 0.1 %; Eosinophils # (auto) 0.11 K/uL (0-0.5); Eosinophils % (auto) 1.1 %; Hematocrit (blood only) 28.5 % (42-52); Hemoglobin 9.5 g/dL (14.0-18.0); Immature Granulocytes # (auto) 0.03 K/uL (0.00-0.02); Immature Granulocytes % (auto) 0.3 %; Lymphocytes # (auto) 0.48 K/uL (1.2-3.4); Lymphocytes % (auto) 4.7 %; Mean Corpuscular Hemoglobin 32.5 pg (25-34); Mean Corpuscular Hgb Conc 33.3 g/dL (32-36); Mean Corpuscular Volume 97.6 fL (80-100); Mean Platelet Volume 10.9 fL (7.4-10.4); Monocytes # (auto) 0.37 K/uL (0.11-0.59); Monocytes % (auto) 3.6 %; Neutrophils % (auto) 90.2 %; Platelet Count 127 K/uL (130-400); RDW Coefficient of Variation 13.4 % (11.5-14.5); RDW Standard Deviation 48.1 fL (36.4-46.3); Red Blood Count 2.92 M/uL (4.7-6.1)
[2021-09-29 08:54] LABS: BUN Creatinine Ratio 38.5 (10-20); Calcium 8.3 mg/dl (8.5-10.1); Creatinine Clr Calc Pharmacy 134.5 ml/min; Est GFR (African American) 125.4 ml/min; Est GFR (Non-African American) 108.2 ml/min; Potassium 3.2 mmol/L (3.5-5.1)
[2021-09-29] MEDS: KETOROLAC TROMETHAMINE 15 MG/ML VIAL IV PRN ×2 (10:03→16:34)
[2021-09-29] MEDS: FINASTERIDE 5 MG TAB PO SCH (11:56)
[2021-09-29] MEDS: POLYETHYLENE (MIRALAX) 17 GM PACK PO SCH ×2 (11:56→18:19)
[2021-09-29] MEDS: cefTRIAXone SODIUM 1,000 MG in DEXTROSE 5% 50 ML IV SCH (13:47)
[2021-09-29] MEDS: ACETAMINOPHEN 500 MG TAB PO SCH ×2 (13:48→20:33)
--- NOTE | 2021-09-29 16:50 | Hospitalist Progress Note ---
Date of Service September 29, 2021 Assessment & Plan (1) Closed right hip fracture: Plan: 76 year old male with past medical history Parkinson's disease with dementia, paroxysmal atrial fibrillation not on anticoagulation due to fall risk, recurrent UTI, recurrent aspiration and dysphagia, anxiety/depression, orthostatic hypotension, admitted for closed right hip fracture. Closed right hip fracture: -New fracture 2/2 trauma 2 days ago with decreased ability to ambulate due to pain. -CT hip/pelvis w/ evidence right proximal femur fracture. -Orthopedics consulted, S/P R hip open reduction and internal fixation on 09/27 -- Cleared from ortho perspective; to F/U as outpatient -On ASA 81mg for DVT prophylaxis. -- Only on once daily - will discuss with ortho if they prefer BID dosing -- Continue Tylenol MARLYS - does use liquid at home due to swallowing issues but tolerated oral options here; has allergy to Oxycodone -- Will discuss with case management to ask hospice if Roxanol could be used if more severe pain coverage is needed. Has only gotten Tyelnol/Toradol here -Patient on home hospice, per , return to hospice post surgery instead of rehab -- Also discussed considering home nursing for PT/OT at least initially instead of hospice however states in the past due to patients orthostasis he would get minimal therapy -Hgb at 9.5; vitals stable - will recheck in AM Fever: -Post surgery, max temperature of 38.7, came down to 36.9 with IV Tylenol. -Also had fever at the time of admission. - Possibly in setting of atelectasis given minimal activity after fall at home and then post-operatively. UCx with no growth and BCx with NGTD - No leukocytosis; afebrile x > 24 hours Paroxysmal atrial fibrillation: -EKG 09/26 with normal sinus rhythm, -On ASA 81mg but no other anticoagulation due to fall risk. Hypokalemia: -Monitor and replete as necessary Parkinson's disease with dementia: - Continue Sinemet QID History of orthostatic hypotension: - Likely in the setting of Parkinsons -Continue fludrocortisone. Aphonia with dysphagia: -2/2 Parkinson's. -Aspiration precautions. -Diet: Minced and Moist and nectar thick liquids. Anxiety and depression: -Continue Celexa. Dispo: Hospice can resume services tomorrow; plan for D/C home with hospice and caregiver support - Plan to have patient up to chair while is present to see if this appears doable in the home setting (2) Paroxysmal atrial fibrillation: (3) Parkinson's disease dementia: (4) Aphonia: (5) Hypokalemia: (6) Anxiety and depression: Admission and Anticipated Discharge Date Admission Date: September 26, 2021 Subjective Patient seen in the AM and when family at bedside. He was sitting in chair this AM and said he had minimal pain. He did think he was getting his hair done when asked him how he was. at bedside reports that is normal for him to be intermittently confused. Discussed PT recommendations and family would still prefer home with hospice and caregivers. He verbalizes no complaints to me and when his asked him if he needed anything he denied. Discussed with orthopedics who he is stable from their perspective. Review of Systems Review of Systems: Unobtainable due to cognitive status (limited due to minimal conversation and delayed responses - baseline) Physical Exam Physical Exam: PHYSICAL EXAM General Appearance: NAD; alert and oriented to self that can be assessed; thought he was getting his hair done this AM when talking to him but only minimally conversant HEENT: Head is normocephalic/atraumatic; Hearing grossly intact Neck: Supple; Trachea midline; Neg JVD Heart: RRR with no M/G/R Lungs: CTA in all lung foley bilaterally; Respirations unlabored; Neg accessory muscle use Abdomen: Soft, non-tender, non-distended; Positive BS x 4 quadrants Extremities: Neg cyanosis or edema; incision site with dressing applied C/D/I without surrounding erythema Neurological: Speech slowed which is normal for patient Psychiatric: flat Skin: Normal Color; Warm/Dry Results & Data Results & Data ([facility]) Vital Signs (Past 12 Hours) Vital Signs Temp Pulse Resp BP Pulse Ox 09/29/21 15:31 36.4 C L 78 16 132/78 97 09/29/21 07:36 36.6 C 89 16 154/77 H 96 PG Care Time/CCT Total # of Minutes Spent Total Time Spent with Patient: Total time spent is greater than 50% in coordination of care (as documented) at patient's floor/unit and/or counseling patient: Coding Level of Care Code 66843 Subseq Hosp Care Lvl 3 Diagnoses Closed right hip fracture S72.001A Paroxysmal atrial fibrillation I48.0 Parkinson's disease dementia G20; F02.80 Aphonia R49.1 Hypokalemia E87.6 Anxiety and depression F41.9; F32.9
[2021-09-29] MEDS: DOCUSATE SODIUM/SENNA 50/8.6MG TAB PO SCH (20:27)
[2021-09-30] MEDS: POLYETHYLENE (MIRALAX) 17 GM PACK PO SCH ×3 (01:16→12:16)
[2021-09-30 06:44] LABS: Hematocrit (blood only) 29.3 % (42-52); Hemoglobin 9.8 g/dL (14.0-18.0); Mean Corpuscular Hemoglobin 32.8 pg (25-34); Mean Corpuscular Hgb Conc 33.4 g/dL (32-36); Mean Platelet Volume 10.2 fL (7.4-10.4); Platelet Count 164 K/uL (130-400); RDW Coefficient of Variation 13.5 % (11.5-14.5); RDW Standard Deviation 48.3 fL (36.4-46.3); Red Blood Count 2.99 M/uL (4.7-6.1); White Blood Count 9.76 K/uL (4.8-10.8)
[2021-09-30 07:49] LABS: BUN Creatinine Ratio 42.5 (10-20); Calcium 8.8 mg/dl (8.5-10.1); Creatinine Clr Calc Pharmacy 121.3 ml/min; Est GFR (African American) 120.2 ml/min; Est GFR (Non-African American) 103.7 ml/min; Potassium 3.7 mmol/L (3.5-5.1)
[2021-09-30] MEDS: FAMOTIDINE 20 MG TAB PO SCH (09:26)
[2021-09-30] MEDS: FLUDROCORTISONE ACETATE 0.1 MG TAB PO SCH (09:26)
[2021-09-30] MEDS: ASPIRIN 81 MG ECTAB PO SCH (09:26)
[2021-09-30] MEDS: CARBIDOPA/LEVODOPA 25/100MG TAB PO SCH ×2 (09:27→12:16)
[2021-09-30] MEDS: CITALOPRAM 20 MG TAB PO SCH (09:27)
[2021-09-30] MEDS: POTASSIUM CHLORIDE PWD 20 MEQ PACK PO SCH (09:27)
[2021-09-30] MEDS: DOCUSATE SODIUM 100 MG CAP PO SCH (09:27)
[2021-09-30] MEDS: ACETAMINOPHEN 500 MG TAB PO SCH (09:40)
--- NOTE | 2021-09-30 10:57 | Orthopedic Progress Note ---
Date of Service September 30, 2021 Assessment & Plan (1) Subcapital fracture of right femur: Plan: POD 3 s/p ORIF R Hip Fx PT/OT protocols - TTWB DVT prophylaxis - ASA bid, SCD's, GABBY's Pain management as written. Orthopedics will sign off at this time. Instructions placed in DC section. Please call with questions. Follow up with Dr Cherry in 10-14 days. Admission and Anticipated Discharge Date Admission Date: September 26, 2021 Subjective Pt sitting up in chair at bedside. Awake. Alert. Answers slowly but answering questions appropriately. Having some pain in the operative hip today but mainly when getting OOB or when rotating the RLE during transfrers. No other complaints. Denies SOB, CP. Physical Exam Physical Exam: Dressings C/D/I. Calves soft, NT. NV intact. Results & Data ([facility]) Vital Signs (Past 12 Hours) Vital Signs Temp Pulse Resp BP Pulse Ox 09/30/21 07:42 36.3 C L 85 18 152/91 H 98
[2021-09-30] MEDS: FINASTERIDE 5 MG TAB PO SCH (12:16)
--- NOTE | 2021-09-30 12:37 | Discharge Summary ---
Date of Service September 30, 2021 Admission HPI Per Admitting Provider This is a patient who sustained a fall 2 days ago while at home. His and caregiver were able to get him up after the fall but was unable to ambulate. Yesterday, he was brought to the ER and noted to have a right hip fracture. We were consulted for surgical fixation of the fracture. Principal Diagnosis Right Hip Fracture Discharge Exam PHYSICAL EXAM General Appearance: NAD; alert and oriented to person, place, and situation HEENT: Head is normocephalic/atraumatic; Hearing grossly intact Neck: Supple; Trachea midline; Neg JVD Heart: RRR with no M/G/R Lungs: CTA in all lung foley bilaterally; Respirations unlabored; Neg accessory muscle use Abdomen: Soft, non-tender, non-distended; Positive BS x 4 quadrants Extremities: Neg cyanosis or edema; incision site with dressing applied C/D/I without surrounding erythema Neurological: Speech slowed which is normal for patient but seems slightly improved today compared to yesterday Psychiatric: flat (baseline); minimal eye contact Skin: Normal Color; Warm/Dry Discharge Data Allergies Allergy/AdvReac Type Severity Reaction Status Date / Time oxycodone [From OxyContin] AdvReac Unknown Unknown Verified 09/26/21 18:35 Consultations 09/26/21 17:58 Consult Orthopedic Surgery Routine ED Decision to Admit Stat 09/26/21 18:42 Consult Anesthesiology Routine Consult Orthopedic Surgery Routine Procedures Performed Operation Date: 09/27/21 10:00 Actual Procedures p ORIF Hip Cannulated Screw(Right) - Mina Cherry DO Ordered Studies Chest X-Ray 09/26/21 16:08 SINGLE VIEW CHEST CLINICAL HISTORY: Fall. FINDINGS: An AP, portable, semierect chest radiograph is compared to chest x-ray and chest CT dated 08/08/2021. The examination is degraded by portable technique and patient rotation. The heart is enlarged noting atherosclerotic calcification of the thoracic aorta. The pulmonary vasculature is noncongested. Chronic interstitial thickening is similar to previous. There is bibasilar atelectasis. A large calcified granuloma seen at the right lung base. The lungs and pleural spaces are otherwise clear. No pneumothorax is seen. The bony thorax is grossly intact. IMPRESSION: Cardiomegaly with no acute cardiopulmonary abnormality. ACT 112: Negative or not required by law. Electronically signed by: Jerry De Leon M.D. 09/26/2021 4:[address] 09/26/21 16:08 CT head/brain wo con CLINICAL HISTORY: 76 years-old Male with fall. Acute head trauma status post fall TECHNIQUE: Multiple axial CT images of the head were obtained without contrast. A dose lowering technique was utilized adhering to the principles of ALARA. CT DOSE: 906.34 mGycm COMPARISON: Head CT 07/11/2021 FINDINGS: No acute intracranial hemorrhage, midline shift, intracranial mass, hydroceph alus, territorial ischemia or abnormal extra-axial collection. Age-related involutional changes. Mild white matter hypodensities suggestive of chronic microvascular ischemic disease. Cerebral vascular calcifications. The calvarium is intact. Prior bilateral lens repair. The paranasal sinuses, mastoid air cells, and middle ear cavities are clear. IMPRESSION: No acute intracranial abnormality or calvarial fracture. ACT 112: Negative or not required by law. The above report was generated using voice recognition software. It may contain grammatical, syntax or spelling errors. Electronically signed by: Amrik Simon M.D. 09/26/2021 5:15 PM Hip/Pelvis X-Ray 09/26/21 16:08 SINGLE VIEW PELVIS; 2 VIEWS RIGHT HIP CLINICAL HISTORY: Right hip injury. FINDINGS: An AP view of the pelvis with AP and crosstable lateral views of the right hip are correlated with pelvic CT dated 08/08/2021. The examination is significantly degraded by suboptimal positioning and rotation of the right hip. The skeletal structures are osteopenic. No fracture is clearly identified involving the hips or bony pelvis. Mild arthritic change and joint space narrowing is seen in the hips. Mild degenerative change is noted in the sacroiliac joints. Lumbosacral spondylosis is partially imaged. Large enthesophytes arise from the anterior superior iliac spines and the greater trochanters of the proximal femora. There is atherosclerotic calcification of the femoral arteries. The overlying soft tissues are normal as imaged. IMPRESSION: 1. The examination is significantly degraded by rotation of the right hip. 2. No fracture is clearly identified. If there strong clinical concern for fracture a CT should be obtained. Electronically signed by: Jerry De Leon M.D. 09/26/2021 4:[address] 09/26/21 17:09 CT pelvis wo con, CT hip RT wo con HISTORY: 76 years-old Male fall acute pelvic and right-sided hip pain status po st fall COMPARISON: Pelvis and hip radiographs of same day, CT abdomen and pelvis 08/08/2021 TECHNIQUE: Multiple axial CT images of the pelvis and right hip were obtained without the use of IV contrast. A dose lowering technique was used consistent with the principals of ALARA. FINDINGS: PELVIS: Moderate degeneration with partial bony fusion of the SI joints. Intervertebral disc space narrowing with spondylitic spurring and facet arthrosis of the imaged lower lumbar spine. Findings no acute sacral insufficiency fracture. Acute fracture of the proximal right femur as below. There is no acute pelvic ring fracture. Atherosclerosis of the aorta and iliac arteries. Moderate fecal retention with trace perirectal stranding. Normal appendix. Urinary bladder wall thickening with trabeculation numerous diverticula compatible with chronic bladder outlet obstruction. The prostate is upper limits of normal in size. Asymmetric enlargement and heterogeneity of the right adductor musculature. Small right hip joint effusion/hemarthrosis. RIGHT HIP: There is an acute mildly comminuted and slightly impacted fracture of the right femoral neck involving the subcapital and transcervical distributions. Fracture fragments are displaced anteriorly a few millimeters. No dislocation. IMPRESSION: 1. Acute mildly impacted and slightly comminuted fracture of the right proximal femur involving the subcapital and transcervical distributions without significant displacement. 2. Enlargement and heterogeneity of the right abductor musculature is suggestive of acute intramuscular hematoma. 3. Small right hip joint effusion/hemarthrosis. ACT 112: Negative or not required by law. The above report was generated using voice recognition software. It may contain grammatical, syntax or spelling errors. Electronically signed by: Amrik Simon M.D. 09/26/2021 5:[address] 09/26/21 17:09 CT pelvis wo con, CT hip RT wo con HISTORY: 76 years-old Male fall acute pelvic and right-sided hip pain status post fall COMPARISON: Pelvis and hip radiographs of same day, CT abdomen and pelvis 08/08/2021 TECHNIQUE: Multiple axial CT images of the pelvis and right hip were obtained without the use of IV contrast. A dose lowering technique was used consistent with the principals of ALARA. FINDINGS: PELVIS: Moderate degeneration with partial bony fusion of the SI joints. Intervertebral disc space narrowing with spondylitic spurring and facet arthrosis of the imaged lower lumbar spine. Findings no acute sacral insufficiency fracture. Acute fracture of the proximal right femur as below. There is no acute pelvic ring fracture. Atherosclerosis of the aorta and iliac arteries. Moderate fecal retention with trace perirectal stranding. Normal appendix. Urinary bladder wall thickening with trabeculation numerous diverticula compatible with chronic bladder outlet obstruction. The prostate is upper limits of normal in size. Asymmetric enlargement and heterogeneity of the right adductor musculature. Small right hip joint effusion/hemarthrosis. RIGHT HIP: There is an acute mildly comminuted and slightly impacted fracture of the right femoral neck involving the subcapital and transcervical distributions. Fracture fragments are displaced anteriorly a few millimeters. No dislocation. IMPRESSION: 1. Acute mildly impacted and slightly comminuted fracture of the right proximal femur involving the subcapital and transcervical distributions without significant displacement. 2. Enlargement and heterogeneity of the right abductor musculature is suggestive of acute intramuscular hematoma. 3. Small right hip joint effusion/hemarthrosis. ACT 112: Negative or not required by law. The above report was generated using voice recognition software. It may contain grammatical, syntax or spelling errors. Electronically signed by: Amrik Simon M.D. 09/26/2021 5:36 PM Hip X-Ray 09/27/21 10:40 RIGHT HIP 2 VIEWS CLINICAL HISTORY: Postoperative examination. FINDINGS: AP and crosstable lateral portable views of the right hip are compared to x-rays and CT dated 09/26/2021. The skeletal structures are osteopenic. 3 intertrochanteric cortical lag screws transfix a subcapital fracture of the right proximal femur. Near-anatomic alignment is maintained. The orthopedic hardware appears intact. The visualized right hemipelvis appears intact. Mild/moderate degenerative joint narrowing is seen in the right hip. Soft tissue swelling, subcutaneous gas, and skin clips are expected postoperative findings. There is atherosclerotic calcification of the right femoral artery. IMPRESSION: Expected postoperative findings status post open reduction and internal fixation of the right proximal femur as above. Electronically signed by: Jerry De Leon M.D. 09/27/2021 12:37 PM Hip X-Ray 09/27/21 11:00 INTRAOPERATIVE RADIOGRAPHS CLINICAL HISTORY: Open reduction and internal fixation of the right proximal femur. Fluoroscopy time: 88 seconds. FINDINGS: 2 spot fluoroscopic views of the right hip are correlated with radiographs dated 09/26/2021. 3 intertrochanteric cortical lag screws transfix a subcapital fracture of the right proximal femur. Near-anatomic alignment is maintained. IMPRESSION: Intraoperative images from open reduction and internal fixation of the right proximal femur. Electronically signed by: Jerry De Leon M.D. 09/27/2021 11:46 AM Hospital Course (1) Closed right hip fracture: 76 year old male with past medical history Parkinson's disease with dementia, paroxysmal atrial fibrillation not on anticoagulation due to fall risk, recurrent UTI, recurrent aspiration and dysphagia, anxiety/depression, orthostatic hypotension, admitted for closed right hip fracture. Closed right hip fracture: -New fracture 2/2 trauma from a fall with decreased ability to ambulate due to pain. -CT hip/pelvis w/ evidence right proximal femur fracture. -Orthopedics consulted, S/P R hip open reduction and internal fixation on 09/27 -- Cleared from ortho perspective; to F/U as outpatient -On ASA 81mg BID for DVT prophylaxis x 4 weeks then can resume once a day dosing -- Continue Tylenol MARLYS - does use liquid at home due to swallowing issues but tolerated oral options here; has allergy to Oxycodone -- Can use Roxanol given hospice - if more severe pain coverage is needed. Has only gotten Tyelnol/Toradol here -Patient on home hospice, per , return to hospice post surgery instead of rehab -- She reports he had a bad experience at [facility] and they want to avoid a [facility] setting -- Also discussed considering home nursing for PT/OT at least initially instead of hospice however states in the past due to patients orthostasis he would get minimal therapy and she does have family and caregiver support. Hospice can also assit with some ROM exercise Fever: -Post surgery, max temperature of 38.7, came down to 36.9 with IV Tylenol. -Also had fever at the time of admission. - Possibly in setting of atelectasis given minimal activity after fall at home and then post-operatively. UCx with no growth and BCx with NGTD; no other source of infection - No leukocytosis; afebrile x > 48 hours Paroxysmal atrial fibrillation: -EKG 09/26 with normal sinus rhythm, -On ASA 81mg but no other anticoagulation due to fall risk. Parkinson's disease with dementia: - Continue Sinemet QID History of orthostatic hypotension: - Likely in the setting of Parkinsons -Continue fludrocortisone. Aphonia with dysphagia: -2/2 Parkinson's. -Aspiration precautions. -Diet: Minced and Moist and nectar thick liquids. Anxiety and depression: -Continue Celexa. Dispo: Hospice can resume services on day of discharge; plan for D/C home with hospice and caregiver support (2) Paroxysmal atrial fibrillation: (3) Parkinson's disease dementia: (4) Aphonia: (5) Hypokalemia: (6) Anxiety and depression: Total Time Total Time Spent Total Time Spent (In Minutes): Spent greater than 30 minutes preparing patient for discharge. This includes discussion with patient/family, assessment, intervention, medication reconciliation, and coordination of care. Discharge Plan Discharge Items Patient Disposition: Hospice - Home Reason For Visit: HIP FRACTURE Discharge Diagnosis: Right Hip Fracture Activity: Per Instructions section Weightbearing: Left toe touch Weightbearing Comment: with walker or crutches Non-emergency contact: Surgeon Call non-emergency contact if: you have any medication questions, your pain is not controlled, your temperature is above 101.5, your wound has increased redness and your wound has increased drainage Follow-up/Referrals: Emilie Alamo MD [Primary Care Provider] - Mina Cherry DO [Surgeon] - (Follow up in 10-14 days from the day of surgery for your first post operative check.) Diet: Regular Liquid Consistency: [place] thick Addtl Attending Provider Instructions: Right Hip Fracture: - You were admitted for a hip fracture that was surgically repaired. Please see below on instructions from the orthopedic doctors and for follow-up - We have been using mostly Tylenol to control pain and can continue this at home. We have been using Acetaminophen 1000 mg three times a day. For a few days you could schedule it around the clock to get ongoing coverage then move to just as needed. - We also used Toradol which is a very strong version of Ibuprofen. However, we do not like to use this too much as it can cause stomach ulcers when used for long periods of time. - He has used Roxanol (liquid morphine) through the hospice agency prior to coming in and that could be an option if he needs something a bit stronger. - He will be maintained on aspirin 81 mg twice a day to help prevent blood clots. This will be for the next 4 weeks then he can go back to just his once a day dose - Can continue Miralax as needed for constipation. Prune juice and butter is a good option too. Fevers: - He has been without fever for > 48 hours. No source of infection was found and this is likely in the setting of atelectasis. This is when the small little airways in the lungs clamp down and can cause a fever. - To prevent this you can take nice deep breaths or use the incentive spirometry that is given in the hospital to help keep those airways popped open Home Medications: - Continue previous home medication as previously prescribed. We did not adjust these. 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 You are to ambulate with a walker or crutches for approximately 6 weeks. B. You are TOE TOUCH WEIGHT BEARING on your operative lower extremity for at least 6 weeks. C. Wear low heeled shoes with non-slip soles D. Be sure that your floors are free of things that could trip you throw rugs, electrical cords, and small objects. Avoid wet and waxed floors, especially with crutches/walker/cane. E. Try to walk several times a day with rest periods between. F. You may shower 48 hours after surgery and get the incision area wet, but DO NOT soak or submerge incision area in water. (No baths, swimming pools, hot tubs) G. You may have a large, band-aid like dressing over your incision (Aquacel). This will remain on your incision for 7 days, and then can be removed. You CAN shower with this on. If incision is leaking through the dressing, please call the office . H. Do NOT apply soap or any ointment/lotions directly over incision. I. You may use ice as needed to operative site. SPECIAL CARE INSTRUCTIONS: VERY IMPORTANT TO READ AND REVIEW A. You may be at risk for phlebitis or blood clots. a. Wear surgical stockings (GABBY hose) for 2 weeks after surgery to improve circulation and reduce swelling. b. Take ASPIRIN 325 mg twice daily for 4 weeks or as directed. This is your blood thinner. B. There are a few signs you need to watch for after you are home. Call [facility] at [phone] if you experience any of the following: a. If you have a temperature of 101 degrees or higher. b. Sudden increase in pain in your hip not relieved by rest or pain medication. c. Any fluid or drainage from the incision; redness of the incision. d. Shortness of breath or chest pain. C. Call your physician if: a. Temperature is greater than 101 degrees (F). b. Pain is not relieved by prescribed pain medications. c. Increase drainage or redness from incision. d. Unanswered questions or concerns. D. Pain Medication: a. You will be prescribed pain medication upon discharge that should last till your first post-operative appointment. b. If you experience nausea and/or skin rash, discontinue this medication and contact our office for an alternative medication. c. Caution- narcotic pain medication can cause constipation. FOLLOW UP VISIT: Please call [facility] at [phone] to schedule a follow up appointment 10-14 days from the date of your surgery date. Pending Studies at Discharge: No Stand-Alone Forms: My [facility] Medications and DC Order Prescriptions: New aspirin 81 mg Tablet,Delayed Release (Dr/Ec) 81 mg PO BID 28 Days Qty: 56 RF: 0 Continued fludrocortisone 0.1 mg tablet 0.1 mg PO BID 30 Days Qty: 60 RF: 5 dutasteride 0.5 mg capsule 0.5 mg PO QDL Qty: 30 RF: 11 hyoscyamine sulfate 0.125 mg tablet 0.125 mg PO .COMPLEX PRN (Reason: Secretions) RF: 0 scopolamine base 1 mg over 3 days patch 3 day 1 patch transdermal .COMPLEX PRN (Reason: Secretions) RF: 0 lorazepam 1 mg tablet 0.5 mg PO .COMPLEX PRN (Reason: Anxiety) RF: 0 docusate sodium 100 mg capsule 200 mg PO DAILY RF: 0 citalopram [Celexa] 10 mg tablet 10 mg PO DAILY RF: 0 famotidine 20 mg Tablet 20 mg PO QAM RF: 0 potassium chloride 20 mEq Packet 20 meq PO DAILY Qty: 30 RF: 0 carbidopa-levodopa [Sinemet] 25-100 mg Tablet 1 tab PO QID RF: 0 polyethylene glycol 3350 [Miralax] 17 gram Powder In Packet 17 g PO DAILY PRN (Reason: Constipation) RF: 0 melatonin 10 mg Tablet 10 mg PO HS PRN (Reason: Sleep) RF: 0 Discontinued aspirin 81 mg tablet,delayed release (DR/EC) 81 mg PO DAILY RF: 0 Discharge Orders: Discharge Order (Routine); Ordered 09/30/21 Ordered By: Tamela Jang Admission Data Admit Date/Time: 09/26/21 19:09 Attending Provider: Eliseo Salazar Admit Provider: Deyanira Monet Primary Care Provider: Emilie Alamo Other Providers: Nathan Antony ; Deyanira Monet ; Eliseo Mcpherson ; [facility] Other Interventions: Discharge Summary Assessment (RN) Last Done: 09/30/21 13:02 Supervising Physician Co-Signing Physician Notes Attending note: patient seen and examined with Tamela Jang PA-C. I agree with her discharge summary. I personally reviewed the labs and imaging findings. patient sitting up in a chair, no distress, denies sever pain, eating okay, breathing stable - hip fracture, s/p ORIF return to home on hospice services, family to provide care, pain control aspirin BID x 1 month then resume daily dosing, this is for DVT prophylaxis Coding Level of Care Code D/C DAY MANAGEMENT >30 MINS Diagnoses Closed right hip fracture S72.001A Paroxysmal atrial fibrillation I48.0 Parkinson's disease dementia G20; F02.80 Aphonia R49.1 Hypokalemia E87.6 Anxiety and depression F41.9; F32.9
[2021-09-30] MEDS ORDERED: ASPIRIN 81 MG ECTAB PO SCH (21:00)
== END 2021-09-30 13:14 | disposition hospice, home (50) | DRG 481 ==
LOC: ED 15:44 → EDINP 19:09 → SUATTDRO 19:09 → 3E 22:00